=== PATIENT | male | born 1960 | race Caucasian/White ===

== ENCOUNTER → 2017-10-28 | Outpatient (CLI) | payer MEDICARE, BC, SELFPAY | PROVIDERS: Visit Provider Internal Medicine Adolescent Medicine | DX: E11.9 Type 2 diabetes mellitus without complications (principal); Z79.01 Long term (current) use of anticoagulants; Z51.81 Encounter for therapeutic drug level monitoring | CPT/HCPCS: 80053; 84550; 85025; 85610 ==

== ENCOUNTER → 2018-02-24 15:39 | Outpatient (REF) | payer MEDICARE, BC, SELFPAY ==
[2018-02-24 16:48] LABS: Basophils % 0.4 % (0.1-2.0); Eosinophils # 0.2 K/mm3 (0.0-0.4); Eosinophils % 4.2 % (0.1-12.0); Hemoglobin 13.9 g/dL (14.1-18.0); Lymphocytes # 1.5 K/mm3 (0.7-4.5); Lymphocytes % 33.9 K/mm3 (10-50); Mean Corpuscular HGB Conc 32.5 g/dL (31.8-35.4); Mean Corpuscular Hemoglobin 30.9 pg (27.0-31.2); Mean Corpuscular Volume 95.1 fl (80-94); Mean Platelet Volume 9.3 fl (7.4-10.4); Monocytes # 0.3 K/mm3 (0.1-1.0); Neutrophils # 2.4 K/mm3 (1.8-7.8); Neutrophils % 54.6 % (37.0-80.0); Platelet Count 216 K/mm3 (142-424); Red Blood Count 4.52 M/mm3 (4.60-6.20); Red Cell Distribution Width 13.6 % (11.5-17.5); White Blood Count 4.4 K/mm3 (4.8-10.8)
[2018-02-24 16:49] LABS: Anion Gap 10.2 mEq/L (5-15); Blood Urea Nitrogen 29 mg/dL (7-18); Carbon Dioxide 29 mmol/L (21.0-32.0); Chloride 107 mmol/L (98-107); Creatinine,Serum 0.76 mg/dL (0.70-1.30); Estimated Glomerular Filt Rate 105 ml/min (>60); GFR (African American) 127 ML/MIN (>60); Glucose 133 mg/dL (74-106); Potassium 4.2 mmoL/L (3.5-5.1); Sodium 142 mmol/L (136-145)
== END ==
LOC: LAB 15:39
PROVIDERS: Visit Provider Internal Medicine Adolescent Medicine
DX: D64.9 Anemia, unspecified (principal)
CPT/HCPCS: 80048; 85025

== ENCOUNTER → 2018-02-25 13:32 | Outpatient (POV) | payer MEDICARE, BC, SELFPAY ==
[2018-02-25 13:51] VITALS: BP 165/75; PULSE 81; RESP 18; TEMP 36.6; O2SAT 98
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
== END ==
PROVIDERS: Family Provider Internal Medicine Adolescent Medicine; PCP Internal Medicine Adolescent Medicine; Visit Provider Anesthesiology
DX: R25.2 Cramp and spasm (principal); G82.50 Quadriplegia, unspecified
CPT/HCPCS: 99202

== ENCOUNTER → 2018-07-19 14:04 | Outpatient (REF) | payer MEDICARE, BC, SELFPAY ==
[2018-07-19 15:56] LABS: INR 2.43 (0.9-1.1); Prothrombin Time 24.4 seconds (9.4-11.8)
== END ==
LOC: LAB 14:04
PROVIDERS: Visit Provider Internal Medicine Adolescent Medicine
DX: Z51.81 Encounter for therapeutic drug level monitoring (principal); Z79.01 Long term (current) use of anticoagulants
CPT/HCPCS: 85610

== ENCOUNTER 2019-03-13 20:23 | Observation (INO) | payer MEDICARE, OTHER, SELFPAY ==
[2019-03-13] VITALS (7 sets, daily range): BP systolic 109–124; BP diastolic 60–76; PULSE 79–118; RESP 14–17; TEMP 36.4–37.2; O2SAT 87–97; BMI 33.0
--- NOTE | 2019-03-13 20:43 | XR_ITS ---
XR chest portable HISTORY: Low O2 saturation ITS.REASON: LOW SATS ORDERING PHYSICIAN: Roman Arriola MD PATIENT AGE: 58 years COMPARISON: 11/09/2012 FINDINGS: There is elevated right hemidiaphragm. There is poor inspiration. The patient's head and torso is tilted toward the right. Normal heart size. Left lung is clear. Atelectatic changes are present in the right lung base which simulates a pneumoperitoneum. BARBECUE COOK shunt traverses the right hemithorax and pleural thickening on the right. Overall there is no significant change. There are old left-sided rib fractures IMPRESSION: Elevated right hemidiaphragm with right basilar atelectasis and mild pleural thickening on the right with low lung volumes
--- NOTE | 2019-03-13 21:00 | PC.NURSE ---
lab at bedside to get blood.
--- NOTE | 2019-03-13 21:05 | CT_ITS ---
CT abdomen pelvis wo con CLINICAL INDICATION: Vomiting, bloody emesis ITS.REASON: bloody emesis ORDERING PHYSICIAN: Rafy Tomas MD PATIENT AGE: 58 years COMPARISON: 12/26/2011 TECHNIQUE: Axial images obtained with sagittal and coronal reformats. All CT scans at the facility use one or more dose reduction, viz: automated exposure control, ma/kV adjustment per patient size (including targeted exams where dose is matched to indication, i.e. head), or iterative reconstruction technique. PROCEDURE: Oral Contrast: None IV Contrast: None . FINDINGS: There is elevated right hemidiaphragm with consolidation in the right lung base posterior laterally suspicious for pneumonia with chronic atelectatic changes in the right lower lobe. There is mild prominence of the ascending aorta 4 cm. The liver, spleen, gallbladder, and adrenal glands are unremarkable. There are nonobstructing bilateral renal calculi. The largest stone is in the lower pole on the left measuring 15 mm. The largest cluster stones is in the right mid polar region at 13 mm. No ureteral dilatation. No hydronephrosis. Indeterminate hypodense lesion left kidney anteriorly There is an IVC filter present. There is mild dilatation of the infrarenal abdominal aorta at 2.8 cm. A [employer] shunt traverses the right hemithorax with the tip in the right lower quadrant. Artifact is present from a pain along the left lower abdomen. There is a small left inguinal hernia which contains a loop of descending colon. Small amount fluid is present within this hernia. Small right inguinal hernia is present containing fat. There is a Lopez catheter present. G-tube is present in good position. Small amount fluid is present in the pelvis There is an old ununited left femoral neck fracture with superior displacement of the distal fracture fragment Chronic compression changes are present at L1 and L2. IMPRESSION: 1. Peripheral consolidation in the right lower lobe consistent with pneumonia with elevated right hemidiaphragm and right basilar atelectasis. 2. Bilateral nephrolithiasis 3. Indeterminate isodensity left kidney anteriorly which may be better evaluated with ultrasound. 4. ELEMENTARY SUBSTITUTE TEACHER shunt in place. 5. Small amount of free fluid in the pelvis. 6. Bilateral inguinal hernias left larger than right. A loop of descending colon is in the left inguinal hernia without obstruction
--- NOTE | 2019-03-13 21:07 | HMH.EDSOB ---
ED Disposition Clinical Impression: Gastrointestinal tube present UTI (urinary tract infection) Qualifiers: Urinary tract infection type: site unspecified Hematuria presence: without hematuria Qualified Code(s): N39.0 - Urinary tract infection, site not specified Diabetes mellitus Qualifiers: Diabetes mellitus type: type 1 Diabetes mellitus complication status: with unspecified complications Qualified Code(s): E10.8 - Type 1 diabetes mellitus with unspecified complications Disposition: Admitted as Observation Condition on Discharge: Good - Critical Care Critical Care Time: No Attestation: On 03/13/19, the high probability of a clinically significant, sudden or life threatening deterioration of the following system(s) required my full and direct attention, intervention and personal management. The time I documented below is in addition to time spent performing reported procedures but includes the following listed in this critical care notation. Medical Decision Making - Medical Records Medical records reviewed: Yes: I reviewed the patient's medical records. - Lobo Inquiry Pt receiving controlled substance: No Vital Signs: 03/13/19 20:25 03/13/19 20:30 03/13/19 21:25 Temperature 98.9 F 97.5 F L Temperature Source Rectal Rectal Pulse Rate [Right Brachial] 118 H 115 H 113 H Respiratory Rate 16 16 17 Blood Pressure [Right Arm] 115/70 116/71 120/60 Blood Pressure Mean [Right Arm] 85 86 80 02 Sat by Pulse Oximetry 87 L 91 L 93 L Oxygen Delivery Method Room Air Nasal Cannula Nasal Cannula Oxygen Flow Rate (LPM) 2 2 03/13/19 22:00 03/13/19 22:30 03/13/19 23:00 Temperature Temperature Source Pulse Rate [Right Brachial] 108 H 87 79 Respiratory Rate 14 15 Blood Pressure [Right Arm] 123/76 109/70 L 120/66 Blood Pressure Mean [Right Arm] 91 83 84 02 Sat by Pulse Oximetry 94 L 97 96 Oxygen Delivery Method Nasal Cannula Nasal Cannula Nasal Cannula Oxygen Flow Rate (LPM) 2 2 2 03/13/19 23:30 Temperature Temperature Source Pulse Rate [Right Brachial] 79 Respiratory Rate 15 Blood Pressure [Right Arm] 124/71 Blood Pressure Mean [Right Arm] 88 02 Sat by Pulse Oximetry 97 Oxygen Delivery Method Nasal Cannula Oxygen Flow Rate (LPM) 2 - Lab Data Lab results reviewed: Yes: I reviewed the patient's lab results. Lab Results 03/13/19 20:43: Specimen Source Right radial, O2 % 28, ABG pH 7.38, ABG pCO2 35.4, ABG pO2 71.6 L, ABG HCO3 20.6 L, ABG Total CO2 21.7 L, ABG O2 Saturation 94, ABG Base Excess -4.5 L, Jarrod Test Acceptable 03/13/19 20:59: WBC 9.0, RBC 4.88, Hgb 15.3, Hct 44.5, MCV 91.1, MCH 31.4 H, MCHC 34.4, RDW 14.0, Plt Count 234, MPV 9.0, Neut % (Auto) 76.3, Lymph % (Auto) 15.7, [place] % (Auto) 6.6, Eos % (Auto) 1.3, Baso % (Auto) 0.2, Neut # (Auto) 6.9, Lymph # (Auto) 1.4, [place] # (Auto) 0.6, Eos # (Auto) 0.1, Baso # (Auto) 0.0 03/13/19 20:59: Sodium 134 L, Potassium 4.2, Chloride 100, Carbon Dioxide 23, Anion Gap 15.2 H, BUN 24 H, Creatinine 0.66 L, Estimated Creat Clear 176, Estimated GFR 123, Est GFR ( Amer) 149, Glucose 261 H, Calcium 8.8, Total Bilirubin 0.5, AST 17, ALT 42, Alkaline Phosphatase 176 H, Total Protein 7.5, Albumin 3.1 L, Globulin 4.4 H, Albumin/Globulin Ratio 0.7 L 03/13/19 20:59: Lactate 1.7 03/13/19 20:59: Troponin I < 0.02 03/13/19 21:21: Urine Color Yellow, Urine Appearance Clear, Urine pH 7.5, Ur Specific [place] 1.010, Urine Protein Negative, Urine Glucose (UA) Negative, Urine Ketones Negative, Urine Blood Trace-i, Urine Nitrate Positive, Urine Bilirubin Negative, Urine Urobilinogen 0.2, Ur Leukocyte Esterase 3+ A, Urine RBC Occasional, Urine WBC 5-10, Ur Squamous Epith Cells Occasional, Urine Bacteria 1+ Result diagrams: 03/13/19 20:59 03/13/19 20:59 Orders (Tests/Meds): ED MEDICATIONS Generic Name Dose Route Start Last Admin Trade Name Freq PRN Reason Stop Dose Admin Sodium Chloride 1,000 mls @ 999 mls/hr 03/13/19 21:15 03/13/19 21:12 Sod Chlor 0.9% 10
[2019-03-13 21:10] LABS: Basophils % 0.2 % (0.1-2.0); Eosinophils # 0.1 K/mm3 (0.0-0.4); Eosinophils % 1.3 % (0.1-12.0); Hematocrit 44.5 % (42.0-52.0); Hemoglobin 15.3 g/dL (14.1-18.0); Lymphocytes # 1.4 K/mm3 (0.7-4.5); Lymphocytes % 15.7 % (10-50); Mean Corpuscular HGB Conc 34.4 g/dL (31.8-35.4); Mean Corpuscular Hemoglobin 31.4 pg (27.0-31.2); Mean Corpuscular Volume 91.1 fl (80-94); Monocytes # 0.6 K/mm3 (0.1-1.0); Monocytes % 6.6 % (1.7-9.3); Neutrophils # 6.9 K/mm3 (1.8-7.8); Neutrophils % 76.3 % (37.0-80.0); Platelet Count 234 K/mm3 (142-424); Red Blood Count 4.88 M/mm3 (4.60-6.20)
[2019-03-13 21:28] LABS: Alanine Aminotransferase 42 U/L (12-78); Albumin Level 3.1 gm/dL (3.4-5.0); Albumin/Globulin Ratio 0.7 (1.1-1.8); Alkaline Phosphatase 176 U/L (46-116); Anion Gap 15.2 mEq/L (5-15); Aspartate Amino Transferase 17 U/L (15-37); Bilirubin,Total 0.5 mg/dL (0.2-1.0); Blood Urea Nitrogen 24 mg/dL (7-18); Calcium 8.8 mg/dL (8.5-10.1); Carbon Dioxide 23 mmol/L (21.0-32.0); Chloride 100 mmol/L (98-107); Creatinine Clearance Estimated 176 mL/min (50-200); Creatinine,Serum 0.66 mg/dL (0.70-1.30); Estimated Glomerular Filt Rate 123 ml/min (>60); GFR (African American) 149 ML/MIN (>60); Globulin 4.4 gm/dl (1.3-3.2); Glucose 261 mg/dL (74-106); Potassium 4.2 mmoL/L (3.5-5.1); Sodium 134 mmol/L (136-145); Total Protein,Serum 7.5 gm/dL (6.4-8.2)
[2019-03-13 21:30] LABS: Appearance,Urine CLEAR (Clear); Bilirubin,Urine Negative (Negative); Blood, Urine TRACE-I (Negative); Color,Urine YELLOW (Yellow); Glucose,Urine (UA) Negative (Negative); Ketones,Urine Negative (Negative); Leukocyte Esterase,Urine 3+ (Negative); Microscopic, Urine URINE MICROSCOPIC (MICROSCOPIC); Nitrate,Urine POSITIVE (Negative); PH,Urine 7.5 (5.0-8.5); Protein,Urine Negative (Negative); Urobilinogen,Urine 0.2 EU/dl (0.2)
[2019-03-13 21:36] LABS: ABG Base Excess -4.5 mmol/L (-2.4-2.3); ABG HCO3 20.6 mmhg (22.0-26.0); ABG Oxygen Saturation 94 % (90-100); ABG PCO2 35.4 mmhg (35.0-45.0); ABG PH 7.38 mmol/L (7.35-7.45); ABG PO2 71.6 mmhg (80-100); ABG TCO2 21.7 mmhg (23-27)
[2019-03-13 21:38] LABS: Allen's Test Acceptable; Oxygen 28 %; Source Right Radial
[2019-03-13 21:38] LABS: Lactic Acid 1.7 mmol/L (0.4-2.0)
[2019-03-13 21:40] LABS: RBC,Urine Occasional #/hpf (0-3); Squamous Epithelial Cell,Urine Occasional #/hpf (0-5)
[2019-03-13 21:41] LABS: Bacteria,Urine 1+ /lpf
[2019-03-13 22:01] LABS: Troponin I < 0.02 ng/ml (0.00-0.06)
[2019-03-14] VITALS (10 sets, daily range): BP systolic 106–159; BP diastolic 62–86; PULSE 76–100; RESP 15–20; TEMP 36.3–37.1; O2SAT 94–99; BMI 27.3
--- NOTE | 2019-03-14 00:21 | PC.NURSE ---
Dr Arriola stated he would hold all home medications at this time.
--- NOTE | 2019-03-14 01:08 | PC.NURSE ---
PT ARRIVED TO FLOOR VIA STRETCHER FROM ED
[2019-03-14 04:09] LABS: Troponin I < 0.02 ng/ml (0.00-0.06)
--- NOTE | 2019-03-14 04:45 | PC.NURSE ---
PT ADMITTED FROM ER DX OF UTI. ÁLVAREZ CATHETER SECURE, URINE CLOUDY. IV FLUIDS INFUSING NS@ 50/HR. IV ABX WELL. RESPIRATIONS EVEN AND UNLABORED ON 2L/NC. BREATH SOUNDS EQUAL AND CLEAR. PT IS ALMOST COMPLETELY NON-VERBAL. CONTRACTURES ALL 4 EXTREMITIES. PT HAS HX ANOXIC BRAIN DAMAGE, CVA, AND IS FLACCID R/T HEMIPLEGIA. PT HAS NUMEROUS OTHER PROBLEMS LISTED. PT HAS DSG UNDER LEFT ARM PIT, DID NOT RECEIVED ANY INFORMATION FROM [facility] REGARDING THIS. PT NSR ON MONITOR. FIRST 2 TROPONINS HAVE BEEN <0.02. PT STABLE. WILL CONTINUE TO MONITOR. REPORT TO BE GIVEN TO ONCOMING NURSE.
--- NOTE | 2019-03-14 07:30 | P.CONPHA_ITS ---
[facility] Pharmacy VTE Monitoring - Patient Demographics Admission date: 03/13/19 Report Date: 03/14/19 Time: 07:30 Allergies/Adverse Reactions: Patient Allergies adhesive [ADHESIVE] Allergy (Mild, Verified 03/10/19 22:15) LISNIOPRIL Allergy (Mild, Uncoded 08/21/18 11:16) Height: 1.78 m Weight: 86.75 kg Patient Problems: Current Active Problems (Updated 03/14/19 @ 00:10 by Roman Arriola MD) UTI (urinary tract infection) (Acute) Diabetes mellitus (Acute) Gastrointestinal tube present (Acute) - VTE Risk Labs: VTE Related Lab Results Hgb 15.3 g/dL (14.1-18.0) 03/13/19 20:59 Hct 44.5 % (42.0-52.0) 03/13/19 20:59 Plt Count 234 K/mm3 (142-424) 03/13/19 20:59 BUN 24 mg/dL (7-18) H 03/13/19 20:59 Creatinine 0.66 mg/dL (0.70-1.30) L 03/13/19 20:59 Estimated Creat Clear 176 mL/min (50-200) 03/13/19 20:59 VTE Score: 7 VTE Risk Level: Moderate Risk - Prophylaxis VTE Prophylaxis Ordered?: Yes Types of VTE Prophylaxis: TEDS Knee High Location of Applied Device: Bilateral Lower Extremeties - VTE Diagnosis Confirmed Treatment or plan recommended: Continue Current Treatment
[2019-03-14 07:47] LABS: Chloride 106 mmol/L (98-107); Sodium 137 mmol/L (136-145); Troponin I < 0.02 ng/ml (0.00-0.06)
[2019-03-14 07:52] LABS: Anion Gap 14.3 mEq/L (5-15); Blood Urea Nitrogen 21 mg/dL (7-18); Carbon Dioxide 22 mmol/L (21.0-32.0); Creatinine Clearance Estimated 205 mL/min (50-200); Creatinine,Serum 0.47 mg/dL (0.70-1.30); Estimated Glomerular Filt Rate 182 ml/min (>60); GFR (African American) 220 ML/MIN (>60); Glucose 287 mg/dL (74-106); Potassium 5.3 mmoL/L (3.5-5.1)
[2019-03-14 07:53] LABS: Calcium 8.2 mg/dL (8.5-10.1); Magnesium 1.7 mg/dL (1.4-2.2)
[2019-03-14 07:59] LABS: Basophils % 0.2 % (0.1-2.0); Eosinophils # 0.1 K/mm3 (0.0-0.4); Hematocrit 41.1 % (42.0-52.0); Hemoglobin 14.3 g/dL (14.1-18.0); Lymphocytes # 0.7 K/mm3 (0.7-4.5); Lymphocytes % 13.3 % (10-50); Mean Corpuscular HGB Conc 34.7 g/dL (31.8-35.4); Mean Corpuscular Hemoglobin 32.1 pg (27.0-31.2); Mean Corpuscular Volume 92.6 fl (80-94); Mean Platelet Volume 10.9 fl (7.4-10.4); Monocytes # 0.4 K/mm3 (0.1-1.0); Monocytes % 6.5 % (1.7-9.3); Neutrophils # 4.3 K/mm3 (1.8-7.8); Neutrophils % 79.2 % (37.0-80.0); Platelet Count 201 K/mm3 (142-424); Red Blood Count 4.44 M/mm3 (4.60-6.20); White Blood Count 5.5 K/mm3 (4.8-10.8)
--- NOTE | 2019-03-14 08:53 | HMH.HPDC ---
General - General Admission date:: 03/14/19 Discharge date: 03/14/19 *Admission Date: 03/13/19 *Chief complaint: spitting up blood *History of present illness: Mr. Patel is a 58-year-old male with multiple comorbidities and a [place] [facility] due to concern for intermittent spitting up blood. Of note patient presented to the ER on Sunday of this week due to G-tube coming out and had an alternative tube placed that was not his normal. He has had some irritation at the site of insertion since. Remained afebrile without nausea or vomiting. No worsening shortness of breath. Initial assessment ER found him to have concern for a UTI. Received a dose of ceftriaxone. Was admitted for further management. [facility] History I have reviewed the patient's past medical history: Yes Medical History: Reports:: Coronary Artery Disease, Diabetes Mellitus Type 2, Hyperlipidemia Denies:: Cancer, Diabetes Mellitus Type 1, MRSA *Have you ever received a pneumonia vaccine?: Yes *Have you received a flu vaccine this season?: Yes Other Medical History: Reports: Anemia, Glaucoma, Hypothyroidism Amputation: No - *Social History Smoking Status: Unknown if ever smoked Alcohol Intake: never *Occupational Status:: disabled Housing: care home *Travel in the last 8 weeks: None - Psychiatric History Expresses thoughts of harming self/others: None Suicide Plan Description: No Plan Family Hx:: Unable to obtain Review of Systems - Review of Systems Review of systems:: unable to obtain Exam Vital signs and Labs for Last 24 Hours: Temp Pulse Resp BP Pulse Ox 97.5 F L 86 20 106/62 L 96 03/14/19 08:00 03/14/19 08:00 03/14/19 08:00 03/14/19 08:00 03/14/19 08:00 Laboratory Results - last 24 hr 03/13/19 20:43: Specimen Source Right radial, O2 % 28, ABG pH 7.38, ABG pCO2 35.4, ABG pO2 71.6 L, ABG HCO3 20.6 L, ABG Total CO2 21.7 L, ABG O2 Saturation 94, ABG Base Excess -4.5 L, Jarrod Test Acceptable 03/13/19 20:59: WBC 9.0, RBC 4.88, Hgb 15.3, Hct 44.5, MCV 91.1, MCH 31.4 H, MCHC 34.4, RDW 14.0, Plt Count 234, MPV 9.0, Neut % (Auto) 76.3, Lymph % (Auto) 15.7, [place] % (Auto) 6.6, Eos % (Auto) 1.3, Baso % (Auto) 0.2, Neut # (Auto) 6.9, Lymph # (Auto) 1.4, [place] # (Auto) 0.6, Eos # (Auto) 0.1, Baso # (Auto) 0.0 03/13/19 20:59: Sodium 134 L, Potassium 4.2, Chloride 100, Carbon Dioxide 23, Anion Gap 15.2 H, BUN 24 H, Creatinine 0.66 L, Estimated Creat Clear 176, Estimated GFR 123, Est GFR ( Amer) 149, Glucose 261 H, Calcium 8.8, Total Bilirubin 0.5, AST 17, ALT 42, Alkaline Phosphatase 176 H, Total Protein 7.5, Albumin 3.1 L, Globulin 4.4 H, Albumin/Globulin Ratio 0.7 L 03/13/19 20:59: Lactate 1.7 03/13/19 20:59: Troponin I < 0.02 03/13/19 21:21: Urine Color Yellow, Urine Appearance Clear, Urine pH 7.5, Ur Specific [place] 1.010, Urine Protein Negative, Urine Glucose (UA) Negative, Urine Ketones Negative, Urine Blood Trace-i, Urine Nitrate Positive, Urine Bilirubin Negative, Urine Urobilinogen 0.2, Ur Leukocyte Esterase 3+ A, Urine RBC Occasional, Urine WBC 5-10, Ur Squamous Epith Cells Occasional, Urine Bacteria 1+ 03/14/19 03:40: Troponin I < 0.02 03/14/19 06:10: WBC 5.5 D, RBC 4.44 L, Hgb 14.3, Hct 41.1 L, MCV 92.6, MCH 32.1 H, MCHC 34.7, RDW 14.0, Plt Count 201, MPV 10.9 H, Neut % (Auto) 79.2, Lymph % (Auto) 13.3, [place] % (Auto) 6.5, Eos % (Auto) 1.0, Baso % (Auto) 0.2, Neut # (Auto) 4.3, Lymph # (Auto) 0.7, [place] # (Auto) 0.4, Eos # (Auto) 0.1, Baso # (Auto) 0.0 03/14/19 06:10: Sodium 137, Potassium 5.3 H D, Chloride 106, Carbon Dioxide 22, Anion Gap 14.3, BUN 21 H, Creatinine 0.47 L D, Estimated Creat Clear 205, Estimated GFR 182, Est GFR ( Amer) 220 D, Glucose 287 H, Calcium 8.2 L, Magnesium 1.7, Troponin I < 0.02 I & O for Last 24 hours: Intake & Output 03/11/19 03/12/19 03/13/19 03/14/19 23:59 23:59 23:59 23:59 Intake Total 2454 / 2454 Output Total 950 / 950 Balance 1504 / 1504 Weigh
--- NOTE | 2019-03-14 08:57 | P.HPDS_ITS ---
General - General Admission date:: 03/14/19 Discharge date: 03/14/19 *Admission Date: 03/13/19 *Chief complaint: spitting up blood *History of present illness: Mr. Patel is a 58-year-old male with multiple comorbidities and a longtime resident at [facility] who presents due to concern for intermittent spitting up blood. Of note patient presented to the ER on Sunday of this week due to G-tube coming out and had an alternative tube placed that was not his normal. He has had some irritation at the site of insertion since. Remained afebrile without nausea or vomiting. No worsening shortness of breath. Initial assessment ER found him to have concern for a UTI. Received a dose of ceftriaxone. Was admitted for further management. [facility] History I have reviewed the patient's past medical history: Yes Medical History: Reports:: Coronary Artery Disease, Diabetes Mellitus Type 2, Hyperlipidemia Denies:: Cancer, Diabetes Mellitus Type 1, MRSA *Have you ever received a pneumonia vaccine?: Yes *Have you received a flu vaccine this season?: Yes Other Medical History: Reports: Anemia, Glaucoma, Hypothyroidism Amputation: No - *Social History Smoking Status: Unknown if ever smoked Alcohol Intake: never *Occupational Status:: disabled Housing: [facility] *Travel in the last 8 weeks: None - Psychiatric History Expresses thoughts of harming self/others: None Suicide Plan Description: No Plan Family Hx:: Unable to obtain Review of Systems - Review of Systems Review of systems:: unable to obtain Exam Vital signs and Labs for Last 24 Hours: Temp Pulse Resp BP Pulse Ox 97.5 F L 86 20 106/62 L 96 03/14/19 08:00 03/14/19 08:00 03/14/19 08:00 03/14/19 08:00 03/14/19 08:00 Laboratory Results - last 24 hr 03/13/19 20:43: Specimen Source Right radial, O2 % 28, ABG pH 7.38, ABG pCO2 35.4, ABG pO2 71.6 L, ABG HCO3 20.6 L, ABG Total CO2 21.7 L, ABG O2 Saturation 94, ABG Base Excess -4.5 L, Jarrod Test Acceptable 03/13/19 20:59: WBC 9.0, RBC 4.88, Hgb 15.3, Hct 44.5, MCV 91.1, MCH 31.4 H, MCHC 34.4, RDW 14.0, Plt Count 234, MPV 9.0, Neut % (Auto) 76.3, Lymph % (Auto) 15.7, [place] % (Auto) 6.6, Eos % (Auto) 1.3, Baso % (Auto) 0.2, Neut # (Auto) 6.9, Lymph # (Auto) 1.4, [place] # (Auto) 0.6, Eos # (Auto) 0.1, Baso # (Auto) 0.0 03/13/19 20:59: Sodium 134 L, Potassium 4.2, Chloride 100, Carbon Dioxide 23, Anion Gap 15.2 H, BUN 24 H, Creatinine 0.66 L, Estimated Creat Clear 176, Estimated GFR 123, Est GFR ( Amer) 149, Glucose 261 H, Calcium 8.8, Total Bilirubin 0.5, AST 17, ALT 42, Alkaline Phosphatase 176 H, Total Protein 7.5, Albumin 3.1 L, Globulin 4.4 H, Albumin/Globulin Ratio 0.7 L 03/13/19 20:59: Lactate 1.7 03/13/19 20:59: Troponin I < 0.02 03/13/19 21:21: Urine Color Yellow, Urine Appearance Clear, Urine pH 7.5, Ur Specific [place] 1.010, Urine Protein Negative, Urine Glucose (UA) Negative, Urine Ketones Negative, Urine Blood Trace-i, Urine Nitrate Positive, Urine Bilirubin Negative, Urine Urobilinogen 0.2, Ur Leukocyte Esterase 3+ A, Urine RBC Occasional, Urine WBC 5-10, Ur Squamous Epith Cells Occasional, Urine Bacteria 1+ 03/14/19 03:40: Troponin I < 0.02 03/14/19 06:10: WBC 5.5 D, RBC 4.44 L, Hgb 14.3, Hct 41.1 L, MCV 92.6, MCH 32.1 H, MCHC 34.7, RDW 14.0, Plt Count 201, MPV 10.9 H, Neut % (Auto) 79.2, Lymph % ( Auto) 13.3, [place] % (Auto) 6.5, Eos % (Auto) 1.0, Baso % (Auto) 0.2, Neut # (Auto) 4.3, Lymph # (Auto) 0.7, [place] # (Auto) 0.4, Eos # (Auto) 0.1, Baso # (Auto) 0.0 03/14/19 06:10: Sodium 137, Potassium 5.3 H D,
--- NOTE | 2019-03-14 08:58 | HMH.PHAINT ---
HOME MEDICATION RECONCILIATION COMPLETED USING [facility]
--- NOTE | 2019-03-14 11:43 | PC.NURSE ---
old dnr paper brought to hospital from [place] from 2003. Called pt's POA, Lucretia Saleh and verified code status. 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 second nurse to confirm telephone consent and new paper placed on chart.
[2019-03-14 12:17] LABS: POC Glucose,Bedside 294 (70-110)
[2019-03-14 12:24] LABS: POC Glucose,Bedside 278 (70-110)
--- NOTE | 2019-03-14 14:56 | PC.NURSE ---
report called to kendell pop rn at [facility]
--- NOTE | 2019-03-14 14:57 | PC.NURSE ---
asked dr lucia if wants pt to keep the md rozina orders to dc it
== END 2019-03-14 17:17 ==
LOC: ER 20:35 → 2ND 23:59
PROVIDERS: Admitting Provider Family Medicine; Emergency Provider Emergency Medicine; PCP Internal Medicine Adolescent Medicine; Visit Provider Internal Medicine Adolescent Medicine
DX: N39.0 Urinary tract infection, site not specified (principal); I25.10 Atherosclerotic heart disease of native coronary artery without angina pectoris; E11.9 Type 2 diabetes mellitus without complications; E78.5 Hyperlipidemia, unspecified; E03.9 Hypothyroidism, unspecified; R04.2 Hemoptysis; Z87.820 Personal history of traumatic brain injury; Z93.1 Gastrostomy status; Z79.01 Long term (current) use of anticoagulants; Z79.82 Long term (current) use of aspirin; Z79.890 Hormone replacement therapy; Z79.4 Long term (current) use of insulin; Z79.899 Other long term (current) drug therapy; Z88.8 Allergy status to other drugs, medicaments and biological substances; Z91.048 Other nonmedicinal substance allergy status
CPT/HCPCS: 36415; 71045; 74176; 80048; 80053; 81001; 82803; 82962; 83605; 83735; 84484; 85025; 87040; 87086; 87088; 87186; 93005; 96365; 96366; 96367; 96375; 99285; G0378; J2405

== ENCOUNTER 2019-05-27 08:30 | Outpatient (RCR) | payer MEDICARE, OTHER, SELFPAY | END 2019-05-27 08:35 | disposition home or self-care (01) | LOC: PT 08:30 | PROVIDERS: PCP Internal Medicine Adolescent Medicine; Visit Provider Internal Medicine Adolescent Medicine | DX: L03.112 Cellulitis of left axilla (principal) | CPT/HCPCS: 97161; 97597 ==

== ENCOUNTER → 2020-05-01 14:56 | Outpatient (CLI) | payer MEDICARE, OTHER, SELFPAY ==
[2020-05-01 15:03] LABS: Microscopic,Cath URINE MICROSCOPIC (MICROSCOPIC)
[2020-05-01 15:17] LABS: Appearance,Urine/Cath SL CLOUDY (Clear); Bilirubin,Cath Negative (Negative); Blood, Urine/Cath 3+ (Negative); Color,Urine/Cath YELLOW (Yellow); Glucose,Urine/Cath (UA) Negative (Negative); Ketones,Urine/Cath Negative (Negative); Leukocyte Esterase,Cath 1+ (Negative); Nitrate,Cath POSITIVE (Negative); Protein,Urine/Cath 2+ (Negative); Urobilinogen,Cath 0.2 EU/dl (0.2)
[2020-05-01 15:32] LABS: Amorphous Sediment,Ur/Cath 1+ /lpf; Bacteria,Urine/Cath 2+ /lpf; WBC,Urine/Cath 20-50 #/hpf (0-3)
== END ==
PROVIDERS: PCP Internal Medicine Adolescent Medicine; Visit Provider Internal Medicine Adolescent Medicine
DX: N39.0 Urinary tract infection, site not specified (principal)
CPT/HCPCS: 81001; 87086; 87088; 87186

== ENCOUNTER → 2020-07-20 11:09 | Outpatient (CLI) | payer MEDICARE, OTHER, SELFPAY ==
[2020-07-20 11:17] LABS: Basophils % 0.2 % (0.1-2.0); Eosinophils # 0.1 K/mm3 (0.0-0.4); Eosinophils % 0.4 % (0.1-12.0); Hematocrit 47.6 % (42.0-52.0); Hemoglobin 16.5 g/dL (14.1-18.0); Lymphocytes # 0.6 K/mm3 (0.7-4.5); Lymphocytes % 2.7 % (10-50); Mean Corpuscular HGB Conc 34.6 g/dL (31.8-35.4); Mean Corpuscular Hemoglobin 32.4 pg (27.0-31.2); Mean Corpuscular Volume 93.7 fl (80-94); Mean Platelet Volume 8.9 fl (7.4-10.4); Monocytes # 0.9 K/mm3 (0.1-1.0); Monocytes % 4.7 % (1.7-9.3); Neutrophils # 18.5 K/mm3 (1.8-7.8); Platelet Count 185 K/mm3 (142-424); Red Blood Count 5.08 M/mm3 (4.60-6.20); White Blood Count 20.1 K/mm3 (4.8-10.8)
[2020-07-20 11:22] LABS: MANUAL DIFFERENTIAL MANUAL DIFFERENTIAL (MANUAL DIFF)
[2020-07-20 11:23] LABS: Anion Gap 10.8 mEq/L (5-15); Blood Urea Nitrogen 40 mg/dl (9-20); Calcium 9.7 mg/dl (8.4-10.2); Carbon Dioxide 26 mmol/L (22.0-30.0); Chloride 106 mmol/L (98-107); Estimated Glomerular Filt Rate 98 ml/min (>60); GFR (African American) 119 ML/MIN (>60); Glucose 267 mg/dl (74-100); Potassium 4.8 mmoL/L (3.5-5.1); Sodium 138 mmol/L (136-145)
[2020-07-20 11:35] LABS: Lymphocytes % 5 % (10-50); Monocytes % 4 % (2-9); Neutrophils % 91 % (42-76); Platelet Estimate Normal; RBC Morphology Normal; Total Cells Counted 100
== END ==
PROVIDERS: Visit Provider Nurse Practitioner Family
DX: Z79.899 Other long term (current) drug therapy (principal)
CPT/HCPCS: 80048; 85007; 85025

== ENCOUNTER → 2020-08-18 16:52 | Outpatient (CLI) | payer MEDICARE, OTHER, SELFPAY ==
[2020-08-18 17:20] LABS: Basophils # 0.1 K/mm3 (0-0.2); Basophils % 0.2 % (0.1-2.0); Eosinophils % 0.2 % (0.1-12.0); Hemoglobin 13.1 g/dL (14.1-18.0); Lymphocytes # 0.4 K/mm3 (0.7-4.5); Lymphocytes % 1.8 % (10-50); Mean Corpuscular HGB Conc 30.5 g/dL (31.8-35.4); Mean Corpuscular Hemoglobin 29.8 pg (27.0-31.2); Mean Corpuscular Volume 97.6 fl (80-94); Mean Platelet Volume 8.9 fl (7.4-10.4); Monocytes # 0.7 K/mm3 (0.1-1.0); Monocytes % 2.8 % (1.7-9.3); Platelet Count 252 K/mm3 (142-424); Red Cell Distribution Width 13.9 % (11.5-17.5); White Blood Count 24.2 K/mm3 (4.8-10.8)
[2020-08-18 17:29] LABS: MANUAL DIFFERENTIAL MANUAL DIFFERENTIAL (MANUAL DIFF)
[2020-08-18 17:30] LABS: Chloride 108 mmol/L (98-107); Potassium 5.3 mmoL/L (3.5-5.1); Sodium 142 mmol/L (136-145)
[2020-08-18 17:33] LABS: Anion Gap 17.3 mEq/L (5-15); Blood Urea Nitrogen 63 mg/dl (9-20); Carbon Dioxide 22 mmol/L (22.0-30.0); Estimated Glomerular Filt Rate 44 ml/min (>60); GFR (African American) 53 ML/MIN (>60)
[2020-08-18 17:34] LABS: Calcium 8.8 mg/dl (8.4-10.2); Glucose 308 mg/dl (74-100)
[2020-08-18 17:49] LABS: Lymphocytes % 8 % (10-50); Monocytes % 5 % (2-9); Neutrophils % 82 % (42-76); Platelet Estimate Normal; RBC Morphology Normal; Total Cells Counted 100
== END ==
PROVIDERS: Visit Provider Internal Medicine Adolescent Medicine
DX: D64.9 Anemia, unspecified (principal)
CPT/HCPCS: 80048; 85007; 85025

== ENCOUNTER → 2020-08-19 07:48 | Outpatient (CLI) | payer MEDICARE, OTHER, SELFPAY ==
[2020-08-19 08:16] LABS: Basophils % 0.2 % (0.1-2.0); Eosinophils % 0.1 % (0.1-12.0); Hematocrit 38.9 % (42.0-52.0); Lymphocytes # 0.7 K/mm3 (0.7-4.5); Lymphocytes % 4.2 % (10-50); Mean Corpuscular HGB Conc 30.2 g/dL (31.8-35.4); Mean Corpuscular Hemoglobin 29.4 pg (27.0-31.2); Mean Corpuscular Volume 97.4 fl (80-94); Mean Platelet Volume 9.3 fl (7.4-10.4); Monocytes # 0.6 K/mm3 (0.1-1.0); Monocytes % 3.6 % (1.7-9.3); Neutrophils # 15.5 K/mm3 (1.8-7.8); Platelet Count 230 K/mm3 (142-424); Red Blood Count 3.99 M/mm3 (4.60-6.20); Red Cell Distribution Width 14.3 % (11.5-17.5); White Blood Count 16.9 K/mm3 (4.8-10.8)
[2020-08-19 08:32] LABS: Chloride 105 mmol/L (98-107); Potassium 5.6 mmoL/L (3.5-5.1); Sodium 140 mmol/L (136-145)
[2020-08-19 08:35] LABS: Anion Gap 15.6 mEq/L (5-15); Carbon Dioxide 25 mmol/L (22.0-30.0); Estimated Glomerular Filt Rate 38 ml/min (>60); GFR (African American) 46 ML/MIN (>60)
[2020-08-19 08:36] LABS: Calcium 8.8 mg/dl (8.4-10.2); Glucose 386 mg/dl (74-100)
[2020-08-19 09:23] LABS: Blood Urea Nitrogen 83 mg/dl (9-20)
[2020-08-19 09:29] LABS: MANUAL DIFFERENTIAL MANUAL DIFFERENTIAL (MANUAL DIFF)
[2020-08-19 10:54] LABS: Lymphocytes % 10 % (10-50); Monocytes % 3 % (2-9); Neutrophils % 83 % (42-76); Platelet Estimate Normal; RBC Morphology Normal; Total Cells Counted 100
[2020-08-19 11:15] LABS: Hemoglobin 11.7 g/dL (14.1-18.0)
== END ==
PROVIDERS: Visit Provider Nurse Practitioner Family
DX: R50.9 Fever, unspecified (principal)
CPT/HCPCS: 80048; 83605; 85007; 85025; 85610; 87040

== ENCOUNTER 2020-08-19 15:49 | Inpatient (IN) | payer MEDICARE, OTHER, SELFPAY ==
--- NOTE | 2020-08-19 | XR_ITS ---
PROCEDURE: XR KUB CLINICAL INDICATION: G-tube placement evaluation with Gastrografin COMPARISON: CT CT ABDOMEN PELVIS WO CON from 08/19/2020 FINDINGS: Four images are submitted with 2 images with contrast injected into the G-tube showing intragastric location. No contrast extravasation apparent. Incidental note is made LUMBER HACKER shunt, bilateral nephrolithiasis, intrathecal catheter, and an IVC filter with degenerative changes of the lumbar spine with leftward scoliosis. IMPRESSION: Intraluminal gastric position of the G-tube. Dictated by: Jarrod Walter MD 08/20/2020 05:26 Jarrod Walter MD in [place] 08/20/2020 05:26
[2020-08-19 15:54] VITALS: BP 118/65; PULSE 120; RESP 19; TEMP 36.8; O2SAT 96; BMI 28.8
[2020-08-19 16:00] VITALS: PULSE 120; RESP 19; O2SAT 96
--- NOTE | 2020-08-19 16:13 | HMH.PHAINT ---
HOME MEDICATION RECONCILIAITON COMPLETED USING MAR FROM [facility]
--- NOTE | 2020-08-19 16:45 | P.PCN_ITS ---
[facility] Procedure Note Procedure Note:: Procedure: Replacement gastrostomy tube Indications: Malfunctioning gastrostomy tube (Liban-Liao button) Anesthesia: None Description: Fluid was aspirated from the patient's malfunctioning Liban-Liao button. A replacement 18 Italian gastrostomy tube was placed in position and the balloon was instilled with 15 mL of sterile water. Dressings were placed. The flange was secured in position. Patient's: None Estimated blood loss: none
[2020-08-19 16:48] LABS: Lactic Acid 1.3 mmol/L (0.7-2.1)
[2020-08-19 16:51] LABS: Basophils % 0.1 % (0.1-2.0); Chloride 108 mmol/L (98-107); Eosinophils % 0.1 % (0.1-12.0); Hematocrit 36.8 % (42.0-52.0); Lymphocytes % 5.3 % (10-50); Mean Corpuscular HGB Conc 29.9 g/dL (31.8-35.4); Mean Corpuscular Hemoglobin 29.5 pg (27.0-31.2); Mean Corpuscular Volume 98.7 fl (80-94); Mean Platelet Volume 9.4 fl (7.4-10.4); Monocytes # 0.6 K/mm3 (0.1-1.0); Monocytes % 3.4 % (1.7-9.3); Neutrophils # 16.9 K/mm3 (1.8-7.8); Platelet Count 225 K/mm3 (142-424); Potassium 5.2 mmoL/L (3.5-5.1); Red Blood Count 3.73 M/mm3 (4.60-6.20); Sodium 142 mmol/L (136-145); White Blood Count 18.6 K/mm3 (4.8-10.8)
[2020-08-19 16:54] LABS: Anion Gap 10.2 mEq/L (5-15); Calcium 8.8 mg/dl (8.4-10.2); Carbon Dioxide 29 mmol/L (22.0-30.0); Creatinine Clearance Estimated 56 mL/min (50-200); Estimated Glomerular Filt Rate 41 ml/min (>60); GFR (African American) 50 ML/MIN (>60); Glucose 376 mg/dl (74-100)
[2020-08-19 16:56] LABS: MANUAL DIFFERENTIAL MANUAL DIFFERENTIAL (MANUAL DIFF)
[2020-08-19 16:58] LABS: Blood Urea Nitrogen 87 mg/dl (9-20)
[2020-08-19 16:59] LABS: INR 1.04 (0.9-1.1); Prothrombin Time 11.5 seconds (9.4-11.8)
[2020-08-19 17:06] LABS: Coronavirus 19 IgG Antibody Positive (Negative); Coronavirus 19 IgM Antibody Positive (Negative)
[2020-08-19 17:08] LABS: Lymphocytes % 16 % (10-50); Monocytes % 1 % (2-9); Neutrophils % 83 % (42-76); Platelet Estimate Normal; RBC Morphology Normal; Total Cells Counted 100
--- NOTE | 2020-08-19 17:25 | PC.NURSE ---
LT Axillae 5 CM X 4 CM x 1.5 CM
[2020-08-19 17:53] LABS: Adenovirus,PCR Not Detected (NotDetected); Bordetella Pertussis Not Detected (NotDetected); Chlamydophila Pneumoniae, PCR Not Detected (NotDetected); Coronavirus 19, PCR Not Detected (NotDetected); Coronavirus 229E Not Detected (NotDetected); Coronavirus NL63 Not Detected (NotDetected); Coronavirus OC43 Not Detected (NotDetected); Coronovirus HKU1,PCR Not Detected (NotDetected); Human Metapneumovirus Not Detected (NotDetected); Influenza A, PCR Not Detected (NotDetected); Influenza AH1, 2009 Not Detected (NotDetected); Influenza AH1, PCR Not Detected (NotDetected); Influenza AH3,PCR Not Detected (NotDetected); Influenza B, PCR Not Detected (NotDetected); Mycoplasma Pneumoniae, PCR Not Detected (NotDetected); Parainfluenza 1, PCR Not Detected (NotDetected); Parainfluenza 2, PCR Not Detected (NotDetected); Parainfluenza 3, PCR Not Detected (NotDetected); Parainfluenza 4, PCR Not Detected (NotDetected); Respiratory Syncytial Virus Not Detected (NotDetected); Rhinovirus/Enterovirus Not Detected (NotDetected)
--- NOTE | 2020-08-19 19:36 | CT_ITS ---
PROCEDURE: CT ABDOMEN PELVIS WO CON CLINICAL INDICATION: GI BLEED, FEVER Fever and GI bleed, anemia COMPARISON: CT ABDPELWO CT abdomen pelvis wo con from 03/13/2019 TECHNIQUE: Axial images obtained with sagittal and coronal reformats. All CT scans at the facility use one or more dose reduction, viz: automated exposure control, ma/kV adjustment per patient size (including targeted exams where dose is matched to indication, i.e. head), or iterative reconstruction technique. FINDINGS: The liver, gallbladder, adrenal glands, and pancreas have an unremarkable appearance. There is splenomegaly at 14 cm. There are numerous bilateral renal calculi. No right-sided hydronephrosis. There is mild left hydronephrosis and hydroureter. No definite ureteral calculus however is evident. There is mild haziness of the left perinephric renal fat with edematous appearance of the left kidney raising the suspicion of possible pyelonephritis. Stones on the right measure up to seven mm. Stones on the left measure up to 11 mm. There is a 16 mm exophytic density projecting off the anterior aspect of the left kidney possibly due to cyst. There are multiple layering calculi within the urinary bladder. Urinary bladder is distended with scattered foci of gas in the urinary bladder. Has there been recent catheterization? IVC filter is present with the cephalad tip below the level of the renal veins. No intestinal obstruction or free air. FAILURE ANALYSIS TECHNICIAN shunts are present. Short-segment herniation of sigmoid colon noted in the left inguinal hernia without evidence of obstruction. No evidence of appendicitis or diverticulitis. There is a gastrostomy tube present in good position in the region of the body of the stomach. Mild aneurysmal dilatation noted of the infrarenal abdominal aorta at 3 cm. Urinary bladder is distended with intraluminal air. There is also multifocal submucosal air around the periphery of the urinary bladder. Multiple layering stones are present posteriorly. Chronic appearing left femoral neck fracture with override of the proximal femur producing signal acetabulum developing along the superior lateral acetabular margin. Chronic compression fracture of L1 and L2 T12 and L3 there is an IVC filter present. There is avascular necrosis of the left femoral head. There is lumbar scoliosis convex left. Bilateral inguinal hernias containing fat. There is a loop of sigmoid colon in the left inguinal hernia without obstruction. Fluid is present in the inferior aspect of the left inguinal hernia. Spinal infusion catheter with infusion device in the left lower quadrant. The tubing appears disconnected in the posterior subcutaneous fat. A FAILURE ANALYSIS TECHNICIAN shunt is present on the right. IMPRESSION: 1. Moderate left-sided hydronephrosis with hydroureter with multiple bilateral renal calculi. Calcific sludge are smaller in stones noted urinary bladder. Possibly recently passed left ureteral stone. There is mild edema of the left kidney suspected with mild stranding of the left perinephric renal fat. Pyelonephritis is also consideration. 2. Small amount air is present in the bladder including numerous small foci of submucosal air in the periphery of the bladder which could be seen with emphysematous cystitis. 3. Bilateral inguinal hernias with partial herniation of the sigmoid colon in the left inguinal hernia without obstruction. 4. Mild aneurysmal dilatation of the infrarenal abdominal aorta at 3.1 cm. 5. Multiple other nonacute findings as detailed above. Dictated by: Jarrod Walter MD 08/20/2020 07:20 Jarrod Walter MD in [place] 08/20/2020 07:20
--- NOTE | 2020-08-19 19:37 | CT_ITS ---
PROCEDURE: CT CHEST WO CON CLINICAL INDICATION: FEVER, TACHYPNEA, EFFUSION COMPARISON: No exams were available for comparison TECHNIQUE: Axial images obtained with sagittal and coronal reformats. All CT scans at the facility use one or more dose reduction, viz: automated exposure control, ma/kV adjustment per patient size (including targeted exams where dose is matched to indication, i.e. head), or iterative reconstruction technique. FINDINGS: The patient is tilted toward the right with thoracic curvature convex left. There is cardiomegaly. There is prominence of the ascending aorta at 4.4 cm. There are mildly prominent nodes in the pretracheal region and right paratracheal region measuring up to 2 cm. No mediastinal or hilar mass is evident. There are small bilateral pleural effusions with elevated right hemidiaphragm with atelectatic changes in the right lung base. There is small left pleural effusion with left basilar atelectasis also noted. There is a 4 mm noncalcified nodule in the left upper lobe image 22. 5 mm noncalcified nodule left upper lobe image 14. There are old fractures of the right 1st and 2nd ribs. Bilateral gynecomastia. TOPPER PRESS OPERATOR shunt traverses the right hemithorax. There is an intrathecal catheter extending to the midthoracic region. IMPRESSION: 1. Low lung volumes with small bilateral pleural effusions and bibasilar atelectasis right greater than left. 2. Cardiomegaly with mild mediastinal adenopathy and mild dilatation of the ascending aorta. 3. Two left upper lobe nodules at 4 and 5 mm. Consider six-month follow-up. Dictated by: Jarrod Walter MD 08/20/2020 07:08 Jarrod Walter MD in [place] 08/20/2020 07:08
--- NOTE | 2020-08-19 19:39 | XR_ITS ---
PROCEDURE: XR CHEST PORTABLE CLINICAL HISTORY: FEVER COMPARISON: CR CXR1 CHEST-PORTABLE from 10/29/2012 CR CXR1 CHEST-PORTABLE from 11/09/[address] CHEST WO CON from 08/19/2020 FINDINGS: There are low lung volumes with cardiomegaly and prominence of the mediastinum. Atelectatic changes are present in the right lung base with small right effusion. YARD LOADER OPERATOR shunt traverses the right hemithorax and there is an intrathecal catheter overlying the midthoracic and lower thoracic spine. Elevated right hemidiaphragm. No acute bony abnormalities. IMPRESSION: As above, elevated right hemidiaphragm with right basilar atelectasis and small right effusion Dictated by: Jarrod Walter MD 08/20/2020 05:27 Jarrod Walter MD in [place] 08/20/2020 05:27
[2020-08-19 20:00] VITALS: BP 119/68; PULSE 120; RESP 20; TEMP 36.6; O2SAT 97
[2020-08-19 20:27] LABS: POC Glucose,Bedside 367 (70-110)
--- NOTE | 2020-08-19 21:19 | PC.NURSE ---
patient off floor to CT.
--- NOTE | 2020-08-19 21:34 | HMH.HP ---
*Admission Date: 08/19/20 *Chief complaint: Fever *History of present illness: 60 yr [place] [facility] [place] and possible GI bleeding. 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 group home staff noted hematuria about 48 hours ago as well as low-grade fevers and coffee-ground residual from his PEG. Urine was obtained by in-and-out catheter and is currently pending with their outside lab. CXR and labs done yesterday incidated a right sided pleural effusion and possible pneumonia, labs with leukocytosis and acute kidney injury so his lasix and potassium were held and he was given a one-time injection of rocephin IM yesterday and started on azithromycin and cefdinir per tube. I ordered labs to follow-up today and his BUN had increased to 83, creatinine to 1.8 and hemoglobin dropped from 13 to 11. After discussion with staff and his sister, decision was made to admit for imaging and IV hydration. COVID testing yesterday by PCR is negative today and he has had known exposure to COVID or other illness. Last month he had a similar episode of fever, cough and leukocytosis but all symptoms resolved and labs normalized with cefdinir and azithromycin. Interestingly, his blood glucose levels have been very difficult to control over the past month and are previously very well controlled with scheduled basal insulin and his tube feed schedule. 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 [facility] History I have reviewed the patient's past medical history: Yes Medical History: Reports:: Coronary Artery Disease, Deep Vein Thrombosis, Diabetes Mellitus Type 2, Hyperlipidemia, Seizures, Urinary Tract Infection Denies:: Cancer, Diabetes Mellitus Type 1, MRSA *Have you ever received a pneumonia vaccine?: Yes *Have you received a flu vaccine this season?: Yes Other Medical History: Reports: Anemia, Glaucoma, Hypothyroidism Other Surgeries: Yes: EGD, Other (PEG placement) Amputation: No - *Social History Smoking Status: Never smoker Alcohol Intake: never *Occupational Status:: disabled Housing: custodial *Travel in the last 8 weeks: None Family Hx:: Non-contributory, Anemia, Asthma, Cancer, Coronary Artery Disease, Heart Attack, Hyperlipidemia, Hypertension Review of Systems - Review of Systems Review of systems:: pertinent systems reviewed and negative unless documented below ROS taken from custodial staff, resident unable - Constitutional Reports fever(s) - ENT Reports bad breath - *Cardiovascular Reports shortness of breath - *Respiratory Reports shortness of breath - *Gastrointestinal Reports abdominal pain - *Genitourinary Reports urinary incontinence - *Musculoskeletal Reports limited joint movement - Integumentary/Breasts Reports non-healing lesions (LEFT axilla/chest - followed by computer systems support specialist at [place]) - Psychiatric Reports behavioral changes Meds Home Medications Medication Instructions Recorded Confirmed Type Hydrocodone/Acetaminophen 7.5 mg G-TUBE QID 02/25/18 08/19/20 History [Hydrocodone-Acetamin 7.5-325] Metoclopramide HCl [Metoclopramide 5 ml G-TUBE QID 02/25/18 08/19/20 History 5mg/5ml Oral Soln] OXcarbazepine [Trileptal 150mg 150 mg G-TUBE TID 02/25/18 08/19/20 History tablet] Pravastatin Sodium 80 mg G-TUBE DAILY 02/25/18 08/19/20 History Quetiapine Fumarate 25 mg G-TUBE HS 02/25/18 08/19/20 History Zonisamide 400 mg PO HS 02/25/18 08/19/20 History acetaZOLAMIDE [Acetazolamide] 125 mg G-TUBE DAILY 02/25/18 08/19/20 History Aspirin [Aspir 81] 81 mg G-TUBE DAILY 03/10/19 08/19/20 History Citalopram Hydrobromide 20 mg G-TUBE DAILY 03/10/19 08/19/20 History [Citalopram 20mg Tablet] Docusate Sodium [Docusate Sod 150 mg G-TUBE DAILY PRN 03/10/19 08/19/20 History Liquid 100mg/10mL udc] Insulin Glargine,Hum.rec.anlog 30 unit SQ HS
--- NOTE | 2020-08-19 21:54 | PC.NURSE ---
patient up to floor from CT.
--- NOTE | 2020-08-20 03:21 | PC.NURSE ---
Pt has slept most of this shift. Denies sob/pain, while exhibiting no nonverbal s/sx of distress. Repositioned every 2 hrs. Lung sounds are clear and diminished in the bases. VSS. Pt was slightly diaphoretic at beginning of shift, but has been dry since approx. 2100.
[2020-08-20 04:00] VITALS: BP 119/64; PULSE 114; RESP 24; TEMP 36.7; O2SAT 95
[2020-08-20 05:15] VITALS: BMI 28.9
[2020-08-20 05:41] LABS: POC Glucose,Bedside 318 (70-110)
--- NOTE | 2020-08-20 06:26 | HMH.GSCON ---
*Admission Date: 08/19/20 *Reason for consult:: Possible soft tissue infection/abscess; coffee-ground emesis *History of present illness: Is a 60-year-old gentleman seen in consultation from Dr. Tomas for evaluation regarding possible infection around gastrostomy tube and coffee-ground emesis. Please see truncated HPI from admission H&P forwarded below. From admission H&P: 60 [place] [facility] [place] and possible GI bleeding. 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 halfway staff noted hematuria about 48 hours ago as well as low-grade fevers and coffee-ground residual from his PEG. Urine was obtained by in-and-out catheter and is currently pending with their outside lab. CXR and labs done yesterday incidated a right sided pleural effusion and possible pneumonia, labs with leukocytosis and acute kidney injury so his lasix and potassium were held and he was given a one-time injection of rocephin IM yesterday and started on azithromycin and cefdinir per tube. I ordered labs to follow-up today and his BUN had increased to 83, creatinine to 1.8 and hemoglobin dropped from 13 to 11. After discussion with staff and his sister, decision was made to admit for imaging and IV hydration. Review of Systems - Review of Systems Review of systems:: unable to obtain - *Neurologic Reports behavioral changes [facility] History Medical History: Reports:: Coronary Artery Disease, Deep Vein Thrombosis, Diabetes Mellitus Type 2, Hyperlipidemia, Seizures, Urinary Tract Infection Denies:: Cancer, Diabetes Mellitus Type 1, MRSA *Have you ever received a pneumonia vaccine?: Yes *Have you received a flu vaccine this season?: Yes Other Medical History: Reports: Anemia, Glaucoma, Hypothyroidism Other Surgeries: Yes: EGD, Other (PEG placement) Amputation: No - *Social History Smoking Status: Never smoker Alcohol Intake: never *Occupational Status:: disabled Housing: penitentiary *Travel in the last 8 weeks: None Family Hx:: Non-contributory, Anemia, Asthma, Cancer, Coronary Artery Disease, Heart Attack, Hyperlipidemia, Hypertension Meds Home Medications Medication Instructions Recorded Confirmed Type Hydrocodone/Acetaminophen 7.5 mg G-TUBE QID 02/25/18 08/19/20 History [Hydrocodone-Acetamin 7.5-325] Metoclopramide HCl [Metoclopramide 5 ml G-TUBE QID 02/25/18 08/19/20 History 5mg/5ml Oral Soln] OXcarbazepine [Trileptal 150mg 150 mg G-TUBE TID 02/25/18 08/19/20 History tablet] Pravastatin Sodium 80 mg G-TUBE DAILY 02/25/18 08/19/20 History Quetiapine Fumarate 25 mg G-TUBE HS 02/25/18 08/19/20 History Zonisamide 400 mg PO HS 02/25/18 08/19/20 History acetaZOLAMIDE [Acetazolamide] 125 mg G-TUBE DAILY 02/25/18 08/19/20 History Aspirin [Aspir 81] 81 mg G-TUBE DAILY 03/10/19 08/19/20 History Citalopram Hydrobromide 20 mg G-TUBE DAILY 03/10/19 08/19/20 History [Citalopram 20mg Tablet] Docusate Sodium [Docusate Sod 150 mg G-TUBE DAILY PRN 03/10/19 08/19/20 History Liquid 100mg/10mL udc] Insulin Glargine,Hum.rec.anlog 30 unit SQ HS 03/10/19 08/19/20 History [Lantus Insulin 100units/mL 10mL vial] Levothyroxine Sodium 100 mg G-TUBE DAILY 03/10/19 08/19/20 History [Levothyroxine 100mcg (0.1MG) Tab] polyethylene glycoL 3350 [Miralax 17 gm G-TUBE DAILY 03/14/19 08/19/20 History 17gm Packet] Acetaminophen 650 mg G-TUBE Q4HP PRN 08/19/20 08/19/20 History Acetaminophen [Feverall] 650 mg RC Q4HP PRN 08/19/20 08/19/20 History Albuterol Sulfate [Albuterol 2.5 mg IH Q4HP PRN 08/19/20 08/19/20 History 0.083% 2.5mg/3mL neb] Azithromycin 250 mg PO DAILY 08/19/20 08/19/20 History Baclofen [Lioresal 10mg tablet] 10 mg PO TIDP PRN 08/19/20 08/19/20 History Carboxymethylcellulose Sodium 1 drp OP TID 08/19/20 08/19/20 History [Refresh Liquigel] Cefdinir [Omnicef 300mg Capsule] 300 mg
[2020-08-20 06:59] LABS: Basophils % 0.1 % (0.1-2.0); Eosinophils % 0.2 % (0.1-12.0); Hematocrit 34.6 % (42.0-52.0); Hemoglobin 10.6 g/dL (14.1-18.0); Lymphocytes # 0.9 K/mm3 (0.7-4.5); Lymphocytes % 5.5 % (10-50); Mean Corpuscular HGB Conc 30.5 g/dL (31.8-35.4); Mean Corpuscular Hemoglobin 29.9 pg (27.0-31.2); Mean Corpuscular Volume 97.8 fl (80-94); Mean Platelet Volume 9.1 fl (7.4-10.4); Monocytes # 0.5 K/mm3 (0.1-1.0); Monocytes % 2.8 % (1.7-9.3); Neutrophils # 14.5 K/mm3 (1.8-7.8); Neutrophils % 91.3 % (37.0-80.0); Platelet Count 188 K/mm3 (142-424); Red Blood Count 3.54 M/mm3 (4.60-6.20); Red Cell Distribution Width 13.9 % (11.5-17.5); White Blood Count 15.9 K/mm3 (4.8-10.8)
--- NOTE | 2020-08-20 07:00 | US_ITS ---
PROCEDURE: US ABDOMEN LIMITED CLINICAL INDICATION: Peg Tube Greenish drainage from PEG tube site COMPARISON: CT CT ABDOMEN PELVIS WO CON from 08/19/2020 FINDINGS: Ultrasound is performed of the PEG tube site. No abnormal fluid collection is evident in the soft tissues adjacent to the PEG tube. IMPRESSION: Unremarkable soft tissue evaluation adjacent to the PEG tube insertion site Dictated by: Jarrod Walter MD 08/20/2020 12:41 Jarrod Walter MD in [place] 08/20/2020 12:41
[2020-08-20 07:02] LABS: Chloride 112 mmol/L (98-107)
[2020-08-20 07:03] LABS: Potassium 4.4 mmoL/L (3.5-5.1); Sodium 146 mmol/L (136-145)
[2020-08-20 07:05] LABS: Estimated Glomerular Filt Rate 56 ml/min (>60); GFR (African American) 68 ML/MIN (>60)
[2020-08-20 07:06] LABS: Anion Gap 9.4 mEq/L (5-15); Calcium 8.7 mg/dl (8.4-10.2); Carbon Dioxide 29 mmol/L (22.0-30.0); Glucose 307 mg/dl (74-100)
[2020-08-20 07:07] LABS: MANUAL DIFFERENTIAL MANUAL DIFFERENTIAL (MANUAL DIFF)
[2020-08-20 07:23] LABS: Lymphocytes % 5 % (10-50); Monocytes % 3 % (2-9); Neutrophils % 88 % (42-76); Total Cells Counted 100
[2020-08-20 07:24] LABS: Hypochromasia 1+; Macrocytosis 1+; Platelet Estimate Normal
--- NOTE | 2020-08-20 07:26 | HMH.PHAVTE ---
[facility] Pharmacy VTE Monitoring - Patient Demographics Admission date: 08/19/20 Report Date: 08/20/20 Time: 07:26 Allergies/Adverse Reactions: Patient Allergies adhesive [ADHESIVE] Allergy (Mild, Verified 03/14/19 08:21) Unknown allergy reaction lisinopril Allergy (Mild, Verified 03/14/19 08:21) Unknown allergy reaction Height: 1.75 m Weight: 88.507 kg Patient Problems: Current Active Problems UTI (urinary tract infection) (Acute) Diabetes mellitus (Chronic) Gastrointestinal tube present (Chronic) TBI (traumatic brain injury) (Chronic) Fever (Acute) GI bleed (Acute) History of DVT (deep vein thrombosis) (Chronic) Paralysis (Chronic) NUBIA (acute kidney injury) (Acute) Leukocytosis (Acute) History of seizure (Chronic) Feeding tube dysfunction (Acute) - VTE Risk Labs: VTE Related Lab Results Hgb 10.6 g/dL (14.1-18.0) L 08/20/20 06:29 Hct 34.6 % (42.0-52.0) L 08/20/20 06:29 Plt Count 188 K/mm3 (142-424) 08/20/20 06:29 BUN 87 mg/dl (9-20) H 08/19/20 16:30 Creatinine 1.70 mg/dl (0.66-1.25) H 08/19/20 16:30 Estimated Creat Clear 56 mL/min (50-200) 08/19/20 16:30 Was VTE Risk Assessment Performed: Yes VTE Score: 5 VTE Risk Level: Low Risk - Prophylaxis VTE Prophylaxis Ordered?: Yes Types of VTE Prophylaxis: TEDS Knee High Location of Applied Device: Bilateral Lower Extremeties
[2020-08-20 07:35] LABS: Blood Urea Nitrogen 76 mg/dl (9-20)
[2020-08-20 08:00] VITALS: BP 146/76; PULSE 115; RESP 16; TEMP 36.7; O2SAT 98
--- NOTE | 2020-08-20 08:34 | HMH.ACPN2 ---
Internal Medicine - PN: Subj *Date: 08/20/20 *Time: 08:34 Interval history: Mr. Patel remained stable overnight. Remained afebrile. Hemodynamically stable. Incontinent in a diaper. Replacement G-tube button placed yesterday, has had significant leakage however overnight. Responded with simple yes no answers to interview today. Comfortable supine in bed. Exam Vital signs and Labs for Last 24 Hours: Temp Pulse Resp BP Pulse Ox 98.1 F 114 H 24 119/64 95 08/20/20 04:00 08/20/20 04:00 08/20/20 04:00 08/20/20 04:00 08/20/20 04:00 Laboratory Results - last 24 hr 08/19/20 16:30: SARS-CoV-2 IgG Ab (Rapid) Positive A, SARS-CoV-2 IgM Ab (Rapid) Positive A 08/19/20 16:30: WBC 18.6 H, RBC 3.73 L, Hgb 11.0 L, Hct 36.8 L, MCV 98.7 H, MCH 29.5, MCHC 29.9 L, RDW 14.0, Plt Count 225, MPV 9.4, Neut % (Auto) 91.0 H, Lymph % (Auto) 5.3 L, [place] % (Auto) 3.4, Eos % (Auto) 0.1, Baso % (Auto) 0.1, Neut # (Auto) 16.9 H, Lymph # (Auto) 1.0, [place] # (Auto) 0.6, Eos # (Auto) 0.0, Baso # (Auto) 0.0, Total Counted 100, Neutrophils % (Manual) 83 H, Lymphocytes % (Manual) 16, Monocytes % (Manual) 1 L, Platelet Estimate Normal, RBC Morphology Normal 08/19/20 16:30: Sodium 142, Potassium 5.2 H, Chloride 108 H, Carbon Dioxide 29, Anion Gap 10.2, BUN 87 H, Creatinine 1.70 H, Estimated Creat Clear 56, Estimated GFR 41 L, Est GFR ( Amer) 50 L, Glucose 376 H, Calcium 8.8 08/19/20 17:47: Chlamy pneumoniae PCR Not detected, Adenovirus (PCR) Not detected, B. pertussis DNA (PCR) Not detected, Coronavirus OC43 (PCR) Not detected, Coronavirus HKU1 (PCR) Not detected, Coronavirus 229E (PCR) Not detected, SARS-CoV-2 (PCR) Not detected, Coronavirus NL63 (PCR) Not detected, Human Metapneumovir PCR Not detected, Influenza A (H1) PCR Not detected, Influ A (H1N1/09) PCR Not detected, Influenza A (H3) PCR Not detected, Influenza Type A (PCR) Not detected, Influenza Type B (PCR) Not detected, M. pneumoniae (PCR) Not detected, Parainfluenza 1 (PCR) Not detected, Parainfluenza 2 (PCR) Not detected, Parainfluenza 3 (PCR) Not detected, Parainfluenza 4 (PCR) Not detected, RSV (PCR) Not detected, Entero/Rhino (PCR) Not detected 08/19/20 20:19: POC Glucose 367 H* 08/20/20 05:26: POC Glucose 318 H* 08/20/20 06:29: WBC 15.9 H, RBC 3.54 L, Hgb 10.6 L, Hct 34.6 L, MCV 97.8 H, MCH 29.9, MCHC 30.5 L, RDW 13.9, Plt Count 188, MPV 9.1, Neut % (Auto) 91.3 H, Lymph % (Auto) 5.5 L, [place] % (Auto) 2.8, Eos % (Auto) 0.2, Baso % (Auto) 0.1, Neut # (Auto) 14.5 H, Lymph # (Auto) 0.9, [place] # (Auto) 0.5, Eos # (Auto) 0.0, Baso # (Auto) 0.0, Total Counted 100, Neutrophils % (Manual) 88 H, Band Neutrophils % 4.0, Lymphocytes % (Manual) 5 L, Monocytes % (Manual) 3, Platelet Estimate Normal, Hypochromasia 1+, Macrocytosis 1+ I & O for Last 24 hours: Intake & Output 08/17/20 08/18/20 08/19/20 08/20/20 23:59 23:59 23:59 23:59 Intake Total 0 / 0 619 / 619 Balance 0 / 0 619 / 619 Weight 88.564 kg 88.507 kg Narrative: - Constitutional no acute distress, chronically ill appearing - *Routine HEENT Exam Head: Present: atraumatic Eye: Present: conjunctivae pink ENT: Present: mucous membranes moist (poor dentition), has dentures in place - *Routine Neck Exam Present: supple (chronic torticollis with flexion to the right) - *Routine Respiratory Exam Present: decreased breath sounds, CTA bilaterally, no crackles or wheeze - *Routine Cardiovascular Exam Present: RRR - *Routine Abdominal Exam Present: soft, normoactive bowel sounds, other (PEG site with mild erythema and excoriation superior aspect, diffuse scarring on abdomen), soaked binder on abdomen with yellow stomach secretions - *Routine Extremities Exam Present: pulses intact (bilateral foot drop and muscle wasting). Absent: edema - *Routine Skin Exam Present: pallor, warm, large ulcerated chronic wound with smooth borders in left axilla; no drainage or odor - *Routine Neurological Exam Present: alert, motor deficit, alt
--- NOTE | 2020-08-20 10:09 | DIET.NUTRFU ---
Pt's TF regimen at [place] is bolus feedings Glucerna 1.5. Recommend initiating bolus feedings of 1 Can/237mL Glucerna 1.0 q 4 hrs. Water flushes of 60mL per feeding, free water in formula, and IVF meet fluid needs. Will monitor IVF and adjust as needed. This regimen provides 1422 kcal, 59g protein, 137g carbohydrate, 77g fat, and 1212mL free water.
--- NOTE | 2020-08-20 10:11 | SW/DCPLANNER ---
Addendum entered by Maria Del Carmen Altamirano 08/26/20 11:03: PATIENT IS DISCHARGING BACK TO [facility] TODAY...D/C SUMMARY AND COVID RESULTS SENT TO [facility]. Addendum entered by Maria Del Carmen Altamirano 08/24/20 10:20: SENT NUTRITIONAL NOTES TO [facility] TODAY PER THEIR REQUEST.. Addendum entered by Maria Del Carmen Altamirano 08/23/20 14:23: SENT ADDITIONAL UPDATES ON THIS PATIENT.... HE WILL DISCHARGE BACK TO HIS BED THERE PER ELI... Original Note: CALLED [facility] AND THIS PATIENT WILL BE RETURNING BACK THERE ONCE MEDICALLY READY TO DO SO... UPDATES SENT, PATIENT NOT MEDICALLY READY TO DISCHARGE AT THIS TIME...
[2020-08-20 10:15] VITALS: BMI 29.0
--- NOTE | 2020-08-20 11:28 | HMH.PTWOUND ---
Rehab Inpt Wound Evaluation Rehab IP Wound Evaluation Start: 08/20/20 08:34 Freq: ONCE Status: Active Protocol: Document 08/20/20 11:23 PHORNE (Rec: 08/20/20 11:28 PHORNE [id number]) Rehab PT Wound Assessment Subjective Subjective 60 yowm adm to [facility] with heamturia and PEG site irritation. PMH of TBI, SCI, CAD, and multiple DVTs. [place] [facility] and has chronic L axilla wound x ~ 1 yr. Wound Left Breast Wound Type unknown etiology Is This a Chronic Wound Yes Wound Length (cm) 4.2 Wound Width (cm) 2.8 Wound Bed Appearance Beefy Red Percentage Granulated (%) 99 Wound Margins Description Well Defined Wound Drainage Description Purulent,Green,Yellow Drainage Amount Moderate Wound Topical Solution/Irrigant Saline Irrigant Primary Dressing Silver Dressing Comment opticell Ag Wound Secondary Dressing Type Composite Comment optifoam gentle Wound Debridement Method Gauze Wound Debridement Amount of Tissue None Removed Dressing Change Patient Tolerance Tolerated Well Plan/Recommendation Comment With continue with opticell dressing as needed, Wound swab culture obtained. Dressing can remain in place 2-3 days at a time unless drainage becomes excessive. Eval Complexity Eval Charge Codes 42826 - Moderate Complexity PHYSICIAN CERTIFICATION: I certify the specified therapy services for Jose Patel are required, authorized, and reviewed every 30 days.
[2020-08-20 11:38] LABS: Microscopic, Urine URINE MICROSCOPIC (MICROSCOPIC)
[2020-08-20 11:39] LABS: Appearance,Urine SL CLOUDY (Clear); Bilirubin,Urine Negative (Negative); Blood, Urine 3+ (Negative); Color,Urine YELLOW (Yellow); Glucose,Urine (UA) Negative (Negative); Ketones,Urine Negative (Negative); Leukocyte Esterase,Urine 3+ (Negative); Nitrate,Urine POSITIVE (Negative); PH,Urine 6.5 (5.0-8.5); Protein,Urine 1+ (Negative); Urobilinogen,Urine 0.2 EU/dl (0.2)
[2020-08-20 11:56] LABS: Amorphous Sediment,Urine 1+ /lpf; Bacteria,Urine 2+ /lpf; RBC,Urine 20-50 #/hpf (0-3); WBC,Urine 50-100 #/hpf (0-3)
--- NOTE | 2020-08-20 12:44 | HMH.CONS ---
*Admission Date: 08/19/20 *Reason for consult:: Kidney stones/bladder stone *History of present illness: Patient is a 60-year-old white male with history of traumatic brain and spinal cord injury in his 20s. He has been paralyzed with cognitive deficits and PEG tube for 3 decades. [place] [facility] in yesterday after senior living staff noted hematuria low-grade fevers as well as coffee-ground residual from his PEG tube. Urinalysis obtained by in and out catheter in the appears to be consistent with a urinary tract infection and urine culture is pending. Patient is nonverbal and no history is able to be obtained from him. In the emergency room he was noted to have white count of 24,000 and creatinine of 1.8. He was started on IV antibiotics and hydration and is white count today has improved to 15.9 and his creatinine has improved to 1.3. A CT scan was obtained which showed bilateral nephrolithiasis no evidence of an obstructing ureteral stone. The proximal left ureter is slightly dilated but no evidence of ureteral stone is present. The bladder shows calcification in the posterior portion of it. The bladder is distended and there is evidence of widemouth bladder diverticula. Information from the nursing staff indicates that patient is baseline incontinent and does not have an indwelling Lopez catheter in the senior living. CT scan from 2019 was reviewed and it 2 showed bilateral nephrolithiasis in the bladder stone present. From admission H&P: 60 yr old male admitted directly [place] [facility] with concern for fever and possible GI bleeding. 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 group home staff noted hematuria about 48 hours ago as well as low-grade fevers and coffee-ground residual from his PEG. Urine was obtained by in-and-out catheter and is currently pending with their outside lab. CXR and labs done yesterday incidated a right sided pleural effusion and possible pneumonia, labs with leukocytosis and acute kidney injury so his lasix and potassium were held and he was given a one-time injection of rocephin IM yesterday and started on azithromycin and cefdinir per tube. I ordered labs to follow-up today and his BUN had increased to 83, creatinine to 1.8 and hemoglobin dropped from 13 to 11. After discussion with staff and his sister, decision was made to admit for imaging and IV hydration. [facility] History Medical History: Reports:: Coronary Artery Disease, Deep Vein Thrombosis, Diabetes Mellitus Type 2, Hyperlipidemia, Seizures, Urinary Tract Infection Denies:: Cancer, Diabetes Mellitus Type 1, MRSA *Have you ever received a pneumonia vaccine?: Yes *Have you received a flu vaccine this season?: Yes Other Medical History: Reports: Anemia, Glaucoma, Hypothyroidism Other Surgeries: Yes: EGD, Other (PEG placement) Amputation: No - *Social History Smoking Status: Never smoker Alcohol Intake: never *Occupational Status:: disabled Housing: senior living *Travel in the last 8 weeks: None Family Hx:: Non-contributory, Anemia, Asthma, Cancer, Coronary Artery Disease, Heart Attack, Hyperlipidemia, Hypertension Review of Systems - *Neurologic Reports behavioral changes Meds Home Medications Medication Instructions Recorded Confirmed Type Hydrocodone/Acetaminophen 7.5 mg G-TUBE QID 02/25/18 08/19/20 History [Hydrocodone-Acetamin 7.5-325] Metoclopramide HCl [Metoclopramide 5 ml G-TUBE QID 02/25/18 08/19/20 History 5mg/5ml Oral Soln] OXcarbazepine [Trileptal 150mg 150 mg G-TUBE TID 02/25/18 08/19/20 History tablet] Pravastatin Sodium 80 mg G-TUBE DAILY 02/25/18 08/19/20 History Quetiapine Fumarate 25 mg G-TUBE HS 02/25/18 08/19/20 History acetaZOLAMIDE [Acetazolamide] 125 mg G-TUBE DAILY 02/25/18 08/19/20 History Citalopram Hydrobromide 20 mg G-TUBE DAILY 03/10/19 08/19/20 History [Citalopram 20
[2020-08-20 16:00] VITALS: BP 133/69; PULSE 103; RESP 18; TEMP 36.7; O2SAT 98
[2020-08-20 16:46] LABS: POC Glucose,Bedside 181 (70-110)
[2020-08-20 16:46] LABS: POC Glucose,Bedside 258 (70-110)
--- NOTE | 2020-08-20 17:32 | PC.NURSE ---
Pt is pleasant and cooperative. Seems to be alert to person, although speech is incomprehensible. No S/S of pain this shift. No SOA. Pt is currently receiving O2 @ 3 LPM via NC with sats. > 95%. Lung sounds are diminished throughout. No edema noted. PEG in place to LUQ and pt receives bolus feeds of Glucerna 237 ML + 60 ML water Q4H. Residuals thus far have been 0. F/C was inserted today and is draining dark, tea-colored urine at bedside to gravity. Pt is incontinent of bowel and has had 1 large, brown, soft BM today. Pt has received oral care and turned/repositioned Q2H this shift. LT axillae ulceration dressed per PT and dressing remains C/D/I. FSBS results have been 258 and 181, both of which have required insulin coverage per sliding scale. 20 G peripheral IV in the RT forearm is patent and infusing NS @ 100 ML/HR. VSS. Bed safety alarm set. Call light within reach. Will continue to monitor.
[2020-08-20 20:00] VITALS: BP 128/74; PULSE 98; RESP 18; TEMP 36.3; O2SAT 99
[2020-08-20 20:18] LABS: POC Glucose,Bedside 210 (70-110)
--- NOTE | 2020-08-20 21:26 | PC.NURSE ---
2000 Peg tube residual 0ml. Glucerna and free water administered as ordered. Pt. tolerated well.
--- NOTE | 2020-08-20 23:37 | PC.NURSE ---
0000 tube feeding held due to glucerna oozing from stoma site. stoma cleaned and new dressing applied.
[2020-08-21 00:11] VITALS: BP 142/84; PULSE 99; RESP 16; TEMP 36.6; O2SAT 94
[2020-08-21 04:00] VITALS: BP 130/73; PULSE 94; RESP 18; TEMP 36.4; O2SAT 98
--- NOTE | 2020-08-21 04:18 | PC.NURSE ---
Pt has slept very little this shift. Tube feeding was held at midnight due to leakage around stoma. 4am tube feeding showed no leakage, but pt c/o abdominal pain with administration of the first 60ml of glucerna. Peg was irrigated with 60ml water, which pt tolerated well. Pt does c/o pain with any manipulation of his PEG tube. Urine remains dark yellow with sediment. Lung sounds remain clear, but diminished in the bases. Edema of all extremities noted, with non pitting on right side and +2 edema on left side.
[2020-08-21 05:08] VITALS: BMI 28.7
[2020-08-21 05:52] LABS: POC Glucose,Bedside 181 (70-110)
[2020-08-21 06:30] LABS: Basophils % 0.1 % (0.1-2.0); Eosinophils # 0.2 K/mm3 (0.0-0.4); Eosinophils % 1.8 % (0.1-12.0); Hematocrit 35.4 % (42.0-52.0); Hemoglobin 10.9 g/dL (14.1-18.0); Lymphocytes # 1.1 K/mm3 (0.7-4.5); Lymphocytes % 11.6 % (10-50); Mean Corpuscular HGB Conc 30.7 g/dL (31.8-35.4); Mean Corpuscular Hemoglobin 29.2 pg (27.0-31.2); Mean Platelet Volume 9.2 fl (7.4-10.4); Monocytes # 0.3 K/mm3 (0.1-1.0); Monocytes % 3.1 % (1.7-9.3); Neutrophils # 7.7 K/mm3 (1.8-7.8); Neutrophils % 83.3 % (37.0-80.0); Platelet Count 168 K/mm3 (142-424); Red Blood Count 3.73 M/mm3 (4.60-6.20); Red Cell Distribution Width 13.8 % (11.5-17.5); White Blood Count 9.3 K/mm3 (4.8-10.8)
[2020-08-21 07:01] LABS: Chloride 118 mmol/L (98-107)
[2020-08-21 07:02] LABS: Sodium 150 mmol/L (136-145)
[2020-08-21 07:03] LABS: Blood Urea Nitrogen 57 mg/dl (9-20)
[2020-08-21 07:04] LABS: Alanine Aminotransferase 39 U/L (12-78); Albumin Level 2.4 g/dl (3.5-5.0); Albumin/Globulin Ratio 0.8 (1.1-1.8); Alkaline Phosphatase 212 U/L (38-126); Aspartate Amino Transferase 33 U/L (17-59); Bilirubin,Total 0.2 mg/dl (0.2-1.3); Calcium 8.1 mg/dl (8.4-10.2); Carbon Dioxide 28 mmol/L (22.0-30.0); Creatinine Clearance Estimated 95 mL/min (50-200); Estimated Glomerular Filt Rate 76 ml/min (>60); GFR (African American) 92 ML/MIN (>60); Glucose 172 mg/dl (74-100); Total Protein,Serum 5.4 g/dl (6.3-8.2)
[2020-08-21 07:05] LABS: Magnesium 2.4 mg/dl (1.6-2.3)
[2020-08-21 08:00] VITALS: BP 115/57; PULSE 87; RESP 19; TEMP 36.6; O2SAT 100
--- NOTE | 2020-08-21 08:00 | HMH.ACPN2 ---
Internal Medicine - PN: Subj *Date: 08/21/20 *Time: 08:00 Interval history: Patient clinically has done well overnight with defervesced since. Labs look great this morning. Improving leukocytosis and improving kidney function. Urology notes reviewed and appreciated. Patient did seem to have some intolerance to tube feeding with grimacing in pain but did not have the same intolerance to flushing the tube feeds overnight per nursing staff. Exam Vital signs and Labs for Last 24 Hours: Temp Pulse Resp BP Pulse Ox 97.5 F L 94 H 18 130/73 98 08/21/20 04:00 08/21/20 04:00 08/21/20 04:00 08/21/20 04:00 08/21/20 04:00 Laboratory Results - last 24 hr 08/19/20 16:30: PT 11.5, INR 1.04 08/19/20 16:30: Lactate 1.3 08/20/20 06:29: Sodium 146 H, Potassium 4.4, Chloride 112 H, Carbon Dioxide 29, Anion Gap 9.4, BUN 76 H, Creatinine 1.30 H D, Estimated GFR 56 L, Est GFR ( Amer) 68 D, Glucose 307 H, Calcium 8.7 08/20/20 11:07: Urine Color Yellow, Urine Appearance Sl cloudy, Urine pH 6.5, Ur Specific Liberal 1.010, Urine Protein 1+, Urine Glucose (UA) Negative, Urine Ketones Negative, Urine Blood 3+, Urine Nitrate Positive, Urine Bilirubin Negative, Urine Urobilinogen 0.2, Ur Leukocyte Esterase 3+ A, Urine RBC 20-50, Urine WBC 50-100, Ur Squamous Epith Cells 3-5, Amorphous Sediment 1+, Urine Bacteria 2+ 08/20/20 11:47: POC Glucose 258 H 08/20/20 16:10: POC Glucose 181 H 08/20/20 19:54: POC Glucose 210 H 08/21/20 05:34: POC Glucose 181 H 08/21/20 05:55: Sodium 150 H, Potassium 4.0, Chloride 118 H, Carbon Dioxide 28, Anion Gap 8.0, BUN 57 H, Creatinine 1.00 D, Estimated Creat Clear 95, Estimated GFR 76, Est GFR ( Amer) 92 D, Glucose 172 H D, Calcium 8.1 L, Magnesium 2.4 H, Total Bilirubin 0.2, AST 33, ALT 39, Alkaline Phosphatase 212 H, Total Protein 5.4 L, Albumin 2.4 L, Globulin 3.0, Albumin/Globulin Ratio 0.8 L 08/21/20 05:55: WBC 9.3 D, RBC 3.73 L, Hgb 10.9 L, Hct 35.4 L, MCV 95.0 H, MCH 29.2, MCHC 30.7 L, RDW 13.8, Plt Count 168, MPV 9.2, Neut % (Auto) 83.3 H, Lymph % (Auto) 11.6, [place] % (Auto) 3.1, Eos % (Auto) 1.8, Baso % (Auto) 0.1, Neut # (Auto) 7.7, Lymph # (Auto) 1.1, [place] # (Auto) 0.3, Eos # (Auto) 0.2, Baso # (Auto) 0.0 I & O for Last 24 hours: Intake & Output 08/18/20 08/19/20 08/20/20 08/21/20 11:59 11:59 11:59 11:59 Intake Total 619 / 916 3273 / 3273 Output Total 925 / 925 Balance 619 / 916 2348 / 2348 Weight 196 lb 3.382 oz 194 lb 1 oz Microbiology Reports for the Last 24 Hours: Microbiology 08/20/20 10:50 Axilla,Left Gram Stain - Final Narrative: Patient is sleeping. Oropharynx dry but clear. Neck deviation as previously noted. Lungs clear. Abdomen soft, does grimace when pushing on his belly but no leakage around the tube site. No changes from previous notes and no evidence of drainage. No changes in his extremity contractures. Assessment and Plan (1) Severe sepsis Status: Acute Category: Medical Code(s): A41.9 - Sepsis, unspecified organism; R65.20 - Severe sepsis without septic shock (2) Fever Status: Acute Category: Medical Code(s): R50.9 - Fever, unspecified (3) GI bleed Status: Acute Category: Medical Code(s): K92.2 - Gastrointestinal hemorrhage, unspecified (4) NUBIA (acute kidney injury) Status: Acute Category: Medical Code(s): N17.9 - Acute kidney failure, unspecified (5) Leukocytosis Status: Acute Category: Medical Code(s): D72.829 - Elevated white blood cell count, unspecified (6) UTI (urinary tract infection) Status: Acute Qualifiers: Urinary tract infection type: site unspecified Hematuria presence: with hematuria Qualified Code(s): N39.0 - Urinary tract infection, site not specified; R31.9 - Hematuria, unspecified Category: Medical Code(s): N39.0 - Urinary tract infection, site not specified (7) Diabetes mellitus Status: Chronic Qualifiers: Diabetes mellitus type: type 2 Di
--- NOTE | 2020-08-21 09:43 | PC.NURSE ---
late entry for 0800: Dr Tomas rounding and gave verbal order to decrease tube feeds by half. Gastric residual is 0mL. Gave 120mL tube feeds. Pt tolerated well. No grimacing or other s/s of pain noted. No resistance felt when administering tubefeeds. Also gave meds crushed in 60mL water followed with 60mL flush.
[2020-08-21 10:58] VITALS: BP 119/65; PULSE 98; RESP 17; TEMP 36.6; O2SAT 96
--- NOTE | 2020-08-21 11:31 | PC.NURSE ---
gastric residual is 0mL. Administered 120mL tubefeeds and 60mL water without difficulty. Pt with no s/s of discomfort.
[2020-08-21 11:32] LABS: POC Glucose,Bedside 167 (70-110)
--- NOTE | 2020-08-21 14:57 | DIET.NUTRFU ---
Pt with s/s abdominal discomfort and stoma leakage. Concur with MD order to decrease TF. Recommend advancing as tolerated per MD. Recommend irrigating PEG with 30 mL water before and after feedings/meds, and with gastric residual checks. GRV checks changed to q 6 hrs to reduce PEG irritation, pt has had 0 GRV so far. Weight is stable, 2+ edema, BG are moderate-~200. Fluids are adequate. Continuing to monitor.
[2020-08-21 15:24] VITALS: BP 144/80; PULSE 103; RESP 17; TEMP 36.4; O2SAT 94
--- NOTE | 2020-08-21 16:34 | PC.NURSE ---
gastric residual at 1600 is 0mL. Pt tolerated tubefeed of 120mL and 60mL water. No s/s of discomfort noted.
[2020-08-21 16:46] LABS: POC Glucose,Bedside 141 (70-110)
--- NOTE | 2020-08-21 18:04 | PC.NURSE ---
Pt has done well this shift. Mild drainage noted around PEG tube insertion. Drain sponge changed twice this shift. Has tolerated bolus tubefeeds of 120mL Q4hrs along with 60mL water. No gastric residuals today when checked Q4hrs. Left hand with 2+ pitting edema. LUE elevated on pillow today. He is able to move his right arm. He was turned Q2hrs to relieve pressure. Left armpit with mild ulceration. ABD pad changed. Lopez catheter noted. Lungs with expiratory wheezes. On RA with sats > 94%. Will answer yes/no questions. Is a DNR. NS @ 100ml/hr infusing via right FA PIV.
--- NOTE | 2020-08-21 19:14 | PC.NURSE ---
walked in pt's room and his gown has tubefeeds on it. It appears that tubefeeds are not being absorbed. Contacted Dr. Tomas. He ordered to HOLD tubefeeds until in the AM when he rounds. Relayed message to Gemini Rodríguez RN.
[2020-08-21 20:00] VITALS: BP 147/87; PULSE 75; RESP 26; TEMP 36.4; O2SAT 97
--- NOTE | 2020-08-21 20:00 | PC.NURSE ---
PEG TUBE RESIDUAL ASSESSED -0
[2020-08-21 22:28] LABS: POC Glucose,Bedside 158 (70-110)
[2020-08-22] VITALS (8 sets, daily range): BP systolic 150–168; BP diastolic 82–94; PULSE 100–113; RESP 18–22; TEMP 36.7–37.4; O2SAT 94–97; BMI 29.0
--- NOTE | 2020-08-22 | PC.NURSE ---
PEG TUBE/GASTRIC RESIDUAL ASSESSED- 0ML
--- NOTE | 2020-08-22 01:57 | PC.NURSE ---
PT NOTED WITH GARBLED SPEECH, THIS IS PT'S BASELINE. ABLE TO STATE NAME BUT IS NOT ORIENTED TO PLACE AND TIME. PT IS NOTED WITH CONTRACTED LUE, PT BASELINE. 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 BLE NOTED FLACCID WITH BILAT FOOT DROP, BILAT FEET ELEVATED ON PILLOW. THESE FINDINGS ARE PT'S BASELINE. BILAT BASES NOTED WITH RHONCHI PER AUSCULTATION. TOLERATED RA WELL. PULSES +2. ABDOMEN NOTED NONDISTENDED, HYPERACTIVE BOWEL SOUNDS, SOFT AND NONTENDER PER PALPATION. PEG TUBE TO LUQ OF ABDOMEN, VERIFIED PLACEMENT PER AUSCULTATION, TOLERATED MEDICATION ADMIN WELL PER PEG TUBE, RESIDUALS ASSESSED Q4H, DRESSING NOTED TO PEG TUBE CDI. DRESSING NOTED TO LEFT AXILLA REGION, CDI. ORAL CARE, TURNED AND REPOSITIONED Q2H. ÁLVAREZ CATHETER IN PLACE, PATENT AND DRAINING CLEAR, YELLOW, URINE WITH SEDIMENT. VSS. WILL CONTINUE TO MONITOR.
--- NOTE | 2020-08-22 04:00 | PC.NURSE ---
PEG TUBE/GASTRIC RESIDUAL- 0ML
[2020-08-22 05:31] LABS: POC Glucose,Bedside 137 (70-110)
[2020-08-22 08:15] LABS: Basophils % 0.3 % (0.1-2.0); Eosinophils # 0.1 K/mm3 (0.0-0.4); Eosinophils % 2.7 % (0.1-12.0); Hematocrit 36.3 % (42.0-52.0); Hemoglobin 11.7 g/dL (14.1-18.0); Lymphocytes % 20.6 % (10-50); Mean Corpuscular HGB Conc 32.1 g/dL (31.8-35.4); Mean Corpuscular Hemoglobin 30.1 pg (27.0-31.2); Mean Corpuscular Volume 93.6 fl (80-94); Mean Platelet Volume 9.7 fl (7.4-10.4); Monocytes # 0.2 K/mm3 (0.1-1.0); Neutrophils # 3.5 K/mm3 (1.8-7.8); Neutrophils % 71.4 % (37.0-80.0); Platelet Count 188 K/mm3 (142-424); Red Blood Count 3.88 M/mm3 (4.60-6.20); Red Cell Distribution Width 13.8 % (11.5-17.5); White Blood Count 4.8 K/mm3 (4.8-10.8)
[2020-08-22 08:22] LABS: Chloride 122 mmol/L (98-107)
[2020-08-22 08:23] LABS: Potassium 3.6 mmoL/L (3.5-5.1)
[2020-08-22 08:25] LABS: Blood Urea Nitrogen 39 mg/dl (9-20); Creatinine Clearance Estimated 96 mL/min (50-200); Estimated Glomerular Filt Rate 86 ml/min (>60); GFR (African American) 103 ML/MIN (>60)
[2020-08-22 08:26] LABS: Anion Gap 9.6 mEq/L (5-15); Calcium 8.3 mg/dl (8.4-10.2); Carbon Dioxide 25 mmol/L (22.0-30.0); Glucose 147 mg/dl (74-100)
[2020-08-22 08:28] LABS: Sodium 153 mmol/L (136-145)
--- NOTE | 2020-08-22 08:33 | HMH.ACPN2 ---
Internal Medicine - PN: Subj *Date: 08/22/20 *Time: 08:33 Interval history: Patient did fairly well yesterday, no fevers. Did have some leakage from the new G-tube site late in the day shift yesterday and we held his feedings overnight. Labs reviewed this morning. Exam Vital signs and Labs for Last 24 Hours: Temp Pulse Resp BP Pulse Ox 98.1 F 110 H 18 168/94 H 96 08/22/20 07:54 08/22/20 07:54 08/22/20 07:54 08/22/20 07:54 08/22/20 07:54 Laboratory Results - last 24 hr 08/21/20 11:23: POC Glucose 167 H 08/21/20 16:33: POC Glucose 141 H 08/21/20 20:24: POC Glucose 158 H 08/22/20 05:02: POC Glucose 137 H 08/22/20 08:04: WBC 4.8 D, RBC 3.88 L, Hgb 11.7 L, Hct 36.3 L, MCV 93.6, MCH 30.1, MCHC 32.1, RDW 13.8, Plt Count 188, MPV 9.7, Neut % (Auto) 71.4, Lymph % (Auto) 20.6, [place] % (Auto) 5.0, Eos % (Auto) 2.7, Baso % (Auto) 0.3, Neut # (Auto) 3.5, Lymph # (Auto) 1.0, [place] # (Auto) 0.2, Eos # (Auto) 0.1, Baso # (Auto) 0.0 08/22/20 08:04: Sodium 153 H*, Potassium 3.6, Chloride 122 H, Carbon Dioxide 25, Anion Gap 9.6, BUN 39 H D, Creatinine 0.90, Estimated Creat Clear 96, Estimated GFR 86, Est GFR ( Amer) 103, Glucose 147 H, Calcium 8.3 L I & O for Last 24 hours: Intake & Output 08/19/20 08/20/20 08/21/20 08/22/20 11:59 11:59 11:59 11:59 Intake Total 619 / 916 3693 / 3693 2766 / 2766 Output Total 925 / 925 2200 / 2200 Balance 619 / 916 2768 / 2768 566 / 566 Weight 196 lb 3.382 oz 194 lb 1 oz 195 lb 14.4 oz Microbiology Reports for the Last 24 Hours: Microbiology 08/20/20 10:50 Axilla,Left Gram Stain - Final 08/20/20 10:50 Axilla,Left Wound Culture - Preliminary 08/19/20 16:30 Blood Blood Culture - Preliminary NO GROWTH AFTER 48 HOURS 08/19/20 16:30 Blood Blood Culture - Preliminary NO GROWTH AFTER 48 HOURS 08/20/20 11:07 Urine,Catheterized Urine Culture - Preliminary NO GROWTH AFTER 24 HOURS Narrative: Constitutional no acute distress, chronically ill appearing - *Routine HEENT Exam Head: Present: atraumatic Eye: Present: conjunctivae pink ENT: Present: mucous membranes moist (poor dentition), has dentures in place - *Routine Neck Exam Present: supple (chronic torticollis with flexion to the right) - *Routine Respiratory Exam Present: decreased breath sounds, CTA bilaterally, no crackles or wheeze - *Routine Cardiovascular Exam Present: RRR - *Routine Abdominal Exam Present: soft, normoactive bowel sounds, other (PEG site with mild erythema and excoriation superior aspect, diffuse scarring on abdomen), soaked binder on abdomen with yellow stomach secretions - *Routine Extremities Exam Present: pulses intact (bilateral foot drop and muscle wasting). Absent: edema - *Routine Skin Exam Present: pallor, warm, large ulcerated chronic wound with smooth borders in left axilla; no drainage or odor - *Routine Neurological Exam Present: alert, motor deficit, altered mental status torticollis to the right side, grossly able to move the right upper extremity but left upper and both lower extremities without spontaneous movement. answers some simple questions with yes/no response but repeats same responses often Assessment and Plan (1) Severe sepsis Status: Acute Category: Medical Code(s): A41.9 - Sepsis, unspecified organism; R65.20 - Severe sepsis without septic shock (2) Fever Status: Acute Category: Medical Code(s): R50.9 - Fever, unspecified (3) GI bleed Status: Acute Category: Medical Code(s): K92.2 - Gastrointestinal hemorrhage, unspecified (4) NUBIA (acute kidney injury) Status: Acute Category: Medical Code(s): N17.9 - Acute kidney failure, unspecified (5) Leukocytosis Status: Acute Category: Medical Code(s): D72.829 - Elevated white blood cell count, unspecified (6) UTI (urinary tract infection) Status: Acute Qualifiers:
--- NOTE | 2020-08-22 08:33 | PC.NURSE ---
reported critical sodium to dr goff. also stated to try tube feedings again at the halfed rate of 120ml
--- NOTE | 2020-08-22 10:20 | PC.NURSE ---
NO RESIDUAL AT 0930 NOTED. SOME SLIGHT DRAINAGE AROUND PEG TUBE. ADMINISTERED TUBE FEEDING AT 0930 WITH NO DIFFICULTY NOTED. WILL CONTINUE TO MONITOR.
[2020-08-22 11:15] LABS: POC Glucose,Bedside 172 (70-110)
--- NOTE | 2020-08-22 13:50 | PC.NURSE ---
1330 tube feeding done. no residual noted. some leakage around gtube still noted thats yellow in color. new gauze placed at site
--- NOTE | 2020-08-22 15:45 | PC.NURSE ---
relayed to md that patient was more off from baseline. not really responding to staff like he normally would. more labored breathing with use of accessory muscles and gtube actually looks worse compared to yesterday. some puss looking drainage down in hole around peg tube. still light drainage of tube feeds from around site. md stated to get a culture of the peg tube drainage and to start vancomycin per pharmacy
--- NOTE | 2020-08-22 15:51 | PC.NURSE ---
spoke with rhys coles in pharmacy who stated to do 1750mg of vancomycin q18h.
--- NOTE | 2020-08-22 17:07 | PC.NURSE ---
mixed vancomycin with jan ramos. spoke with pharmacy about dosage. mixed 1750mg of vancomycin with 250ml/ns
--- NOTE | 2020-08-22 17:38 | PC.NURSE ---
patient tube feeding done at 1730. no residual, about 120 of free water between meds and feeding and 120ml of tube feedings given. no significant drainage at this time noted. bowel sounds active. lungs diminished. vitals stable will continue to monitor.
[2020-08-22 17:47] LABS: POC Glucose,Bedside 199 (70-110)
[2020-08-22 22:19] LABS: POC Glucose,Bedside 203 (70-110)
[2020-08-23] VITALS: BP 145/90; PULSE 109; RESP 20; TEMP 37.3; O2SAT 95
--- NOTE | 2020-08-23 02:38 | PC.NURSE ---
LETHARGY NOTED THIS SHIFT. PT NOT COMMUNICATING VERBALLY WITH STAFF LIKE NIGHT BEFORE. PT DID SHAKE HEAD YES IN RESPONSE TO ARE YOU FEELING HOT? OTHER THAN THAT PT DID NOT COMMUNICATE OR MAKE ATTEMPTS TO COMMUNICATE WITH STAFF. EYES SPONTANEOUSLY OPENED INTERMITTENTLY T/O SHIFT. SKIN WARM PER PALPATION AT BEGINNING OF SHIFT, AXILLARY TEMP NOTED 99, RECTAL TEMP CORRELATED AT 99.4. PROVIDED PT WITH FAN AND REMOVED TOP BLANKET, LEAVING ONLY A SHEET. PT FAVORS RIGHT SIDE, HX OF TBI, THIS IS PT'S BASELINE. LEFT ARM/HAND CONTRACTED. WHEN ASKED TO SQUEEZE WITH RIGHT HAND PT'S SQUEEZED WITH RIGHT THUMB. BLE FLACCID, BILAT FOOT DROP, ELEVATED BLE ON PILLOW. LUNGS NOTED CLEAR. TOLERATED RA WELL. ABDOMEN NOTED WITH HYPOACTIVE BOWEL SOUNDS, SOFT AND NONTENDER PER PALPATION. PEG TUBE NOTED TO LUQ OF ABDOMEN, RESIDUALS CHECKED AT 2130 AND 0130 0ML EACH TIME. NO LEAKING NOTED FROM PEG TUBE SO FAR THIS SHIFT. PEG TUBE DRESSING REMAINS CDI. TURNED AND REPOSITIONED Q2H, ORAL CARE PROVIDED Q2H. REDNESS THAT WAS NOTED TO LEFT SHOULDER IS NO LONGER THERE. LEFT AXILLA DRESSING REMAINS CDI. VSS. WILL CONTINUE TO MONITOR.
[2020-08-23 04:00] VITALS: BP 159/89; PULSE 107; RESP 18; TEMP 37.1; O2SAT 92
[2020-08-23 05:00] VITALS: BMI 29.0
[2020-08-23 06:52] LABS: POC Glucose,Bedside 210 (70-110)
[2020-08-23 07:04] LABS: Basophils % 0.3 % (0.1-2.0); Eosinophils # 0.2 K/mm3 (0.0-0.4); Eosinophils % 2.7 % (0.1-12.0); Lymphocytes # 1.1 K/mm3 (0.7-4.5); Lymphocytes % 16.7 % (10-50); Mean Corpuscular HGB Conc 30.7 g/dL (31.8-35.4); Mean Corpuscular Hemoglobin 29.4 pg (27.0-31.2); Mean Corpuscular Volume 95.9 fl (80-94); Mean Platelet Volume 9.2 fl (7.4-10.4); Monocytes # 0.3 K/mm3 (0.1-1.0); Neutrophils # 4.9 K/mm3 (1.8-7.8); Neutrophils % 75.2 % (37.0-80.0); Platelet Count 224 K/mm3 (142-424); Red Blood Count 4.07 M/mm3 (4.60-6.20); White Blood Count 6.5 K/mm3 (4.8-10.8)
[2020-08-23 07:09] LABS: Chloride 119 mmol/L (98-107); Potassium 3.3 mmoL/L (3.5-5.1); Sodium 148 mmol/L (136-145)
[2020-08-23 07:12] LABS: Anion Gap 7.3 mEq/L (5-15); Blood Urea Nitrogen 31 mg/dl (9-20); Carbon Dioxide 25 mmol/L (22.0-30.0); Creatinine Clearance Estimated 96 mL/min (50-200); Estimated Glomerular Filt Rate 98 ml/min (>60); GFR (African American) 119 ML/MIN (>60); Glucose 227 mg/dl (74-100)
[2020-08-23 08:00] VITALS: BP 155/79; PULSE 87; RESP 19; TEMP 37; O2SAT 94
--- NOTE | 2020-08-23 08:30 | HMH.ACPN2 ---
Internal Medicine - PN: Subj *Date: 08/23/20 *Time: 08:30 Interval history: Patient somewhat less communicative than his baseline overnight. No fevers. Exam Vital signs and Labs for Last 24 Hours: Temp Pulse Resp BP Pulse Ox 98.8 F 107 H 18 159/89 H 92 L 08/23/20 04:00 08/23/20 04:00 08/23/20 04:00 08/23/20 04:00 08/23/20 04:00 Laboratory Results - last 24 hr 08/22/20 11:04: POC Glucose 172 H 08/22/20 17:22: POC Glucose 199 H 08/22/20 21:49: POC Glucose 203 H 08/23/20 06:00: POC Glucose 210 H 08/23/20 06:30: WBC 6.5 D, RBC 4.07 L, Hgb 12.0 L, Hct 39.0 L, MCV 95.9 H, MCH 29.4, MCHC 30.7 L, RDW 14.0, Plt Count 224, MPV 9.2, Neut % (Auto) 75.2, Lymph % (Auto) 16.7, [place] % (Auto) 5.0, Eos % (Auto) 2.7, Baso % (Auto) 0.3, Neut # (Auto) 4.9, Lymph # (Auto) 1.1, [place] # (Auto) 0.3, Eos # (Auto) 0.2, Baso # (Auto) 0.0 08/23/20 06:30: Sodium 148 H, Potassium 3.3 L, Chloride 119 H, Carbon Dioxide 25, Anion Gap 7.3, BUN 31 H, Creatinine 0.80, Estimated Creat Clear 96, Estimated GFR 98, Est GFR ( Amer) 119, Glucose 227 H D, Calcium 8.0 L I & O for Last 24 hours: Intake & Output 08/20/20 08/21/20 08/22/20 08/23/20 11:59 11:59 11:59 11:59 Intake Total 619 / 916 3693 / 3693 3006 / 3006 2831 / 2831 Output Total 925 / 925 2200 / 2200 2700 / 2700 Balance 619 / 916 2768 / 2768 806 / 806 131 / 131 Weight 196 lb 3.382 oz 194 lb 1 oz 195 lb 14.4 oz 196 lb Microbiology Reports for the Last 24 Hours: Microbiology 08/22/20 15:35 Abdomen Gram Stain - Final 08/20/20 11:07 Urine,Catheterized Urine Culture - Final NO GROWTH AFTER 48 HOURS 08/20/20 10:50 Axilla,Left Gram Stain - Final 08/20/20 10:50 Axilla,Left Wound Culture - Preliminary Narrative: Respiratory status unchanged from yesterday. Cardiovascular status unchanged. G-tube site looks slightly better than yesterday. Has been tolerating half volume tube feeds well and his medications. We restarted Reglan and some other medications yesterday of note. Neurologically slightly less communicative but otherwise unchanged over baseline. Oropharynx with some old dried blood which is normal for him given his anticoagulation issues but otherwise clear. Assessment and Plan (1) Severe sepsis Status: Acute Category: Medical Code(s): A41.9 - Sepsis, unspecified organism; R65.20 - Severe sepsis without septic shock (2) Fever Status: Acute Category: Medical Code(s): R50.9 - Fever, unspecified (3) GI bleed Status: Acute Category: Medical Code(s): K92.2 - Gastrointestinal hemorrhage, unspecified (4) NUBIA (acute kidney injury) Status: Acute Category: Medical Code(s): N17.9 - Acute kidney failure, unspecified (5) Leukocytosis Status: Acute Category: Medical Code(s): D72.829 - Elevated white blood cell count, unspecified (6) UTI (urinary tract infection) Status: Acute Qualifiers: Urinary tract infection type: site unspecified Hematuria presence: with hematuria Qualified Code(s): N39.0 - Urinary tract infection, site not specified; R31.9 - Hematuria, unspecified Category: Medical Code(s): N39.0 - Urinary tract infection, site not specified (7) Diabetes mellitus Status: Chronic Qualifiers: Diabetes mellitus type: type 2 Diabetes mellitus complication status: with hyperglycemia Category: Medical Code(s): E11.9 - Type 2 diabetes mellitus without complications (8) Gastrointestinal tube present Status: Chronic Category: Medical Code(s): Z93.1 - Gastrostomy status (9) TBI (traumatic brain injury) Status: Chronic Qualifiers: Encounter type: sequela Category: Medical Code(s): S06.9X9A - Unspecified intracranial injury with loss of consciousness of unspecified duration, initial encounter (10) History of DVT (deep vein thrombosis) Status: Chronic Category: Medical Code(s): Z86.718 - Personal history of other venous thrombosis and e
--- NOTE | 2020-08-23 09:32 | HMH.PHACONS ---
- Pharmacy Consult Date: 08/23/20 Time: 09:32 Referring provider: DR. CARCAMO Reason for Consult:: VANCOMYCIN DOSING Allergies and ADEs:: Allergies Allergy/AdvReac Type Severity Reaction Status Date / Time adhesive [ADHESIVE] Allergy Mild Unknown Verified 03/14/19 08:21 allergy reaction lisinopril Allergy Mild Unknown Verified 03/14/19 08:21 allergy reaction Home Medications:: Home Medications Medication Instructions Recorded Confirmed Type Hydrocodone/Acetaminophen 7.5 mg G-TUBE QID 02/25/18 08/19/20 History [Hydrocodone-Acetamin 7.5-325] Metoclopramide HCl [Metoclopramide 5 ml G-TUBE QID 02/25/18 08/19/20 History 5mg/5ml Oral Soln] OXcarbazepine [Trileptal 150mg 150 mg G-TUBE TID 02/25/18 08/19/20 History tablet] Pravastatin Sodium 80 mg G-TUBE DAILY 02/25/18 08/19/20 History Quetiapine Fumarate 25 mg G-TUBE HS 02/25/18 08/19/20 History acetaZOLAMIDE [Acetazolamide] 125 mg G-TUBE DAILY 02/25/18 08/19/20 History Citalopram Hydrobromide 20 mg G-TUBE DAILY 03/10/19 08/19/20 History [Citalopram 20mg Tablet] Docusate Sodium [Docusate Sod 150 mg G-TUBE DAILY PRN 03/10/19 08/19/20 History Liquid 100mg/10mL udc] Insulin Glargine,Hum.rec.anlog 30 unit SQ HS 03/10/19 08/19/20 History [Lantus Insulin 100units/mL 10mL vial] Levothyroxine Sodium 100 mg G-TUBE DAILY 03/10/19 08/19/20 History [Levothyroxine 100mcg (0.1MG) Tab] polyethylene glycoL 3350 [Miralax 17 gm G-TUBE DAILY 03/14/19 08/19/20 History 17gm Packet] Acetaminophen 650 mg G-TUBE Q4HP PRN 08/19/20 08/19/20 History Acetaminophen [Feverall] 650 mg RC Q4HP PRN 08/19/20 08/19/20 History Albuterol Sulfate [Albuterol 2.5 mg IH Q4HP PRN 08/19/20 08/19/20 History 0.083% 2.5mg/3mL neb] Azithromycin 250 mg G-TUBE DAILY 08/19/20 08/20/20 History Baclofen [Lioresal 10mg tablet] 10 mg G-TUBE TIDP PRN 08/19/20 08/20/20 History Carboxymethylcellulose Sodium 1 drp OP TID 08/19/20 08/19/20 History [Refresh Liquigel] Cefdinir [Omnicef 300mg Capsule] 300 mg G-TUBE BID 08/19/20 08/20/20 History Insulin Aspart [Insulin Aspart 0 unit SQ DIRECTED 08/19/20 08/19/20 History Flexpen] Insulin Glargine,Hum.rec.anlog 24 units SQ DAILY 08/19/20 08/19/20 History [Lantus Solostar 100 Units/mL 3mL flexpen] Pediatric Multivitamin No.118 15 ml G-TUBE DAILY 08/19/20 08/19/20 History [Tropical Liquid Nutrition] Aspirin [Aspirin 81mg EC Tab] 81 mg G-TUBE DAILY 08/20/20 08/20/20 History Omeprazole [Omeprazole 40mg 40 mg G-TUBE DAILY 08/20/20 08/20/20 History Capsule] Zonisamide [Zonegran] 400 mg G-TUBE HS 08/20/20 08/20/20 History Height: 1.75 m Weight: 88.904 kg Laboratory Results:: Laboratory Results - last 24 hr 08/22/20 11:04: POC Glucose 172 H 08/22/20 17:22: POC Glucose 199 H 08/22/20 21:49: POC Glucose 203 H 08/23/20 06:00: POC Glucose 210 H 08/23/20 06:30: WBC 6.5 D, RBC 4.07 L, Hgb 12.0 L, Hct 39.0 L, MCV 95.9 H, MCH 29.4, MCHC 30.7 L, RDW 14.0, Plt Count 224, MPV 9.2, Neut % (Auto) 75.2, Lymph % (Auto) 16.7, [place] % (Auto) 5.0, Eos % (Auto) 2.7, Baso % (Auto) 0.3, Neut # (Auto) 4.9, Lymph # (Auto) 1.1, [place] # (Auto) 0.3, Eos # (Auto) 0.2, Baso # (Auto) 0.0 08/23/20 06:30: Sodium 148 H, Potassium 3.3 L, Chloride 119 H, Carbon Dioxide 25, Anion Gap 7.3, BUN 31 H, Creatinine 0.80, Estimated Creat Clear 96, Estimated GFR 98, Est GFR ( Amer) 119, Glucose 227 H D, Calcium 8.0 L Medical History: Reports:: Coronary Artery Disease, Deep Vein Thrombosis, Diabetes Mellitus Type 2, Hyperlipidemia, Seizures, Urinary Tract Infection Denies:: Cancer, Diabetes Mellitus Type 1, MRSA Assessment and Plan (1) Severe sepsis Status: Acute Category: Medical Code(s): A41.9 - Sepsis, unspecified organism; R65.20 - Severe sepsis without septic shock (2) Fever Status: Acute Category: Medical Code(s): R50.9 - Fever, unspecified (3) GI bleed Status: Acute Category: Medical
--- NOTE | 2020-08-23 09:44 | HMH.ACPN ---
Internal Medicine - PN: Subj *Date: 08/23/20 *Time: 09:45 Exam Vital signs and Labs for Last 24 Hours: Temp Pulse Resp BP Pulse Ox 98.6 F 87 19 155/79 H 94 L 08/23/20 08:00 08/23/20 08:00 08/23/20 08:00 08/23/20 08:00 08/23/20 08:00 Laboratory Results - last 24 hr 08/22/20 11:04: POC Glucose 172 H 08/22/20 17:22: POC Glucose 199 H 08/22/20 21:49: POC Glucose 203 H 08/23/20 06:00: POC Glucose 210 H 08/23/20 06:30: WBC 6.5 D, RBC 4.07 L, Hgb 12.0 L, Hct 39.0 L, MCV 95.9 H, MCH 29.4, MCHC 30.7 L, RDW 14.0, Plt Count 224, MPV 9.2, Neut % (Auto) 75.2, Lymph % (Auto) 16.7, [place] % (Auto) 5.0, Eos % (Auto) 2.7, Baso % (Auto) 0.3, Neut # (Auto) 4.9, Lymph # (Auto) 1.1, [place] # (Auto) 0.3, Eos # (Auto) 0.2, Baso # (Auto) 0.0 08/23/20 06:30: Sodium 148 H, Potassium 3.3 L, Chloride 119 H, Carbon Dioxide 25, Anion Gap 7.3, BUN 31 H, Creatinine 0.80, Estimated Creat Clear 96, Estimated GFR 98, Est GFR ( Amer) 119, Glucose 227 H D, Calcium 8.0 L I & O for Last 24 hours: Intake & Output 08/20/20 08/21/20 08/22/20 08/23/20 23:59 23:59 23:59 23:59 Intake Total 2598 / 2598 3336 / 3336 2384 / 2384 1831 / 1831 Output Total 1625 / 2525 2400 / 2400 1800 / 1800 Balance 2598 / 2598 1711 / 811 -16 / -16 Weight 89 kg 88.025 kg 88.859 kg 88.904 kg Microbiology Reports for the Last 24 Hours: Microbiology 08/22/20 15:35 Abdomen Gram Stain - Final 08/20/20 11:07 Urine,Catheterized Urine Culture - Final NO GROWTH AFTER 48 HOURS Assessment and Plan (1) Severe sepsis Status: Acute Category: Medical Code(s): A41.9 - Sepsis, unspecified organism; R65.20 - Severe sepsis without septic shock (2) Fever Status: Acute Category: Medical Code(s): R50.9 - Fever, unspecified (3) GI bleed Status: Acute Category: Medical Code(s): K92.2 - Gastrointestinal hemorrhage, unspecified (4) NUBIA (acute kidney injury) Status: Acute Category: Medical Code(s): N17.9 - Acute kidney failure, unspecified (5) Leukocytosis Status: Acute Category: Medical Code(s): D72.829 - Elevated white blood cell count, unspecified (6) UTI (urinary tract infection) Status: Acute Qualifiers: Urinary tract infection type: site unspecified Hematuria presence: with hematuria Qualified Code(s): N39.0 - Urinary tract infection, site not specified; R31.9 - Hematuria, unspecified Category: Medical Code(s): N39.0 - Urinary tract infection, site not specified (7) Diabetes mellitus Status: Chronic Qualifiers: Diabetes mellitus type: type 2 Diabetes mellitus complication status: with hyperglycemia Category: Medical Code(s): E11.9 - Type 2 diabetes mellitus without complications (8) Gastrointestinal tube present Status: Chronic Category: Medical Code(s): Z93.1 - Gastrostomy status (9) TBI (traumatic brain injury) Status: Chronic Qualifiers: Encounter type: sequela Category: Medical Code(s): S06.9X9A - Unspecified intracranial injury with loss of consciousness of unspecified duration, initial encounter (10) History of DVT (deep vein thrombosis) Status: Chronic Category: Medical Code(s): Z86.718 - Personal history of other venous thrombosis and embolism (11) History of seizure Status: Chronic Category: Medical Code(s): Z87.898 - Personal history of other specified conditions (12) Paralysis Status: Chronic Category: Medical Code(s): G83.9 - Paralytic syndrome, unspecified (13) Feeding tube dysfunction Status: Acute Category: Medical Code(s): T85.598A - Other mechanical complication of other gastrointestinal prosthetic devices, implants and grafts, initial encounter (14) Nephrolithiasis Status: Chronic Category: Medical Code(s): N20.0 - Calculus of kidney (15) Hyponatremia Status: Acute Category: Medical Code(s): E87.1 - Hypo-osmolality and hyponatremia The patient's infection will respond
[2020-08-23 10:49] LABS: POC Glucose,Bedside 195 (70-110)
[2020-08-23 12:00] VITALS: BP 165/94; PULSE 97; RESP 20; TEMP 37.1; O2SAT 95
--- NOTE | 2020-08-23 14:55 | DIET.NUTRFU ---
Continuing to evaluate Gtube function today. Pt tolerating bolus feedings of Glucerna 1.0 at 120mL per feeding well. Currently meeting about 50% nutrition needs. If good toleration/function today, recommend advancing as tolerated to goal rate of 237mL q 4 hrs. BG are moderate- ~200, weight stable.
--- NOTE | 2020-08-23 15:22 | PC.NURSE ---
Pt remains lethargic, as noted by previous shifts. Pt non-verbal and unable to communicate needs to staff. Remains on room air w/ no s/s of resp distress. Pt total care and dependent on staff for turning and oral care Q2H. Tolerating bolus tube feedings per PEG tube w/o incident. No residual noted on Q4H checks. PEG tube site noted to be reddened w/ minimal amount of yellow drainage noted, dressing changed and site cleaned. Dressing to (L) axillae changed by PT this shift. Lopez cath to drain at bedside w/ clear yellow urine noted. No BM this shift. Spoke w/ pt's sister this shift and updated on pt. Teds in place to BLE. Bed alarm in place. Call leal w/in reach.
[2020-08-23 16:00] VITALS: BP 164/99; PULSE 105; RESP 22; TEMP 37.1; O2SAT 92
[2020-08-23 16:38] LABS: POC Glucose,Bedside 202 (70-110)
--- NOTE | 2020-08-23 19:09 | PC.NURSE ---
report given to raghav
[2020-08-23 20:00] VITALS: BP 184/96; PULSE 105; RESP 18; TEMP 37.3; O2SAT 95
[2020-08-23 22:36] LABS: POC Glucose,Bedside 216 (70-110)
[2020-08-24] VITALS: BP 125/81; PULSE 106; RESP 16; TEMP 37.1; O2SAT 93
[2020-08-24 02:51] VITALS: BP 132/72; PULSE 95; RESP 19; TEMP 37.1; O2SAT 92
--- NOTE | 2020-08-24 04:30 | PC.NURSE ---
Pt is Alert and has been non-verbal t/o shift. Pt has had some grunting on occasion. Pt has been turned q2hr by staff and tolerated it well. Pt has slept t/o most of the night. Peg Tub bolus feeds continued q4, no gastric residual volume for all 3 checks. Pt tolerated feeds well. TEDS in place to BLE. Total bed bath given this shift and linens changed. Lungs CTA, pt continues on room air. SSI administered per DEC. VSS, call light within reach, and bed alarm in use for safety.
[2020-08-24 05:00] VITALS: BMI 29.3
[2020-08-24 06:53] LABS: POC Glucose,Bedside 151 (70-110)
[2020-08-24 07:29] LABS: Chloride 119 mmol/L (98-107); Sodium 149 mmol/L (136-145)
[2020-08-24 07:30] LABS: Potassium 3.3 mmoL/L (3.5-5.1)
[2020-08-24 07:32] LABS: Anion Gap 7.3 mEq/L (5-15); Blood Urea Nitrogen 25 mg/dl (9-20); Carbon Dioxide 26 mmol/L (22.0-30.0); Creatinine Clearance Estimated 97 mL/min (50-200); Estimated Glomerular Filt Rate 114 ml/min (>60); GFR (African American) 138 ML/MIN (>60); Glucose 138 mg/dl (74-100)
[2020-08-24 07:33] LABS: Calcium 7.8 mg/dl (8.4-10.2)
[2020-08-24 07:38] LABS: Basophils % 0.3 % (0.1-2.0); Eosinophils # 0.2 K/mm3 (0.0-0.4); Eosinophils % 3.1 % (0.1-12.0); Hematocrit 36.1 % (42.0-52.0); Lymphocytes # 1.4 K/mm3 (0.7-4.5); Lymphocytes % 17.9 % (10-50); Mean Corpuscular HGB Conc 33.2 g/dL (31.8-35.4); Mean Corpuscular Hemoglobin 30.6 pg (27.0-31.2); Mean Corpuscular Volume 92.2 fl (80-94); Mean Platelet Volume 9.3 fl (7.4-10.4); Monocytes # 0.5 K/mm3 (0.1-1.0); Monocytes % 6.1 % (1.7-9.3); Neutrophils # 5.5 K/mm3 (1.8-7.8); Neutrophils % 72.5 % (37.0-80.0); Platelet Count 217 K/mm3 (142-424); Red Blood Count 3.91 M/mm3 (4.60-6.20); Red Cell Distribution Width 14.2 % (11.5-17.5); White Blood Count 7.6 K/mm3 (4.8-10.8)
[2020-08-24 07:53] VITALS: BP 176/89; PULSE 108; RESP 18; TEMP 36.5; O2SAT 93
--- NOTE | 2020-08-24 08:54 | HMH.ACPN2 ---
Internal Medicine - PN: Subj *Date: 08/24/20 *Time: 08:54 Interval history: Stable overnight. Afebrile. Still having scant drainage from tube site. Patient not communicative on exam this morning but makes eye contact. Reviewed labs. Still hypernatremic Exam Vital signs and Labs for Last 24 Hours: Temp Pulse Resp BP Pulse Ox 97.7 F 108 H 18 176/89 H 93 L 08/24/20 07:53 08/24/20 07:53 08/24/20 07:53 08/24/20 07:53 08/24/20 07:53 Laboratory Results - last 24 hr 08/23/20 10:13: POC Glucose 195 H 08/23/20 15:56: POC Glucose 202 H 08/23/20 21:58: POC Glucose 216 H 08/24/20 06:22: POC Glucose 151 H 08/24/20 06:35: WBC 7.6, RBC 3.91 L, Hgb 12.0 L, Hct 36.1 L, MCV 92.2, MCH 30.6, MCHC 33.2, RDW 14.2, Plt Count 217, MPV 9.3, Neut % (Auto) 72.5, Lymph % (Auto) 17.9, [place] % (Auto) 6.1, Eos % (Auto) 3.1, Baso % (Auto) 0.3, Neut # (Auto) 5.5, Lymph # (Auto) 1.4, [place] # (Auto) 0.5, Eos # (Auto) 0.2, Baso # (Auto) 0.0 08/24/20 06:35: Sodium 149 H, Potassium 3.3 L, Chloride 119 H, Carbon Dioxide 26, Anion Gap 7.3, BUN 25 H, Creatinine 0.70, Estimated Creat Clear 97, Estimated GFR 114, Est GFR ( Amer) 138, Glucose 138 H, Calcium 7.8 L I & O for Last 24 hours: Intake & Output 08/21/20 08/22/20 08/23/20 08/24/20 23:59 23:59 23:59 23:59 Intake Total 3336 / 3336 2384 / 2384 3650 / 3650 1557 / 1557 Output Total 1625 / 2525 2400 / 2400 3400 / 3400 425 / 425 Balance 1711 / 811 -16 / -16 250 / 250 1132 / 1132 Weight 88.025 kg 88.859 kg 88.904 kg 89.811 kg Microbiology Reports for the Last 24 Hours: Microbiology 08/22/20 15:35 Abdomen Gram Stain - Final 08/22/20 15:35 Abdomen Wound Culture - Preliminary 08/23/20 09:04 Nasopharyngeal Coronavirus COVID-19 PCR - Final 08/20/20 10:50 Axilla,Left Gram Stain - Final 08/20/20 10:50 Axilla,Left Wound Culture - Preliminary Narrative: Respiratory status unchanged from yesterday. CTAB, no wheeze Cardiovascular status unchanged. G-tube site looks stable, mild excoriation around site. tolerating half volume tube feeds well and his medications. Neurologically slightly less communicative but otherwise unchanged over baseline. Oropharynx with some dried blood on right side of mouth which is normal for him given his anticoagulation issues but otherwise clear. Assessment and Plan (1) Severe sepsis Status: Acute Category: Medical Code(s): A41.9 - Sepsis, unspecified organism; R65.20 - Severe sepsis without septic shock (2) Fever Status: Acute Category: Medical Code(s): R50.9 - Fever, unspecified (3) GI bleed Status: Acute Category: Medical Code(s): K92.2 - Gastrointestinal hemorrhage, unspecified (4) NUBIA (acute kidney injury) Status: Acute Category: Medical Code(s): N17.9 - Acute kidney failure, unspecified (5) Leukocytosis Status: Acute Category: Medical Code(s): D72.829 - Elevated white blood cell count, unspecified (6) UTI (urinary tract infection) Status: Acute Qualifiers: Urinary tract infection type: site unspecified Hematuria presence: with hematuria Qualified Code(s): N39.0 - Urinary tract infection, site not specified; R31.9 - Hematuria, unspecified Category: Medical Code(s): N39.0 - Urinary tract infection, site not specified (7) Diabetes mellitus Status: Chronic Qualifiers: Diabetes mellitus type: type 2 Diabetes mellitus complication status: with hyperglycemia Category: Medical Code(s): E11.9 - Type 2 diabetes mellitus without complications (8) Gastrointestinal tube present Status: Chronic Category: Medical Code(s): Z93.1 - Gastrostomy status (9) TBI (traumatic brain injury) Status: Chronic Qualifiers: Encounter type: sequela Category: Medical Code(s): S06.9X9A - Unspecified intracranial injury with loss of consciousness of unspecified duration, initial encounter (10) History of DVT (deep vein thrombosis) Status: Chronic Category: Med
[2020-08-24 11:15] VITALS: BP 169/86; PULSE 110; RESP 19; TEMP 36.7; O2SAT 94
[2020-08-24 11:39] LABS: POC Glucose,Bedside 184 (70-110)
--- NOTE | 2020-08-24 11:39 | DIET.NUTRFU ---
Pt has been tolerating bolus feedings of Glucerna 1.0 at 120mL every 4 hours with no residuals per nursing notes. Recommend increasing pt TF to full strength (237mL) bolus feeds of Glucerna 1.0 every 4 hours. Will monitor how pt tolerates increase in TF. Recommend pt return to [place] on TF regimen that he was on prior to admission. [place] reported that pt was on a bolus TF regimen of 237mL (1 can) of Glucerna 1.5 q 6hrs per Nutritional Assessment. Recommend pt receive 200mL free H2O flushes q 6hrs and to start pt on half feedings (120 mL of Glucerna 1.5 q 6hrs) and increase as pt tolerates.
[2020-08-24 15:29] VITALS: BP 176/90; PULSE 104; RESP 17; TEMP 36.6; O2SAT 94
[2020-08-24 16:22] LABS: POC Glucose,Bedside 199 (70-110)
[2020-08-24 20:00] VITALS: BP 157/87; PULSE 100; RESP 20; TEMP 37.3; O2SAT 97
--- NOTE | 2020-08-24 20:02 | PC.NURSE ---
Pt has been non verbal this shift. Have made Dr. holloway aware that G tube has leaked several times post feeds.Residual has been zero. Dr. Holloway ordered to decrease feed to 1/2 strength at this time and may have to re-eval for different tube placement tomorrow. Noted. Also, juan eyes had some scant yellow drainage with r eye being red. He ordered eye gtts to start tonight. Also, pt continues to have irritated mouth with some scant bleeding, have done oral care multiple times this shift and Dr. Holloway ordered to continue that. VSS. Remains safe. Turn and reposition q 2 hrs.
[2020-08-24 21:38] LABS: POC Glucose,Bedside 285 (70-110)
[2020-08-24 22:25] LABS: Vancomycin,Trough 25.9 ug/mL (5.0-10.0)
--- NOTE | 2020-08-24 22:30 | PC.NURSE ---
Spoke with Zachary from pharm at this time. Orders to hold vanc admin this PM due to high trough. Will change vanc frequency from Q12H to Q24H on dec. Next admin dose due at 1000 in am.
[2020-08-25] VITALS: BP 149/84; PULSE 105; RESP 20; TEMP 36.9; O2SAT 97
--- NOTE | 2020-08-25 02:57 | PC.NURSE ---
Pt noted non-verbal this shift thus far. No acute changes noted from previous shift. Pt has rested well with eyes closed majority of this shift. PERRLA. Purulent drainage noted from bilateral eyes, gtt applied per DEC. Pt noted using his right hand to press against his eyes after gtt admin. Noted red in color as well. Left side extremities noted flaccid, pt baseline. Kept left arm elevated on pillow while lying in bed. Right side extremities noted with mild weakness, pt baseline. Q2H turns per staff, total dependence. Bilateral lungs noted clear t/o upon auscultation. Tolerated RA well, no SOA noted. Abdomen noted firm, non-tender and round upon palpation. PEG tube in place to left upper quad. Minimal yellow drainage noted to dsg, changed x1 thus far. No visible signs of leaking after tube feedings. Tolerated tube feedings well. Residuals thus far noted 0. This RN has admin feedings Q4H with ratio of 120 ml feed to 60 ml flush. Remains incontinent of bowel and bladder. FC site noted C/D/I. Adequate urine output noted, clear and bright yellow in color. Loose BM this shift, pt baseline. TEDS in place to BLE. No edema noted. VSS. Remains safe. Call light within reach. Will continue to monitor.
[2020-08-25 04:00] VITALS: BP 159/84; PULSE 107; RESP 20; TEMP 36.9; O2SAT 96
[2020-08-25 05:00] VITALS: BMI 28.0
[2020-08-25 06:46] LABS: Basophils % 0.3 % (0.1-2.0); Eosinophils # 0.3 K/mm3 (0.0-0.4); Eosinophils % 4.1 % (0.1-12.0); Hematocrit 37.6 % (42.0-52.0); Hemoglobin 11.9 g/dL (14.1-18.0); Lymphocytes # 1.4 K/mm3 (0.7-4.5); Lymphocytes % 22.8 % (10-50); Mean Corpuscular HGB Conc 31.7 g/dL (31.8-35.4); Mean Corpuscular Hemoglobin 29.7 pg (27.0-31.2); Mean Corpuscular Volume 93.8 fl (80-94); Mean Platelet Volume 8.6 fl (7.4-10.4); Monocytes # 0.3 K/mm3 (0.1-1.0); Monocytes % 5.4 % (1.7-9.3); Neutrophils # 4.2 K/mm3 (1.8-7.8); Neutrophils % 67.3 % (37.0-80.0); Platelet Count 304 K/mm3 (142-424); White Blood Count 6.3 K/mm3 (4.8-10.8)
[2020-08-25 06:49] LABS: Chloride 116 mmol/L (98-107); Potassium 3.1 mmoL/L (3.5-5.1); Sodium 146 mmol/L (136-145)
[2020-08-25 06:52] LABS: Anion Gap 7.1 mEq/L (5-15); Blood Urea Nitrogen 19 mg/dl (9-20); Calcium 7.8 mg/dl (8.4-10.2); Carbon Dioxide 26 mmol/L (22.0-30.0); Creatinine Clearance Estimated 93 mL/min (50-200); Estimated Glomerular Filt Rate 114 ml/min (>60); GFR (African American) 138 ML/MIN (>60); Glucose 305 mg/dl (74-100)
--- NOTE | 2020-08-25 07:48 | HMH.ACPN2 ---
Internal Medicine - PN: Subj *Date: 08/25/20 *Time: 07:48 Interval history: No fevers overnight, patient is somewhat more alert today. Continues to have lots of discharge/tube feeding drainage from around his tube feed insertion site. Exam Vital signs and Labs for Last 24 Hours: Temp Pulse Resp BP Pulse Ox 98.5 F 107 H 20 159/84 H 96 08/25/20 04:00 08/25/20 04:00 08/25/20 04:00 08/25/20 04:00 08/25/20 04:00 Laboratory Results - last 24 hr 08/24/20 10:58: POC Glucose 184 H 08/24/20 15:45: POC Glucose 199 H 08/24/20 20:39: POC Glucose 285 H 08/24/20 21:35: Vancomycin Trough 25.9 H 08/25/20 06:15: WBC 6.3, RBC 4.00 L, Hgb 11.9 L, Hct 37.6 L, MCV 93.8, MCH 29.7, MCHC 31.7 L, RDW 14.0, Plt Count 304 D, MPV 8.6, Neut % (Auto) 67.3, Lymph % (Auto) 22.8, [place] % (Auto) 5.4, Eos % (Auto) 4.1, Baso % (Auto) 0.3, Neut # (Auto) 4.2, Lymph # (Auto) 1.4, [place] # (Auto) 0.3, Eos # (Auto) 0.3, Baso # (Auto) 0.0 08/25/20 06:15: Sodium 146 H, Potassium 3.1 L, Chloride 116 H, Carbon Dioxide 26, Anion Gap 7.1, BUN 19, Creatinine 0.70, Estimated Creat Clear 93, Estimated GFR 114, Est GFR ( Amer) 138, Glucose 305 H D, Calcium 7.8 L I & O for Last 24 hours: Intake & Output 08/22/20 08/23/20 08/24/20 08/25/20 11:59 11:59 11:59 11:59 Intake Total 3006 / 3006 3011 / 3011 3196 / 3196 3312 / 3312 Output Total 2200 / 2200 2700 / 2700 202 / 2024 2950 / 2950 Balance 806 / 806 311 / 311 1171 / 1171 362 / 362 Weight 195 lb 14.4 oz 196 lb 198 lb 189 lb 7 oz Microbiology Reports for the Last 24 Hours: Microbiology 08/19/20 16:30 Blood Blood Culture - Final NO GROWTH AFTER 5 DAYS 08/19/20 16:30 Blood Blood Culture - Final NO GROWTH AFTER 5 DAYS 08/20/20 10:50 Axilla,Left Gram Stain - Final 08/20/20 10:50 Axilla,Left Wound Culture - Preliminary Gram Positive Bacilli Gram Positive Bacilli#2 08/22/20 15:35 Abdomen Gram Stain - Final 08/22/20 15:35 Abdomen Wound Culture - Preliminary Narrative: More alert today, eyes open, responds with some head nodding. Dry oral mucosa but no lesions, some old dried blood around his right side of his lip but this is a not atypical finding and given his significant torticollis and his blood thinner use. Lungs have good air movement, heart rate regular. Abdomen is soft, G-tube site is saturated with tube feeds. Somewhat less grungy appearing drainage. Contracted extremities. Assessment and Plan (1) Severe sepsis Status: Acute Category: Medical Code(s): A41.9 - Sepsis, unspecified organism; R65.20 - Severe sepsis without septic shock (2) Fever Status: Acute Category: Medical Code(s): R50.9 - Fever, unspecified (3) GI bleed Status: Acute Category: Medical Code(s): K92.2 - Gastrointestinal hemorrhage, unspecified (4) NUBIA (acute kidney injury) Status: Acute Category: Medical Code(s): N17.9 - Acute kidney failure, unspecified (5) Leukocytosis Status: Acute Category: Medical Code(s): D72.829 - Elevated white blood cell count, unspecified (6) UTI (urinary tract infection) Status: Acute Qualifiers: Urinary tract infection type: site unspecified Hematuria presence: with hematuria Qualified Code(s): N39.0 - Urinary tract infection, site not specified; R31.9 - Hematuria, unspecified Category: Medical Code(s): N39.0 - Urinary tract infection, site not specified (7) Diabetes mellitus Status: Chronic Qualifiers: Diabetes mellitus type: type 2 Diabetes mellitus complication status: with hyperglycemia Category: Medical Code(s): E11.9 - Type 2 diabetes mellitus without complications (8) Gastrointestinal tube present Status: Chronic Category: Medical Code(s): Z93.1 - Gastrostomy status (9) TBI (traumatic brain injury) Status: Chronic Qualifiers: Encounter type: sequela
[2020-08-25 08:00] VITALS: BP 158/91; PULSE 108; RESP 20; TEMP 36.8; O2SAT 94
--- NOTE | 2020-08-25 08:27 | HMH.PHACONS ---
- Pharmacy Consult Date: 08/25/20 Time: 08:27 Referring provider: DR. CARCAMO Reason for Consult:: VANCOMCYIN TROUGH Allergies and ADEs:: Allergies Allergy/AdvReac Type Severity Reaction Status Date / Time adhesive [ADHESIVE] Allergy Mild Unknown Verified 03/14/19 08:21 allergy reaction lisinopril Allergy Mild Unknown Verified 03/14/19 08:21 allergy reaction Home Medications:: Home Medications Medication Instructions Recorded Confirmed Type Hydrocodone/Acetaminophen 7.5 mg G-TUBE QID 02/25/18 08/19/20 History [Hydrocodone-Acetamin 7.5-325] Metoclopramide HCl [Metoclopramide 5 ml G-TUBE QID 02/25/18 08/19/20 History 5mg/5ml Oral Soln] OXcarbazepine [Trileptal 150mg 150 mg G-TUBE TID 02/25/18 08/19/20 History tablet] Pravastatin Sodium 80 mg G-TUBE DAILY 02/25/18 08/19/20 History Quetiapine Fumarate 25 mg G-TUBE HS 02/25/18 08/19/20 History acetaZOLAMIDE [Acetazolamide] 125 mg G-TUBE DAILY 02/25/18 08/19/20 History Citalopram Hydrobromide 20 mg G-TUBE DAILY 03/10/19 08/19/20 History [Citalopram 20mg Tablet] Docusate Sodium [Docusate Sod 150 mg G-TUBE DAILY PRN 03/10/19 08/19/20 History Liquid 100mg/10mL udc] Insulin Glargine,Hum.rec.anlog 30 unit SQ HS 03/10/19 08/19/20 History [Lantus Insulin 100units/mL 10mL vial] Levothyroxine Sodium 100 mg G-TUBE DAILY 03/10/19 08/19/20 History [Levothyroxine 100mcg (0.1MG) Tab] polyethylene glycoL 3350 [Miralax 17 gm G-TUBE DAILY 03/14/19 08/19/20 History 17gm Packet] Acetaminophen 650 mg G-TUBE Q4HP PRN 08/19/20 08/19/20 History Acetaminophen [Feverall] 650 mg RC Q4HP PRN 08/19/20 08/19/20 History Albuterol Sulfate [Albuterol 2.5 mg IH Q4HP PRN 08/19/20 08/19/20 History 0.083% 2.5mg/3mL neb] Azithromycin 250 mg G-TUBE DAILY 08/19/20 08/20/20 History Baclofen [Lioresal 10mg tablet] 10 mg G-TUBE TIDP PRN 08/19/20 08/20/20 History Carboxymethylcellulose Sodium 1 drp OP TID 08/19/20 08/19/20 History [Refresh Liquigel] Cefdinir [Omnicef 300mg Capsule] 300 mg G-TUBE BID 08/19/20 08/20/20 History Insulin Aspart [Insulin Aspart 0 unit SQ DIRECTED 08/19/20 08/19/20 History Flexpen] Insulin Glargine,Hum.rec.anlog 24 units SQ DAILY 08/19/20 08/19/20 History [Lantus Solostar 100 Units/mL 3mL flexpen] Pediatric Multivitamin No.118 15 ml G-TUBE DAILY 08/19/20 08/19/20 History [Tropical Liquid Nutrition] Aspirin [Aspirin 81mg EC Tab] 81 mg G-TUBE DAILY 08/20/20 08/20/20 History Omeprazole [Omeprazole 40mg 40 mg G-TUBE DAILY 08/20/20 08/20/20 History Capsule] Zonisamide [Zonegran] 400 mg G-TUBE HS 08/20/20 08/20/20 History Height: 1.75 m Weight: 85.927 kg Laboratory Results:: Laboratory Results - last 24 hr 08/24/20 10:58: POC Glucose 184 H 08/24/20 15:45: POC Glucose 199 H 08/24/20 20:39: POC Glucose 285 H 08/24/20 21:35: Vancomycin Trough 25.9 H 08/25/20 06:15: WBC 6.3, RBC 4.00 L, Hgb 11.9 L, Hct 37.6 L, MCV 93.8, MCH 29.7, MCHC 31.7 L, RDW 14.0, Plt Count 304 D, MPV 8.6, Neut % (Auto) 67.3, Lymph % (Auto) 22.8, [place] % (Auto) 5.4, Eos % (Auto) 4.1, Baso % (Auto) 0.3, Neut # (Auto) 4.2, Lymph # (Auto) 1.4, [place] # (Auto) 0.3, Eos # (Auto) 0.3, Baso # (Auto) 0.0 08/25/20 06:15: Sodium 146 H, Potassium 3.1 L, Chloride 116 H, Carbon Dioxide 26, Anion Gap 7.1, BUN 19, Creatinine 0.70, Estimated Creat Clear 93, Estimated GFR 114, Est GFR ( Amer) 138, Glucose 305 H D, Calcium 7.8 L Medical History: Reports:: Coronary Artery Disease, Deep Vein Thrombosis, Diabetes Mellitus Type 2, Hyperlipidemia, Seizures, Urinary Tract Infection Denies:: Cancer, Diabetes Mellitus Type 1, MRSA Assessment and Plan (1) Severe sepsis Status: Acute Category: Medical Code(s): A41.9 - Sepsis, unspecified organism; R65.20 - Severe sepsis without septic shock (2) Fever Status: Acute Category: Medical Code(s): R50.9 - Fever, unspecified (3) GI bleed Status: Acute Category: Medica
[2020-08-25 11:02] LABS: POC Glucose,Bedside 288 (70-110)
[2020-08-25 11:11] LABS: POC Glucose,Bedside 289 (70-110)
[2020-08-25 12:00] VITALS: BP 162/88; PULSE 112; RESP 20; TEMP 36.7; O2SAT 95
--- NOTE | 2020-08-25 15:43 | DIET.NUTRFU ---
Tolerating half volume feeds today (120ml Glucerna with 60ml water flushes q 4hr.) 0 GRV. Surgery consulted to evaluate PEG, monitoring findings. Reported weight loss of 4kg past 24 hours, possibly error. Weight stable up until yesterday. BG moderate-high- ~260.
[2020-08-25 16:00] VITALS: BP 150/86; PULSE 98; RESP 18; TEMP 37.5; O2SAT 95
[2020-08-25 16:18] LABS: POC Glucose,Bedside 245 (70-110)
--- NOTE | 2020-08-25 19:14 | PC.NURSE ---
report given to eder
--- NOTE | 2020-08-25 19:33 | PC.NURSE ---
Pt non verbal. RR even and unlabored. NAD. Have cleaned mouth and applied lubricant. Turned and repositioned this shift. Have had good u/o this shift. Lopez remains in place. Dr. Saunders taped g tube this am and stated per office that nothing else needed to be done to g tube. CB in reach. IV changed to RFA posterior and fluids infusing as ordered. Has tolerated feedings well this shift. VSS.
[2020-08-25 20:00] VITALS: BP 152/83; PULSE 104; RESP 20; TEMP 37.3; O2SAT 95
[2020-08-25 22:54] LABS: POC Glucose,Bedside 290 (70-110)
[2020-08-26] VITALS: BP 142/70; PULSE 92; RESP 20; TEMP 37.2; O2SAT 95
--- NOTE | 2020-08-26 02:41 | PC.NURSE ---
Pt noted non-verbal this shift. Will move right arm and moan if attempting to communicate with staff. No acute changes noted from previous shift. Left side extremities noted flaccid, pt baseline. Tolerated RA well. Bilateral lungs noted clear t/o. PEG dsg noted c/d/i, drains adequately. Tolerated feeds well. Q2H turn per staff. Complete care. Right arm noted with edema, elevated on pillow. TEDS on bilateral legs. Kept bilateral legs elevated on pillow. VSS. Remains safe. Call light within reach. Will continue to monitor.
[2020-08-26 04:00] VITALS: BP 143/61; PULSE 107; RESP 18; TEMP 37.2; O2SAT 96
[2020-08-26 05:00] VITALS: BMI 28.5
[2020-08-26 05:46] LABS: POC Glucose,Bedside 284 (70-110)
[2020-08-26 08:00] VITALS: BP 155/90; PULSE 105; RESP 18; TEMP 37.4; O2SAT 95
--- NOTE | 2020-08-26 08:39 | HMH.DCSUM ---
General - General Admission date:: 08/19/20 Discharge date: 08/26/20 HPI HPI: 60 yr old male admitted directly [place] [facility] [place] with concern for fever and possible GI bleeding. 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 detention staff noted hematuria about 48 hours ago as well as low-grade fevers and coffee-ground residual from his PEG. Urine was obtained by in-and-out catheter and is currently pending with their outside lab. CXR and labs done yesterday incidated a right sided pleural effusion and possible pneumonia, labs with leukocytosis and acute kidney injury so his lasix and potassium were held and he was given a one-time injection of rocephin IM yesterday and started on azithromycin and cefdinir per tube. I ordered labs to follow-up today and his BUN had increased to 83, creatinine to 1.8 and hemoglobin dropped from 13 to 11. After discussion with staff and his sister, decision was made to admit for imaging and IV hydration. COVID testing yesterday by PCR is negative today and he has had known exposure to COVID or other illness. Last month he had a similar episode of fever, cough and leukocytosis but all symptoms resolved and labs normalized with cefdinir and azithromycin. Interestingly, his blood glucose levels have been very difficult to control over the past month and are previously very well controlled with scheduled basal insulin and his tube feed schedule. 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 Hospital Course Hospital Course: Patient was admitted and he was placed on intravenous antibiotics for urinary tract infection, which cultures showed pansensitive E. coli from correction cultures. Cultures of urine here did not grow anything because of prior antibiotic therapy. Urology was consulted and recommended indwelling Lopez catheter because of his significant amount of bladder stones and the need for ongoing drainage of urinary fluid around the stones which might be an ongoing source of infection. Patient had G-tube changed by surgery and unfortunately after this change had quite a bit of leakage and some purulent appearing drainage from the G-tube site. This was cultured and showed Enterobacter. Fortunately this is pansensitive to penicillin products. Surgery did manipulate the tube yesterday and has recommended firmly taping the toggle plastic on the outside of the abdomen to the abdominal wall so that the balloon on the inside is firmly pulled up to the surface of the anterior abdominal wall to minimize leakage. This seemed to help the leakage issues overnight. Patient had some waxing and waning level of consciousness but this morning seems back to his baseline. Plan will be to transfer back to his long-term care facility today pending rapid Covid swab, and we will initiate amoxicillin therapy and Bactroban ointment for the Enterobacter infection around his G-tube although I feel this is more of a colonization status. Patient will continue his DNR status, tube feeds and other medication as noted. Follow-up will be per our regular correction rounds. Objective Vital signs: Temp Pulse Resp BP Pulse Ox 99.3 F 105 H 18 155/90 H 95 08/26/20 08:00 08/26/20 08:00 08/26/20 08:00 08/26/20 08:00 08/26/20 08:00 Narrative: Patient is minimally responsive at baseline. Chronic right-sided torticollis. Some dried blood around his lip which is baseline for him given his anticoagulation status. thin, cachectic, chronically ill appearing - *Routine HEENT Exam ENT: Present: mucous membranes moist - *Routine Neck Exam Comments: See notes above - *Routine Respiratory Exam Present: CTA bilaterally - *Routine Cardiovascular Exam Present: RRR - *Routine Abdominal Exam Present: soft, normoactive bowel sounds. Absent: tenderness Comments: New G-tube in position. Please s
[2020-08-26 09:31] LABS: Adenovirus,PCR Not Detected (NotDetected); Bordetella Pertussis Not Detected (NotDetected); Chlamydophila Pneumoniae, PCR Not Detected (NotDetected); Coronavirus 19, PCR Not Detected (NotDetected); Coronavirus 229E Not Detected (NotDetected); Coronavirus NL63 Not Detected (NotDetected); Coronavirus OC43 Not Detected (NotDetected); Coronovirus HKU1,PCR Not Detected (NotDetected); Human Metapneumovirus Not Detected (NotDetected); Influenza A, PCR Not Detected (NotDetected); Influenza AH1, 2009 Not Detected (NotDetected); Influenza AH1, PCR Not Detected (NotDetected); Influenza AH3,PCR Not Detected (NotDetected); Influenza B, PCR Not Detected (NotDetected); Mycoplasma Pneumoniae, PCR Not Detected (NotDetected); Parainfluenza 1, PCR Not Detected (NotDetected); Parainfluenza 2, PCR Not Detected (NotDetected); Parainfluenza 3, PCR Not Detected (NotDetected); Parainfluenza 4, PCR Not Detected (NotDetected); Respiratory Syncytial Virus Not Detected (NotDetected); Rhinovirus/Enterovirus Not Detected (NotDetected)
[2020-08-26 11:10] VITALS: BP 162/89; PULSE 104; RESP 18; TEMP 37.2; O2SAT 93
[2020-08-26 12:11] LABS: POC Glucose,Bedside 274 (70-110)
--- NOTE | 2020-08-26 14:21 | PC.NURSE ---
PT LEFT WITH AMBULANCE. REPORT WAS CALLED TO [facility]. COVID TEST NEGATIVE. PT IS ALERT TO VOICE BUT IS UNABLE TO VERBALLY COMMUNICATE. PT HAS OPEN AREAS NOTED TO THE LIPS THAT PCP IS AWARE OF. ORAL CARE AND LIP MOISTURIZER PROVIDED. TURN AND REPOSITIONED Q2H. PT WILL BE DISCHARGED WITH [facility]. FOLLOW UP IN THE DETENTION. VSS.
== END 2020-08-26 14:35 | DRG 693 ==
PROVIDERS: Internal Medicine Adolescent Medicine; Nurse Practitioner Family; Admitting Provider Internal Medicine Adolescent Medicine; PCP Internal Medicine Adolescent Medicine; Visit Provider Internal Medicine Adolescent Medicine
DX: T85.598A Other mechanical complication of other gastrointestinal prosthetic devices, implants and grafts, initial encounter; R65.20 Severe sepsis without septic shock; N20.0 Calculus of kidney; E87.0 Hyperosmolality and hypernatremia; N17.9 Acute kidney failure, unspecified; K94.22 Gastrostomy infection; I82.509 Chronic embolism and thrombosis of unspecified deep veins of unspecified lower extremity; Z86.19 Personal history of other infectious and parasitic diseases; E03.9 Hypothyroidism, unspecified; G83.9 Paralytic syndrome, unspecified; I25.10 Atherosclerotic heart disease of native coronary artery without angina pectoris; Z66 Do not resuscitate; R31.9 Hematuria, unspecified; Z79.01 Long term (current) use of anticoagulants; Z88.8 Allergy status to other drugs, medicaments and biological substances; Z79.4 Long term (current) use of insulin; Z79.82 Long term (current) use of aspirin; Z79.52 Long term (current) use of systemic steroids; Z87.820 Personal history of traumatic brain injury; Z93.1 Gastrostomy status; Z79.899 Other long term (current) drug therapy
CPT/HCPCS: 43762; 36415; 71045; 71250; 74018; 74176; 76705; 80048; 80053; 80202; 81001; 82962; 83605; 83735; 85007; 85025; 85610; 86328; 87040; 87070; 87077; 87086; 87186; 87205; 87581; 87633; 87798; 94761; J3370; U0003

== ENCOUNTER 2020-10-25 02:09 | Emergency (ER) | payer MEDICARE, OTHER, SELFPAY ==
[2020-10-25 01:55] VITALS: BP 132/83; PULSE 118; RESP 14; TEMP 37.3; O2SAT 96; BMI 25.0
--- NOTE | 2020-10-25 02:07 | XR_ITS ---
PROCEDURE: XR KUB CLINICAL INDICATION: G-tube confirmation COMPARISON: CT CT ABDOMEN PELVIS WO CON from 08/19/2020 FINDINGS: Contrast is seen injected into the stomach through the G-tube showing good opacification of the stomach with normal appearing rugal folds. There is no evidence of extravasation. There is prominent gaseous dilatation of the transverse colon and splenic flexure probably representing mild ileus. There are calcifications both sides of the upper abdomen likely representing renal calcifications as the dura noted on recent CT scan the chest including the upper abdomen 08/19/2020. A vena cava filter is noted. IMPRESSION: Satisfactory placement of G-tube Dictated by: Dr. Rafael Woods MD 10/25/2020 07:47 Dr. Rafael Woods MD in [place] 10/25/2020 07:47
--- NOTE | 2020-10-25 03:03 | HMH.EDRECH ---
ED Disposition Clinical Impression: Feeding tube dysfunction Qualifiers: Encounter type: initial encounter Qualified Code(s): T85.598A - Other mechanical complication of other gastrointestinal prosthetic devices, implants and grafts, initial encounter Disposition: Home, Self-Care Condition on Discharge: Good Instructions: How to Care for Your PEG Tube Additional Instructions: resume orders Referrals: Rafy Tomas MD [Primary Care Provider] - - Critical Care Critical Care Time: No Attestation: On 10/25/20, the high probability of a clinically significant, sudden or life threatening deterioration of the following system(s) required my full and direct attention, intervention and personal management. The time I documented below is in addition to time spent performing reported procedures but includes the following listed in this critical care notation. Medical Decision Making - Medical Records Medical records reviewed: Yes: I reviewed the patient's medical records. - Lobo Inquiry Pt receiving controlled substance: No Vital Signs: 10/25/20 01:55 Temperature 99.1 F Temperature Source Oral Pulse Rate [Right Brachial] 118 H Respiratory Rate 14 Blood Pressure [Right Arm] 132/83 Blood Pressure Mean [Right Arm] 99 02 Sat by Pulse Oximetry 96 Oxygen Delivery Method Room Air Orders (Tests/Meds): ORDERS Category Date Time Status KUB (single view) [XR KUB] Stat Exams 10/25/20 02:07 Taken - Radiology Data #1 Image(s): KUB Image Reviewed: Yes I reviewed the patient's radiology image Preliminary Findings: Normal/NAD (g tube in place ) Medical Decision Narrative: er staff used g tube and gave food bolus - without diff Recheck HPI - General Chief Complaint: Recheck/Abnormal Lab/Rx Stated Complaint: leaking G tube Time Seen by Provider: 10/25/20 02:10 Mode of Arrival: EMS Source of Information: EMS, Medical Record Limitations: Physical Limitations Description of Symptoms (Recalled from ER Triage Doc. by RN): intermediate reported during bolus feeding. feeding was leaking out of stoma - History of Present Illness HPI narrative: [facility] staff reported nonfuncting g tube complaint: other (g tube malfunction) Initial visit (ago): hour(s) Returns today for: other (g tube ) Associated symptoms: none - Related Data Home Medications Medication Instructions Recorded Confirmed Hydrocodone/Acetaminophen 7.5 mg G-TUBE QID 02/25/18 08/19/20 [Hydrocodone-Acetamin 7.5-325] Metoclopramide HCl [Metoclopramide 5 ml G-TUBE QID 02/25/18 08/19/20 5mg/5ml Oral Soln] OXcarbazepine [Trileptal 150mg 150 mg G-TUBE TID 02/25/18 08/19/20 tablet] Pravastatin Sodium 80 mg G-TUBE DAILY 02/25/18 08/19/20 Quetiapine Fumarate 25 mg G-TUBE HS 02/25/18 08/19/20 acetaZOLAMIDE [Acetazolamide] 125 mg G-TUBE DAILY 02/25/18 08/19/20 Citalopram Hydrobromide 20 mg G-TUBE DAILY 03/10/19 08/19/20 [Citalopram 20mg Tablet] Docusate Sodium [Docusate Sod 150 mg G-TUBE DAILY PRN 03/10/19 08/19/20 Liquid 100mg/10mL udc] Insulin Glargine,Hum.rec.anlog 30 unit SQ HS 03/10/19 08/19/20 [Lantus Insulin 100units/mL 10mL vial] Levothyroxine Sodium 100 mg G-TUBE DAILY 03/10/19 08/19/20 [Levothyroxine 100mcg (0.1MG) Tab] polyethylene glycoL 3350 [Miralax 17 gm G-TUBE DAILY 03/14/19 08/19/20 17gm Packet] Acetaminophen 650 mg G-TUBE Q4HP PRN 08/19/20 08/19/20 Acetaminophen [Feverall] 650 mg RC Q4HP PRN 08/19/20 08/19/20 Albuterol Sulfate [Albuterol 2.5 mg IH Q4HP PRN 08/19/20 08/19/20 0.083% 2.5mg/3mL neb] Baclofen [Lioresal 10mg tablet] 10 mg G-TUBE TIDP PRN 08/19/20 08/20/20 Carboxymethylcellulose Sodium 1 drp OP TID 08/19/20 08/19/20 [Refresh Liquigel] Insulin Aspart [Insulin Aspart 0 unit SQ DIRECTED 08/19/20 08/19/20 Flexpen] Insulin Glargine,Hum.rec.anlog 24 units SQ DAILY 08/19/20 08/19/20 [Lantus Solostar 100 Units/mL 3mL flexpen] Pediatric Multivitamin No.118
--- NOTE | 2020-10-25 03:05 | PC.NURSE ---
KUB shows proper placement of G-Tube, 120 ml of 1 brie tube feeding followed by 120 ml H2O and no leak was observed, pt tolerated feeding well
[2020-10-25 03:22] VITALS: BP 125/78; PULSE 102; RESP 15; TEMP 37.3; O2SAT 97
== END 2020-10-25 03:28 | disposition home or self-care (01) ==
PROVIDERS: Emergency Provider Emergency Medicine; PCP Internal Medicine Adolescent Medicine
DX: K94.23 Gastrostomy malfunction (principal); I25.10 Atherosclerotic heart disease of native coronary artery without angina pectoris; E78.5 Hyperlipidemia, unspecified; E11.9 Type 2 diabetes mellitus without complications; G83.9 Paralytic syndrome, unspecified; Z87.820 Personal history of traumatic brain injury
CPT/HCPCS: 74018; 99283

== ENCOUNTER 2020-10-29 11:59 | Inpatient (IN) | payer MEDICARE, OTHER, SELFPAY ==
[2020-10-29] VITALS (15 sets, daily range): BP systolic 95–139; BP diastolic 64–100; PULSE 110–132; RESP 18–36; TEMP 36.5–39.1; O2SAT 87–98; BMI 25.7; BMI 23.8
--- NOTE | 2020-10-29 11:56 | ECG_ITS ---
APPROVED REPORT Exam: Resting ECG HR:127 bpm ECG Measurements Heart Rate [address] 120 P 55 QRSd 90 QRS 106 QT 298 T -9 QTc 433 Conclusion Sinus tachycardia Possible Left atrial enlargement Rightward axis RSR' or QR pattern in V1 suggests right ventricular conduction delay T wave abnormality, consider inferior ischemia Abnormal ECG Electronically signed by : Rafy Tomas, 10/29/2020 19:34:54
--- NOTE | 2020-10-29 12:09 | XR_ITS ---
PROCEDURE: XR CHEST PORTABLE Referring Doctor: Bello Goodwin Patient Age:60Y CLINICAL HISTORY: fever COMPARISON: CR CXR1 CHEST-PORTABLE from 10/29/2012 CR CXR1 CHEST-PORTABLE from 11/09/[address] abdomen pelvis wo con from 03/13/[address] CHEST WO CON from 08/19/2020 CR XR CHEST PORTABLE from 08/19/2020 FINDINGS: AP portable CXR supine Due to the patient's severe rotoscoliosis there is marked distortion of the chest. The left lung appears stable and clear. The diminished volume right hemithorax due to the severe roto levoscoliosis of the spine, is associated elevation right hemidiaphragm. These features yield chronic increased markings at the right base reflecting scarring here along with previous atelectasis but we again see some increased markings of similar character at the right base I favor viewing atelectasis scarring but is difficult to exclude early infiltrate.. with this appearance. There also appears to be some mild chronic pleural thickening or fluid at the right CP angle. The recent 08/19/2020 CT chest is also helpful in viewing these features The patient has a ventriculoperitoneal shunt overlying the right chest with metallic connector at the right upper quadrant. This BP P appears to be stable since previous studies. . No acute bony abnormalities. Limited visualization of the heart and mediastinal structures on this distorted chest but overall appears to be stable appearance of heart and mediastinum. IMPRESSION: . nothing definitely acute Distortion of the chest due the patient's severe a rotoscoliosis, dextroscoliosis. With this diminished volume of the right hemithorax with elevation right hemidiaphragm. We again see what is most likely chronic scarring and atelectasis right lung base just above the elevated right dina diaphragm The better, well expanded expanded left lung appears stable and clear. Dictated by: Nathan Kay MD 10/29/2020 15:16 Nathan Kay MD in [place] 10/29/2020 15:16
--- NOTE | 2020-10-29 12:11 | HMH.EDFEV ---
ED Disposition Clinical Impression: Obstructive uropathy, Kidney stone on left side, Hypernatremia, Upper GI bleed, Malfunction of gastrostomy tube, NUBIA (acute kidney injury) Sepsis Qualifiers: Sepsis type: sepsis due to unspecified organism Sepsis acute organ dysfunction status: unspecified Qualified Code(s): A41.9 - Sepsis, unspecified organism UTI (urinary tract infection) Qualifiers: Urinary tract infection type: acute pyelonephritis Qualified Code(s): N10 - Acute pyelonephritis Disposition: Admitted As Inpatient Condition on Discharge: [facility] - Critical Care Critical Care Time: Yes Attestation: On , the high probability of a clinically significant, sudden or life threatening deterioration of the following system(s) required my full and direct attention, intervention and personal management. The time I documented below is in addition to time spent performing reported procedures but includes the following listed in this critical care notation. Vital system(s) involved:: Renal Failure My critical care processes included: Assessment & monitoring of V/S, Initial and Re-exams, Coordinating Care, Documentation Comment: Multiple acute diagnoses affecting multiple organ systems. Coordinating care among 4 different specialist. Medical Decision Making - Lobo Inquiry Pt receiving controlled substance: No Vital Signs: 10/29/20 12:02 10/29/20 12:30 10/29/20 13:00 Temperature 102.4 F H Temperature Source Rectal Pulse Rate [Radial] 132 H 128 H 126 H Respiratory Rate 22 24 Blood Pressure [Right Arm] 129/72 139/100 H 120/77 Blood Pressure Mean [Right Arm] 91 113 91 Blood Pressure Source [Right Arm] Blood Pressure Position [Right Arm] Sitting Sitting Sitting 02 Sat by Pulse Oximetry 98 93 L Oxygen Delivery Method Room Air Room Air Oxygen Flow Rate (LPM) 10/29/20 13:43 10/29/20 14:00 10/29/20 14:20 Temperature Temperature Source Pulse Rate [Radial] 125 H 123 H 132 H Respiratory Rate 20 26 H 36 H Blood Pressure [Right Arm] 115/76 123/71 Blood Pressure Mean [Right Arm] 89 88 Blood Pressure Source [Right Arm] Automatic Cuff Blood Pressure Position [Right Arm] Supine Sitting 02 Sat by Pulse Oximetry 93 L 91 L 88 L Oxygen Delivery Method Nasal Cannula Room Air Oxygen Flow Rate (LPM) 2 10/29/20 14:21 10/29/20 15:03 10/29/20 15:26 Temperature 99.4 F Temperature Source Rectal Pulse Rate [Radial] 123 H Respiratory Rate 20 Blood Pressure [Right Arm] 119/84 Blood Pressure Mean [Right Arm] 95 Blood Pressure Source [Right Arm] Automatic Cuff Blood Pressure Position [Right Arm] Sitting 02 Sat by Pulse Oximetry 93 L 90 L Oxygen Delivery Method Nasal Cannula Nasal Cannula Oxygen Flow Rate (LPM) 2 4 10/29/20 16:13 Temperature Temperature Source Pulse Rate [Radial] 116 H Respiratory Rate Blood Pressure [Right Arm] Blood Pressure Mean [Right Arm] Blood Pressure Source [Right Arm] Blood Pressure Position [Right Arm] 02 Sat by Pulse Oximetry 96 Oxygen Delivery Method Oxygen Flow Rate (LPM) - Lab Data Lab Results 10/29/20 12:28: Urine Color Dk yellow, Urine Appearance Turbid, Urine pH 6.0, Ur Specific Chauncey 1.020, Urine Protein 2+, Urine Glucose (UA) Negative, Urine Ketones Negative, Urine Blood 3+, Urine Nitrate Negative, Urine Bilirubin Negative, Urine Urobilinogen 1.0, Ur Leukocyte Esterase 2+ A, Urine WBC Tntc 10/29/20 12:49: WBC 14.1 H, RBC 5.57, Hgb 16.5, Hct 51.4, MCV 92.2, MCH 29.6, MCHC 32.1, RDW 14.7, Plt Count 232, MPV 9.8, Neut % (Auto) 90.8 H, Lymph % (Auto) 5.0 L, [place] % (Auto) 3.1, Eos % (Auto) 0.6, Baso % (Auto) 0.5, Neut # (Auto) 12.8 H, Lymph # (Auto) 0.7, [place] # (Auto) 0.4, Eos # (Auto) 0.1, Baso # (Auto) 0.1, Total Counted 100, Neutrophils % (Manual) 91 H, Band Neutrophils % 1.0, Lymphocytes % (Manual) 4 L, Monocytes % (Manual) 3, Eosinophils % (Manual) 1, Platelet Estimate Normal, RBC Morphology Normal 10/29/20 12:49: Sodium 152 H*, Potassium 3.
[2020-10-29 12:32] LABS: Microscopic, Urine URINE MICROSCOPIC (MICROSCOPIC)
[2020-10-29 12:36] LABS: Appearance,Urine TURBID (Clear); Blood, Urine 3+ (Negative); Color,Urine DK YELLOW (Yellow); Glucose,Urine (UA) Negative (Negative); Ketones,Urine Negative (Negative); Leukocyte Esterase,Urine 2+ (Negative); Nitrate,Urine Negative (Negative); Protein,Urine 2+ (Negative)
[2020-10-29 12:40] LABS: Bilirubin,Urine Negative (Negative)
[2020-10-29 12:51] LABS: WBC,Urine TNTC #/hpf (0-3)
[2020-10-29 13:06] LABS: Basophils # 0.1 K/mm3 (0-0.2); Basophils % 0.5 % (0.1-2.0); Eosinophils # 0.1 K/mm3 (0.0-0.4); Eosinophils % 0.6 % (0.1-12.0); Hematocrit 51.4 % (42.0-52.0); Hemoglobin 16.5 g/dL (14.1-18.0); Lymphocytes # 0.7 K/mm3 (0.7-4.5); Mean Corpuscular HGB Conc 32.1 g/dL (31.8-35.4); Mean Corpuscular Hemoglobin 29.6 pg (27.0-31.2); Mean Corpuscular Volume 92.2 fl (80-94); Mean Platelet Volume 9.8 fl (7.4-10.4); Monocytes # 0.4 K/mm3 (0.1-1.0); Monocytes % 3.1 % (1.7-9.3); Neutrophils # 12.8 K/mm3 (1.8-7.8); Neutrophils % 90.8 % (37.0-80.0); Platelet Count 232 K/mm3 (142-424); Red Blood Count 5.57 M/mm3 (4.60-6.20); Red Cell Distribution Width 14.7 % (11.5-17.5); White Blood Count 14.1 K/mm3 (4.8-10.8)
[2020-10-29 13:07] LABS: Chloride 112 mmol/L (98-107); Potassium 3.9 mmoL/L (3.5-5.1)
[2020-10-29 13:08] LABS: MANUAL DIFFERENTIAL MANUAL DIFFERENTIAL (MANUAL DIFF); Sodium 152 mmol/L (136-145)
[2020-10-29 13:09] LABS: Alanine Aminotransferase 93 U/L (12-78); Aspartate Amino Transferase 162 U/L (17-59); Creatinine Clearance Estimated 42 mL/min (50-200); Estimated Glomerular Filt Rate 30 ml/min (>60); GFR (African American) 37 ML/MIN (>60); Lactic Acid 1.8 mmol/L (0.7-2.1)
[2020-10-29 13:10] LABS: Albumin Level 3.8 g/dl (3.5-5.0); Albumin/Globulin Ratio 0.9 (1.1-1.8); Alkaline Phosphatase 266 U/L (38-126); Anion Gap 13.9 mEq/L (5-15); Calcium 9.4 mg/dl (8.4-10.2); Carbon Dioxide 30 mmol/L (22.0-30.0); Globulin 4.1 g/dL (1.3-3.2); Glucose 187 mg/dl (74-100); Total Protein,Serum 7.9 g/dl (6.3-8.2)
[2020-10-29 13:11] LABS: Blood Urea Nitrogen 89 mg/dl (9-20)
[2020-10-29 13:23] LABS: Eosinophils % 1 % (0-3); Lymphocytes % 4 % (10-50); Monocytes % 3 % (2-9); Neutrophils % 91 % (42-76); Platelet Estimate Normal; RBC Morphology Normal; Total Cells Counted 100
[2020-10-29 13:29] LABS: Coronavirus 19 IgG Antibody Positive (Negative); Coronavirus 19 IgM Antibody Positive (Negative)
[2020-10-29 13:40] LABS: Adenovirus,PCR Not Detected (NotDetected); Bordetella Pertussis Not Detected (NotDetected); Chlamydophila Pneumoniae, PCR Not Detected (NotDetected); Coronavirus 19, PCR Not Detected (NotDetected); Coronavirus 229E Not Detected (NotDetected); Coronavirus NL63 Not Detected (NotDetected); Coronavirus OC43 Not Detected (NotDetected); Coronovirus HKU1,PCR Not Detected (NotDetected); Human Metapneumovirus Not Detected (NotDetected); Influenza A, PCR Not Detected (NotDetected); Influenza AH1, 2009 Not Detected (NotDetected); Influenza AH1, PCR Not Detected (NotDetected); Influenza AH3,PCR Not Detected (NotDetected); Influenza B, PCR Not Detected (NotDetected); Mycoplasma Pneumoniae, PCR Not Detected (NotDetected); Parainfluenza 1, PCR Not Detected (NotDetected); Parainfluenza 2, PCR Not Detected (NotDetected); Parainfluenza 3, PCR Not Detected (NotDetected); Parainfluenza 4, PCR Not Detected (NotDetected); Respiratory Syncytial Virus Not Detected (NotDetected); Rhinovirus/Enterovirus Not Detected (NotDetected)
--- NOTE | 2020-10-29 14:49 | CT_ITS ---
PROCEDURE: CT ABDOMEN PELVIS WO CON CLINICAL INDICATION: G tube drainage, fever COMPARISON: CT CT ABDOMEN PELVIS WO CON from 08/19/2020 TECHNIQUE: Axial images obtained with sagittal and coronal reformats. All CT scans at the facility use one or more dose reduction, viz: automated exposure control, ma/kV adjustment per patient size (including targeted exams where dose is matched to indication, i.e. head), or iterative reconstruction technique. FINDINGS: Lower thorax: Bilateral basilar atelectasis ABDOMEN: Liver: No masses or biliary dilatation. Gallbladder: Nondistended. No radio opaque stones. Pancreas: No masses or peripancreatic fluid collections. Spleen: unremarkable Adrenals: unremarkable Kidneys/ureters: The kidneys are normal size and there are bilateral renal calculi. There is a 1.5 cm calculus pelvis of the left kidney but causing no obstructive uropathy. The ureters are normal in caliber bilaterally. ABDOMEN & PELVIS: Stomach bowel: There is a gastrostomy tube entering the stomach in the midline of the abdomen. The small bowel appears grossly normal. There is a large amount of formed stool seen throughout the colon. The there is an especially large amount of stool in the rectum and lower sigmoid colon. There is a loop of non dilated sigmoid colon extending into the left inguinal hernia but there is no evidence of obstruction. This was noted on the previous CT scan 08/19/2020. Peritoneum: No abnormal fluid collections. No obvious inflammatory changes. No free air. There is a vena cava filter in place in appropriate position just below the renal veins. There is an apparent metallic infusion device located left lower quadrant just above the left iliac crest there is a catheter leading from the device paralleling the gluteus joey muscle but it apparently does not reach the abdominal cavity. There is a [employer] time shunt tube in the right flank of the abdomen entering the peritoneal cavity in the right lower quadrant. Lymph nodes: No enlarged lymph nodes apparent. 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 Bones: There are mild non recent compression fractures upper lumbar spine involving L1 and L2. There is diffuse levo scoliotic curvature of the thoracolumbar junction. PELVIS: Reproductive: unremarkable Bladder: There is a Lopez catheter at the base of the urinary bladder which is partially decompressed. There are bladder calculi noted. Appendix: Not definitely identified but there are no findings to suggest appendicitis. IMPRESSION: 1. Bilateral renal calculi with mild fullness of both collecting systems but there is no definite obstructive uropathy of either kidney. 2. Findings of constipation, loop of sigmoid colon extending into a left inguinal hernia but it is not incarcerated. 3. Gastrostomy feeding tube in place Dictated by: Dr. Rafael Woods MD 10/30/2020 08:42 Dr. Rafael Woods MD in [place] 10/30/2020 08:42
--- NOTE | 2020-10-29 14:49 | CT_ITS ---
PROCEDURE: CT CHEST WO CON CLINICAL INDICATION: hypoxia COMPARISON: CT CT CHEST WO CON from 08/19/2020 TECHNIQUE: Axial images obtained with sagittal and coronal reformats. All CT scans at the facility use one or more dose reduction, viz: automated exposure control, ma/kV adjustment per patient size (including targeted exams where dose is matched to indication, i.e. head), or iterative reconstruction technique. FINDINGS: HEART AND MEDIASTINAL STRUCTURES: Cardiac size is normal, there is moderate aortic tortuosity. There is no vascular congestion. There is no pericardial effusion. LUNGS AND PLEURAL SPACES: The lung apices and upper lung price are clear. There is prominent atelectasis and/or scarring in both lower lobes with more diffuse right posterior gutter than left. There is no definite acute infiltrate. There probably is a small amount of fluid at the costophrenic angles. BONY STRUCTURES: There is mild diffuse levo scoliotic curvature of the thoracic spine. UPPER ABDOMEN: There is a large amount stool in both the hepatic flexure and splenic flexure. ADDITIONAL FINDINGS: A metallic spinal stimulator device is noted in the thoracic spinal canal IMPRESSION: Bilateral lower lobe atelectasis or scarring, no definite acute chest pathology noted Dictated by: Dr. Rafael Woods MD 10/29/2020 20:23 Dr. Rafael Woods MD in [place] 10/29/2020 20:23
--- NOTE | 2020-10-29 15:00 | PC.NURSE ---
pt incontinent of stool pt cleaned and depends applied
[2020-10-29 15:23] LABS: Occult Blood,Gastric Fluid Positive (Negative)
[2020-10-29 16:07] LABS: Thyroid Stimulating Hormone 0.51 uIU/mL (0.465-4.68)
[2020-10-29 16:31] LABS: Free T4 (Free Thyroxine) 1.92 ng/dl (0.78-2.19)
--- NOTE | 2020-10-29 16:40 | PC.NURSE ---
Dr Goodwin spoke with Dr John.
--- NOTE | 2020-10-29 16:48 | PC.NURSE ---
Dr Goodwin spoke with Dr Hughes.
--- NOTE | 2020-10-29 16:58 | XR_ITS ---
PROCEDURE: XR ABDOMEN MIN 2V CLINICAL INDICATION: G tube placement COMPARISON: No exams were available for comparison FINDINGS: The initial KUB shows a G-tube entering the greater curvature of the stomach from the left side. A vena cava filter is seen in place. There is a moderately large amount of stool in the hepatic flexure and descending colon. There is a 9.5 mm calcification overlying the pelvis of the left renal shadow. The 2nd KUB shows contrast injected into the G-tube which fills a portion of the stomach with no evidence of leakage. IMPRESSION: Satisfactory placement of G-tube which is functioning well without evidence of leakage Dictated by: Dr. Rafael Woods MD 10/30/2020 08:22 Dr. Rafael Woods MD in [place] 10/30/2020 08:22
--- NOTE | 2020-10-29 17:29 | PC.NURSE ---
[employer] speaking with Dr Hudson who is software controls engineer for Dr Tomas
--- NOTE | 2020-10-29 17:30 | PC.NURSE ---
oral care given
--- NOTE | 2020-10-29 17:36 | PC.NURSE ---
notified warehouse shipping supervisor of admission
--- NOTE | 2020-10-29 17:37 | PC.NURSE ---
notified lab of new orders on pt.
--- NOTE | 2020-10-29 17:45 | PC.NURSE ---
pt holding his breath, face red, asked pt if he is having pain, pt replies yes pt moaning with pain
--- NOTE | 2020-10-29 18:10 | PC.NURSE ---
spoke with pt's sister, jaspal luna regarding DNR status. witnessed by verenice rubio rn
--- NOTE | 2020-10-29 18:24 | PC.NURSE ---
report to clay ramos
[2020-10-29 18:46] LABS: Procalcitonin 65.6 ng/mL (0.0-2.0)
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
--- NOTE | 2020-10-29 19:35 | PC.NURSE ---
Pt to floor 183, report given to Walter Banks RN and Laz MunozRN
--- NOTE | 2020-10-29 19:47 | PC.WOUNDNOTE ---
Wound Location: Length:2.5 Width:2.5 Depth: Undermining Y/N: Tunneling cm: Granulation %: Slough/necrotic tissue %: G TUBE SITE Inflammation/swelling Y/N:yes Pain and/or tenderness Y/N:yes Exudate: Serosanguinous- yes Sanguinous Serosanguinous Seropurulent Purulent Color: Clear [place] Cloudy/milky [place] Red Green Yellow Brown [place] Blue Consistency: Thick Thin Amount: None Scant Small yes Moderate Large Odor Y/N: 4 x 1 red area on back of L leg below buttock, cdi and no open areas G TUBE SITE - another view Under L arm 4x4, clean dsg applied, granulation tissue, scant serosangious drainage, painful and irritated. chronic wound
--- NOTE | 2020-10-29 20:20 | PC.NURSE ---
Unable to ans some questions on pts admission, because of pts baseline mentation/ hx of tbi. CB in reach. NAD. VSS on 3 L NC at this time and 97%.
[2020-10-29 20:52] LABS: POC Glucose,Bedside 159 (70-110)
[2020-10-30] VITALS: BP 94/56; PULSE 106; RESP 22; TEMP 36.6; O2SAT 98
[2020-10-30 04:00] VITALS: BP 139/73; PULSE 107; RESP 18; TEMP 36.7; O2SAT 98
--- NOTE | 2020-10-30 04:10 | PC.NURSE ---
pt turned q2h and oral care provided. new iv placed this shift. pt has slept most of shift. 3LNC in place. handy draining clear muna urine. no issues at this time. vss. call light in reach. bed in lowest position. will continue to monitor.
[2020-10-30 05:09] VITALS: BMI 23.6
[2020-10-30 06:17] LABS: POC Glucose,Bedside 124 (70-110)
[2020-10-30 07:21] LABS: Basophils # 0.1 K/mm3 (0-0.2); Basophils % 0.5 % (0.1-2.0); Eosinophils # 0.1 K/mm3 (0.0-0.4); Eosinophils % 0.9 % (0.1-12.0); Hematocrit 46.5 % (42.0-52.0); Lymphocytes # 1.3 K/mm3 (0.7-4.5); Lymphocytes % 12.5 % (10-50); Mean Corpuscular HGB Conc 31.4 g/dL (31.8-35.4); Mean Corpuscular Hemoglobin 29.4 pg (27.0-31.2); Mean Corpuscular Volume 93.6 fl (80-94); Mean Platelet Volume 10.1 fl (7.4-10.4); Monocytes # 0.5 K/mm3 (0.1-1.0); Monocytes % 4.6 % (1.7-9.3); Neutrophils # 8.2 K/mm3 (1.8-7.8); Neutrophils % 81.6 % (37.0-80.0); Platelet Count 169 K/mm3 (142-424); Red Blood Count 4.97 M/mm3 (4.60-6.20); Red Cell Distribution Width 14.7 % (11.5-17.5)
[2020-10-30 07:25] LABS: Hemoglobin 14.6 g/dL (14.1-18.0)
[2020-10-30 07:29] LABS: Anion Gap 13.7 mEq/L (5-15); Calcium 9.1 mg/dl (8.4-10.2); Carbon Dioxide 30 mmol/L (22.0-30.0); Chloride 114 mmol/L (98-107); Creatinine Clearance Estimated 41 mL/min (50-200); Estimated Glomerular Filt Rate 32 ml/min (>60); GFR (African American) 39 ML/MIN (>60); Glucose 137 mg/dl (74-100); Magnesium 3.2 mg/dl (1.6-2.3); Potassium 3.7 mmoL/L (3.5-5.1)
[2020-10-30 07:49] LABS: Blood Urea Nitrogen 99 mg/dl (9-20); Sodium 154 mmol/L (136-145)
[2020-10-30 07:58] VITALS: BP 112/71; PULSE 107; RESP 19; TEMP 36.7; O2SAT 96
--- NOTE | 2020-10-30 08:23 | PC.NURSE ---
Notified Dr. Hudson notified of critical sodium of 154, and bun 99. NNO at this time, 0820.
--- NOTE | 2020-10-30 09:01 | P.CONPHA_ITS ---
[facility] Pharmacy VTE Monitoring - Patient Demographics Admission date: 10/30/20 Report Date: 10/30/20 Time: 09:01 Allergies/Adverse Reactions: Patient Allergies adhesive [ADHESIVE] Allergy (Mild, Verified 03/14/19 08:21) Unknown allergy reaction lisinopril Allergy (Mild, Verified 03/14/19 08:) Unknown allergy reaction Height: 1.83 m Weight: 79.067 kg Patient Problems: Current Active Problems UTI (urinary tract infection) (Acute) NUBIA (acute kidney injury) (Acute) Sepsis (Acute) Obstructive uropathy (Acute) Kidney stone on left side (Acute) Hypernatremia (Acute) Upper GI bleed (Acute) Malfunction of gastrostomy tube (Acute) - VTE Risk Labs: VTE Related Lab Results Hgb 14.6 g/dL (14.1-18.0) D 10/30/20 07:08 Hct 46.5 % (42.0-52.0) 10/30/20 07:08 Plt Count 169 K/mm3 (142-424) D 10/30/20 07:08 BUN 99 mg/dl (9-20) H 10/30/20 07:08 Creatinine 2.10 mg/dl (0.66-1.25) H 10/30/20 07:08 Estimated Creat Clear 41 mL/min (50-200) 10/30/20 07:08 Clinical Trial Participant: No - Prophylaxis VTE Prophylaxis Ordered?: Yes Types of VTE Prophylaxis: IPCS Knee High
--- NOTE | 2020-10-30 09:26 | HMH.ACPN2 ---
Internal Medicine - PN: Subj *Date: 10/30/20 *Time: 09:33 Interval history: Patient remained hemodynamically stable overnight, slight tachycardia. Unfortunately labs this morning show no improvement in his kidney function or electrolytes. Appears he has had no maintenance IV fluids overnight. Tube was replaced in the ER, no longer obstructed. Pleasant this morning on interview, had no complaints. Denied any chest pain or shortness of breath. Answered yes and no questions on exam. Exam Vital signs and Labs for Last 24 Hours: Temp Pulse Resp BP Pulse Ox 98.1 F 107 H 19 112/71 96 10/30/20 07:58 10/30/20 07:58 10/30/20 07:58 10/30/20 07:58 10/30/20 07:58 Laboratory Results - last 24 hr 10/29/20 12:28: Urine Color Dk yellow, Urine Appearance Turbid, Urine pH 6.0, Ur Specific [place] 1.020, Urine Protein 2+, Urine Glucose (UA) Negative, Urine Ketones Negative, Urine Blood 3+, Urine Nitrate Negative, Urine Bilirubin Negative, Urine Urobilinogen 1.0, Ur Leukocyte Esterase 2+ A, Urine WBC Tntc 10/29/20 12:49: WBC 14.1 H, RBC 5.57, Hgb 16.5, Hct 51.4, MCV 92.2, MCH 29.6, MCHC 32.1, RDW 14.7, Plt Count 232, MPV 9.8, Neut % (Auto) 90.8 H, Lymph % (Auto) 5.0 L, [place] % (Auto) 3.1, Eos % (Auto) 0.6, Baso % (Auto) 0.5, Neut # (Auto) 12.8 H, Lymph # (Auto) 0.7, [place] # (Auto) 0.4, Eos # (Auto) 0.1, Baso # (Auto) 0.1, Total Counted 100, Neutrophils % (Manual) 91 H, Band Neutrophils % 1.0, Lymphocytes % (Manual) 4 L, Monocytes % (Manual) 3, Eosinophils % (Manual) 1, Platelet Estimate Normal, RBC Morphology Normal 10/29/20 12:49: Sodium 152 H*, Potassium 3.9, Chloride 112 H, Carbon Dioxide 30, Anion Gap 13.9, BUN 89 H, Creatinine 2.20 H, Estimated Creat Clear 42, Estimated GFR 30 L, Est GFR ( Amer) 37 L, Glucose 187 H, Calcium 9.4, Total Bilirubin 1.0, AST 162 H, ALT 93 H, Alkaline Phosphatase 266 H, Total Protein 7.9 D, Albumin 3.8, Globulin 4.1 H, Albumin/Globulin Ratio 0.9 L 10/29/20 12:49: Lactate 1.8 10/29/20 12:49: SARS-CoV-2 IgG Ab (Rapid) Positive A, SARS-CoV-2 IgM Ab (Rapid) Positive A 10/29/20 12:49: Free T4 1.92 10/29/20 12:49: TSH 0.51 10/29/20 12:49: Procalcitonin 65.6 H 10/29/20 13:12: Chlamy pneumoniae PCR Not detected, Adenovirus (PCR) Not detected, B. pertussis DNA (PCR) Not detected, Coronavirus OC43 (PCR) Not detected, Coronavirus HKU1 (PCR) Not detected, Coronavirus 229E (PCR) Not detected, SARS-CoV-2 (PCR) Not detected, Coronavirus NL63 (PCR) Not detected, Human Metapneumovir PCR Not detected, Influenza A (H1) PCR Not detected, Influ A (H1N1/09) PCR Not detected, Influenza A (H3) PCR Not detected, Influenza Type A (PCR) Not detected, Influenza Type B (PCR) Not detected, M. pneumoniae (PCR) Not detected, Parainfluenza 1 (PCR) Not detected, Parainfluenza 2 (PCR) Not detected, Parainfluenza 3 (PCR) Not detected, Parainfluenza 4 (PCR) Not detected, RSV (PCR) Not detected, Entero/Rhino (PCR) Not detected 10/29/20 15:06: Gastric Occult Blood Positive 10/29/20 20:13: POC Glucose 159 H 10/30/20 06:10: POC Glucose 124 H 10/30/20 07:08: WBC 10.0 D, RBC 4.97, Hgb 14.6 D, Hct 46.5, MCV 93.6, MCH 29.4, MCHC 31.4 L, RDW 14.7, Plt Count 169 D, MPV 10.1, Neut % (Auto) 81.6 H, Lymph % (Auto) 12.5, [place] % (Auto) 4.6, Eos % (Auto) 0.9, Baso % (Auto) 0.5, Neut # (Auto) 8.2 H, Lymph # (Auto) 1.3, [place] # (Auto) 0.5, Eos # (Auto) 0.1, Baso # (Auto) 0.1 10/30/20 07:08: Sodium 154 H*, Potassium 3.7, Chloride 114 H, Carbon Dioxide 30, Anion Gap 13.7, BUN 99 H, Creatinine 2.10 H, Estimated Creat Clear 41, Estimated GFR 32 L, Est GFR ( Amer) 39 L, Glucose 137 H D, Calcium 9.1, Magnesium 3.2 H I & O for Last 24 hours: Intake & Output 10/27/20 10/28/20 10/29/20 10/30/20 23:59 23:59 23:59 23:59 Intake Total 360 / 360 Output Total 450 / 450 Balance -450 / -450 360 / 360 Weight 80.031 kg 79.067 kg Microbiology Reports for the Last 24 Hours: Microbiology 10/29/20 12:28 Urine,Clean Catch Urine Culture - Preliminary
--- NOTE | 2020-10-30 09:39 | DIET.NUTRFU ---
Addendum entered by Rosita Chaney 11/01/20 10:20: Pt tolerated tube feedings without issue, good toleration, met energy needs yesterday and ~50% of needs day of initiation. BG avg. 170. He is to dc back to [place]. Recommend continuing regimen of bolus feedings of Glucerna at [facility]. Pt's weight loss is of concern, no other signs/symptoms malnutrition present. Tube malfunction likely to have caused inadequate energy intake. He regained 8# t/o stay. 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 Tube replaced after clog. Pt is on Glucerna 1.5 bolus feeds at [facility]. Recommend similar regimen with Glucerna 1.0 available at [facility]. Recommend initiating bolus tube feeding regimen of Glucerna 1.0, with feedings of 300ml q 4hr. Pt currently on high rate IVF for dehydration. Recommend decreasing IVF as pt hydrates. Formula provides 1535ml free water. Recommend minimal water flushes of 60-120ml with feedings as needed for irrigation. Will monitor IVF and adjust as indicated. This regimen provides 1800kcal, 75g protein, 172g cho, 98g fat, and 1535ml free water. Of note pt has lost significant weight since last admit 3ma, 11% body weight. He is at risk malnutrition. Will monitor pt and adjust regimen as indicated.
--- NOTE | 2020-10-30 11:03 | HMH.PHACONS ---
- Pharmacy Consult Date: 10/30/20 Time: 09:00 Referring provider: GURPREET Reason for Consult:: CONSULTED TO MANAGE VANCOMYCIN THERAPY Allergies and ADEs:: Allergies Allergy/AdvReac Type Severity Reaction Status Date / Time adhesive [ADHESIVE] Allergy Mild Unknown Verified 03/14/19 08:21 allergy reaction lisinopril Allergy Mild Unknown Verified 03/14/19 08:21 allergy reaction Home Medications:: Home Medications Medication Instructions Recorded Confirmed Type Metoclopramide HCl [Metoclopramide 5 ml G-TUBE QID 02/25/18 10/29/20 History 5mg/5ml Oral Soln] OXcarbazepine [Trileptal 150mg 150 mg G-TUBE TID 02/25/18 10/29/20 History tablet] Pravastatin Sodium 80 mg G-TUBE DAILY 02/25/18 10/29/20 History Quetiapine Fumarate 25 mg G-TUBE HS 02/25/18 10/29/20 History Insulin Glargine,Hum.rec.anlog 30 unit SQ HS 03/10/19 10/29/20 History [Lantus Insulin 100units/mL 10mL vial] Levothyroxine Sodium 100 mg G-TUBE DAILY 03/10/19 10/29/20 History [Levothyroxine 100mcg (0.1MG) Tab] polyethylene glycoL 3350 [Miralax 17 gm G-TUBE BID 03/14/19 10/30/20 History 17gm Packet] Acetaminophen 650 mg G-TUBE Q4HP PRN 08/19/20 10/29/20 History Carboxymethylcellulose Sodium 1 drp OP TID 08/19/20 10/29/20 History [Refresh Liquigel] Insulin Glargine,Hum.rec.anlog 24 units SQ DAILY 08/19/20 10/29/20 History [Lantus Solostar 100 Units/mL 3mL flexpen] Pediatric Multivitamin No.118 15 ml G-TUBE DAILY 08/19/20 10/29/20 History [Tropical Liquid Nutrition] Omeprazole [Omeprazole 40mg 40 mg G-TUBE DAILY 08/20/20 10/29/20 History Capsule] Zonisamide [Zonegran] 400 mg G-TUBE HS 08/20/20 10/29/20 History Hydrocodone/Acetaminophen [[place] 1 tab G-TUBE QID 10/29/20 10/29/20 History 7.5-325 Tablet] Rivaroxaban [Xarelto 10mg tablet] 10 mg G-TUBE DAILY 10/29/20 10/29/20 History Nystatin [Nystatin Cr 100,000 1 applicatio TOPICAL TID 10/30/20 10/30/20 History Units/GM 30GM] Zinc Oxide [Zinc Oxide ointment 1 applicatio TP TID PRN 10/30/20 10/30/20 History 28gm tube] Height: 1.83 m Weight: 79.067 kg Laboratory Results:: Laboratory Results - last 24 hr 10/29/20 12:28: Urine Color Dk yellow, Urine Appearance Turbid, Urine pH 6.0, Ur Specific [place] 1.020, Urine Protein 2+, Urine Glucose (UA) Negative, Urine Ketones Negative, Urine Blood 3+, Urine Nitrate Negative, Urine Bilirubin Negative, Urine Urobilinogen 1.0, Ur Leukocyte Esterase 2+ A, Urine WBC Tntc 10/29/20 12:49: WBC 14.1 H, RBC 5.57, Hgb 16.5, Hct 51.4, MCV 92.2, MCH 29.6, MCHC 32.1, RDW 14.7, Plt Count 232, MPV 9.8, Neut % (Auto) 90.8 H, Lymph % (Auto) 5.0 L, [place] % (Auto) 3.1, Eos % (Auto) 0.6, Baso % (Auto) 0.5, Neut # (Auto) 12.8 H, Lymph # (Auto) 0.7, [place] # (Auto) 0.4, Eos # (Auto) 0.1, Baso # (Auto) 0.1, Total Counted 100, Neutrophils % (Manual) 91 H, Band Neutrophils % 1.0, Lymphocytes % (Manual) 4 L, Monocytes % (Manual) 3, Eosinophils % (Manual) 1, Platelet Estimate Normal, RBC Morphology Normal 10/29/20 12:49: Sodium 152 H*, Potassium 3.9, Chloride 112 H, Carbon Dioxide 30, Anion Gap 13.9, BUN 89 H, Creatinine 2.20 H, Estimated Creat Clear 42, Estimated GFR 30 L, Est GFR ( Amer) 37 L, Glucose 187 H, Calcium 9.4, Total Bilirubin 1.0, AST 162 H, ALT 93 H, Alkaline Phosphatase 266 H, Total Protein 7.9 D, Albumin 3.8, Globulin 4.1 H, Albumin/Globulin Ratio 0.9 L 10/29/20 12:49: Lactate 1.8 10/29/20 12:49: SARS-CoV-2 IgG Ab (Rapid) Positive A, SARS-CoV-2 IgM Ab (Rapid) Positive A 10/29/20 12:49: Free T4 1.92 10/29/20 12:49: TSH 0.51 10/29/20 12:49: Procalcitonin 65.6 H 10/29/20 13:12: Chlamy pneumoniae PCR Not detected, Adenovirus (PCR) Not detected, B. pertussis DNA (PCR) Not detected, Coronavirus OC43 (PCR) Not detected, Coronavirus HKU1 (PCR) Not detected, Coronavirus 229E (PCR) Not detected, SARS-CoV-2 (PCR) Not detected, Coronavirus NL63 (PCR) Not detected, Human Metapneumovir PCR Not detected, Influenza A (H1
[2020-10-30 11:21] LABS: POC Glucose,Bedside 113 (70-110)
--- NOTE | 2020-10-30 14:40 | PC.NURSE ---
Pt is resting awake at this time in room, unable to answer questions appropriately. RR even and unlabored. Continues on 3 L NC. G tube in place and patent, cleaned and applied topical meds per mar to site and gauze for protection. BS x 4. S1,S2.Lungs cta/diminished. LR at 100 ML/HR. CB in reach. VSS. Will cont to mx. Pt has tolerated meds and tube feed thus far well. Teds in place for vte. Lopez cath was changed per Dr. Holloway.
[2020-10-30 15:27] VITALS: BP 117/74; PULSE 95; RESP 18; TEMP 36.4; O2SAT 98
[2020-10-30 15:39] LABS: POC Glucose,Bedside 202 (70-110)
[2020-10-30 17:12] LABS: Microscopic,Cath URINE MICROSCOPIC (MICROSCOPIC)
[2020-10-30 17:22] LABS: Appearance,Urine/Cath CLEAR (Clear); Bilirubin,Cath Negative (Negative); Blood, Urine/Cath 2+ (Negative); Color,Urine/Cath YELLOW (Yellow); Glucose,Urine/Cath (UA) Negative (Negative); Ketones,Urine/Cath Negative (Negative); Leukocyte Esterase,Cath 2+ (Negative); Nitrate,Cath Negative (Negative); PH,Urine/Cath 5.5 (5.0-8.5); Protein,Urine/Cath TRACE (Negative); Specific Gravity, Urine/Cath 1.015 (1.005-1.030)
[2020-10-30 17:34] LABS: Amorphous Sediment,Ur/Cath 1+ /lpf; Squamous Epithelial Ur./Cath Occasional #/hpf (0-5)
[2020-10-30 19:51] LABS: Anion Gap 12.4 mEq/L (5-15); Calcium 8.5 mg/dl (8.4-10.2); Carbon Dioxide 29 mmol/L (22.0-30.0); Chloride 113 mmol/L (98-107); Creatinine Clearance Estimated 54 mL/min (50-200); Estimated Glomerular Filt Rate 44 ml/min (>60); GFR (African American) 53 ML/MIN (>60); Glucose 249 mg/dl (74-100); Potassium 4.4 mmoL/L (3.5-5.1)
[2020-10-30 19:54] LABS: Sodium 150 mmol/L (136-145)
[2020-10-30 19:55] LABS: Blood Urea Nitrogen 101 mg/dl (9-20)
[2020-10-30 20:00] VITALS: BP 144/80; PULSE 97; RESP 19; TEMP 36.4; O2SAT 99
[2020-10-30 21:48] LABS: POC Glucose,Bedside 238 (70-110)
[2020-10-30 23:32] VITALS: BP 120/61; PULSE 85; RESP 20; TEMP 36.5; O2SAT 100
[2020-10-31 03:55] VITALS: BP 131/74; PULSE 91; RESP 18; TEMP 36.7; O2SAT 96
[2020-10-31 05:00] VITALS: BMI 24.0
--- NOTE | 2020-10-31 05:51 | PC.NURSE ---
pt has been resting well throughout shift. turned and oral care provided. iv patent and infusing per order. vss. pt o2 sat 95% on RA. Tube feedings q4h with residual 10-15 ml. handy draining clear yellow urine. bed in lowest position. g tube dressing was changed with small amount of clear drainage noted and odor. will continue to monitor.
[2020-10-31 07:09] LABS: POC Glucose,Bedside 213 (70-110)
--- NOTE | 2020-10-31 07:51 | HMH.ACPN2 ---
Internal Medicine - PN: Subj *Date: 10/31/20 *Time: 10:21 Interval history: Patient remained hemodynamically stable overnight. Tolerated initiation of tube feeds yesterday. Reviewed labs this morning, shows improvement in electrolytes and kidney function. Pleasant this morning on interview, had no complaints. Denied any chest pain or shortness of breath. Answered yes and no questions on exam. Exam Vital signs and Labs for Last 24 Hours: Temp Pulse Resp BP Pulse Ox 98.0 F 91 H 18 131/74 96 10/31/20 03:55 10/31/20 03:55 10/31/20 03:55 10/31/20 03:55 10/31/20 03:55 Laboratory Results - last 24 hr 10/30/20 10:54: POC Glucose 113 H 10/30/20 15:11: POC Glucose 202 H 10/30/20 15:20: Urine Color Yellow, Urine Appearance Clear, Urine pH 5.5, Ur Specific [place] 1.015, Urine Protein Trace, Urine Glucose (UA) Negative, Urine Ketones Negative, Urine Blood 2+, Urine Nitrate Negative, Urine Bilirubin Negative, Urine Urobilinogen 1.0, Ur Leukocyte Esterase 2+ A, Urine RBC 3-5, Urine WBC 5-10, Ur Squamous Epith Cells Occasional, Urine Bacteria None 10/30/20 19:30: Sodium 150 H, Potassium 4.4, Chloride 113 H, Carbon Dioxide 29, Anion Gap 12.4, BUN 101 H*, Creatinine 1.60 H D, Estimated Creat Clear 54, Estimated GFR 44 L, Est GFR ( Amer) 53 L D, Glucose 249 H D, Calcium 8.5 10/30/20 21:01: POC Glucose 238 H 10/31/20 07:00: POC Glucose 213 H I & O for Last 24 hours: Intake & Output 10/28/20 10/29/20 10/30/20 10/31/20 23:59 23:59 23:59 23:59 Intake Total 2160 / 2160 1265 / 1265 Output Total 450 / 450 800 / 800 200 / 200 Balance -450 / -450 1360 / 1360 1065 / 1065 Weight 80.031 kg 79.067 kg 80.456 kg Microbiology Reports for the Last 24 Hours: Microbiology 10/29/20 12:28 Urine,Clean Catch Urine Culture - Final Escherichia coli Narrative: - Constitutional thin, chronically ill appearing Comments: Previously noted contractures, patient at baseline level of communication, alert. G-tube status noted. - *Routine HEENT Exam Head: Present: normocephalic Eye: Present: EOMI, PERRL. Absent: scleral injection, periorbital ecchymosis ENT: Present: mucous membranes dry - *Routine Neck Exam Present: supple, trachea midline. Absent: lymphadenopathy Comments: Old trach scar noted - *Routine Respiratory Exam Present: CTA bilaterally Comments: Difficult exam because of significant kyphotic posture - *Routine Cardiovascular Exam Present: RRR, Normal S1 - *Routine Abdominal Exam Present: surgical scars (G-tube site looks good, minimal drainage. Abdomen is soft, exam limited by contractures). Absent: tenderness - *Routine Extremities Exam Present: normal capillary refill. Absent: cyanosis, clubbing Comments: Extremity contractures, good capillary refill distally. Good pulses; sarcopenia - *Routine Skin Exam Present: warm, cracked. Absent: rash Comments: Old lesions under her underarms consistent with prior skin trauma. Otherwise some mottling consistent with his chronic bedbound status. Please see nurses pictorial records - *Routine Neurological Exam Present: alert; Significant neurologic deficits from traumatic brain injury, no knife changer baseline exam, contractures, spasticity. Unable to move extremities spontaneously. Assessment and Plan (1) NUBIA (acute kidney injury) Status: Acute Category: Medical Code(s): N17.9 - Acute kidney failure, unspecified (2) Hypernatremia Status: Acute Category: Medical Code(s): E87.0 - Hyperosmolality and hypernatremia (3) Kidney stone on left side Status: Acute Category: Medical Code(s): N20.0 - Calculus of kidney (4) Malfunction of gastrostomy tube Status: Acute Category: Medical Code(s): K94.23 - Gastrostomy malfunction (5) Obstructive uropathy Status: Acute Category: Medical Code(s): N13.9 - Obstructive and reflux uropathy, unspecified (6) Sepsis Status: Acute Quali
[2020-10-31 07:54] VITALS: BP 111/67; PULSE 95; RESP 18; TEMP 36.7; O2SAT 96
[2020-10-31 07:59] LABS: Alanine Aminotransferase 106 U/L (12-78); Albumin Level 2.5 g/dl (3.5-5.0); Albumin/Globulin Ratio 0.8 (1.1-1.8); Alkaline Phosphatase 233 U/L (38-126); Anion Gap 5.9 mEq/L (5-15); Aspartate Amino Transferase 120 U/L (17-59); Bilirubin,Total 0.4 mg/dl (0.2-1.3); Calcium 8.2 mg/dl (8.4-10.2); Carbon Dioxide 29 mmol/L (22.0-30.0); Chloride 115 mmol/L (98-107); Creatinine Clearance Estimated 58 mL/min (50-200); Estimated Glomerular Filt Rate 47 ml/min (>60); GFR (African American) 57 ML/MIN (>60); Globulin 3.1 g/dL (1.3-3.2); Glucose 235 mg/dl (74-100); Magnesium 2.9 mg/dl (1.6-2.3); Potassium 3.9 mmoL/L (3.5-5.1); Sodium 146 mmol/L (136-145); Total Protein,Serum 5.6 g/dl (6.3-8.2)
[2020-10-31 08:05] LABS: Blood Urea Nitrogen 84 mg/dl (9-20)
[2020-10-31 09:40] LABS: Basophils % 0.5 % (0.1-2.0); Eosinophils # 0.2 K/mm3 (0.0-0.4); Hematocrit 38.7 % (42.0-52.0); Hemoglobin 11.9 g/dL (14.1-18.0); Lymphocytes # 0.8 K/mm3 (0.7-4.5); Lymphocytes % 12.4 % (10-50); Mean Corpuscular HGB Conc 30.8 g/dL (31.8-35.4); Mean Corpuscular Hemoglobin 29.2 pg (27.0-31.2); Mean Corpuscular Volume 94.6 fl (80-94); Mean Platelet Volume 10.3 fl (7.4-10.4); Monocytes # 0.6 K/mm3 (0.1-1.0); Monocytes % 9.6 % (1.7-9.3); Neutrophils # 4.6 K/mm3 (1.8-7.8); Neutrophils % 74.6 % (37.0-80.0); Platelet Count 116 K/mm3 (142-424); Red Blood Count 4.09 M/mm3 (4.60-6.20); Red Cell Distribution Width 14.3 % (11.5-17.5); White Blood Count 6.2 K/mm3 (4.8-10.8)
[2020-10-31 11:33] VITALS: BP 110/66; PULSE 86; RESP 18; TEMP 36.1; O2SAT 93
[2020-10-31 12:57] LABS: POC Glucose,Bedside 177 (70-110)
[2020-10-31 14:14] VITALS: BP 118/70; PULSE 85; RESP 18; TEMP 36.7; O2SAT 95
[2020-10-31 17:22] LABS: POC Glucose,Bedside 195 (70-110)
[2020-10-31 20:00] VITALS: BP 144/70; PULSE 95; RESP 20; TEMP 36.6; O2SAT 98
[2020-10-31 20:01] LABS: POC Glucose,Bedside 171 (70-110)
--- NOTE | 2020-10-31 20:21 | PC.NURSE ---
No acute changes this evening. FS ACHS and meds per dec. G tube without problems. VSS. NAD. Have turned and repositioned q 2. Did have a loose bm this shift. Lopez cath in place.
[2020-11-01] VITALS: BP 143/84; PULSE 102; RESP 18; TEMP 36.4; O2SAT 97
[2020-11-01 04:00] VITALS: BP 160/90; PULSE 102; RESP 21; TEMP 36.4; O2SAT 99
--- NOTE | 2020-11-01 04:16 | PC.NURSE ---
Pt has rested well this shift. pt has been turned and oral care Q2 performed. G-tube feeding down @ 2200 pt tolerated well with no residual noted. f/c draining urine. Pt is NPO for amara consult
[2020-11-01 05:28] VITALS: BMI 25.0
[2020-11-01 06:27] LABS: POC Glucose,Bedside 100 (70-110)
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
[2020-11-01 08:00] VITALS: BP 150/80; PULSE 101; RESP 20; TEMP 36.4; O2SAT 98
--- NOTE | 2020-11-01 08:13 | HMH.DCSUM ---
General - General Admission date:: 10/29/20 Discharge date: 11/01/20 HPI HPI: 60-year-old unfortunate white male, victim of TBI with resulting bedbound status, spastic functional quadriplegia and G-tube status. Recently Lopez catheter was added to be indwelling status because of chronic bladder stones. Had done well at the [place] [facility] over the past couple of months but this morning was noted to have fever, tachycardia, clogged G-tube, sent to emergency department for evaluation. Found to have leukocytosis, high white count, CT scan of abdomen showed 11 mm ureteropelvic junction stone with possible obstruction. Urinalysis dark, 2+ leuk esterase. Admitted to hospital for supportive care, broad-spectrum antibiotics for sepsis and urology and surgery consultation. G-tube replaced in the ER without incident. Hospital Course Hospital Course: Patient was admitted, placed on broad-spectrum IV antibiotics, cultures from blood and urine were obtained, urine culture grew E. coli, resistant to ciprofloxacin and levofloxacin but sensitive to ceftriaxone. Patient was maintained on IV ceftriaxone and did well, sodium normalized, white count normalized and patient became much more responsive. Patient CT scan was noted to have an 11 mm nonobstructing stone. I will asked Dr. John for his opinion before discharge but I do not believe there will be any intervention except continued observation. Possibly this could be the source of repetitive seeding infections, but organisms have been different each time and I am not sure about the utility of intervention. Plan number to discharge back to [place] today. He will need 1 g of ceftriaxone daily for the next week, counting today so he will receive 6 doses at the [place] [facility]. This will be need to be intravenous administration. Follow-up will be per our regular rounds. Objective Vital signs: Temp Pulse Resp BP Pulse Ox 97.6 F 102 H 21 160/90 H 99 11/01/20 04:00 11/01/20 04:00 11/01/20 04:00 11/01/20 04:00 11/01/20 04:00 chronically ill appearing Comments: Previous contractures and poor responsiveness noted but patient is verbally responsive today. - *Routine HEENT Exam Eye: Present: EOMI, PERRL ENT: Present: mucous membranes moist - *Routine Neck Exam Comments: Contracted - *Routine Respiratory Exam Present: CTA bilaterally, rhonchi - *Routine Cardiovascular Exam Present: RRR - *Routine Abdominal Exam Present: soft, normoactive bowel sounds. Absent: tenderness Comments: Tube in place. Abdomen soft, minimal leakage. Site looks good - *Routine Extremities Exam Absent: cyanosis, clubbing, edema Comments: Significant contractures noted. Rash under axilla as previously noted - *Routine Skin Exam Present: warm, lesions. Absent: rash Results Labs on day of discharge: Labs from last 24 hours 11/01/20 10/31/20 10/31/20 06:11 19:46 17:03 WBC RBC Hgb Hct MCV MCH MCHC RDW Plt Count MPV Neut % (Auto) Lymph % (Auto) [place] % (Auto) Eos % (Auto) Baso % (Auto) Neut # (Auto) Lymph # (Auto) [place] # (Auto) Eos # (Auto) Baso # (Auto) POC Glucose 100 171 H 195 H 10/31/20 10/31/20 11:46 09:29 WBC 6.2 D RBC 4.09 L Hgb 11.9 L Hct 38.7 L MCV 94.6 H MCH 29.2 MCHC 30.8 L RDW 14.3 Plt Count 116 L D MPV 10.3 Neut % (Auto) 74.6 Lymph % (Auto) 12.4 [place] % (Auto) 9.6 H Eos % (Auto) 3.0 Baso % (Auto) 0.5 Neut # (Auto) 4.6 Lymph # (Auto) 0.8 [place] # (Auto) 0.6 Eos # (Auto) 0.2 Baso # (Auto) 0.0 POC Glucose 177 H Preliminary micro results at discharge 10/30/20 15:20 Urine Culture - Preliminary Urine,Catheterized NO GROWTH AFTER 24 HOURS 10/29/20 12:49 Blood Culture - Preliminary Blood NO GROWTH AFTER 48 HOURS 10/29/20 12:49 Blood Culture - Preliminary Blood NO GROWTH AFTER 48 HOURS D
--- NOTE | 2020-11-01 09:04 | SW/DCPLANNER ---
PATIENT IS DISCHARGING BACK TO HIS BED AT [facility] TODAY AND WILL NEED IV ANTIBIOTICS FOR A TOTAL OF 6 MORE DAYS OF CEFTRAXONE 1 GRAM FOR 6 MORE DAYS.. WILL SEND UPDATES TO [facility]...
[2020-11-01 10:39] LABS: POC Glucose,Bedside 56 (70-110)
[2020-11-01 12:00] VITALS: BP 145/80; PULSE 100; RESP 22; TEMP 36.6; O2SAT 98
--- NOTE | 2020-11-01 16:47 | HMH.CONS ---
*Admission Date: 10/30/20 *Reason for consult:: Left UPJ stone, 15 mm *History of present illness: Patient is a 60-year-old white male with a history of traumatic brain injury the resident of local long-term care facility. He was brought into the emergency room on October 29 via ambulance secondary to a fever, tachycardia and a malfunctioning G-tube. Work-up indicated a white count of 14.2 and creatinine of 2.2. CT scan was performed which showed a 15 mm stone at the left UPJ with some mild hydronephrosis as well as a multitude of bladder stones. patient is poor historian but can answer some questions. I reviewed the patient's CT scan from May 2019 and his left-sided stone was more peripheral at that time. Patient's white count has improved to normal and his creatinine has improved to 1.5. Urine culture showed no growth on October 30. Patient does have a history of coronary artery disease and DVT. He has a Ubaldo filter in his IVC and is on Xarelto. He has been maintained while in hospital on broad-spectrum antibiotics. [facility] History Medical History: Reports:: Coronary Artery Disease, Deep Vein Thrombosis, Diabetes Mellitus Type 2, Hyperlipidemia, Seizures, Urinary Tract Infection Denies:: Cancer, Diabetes Mellitus Type 1, MRSA *Have you ever received a pneumonia vaccine?: Yes *Have you received a flu vaccine this season?: Yes Other Medical History: Reports: Anemia, Glaucoma, Hypothyroidism Other Surgeries: Yes: EGD, Other (PEG placement) Amputation: No - *Social History Smoking Status: Never smoker Alcohol Intake: never *Occupational Status:: disabled Housing: custodial *Travel in the last 8 weeks: None Family Hx:: Non-contributory, Anemia, Asthma, Cancer, Coronary Artery Disease, Heart Attack, Hyperlipidemia, Hypertension Meds Home Medications Medication Instructions Recorded Confirmed Type Metoclopramide HCl [Metoclopramide 5 ml G-TUBE QID 02/25/18 10/29/20 History 5mg/5ml Oral Soln] OXcarbazepine [Trileptal 150mg 150 mg G-TUBE TID 02/25/18 10/29/20 History tablet] Pravastatin Sodium 80 mg G-TUBE DAILY 02/25/18 10/29/20 History Quetiapine Fumarate 25 mg G-TUBE HS 02/25/18 10/29/20 History Insulin Glargine,Hum.rec.anlog 30 unit SQ HS 03/10/19 10/29/20 History [Lantus Insulin 100units/mL 10mL vial] Levothyroxine Sodium 100 mg G-TUBE DAILY 03/10/19 10/29/20 History [Levothyroxine 100mcg (0.1MG) Tab] polyethylene glycoL 3350 [Miralax 17 gm G-TUBE BID 03/14/19 10/30/20 History 17gm Packet] Acetaminophen 650 mg G-TUBE Q4HP PRN 08/19/20 10/29/20 History Carboxymethylcellulose Sodium 1 drp OP TID 08/19/20 10/29/20 History [Refresh Liquigel] Insulin Glargine,Hum.rec.anlog 24 units SQ DAILY 08/19/20 10/29/20 History [Lantus Solostar 100 Units/mL 3mL flexpen] Pediatric Multivitamin No.118 15 ml G-TUBE DAILY 08/19/20 10/29/20 History [Tropical Liquid Nutrition] Omeprazole [Omeprazole 40mg 40 mg G-TUBE DAILY 08/20/20 10/29/20 History Capsule] Zonisamide [Zonegran] 400 mg G-TUBE HS 08/20/20 10/29/20 History Hydrocodone/Acetaminophen [[place] 1 tab G-TUBE QID 10/29/20 10/29/20 History 7.5-325 Tablet] Rivaroxaban [Xarelto 10mg tablet] 10 mg G-TUBE DAILY 10/29/20 10/29/20 History Nystatin [Nystatin Cr 100,000 1 applicatio TOPICAL TID 10/30/20 10/30/20 History Units/GM 30GM] Zinc Oxide [Zinc Oxide ointment 1 applicatio TP TID PRN 10/30/20 10/30/20 History 28gm tube] Ceftriaxone in Is-Osm Dextrose 1 gm IV DAILY #6 piggyback 11/01/20 Rx [Ceftriaxone 1 gm-D5w Bag] Allergies Allergy/AdvReac Type Severity Reaction Status Date / Time adhesive [ADHESIVE] Allergy Mild Unknown Verified 03/14/19 08:21 allergy reaction lisinopril Allergy Mild Unknown Verified 03/14/19 08:21 allergy reaction Exam Vital signs and Labs for Last 24 Hours: Temp Pulse Resp BP Pulse Ox 97.9 F 100 H 22 145/80 H 98 11/01/20 12:00 11/01/20 12:00
== END 2020-11-01 15:00 | DRG 871 ==
LOC: ER 12:44 → 2ND 17:48
PROVIDERS: Internal Medicine Adolescent Medicine; Admitting Provider Family Medicine; Emergency Provider Family Medicine; PCP Internal Medicine Adolescent Medicine; Visit Provider Internal Medicine Adolescent Medicine
DX: A41.9 Sepsis, unspecified organism (principal); R53.2 Functional quadriplegia; N13.6 Pyonephrosis; E87.0 Hyperosmolality and hypernatremia; N17.9 Acute kidney failure, unspecified; K94.23 Gastrostomy malfunction; Z16.19 Resistance to other specified beta lactam antibiotics; N21.0 Calculus in bladder; Z66 Do not resuscitate; N20.0 Calculus of kidney; E11.9 Type 2 diabetes mellitus without complications; E03.9 Hypothyroidism, unspecified; E78.5 Hyperlipidemia, unspecified; I25.10 Atherosclerotic heart disease of native coronary artery without angina pectoris; Z20.822 Contact with and (suspected) exposure to COVID-19; K59.00 Constipation, unspecified; B96.20 Unspecified Escherichia coli [E. coli] as the cause of diseases classified elsewhere; N13.9 Obstructive and reflux uropathy, unspecified; Z79.01 Long term (current) use of anticoagulants; Z79.890 Hormone replacement therapy; Z79.4 Long term (current) use of insulin; Z79.899 Other long term (current) drug therapy; Z88.8 Allergy status to other drugs, medicaments and biological substances; Z91.048 Other nonmedicinal substance allergy status; Z86.718 Personal history of other venous thrombosis and embolism; Z82.5 Family history of asthma and other chronic lower respiratory diseases; Z82.49 Family history of ischemic heart disease and other diseases of the circulatory system; Z83.438 Family history of other disorder of lipoprotein metabolism and other lipidemia; Z83.2 Family history of diseases of the blood and blood-forming organs and certain disorders involving the immune mechanism; Z87.820 Personal history of traumatic brain injury; Z74.01 Bed confinement status; Z93.50 Unspecified cystostomy status; Z87.440 Personal history of urinary (tract) infections
CPT/HCPCS: 43762; 36415; 71045; 71250; 74019; 74176; 80048; 80053; 81001; 82272; 82962; 83605; 83735; 84145; 84439; 84443; 85007; 85025; 86328; 87040; 87086; 87088; 87186; 87581; 87633; 87798; 93005; 94761; 96365; 96375; 99285; G0328; J3370; U0003

== ENCOUNTER 2020-11-15 08:55 | Outpatient (CLI) | payer MEDICARE, OTHER, SELFPAY ==
[2020-11-15] VITALS (10 sets, daily range): BP systolic 117–150; BP diastolic 61–74; PULSE 91–114; RESP 16; TEMP 36.8–36.9; O2SAT 93–95
== END 2020-11-15 11:26 | disposition home health service (06) ==
PROVIDERS: PCP Family Medicine; Visit Provider Family Medicine
DX: U07.1 COVID-19 (principal)
CPT/HCPCS: 96365

== ENCOUNTER → 2020-12-08 09:45 | Outpatient (CLI) | payer MEDICARE, OTHER, SELFPAY ==
[2020-12-08 11:00] LABS: Coronavirus 19 IgG Antibody Positive (Negative)
[2020-12-08 11:01] LABS: Coronavirus 19 IgM Antibody Positive (Negative)
== END ==
PROVIDERS: Visit Provider Internal Medicine Adolescent Medicine
DX: Z20.822 Contact with and (suspected) exposure to COVID-19 (principal); Z86.16 Personal history of COVID-19
CPT/HCPCS: 86328

== ENCOUNTER 2020-12-10 10:25 | Day surgery (SDC) | payer MEDICARE, OTHER, SELFPAY ==
[2020-12-07 10:48] VITALS: BMI 22.1
[2020-12-10] VITALS (10 sets, daily range): BP systolic 143–164; BP diastolic 77–107; PULSE 82–87; RESP 16–18; TEMP 36.1–36.3; O2SAT 96–98
[2020-12-10 10:43] LABS: POC Glucose,Bedside 112 (70-110)
[2020-12-10 10:45] LABS: Basophils % 0.6 % (0.1-2.0); Eosinophils # 0.1 K/mm3 (0.0-0.4); Eosinophils % 2.2 % (0.1-12.0); Hematocrit 40.9 % (42.0-52.0); Hemoglobin 13.3 g/dL (14.1-18.0); Lymphocytes # 1.3 K/mm3 (0.7-4.5); Lymphocytes % 26.6 % (10-50); Mean Corpuscular HGB Conc 32.6 g/dL (31.8-35.4); Mean Corpuscular Hemoglobin 29.4 pg (27.0-31.2); Mean Corpuscular Volume 90.2 fl (80-94); Mean Platelet Volume 8.4 fl (7.4-10.4); Monocytes # 0.4 K/mm3 (0.1-1.0); Monocytes % 8.4 % (1.7-9.3); Neutrophils # 2.9 K/mm3 (1.8-7.8); Neutrophils % 62.2 % (37.0-80.0); Platelet Count 187 K/mm3 (142-424); Red Blood Count 4.53 M/mm3 (4.60-6.20); Red Cell Distribution Width 15.8 % (11.5-17.5); White Blood Count 4.7 K/mm3 (4.8-10.8)
[2020-12-10 10:50] LABS: Blood Urea Nitrogen 22 mg/dl (9-20); Calcium 9.5 mg/dl (8.4-10.2); Carbon Dioxide 29 mmol/L (22.0-30.0); Chloride 104 mmol/L (98-107); Creatinine Clearance Estimated 87 mL/min (50-200); Estimated Glomerular Filt Rate 114 ml/min (>60); GFR (African American) 138 ML/MIN (>60); Glucose 119 mg/dl (74-100); Sodium 140 mmol/L (136-145)
--- NOTE | 2020-12-10 11:17 | HMH.ANESCL ---
[facility] Anesthesia Checklist - Patient Identification Patient Identification: Arm Band - Structural Data Admitted From: Home Planned Operative Procedure/s: Left ESWL Consent for Planned Operative Procedure(s) Verified: Yes Verified Documents: Surgical Consent, History and Physical - NPO Status Verified Time NPO: 00:00 - Additional verifications Anesthesia Reactions: No - Airway Assessment C-Spine Mobility Assessed: Yes (mp2) TMJ Mobility Assessed: Yes Dentition: Good Dentition - Neurological Assessment Level of Consciousness: Awake, Alert - Anesthesia Plan Anesthesia Risk discussed: Yes Anesthesia Plan: Verified ASA Class: III Anesthesia Type: General [facility] History I have reviewed the patient's past medical history: Yes Medical History: Reports:: Coronary Artery Disease, Deep Vein Thrombosis, Diabetes Mellitus Type 2, Hyperlipidemia, Seizures, Urinary Tract Infection Denies:: Cancer, Diabetes Mellitus Type 1, MRSA *Have you ever received a pneumonia vaccine?: Yes *Have you received a flu vaccine this season?: Yes Other Medical History: Reports: Anemia, Glaucoma, Hypothyroidism Anesthesia experience/problems:: nac Other Surgeries: Yes: EGD, Other (PEG placement) Amputation: No - *Social History Last grade of school completed: Advanced degree Smoking Status: Never smoker Alcohol Intake: never Substance Use Type: denies use *Occupational Status:: disabled Housing: [facility] *Travel in the last 8 weeks: None Family Hx:: Non-contributory, Anemia, Asthma, Cancer, Coronary Artery Disease, Heart Attack, Hyperlipidemia, Hypertension
--- NOTE | 2020-12-10 13:02 | P.PN_ITS ---
[facility] Anesthesia Record Part I Intake, IV Amount: 900 Estimated blood loss (mL): 0 Urine output (mL): 0 Blood Pressure: 162/90 SaO2: 98 Pulse Rate: 84 Respiratory Rate: 18 Temperature: 97 F Patient is:: Drowsy Stable to PACU at:: 13:03
[2020-12-10 13:36] LABS: POC Glucose,Bedside 94 (70-110)
--- NOTE | 2020-12-10 14:20 | PC.NURSE ---
DR. FLORES NOTIFIED PER Gallito SHETH UPDATING MD ON DARK RED URINE DRAINING INTO [place]. SAID THIS IS TO BE EXPECTED WITH THE PROCEDURE THAT HE HAD TODAY. TC TO [facility] AT [facility] FOR SECOND TIME TO UPDATE ON CHANGE IN URINE TO DARK RED. DISCHARGE INSTRUCTIONS REVIEWED WITH [facility], VERBALIZED UNDERSTANDING OF [facility] HERE TO TRANSPORT PT TO [facility]. PT STABLE AND WITHOUT ANY C/O WHEN DISCHARGED FROM POST-OP.
--- NOTE | 2020-12-10 14:31 | PC.NURSE ---
1304-LMA removed at this time, o2 sats stable on room air, will continue to monitor 1328-detailed report called to TESS Moore, checked pt's fsbs with results of 94 1329-pt transported to post op via stretcher with juan rails up and left in care of TESS Moore with bed locked in lowest position, vss, pt stable
--- NOTE | 2020-12-10 14:34 | PC.NURSE ---
1307-pt had very small BM, changed pt's attends at this time and placed new chux pad under pt
--- NOTE | 2020-12-10 16:27 | HMH.OPNOTE ---
Date of procedure: 12/10/20 Pre-op Diagnosis:: Kidney stone, 15 mm Post-op Diagnosis:: Same Procedure performed:: Left ESWL Surgeon:: Sumit John MD OBSTETRICS SPECIALIST:: Other (charlie merino) Anesthesia: GETA Estimated blood loss (mL): 0 Clinical Note:: Patient is a 60-year-old white male with recent hospitalization. During that hospitalization a 15 mm stone was noted at the UPJ. On subsequent x-rays stone appeared to be more in the left renal pelvis. He has been doing well at his [facility] and returns today for urologic management. Operative findings:: Fluoroscopy revealed the 15 mm stone in the left renal pelvis. Cystoscopy and stent placement were not deemed necessary as patient is very attractive and is difficult to abduct his lower extremities. Operative note:: Patient taken to the operating room after informed consent was obtained. Was placed on the operating table in the supine position and general anesthesia administered. Preoperative antibiotics and sequential compression devices placed. Cystoscopy and stent placement had been planned but patient lower extremities are very stiff and is left leg is very difficult to abduct. Fluoroscopy revealed that the stone appeared to be in the renal pelvis and not in the UPJ so so cystoscopy was aborted. Patient was then placed in position so that F2 the lithotripter was focused onto the 15 mm left renal pelvic stone. Treatment commenced and the stone was noted to break up well under fluoroscopy. A total of 3000 shockwaves were delivered. Patient had an indwelling Lopez catheter on admission and was discharged home with the same. He tolerated procedure well no complications. Condition: stable Disposition: PACU Specimens:: None Complications:: None
== END 2020-12-10 14:20 | disposition home or self-care (01) ==
PROVIDERS: PCP Family Medicine; Visit Provider Urology
PROC: (CPT 50590; principal; 2020-12-10 11:45)
DX: N20.0 Calculus of kidney (principal); E11.9 Type 2 diabetes mellitus without complications; I25.10 Atherosclerotic heart disease of native coronary artery without angina pectoris; E78.5 Hyperlipidemia, unspecified; E03.9 Hypothyroidism, unspecified; I82.409 Acute embolism and thrombosis of unspecified deep veins of unspecified lower extremity; D64.9 Anemia, unspecified; Z87.440 Personal history of urinary (tract) infections; Z87.19 Personal history of other diseases of the digestive system; Z80.9 Family history of malignant neoplasm, unspecified; Z82.3 Family history of stroke; Z82.49 Family history of ischemic heart disease and other diseases of the circulatory system; Z83.438 Family history of other disorder of lipoprotein metabolism and other lipidemia
CPT/HCPCS: 50590; 80048; 82962; 85025; 96374

== ENCOUNTER → 2020-12-24 13:10 | Outpatient (CLI) | payer MEDICARE, OTHER, SELFPAY ==
--- NOTE | 2020-12-24 13:18 | XR_ITS ---
PROCEDURE: XR KUB CLINICAL INDICATION: kidney stone COMPARISON: CT CT ABDOMEN PELVIS WO CON from 10/29/2020 FINDINGS: Mild lumbar scoliosis convex left. IVC filter is present at the L2-L3 level on the right. A PEG catheter is present as well as a BAND TACKER shunt on the right. Lopez catheter is also noted. pain pump noted with the tip in the supra iliac region on the left. There are multiple bilateral renal calculi. No obvious ureteral calculus. 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 IMPRESSION: As above. Bilateral nephrolithiasis. Dictated by: Jarrod Walter MD 12/24/2020 14:48 Jarrod Walter MD in OV 12/24/2020 14:48
== END ==
PROVIDERS: PCP Internal Medicine Adolescent Medicine; Visit Provider Urology
DX: N20.0 Calculus of kidney (principal)
CPT/HCPCS: 74018; 82370

== ENCOUNTER → 2020-12-24 16:21 | Outpatient (CLI) | payer MEDICARE, OTHER, SELFPAY ==
[2021-01-07 18:05] LABS: Specimen Type NOT PROVIDED
[2021-01-07 18:07] LABS: Photo TO FOLLOW
== END ==
PROVIDERS: Visit Provider Urology
DX: N20.0 Calculus of kidney (principal)
CPT/HCPCS: 82370

== ENCOUNTER → 2021-03-03 16:13 | Outpatient (CLI) | payer MEDICARE, OTHER, SELFPAY ==
[2021-03-03 16:16] LABS: Microscopic, Urine URINE MICROSCOPIC (MICROSCOPIC)
[2021-03-03 16:27] LABS: Appearance,Urine CLOUDY (Clear); Bilirubin,Urine Negative (Negative); Blood, Urine TRACE-I (Negative); Color,Urine YELLOW (Yellow); Glucose,Urine (UA) Negative (Negative); Ketones,Urine Negative (Negative); Leukocyte Esterase,Urine 3+ (Negative); Nitrate,Urine Negative (Negative); Protein,Urine 1+ (Negative); Specific Gravity, Urine 1.015 (1.005-1.030); Urobilinogen,Urine 0.2 EU/dl (0.2)
[2021-03-03 16:38] LABS: Bacteria,Urine 4+ /lpf; WBC,Urine TNTC #/hpf (0-3)
== END ==
PROVIDERS: Visit Provider Internal Medicine Adolescent Medicine
DX: R39.89 Other symptoms and signs involving the genitourinary system (principal); N39.0 Urinary tract infection, site not specified; B96.20 Unspecified Escherichia coli [E. coli] as the cause of diseases classified elsewhere
CPT/HCPCS: 81001; 87086; 87088; 87186

== ENCOUNTER → 2021-04-15 15:40 | Outpatient (CLI) | payer MEDICARE, OTHER, SELFPAY ==
[2021-04-15 16:02] LABS: Microscopic, Urine URINE MICROSCOPIC (MICROSCOPIC)
[2021-04-15 16:33] LABS: Appearance,Urine CLEAR (Clear); Bilirubin,Urine Negative (Negative); Blood, Urine 2+ (Negative); Color,Urine YELLOW (Yellow); Glucose,Urine (UA) Negative (Negative); Ketones,Urine Negative (Negative); Leukocyte Esterase,Urine 3+ (Negative); Nitrate,Urine Negative (Negative); Protein,Urine 1+ (Negative); Urobilinogen,Urine 0.2 EU/dl (0.2)
[2021-04-15 16:58] LABS: WBC,Urine TNTC #/hpf (0-3)
[2021-04-15 16:59] LABS: Bacteria,Urine 3+ /lpf
[2021-04-18 18:27] LABS: Neisseria gonorrhoeae, NAA Negative (Negative)
== END ==
PROVIDERS: Visit Provider Internal Medicine Adolescent Medicine
DX: R36.9 Urethral discharge, unspecified (principal); N39.0 Urinary tract infection, site not specified; B96.29 Other Escherichia coli [E. coli] as the cause of diseases classified elsewhere
CPT/HCPCS: 81001; 87086; 87088; 87186; 87491; 87591

== ENCOUNTER 2021-09-04 01:18 | Emergency (ER) | payer MEDICARE, OTHER, SELFPAY ==
--- NOTE | 2021-09-04 01:00 | HMH.EDRECH ---
ED Disposition Clinical Impression: Gastrointestinal tube in situ Disposition: Home, Self-Care Condition on Discharge: Good Instructions: How to Care for Your PEG Tube Additional Instructions: resume prev orders Referrals: Provider,Referral, [Primary Care Provider] - - Critical Care Critical Care Time: No Attestation: On 09/04/21, the high probability of a clinically significant, sudden or life threatening deterioration of the following system(s) required my full and direct attention, intervention and personal management. The time I documented below is in addition to time spent performing reported procedures but includes the following listed in this critical care notation. Medical Decision Making - Medical Records Medical records reviewed: Yes: I reviewed the patient's medical records. - Lobo Inquiry Pt receiving controlled substance: No Vital Signs: 09/04/21 01:13 EDT Temperature 97.7 F Temperature Source Temporal Artery Scan Pulse Rate [Right Brachial] 73 Respiratory Rate 17 Blood Pressure [Right Arm] 125/75 Blood Pressure Mean [Right Arm] 91 Blood Pressure Source [Right Arm] Automatic Cuff Blood Pressure Position [Right Arm] Supine 02 Sat by Pulse Oximetry 98 Oxygen Delivery Method Room Air Orders (Tests/Meds): ED MEDICATIONS Discontinued Medications Generic Name Dose Route Start Last Admin Trade Name Freq PRN Reason Stop Dose Admin Cephalexin HCl 500 mg 09/04/21 02:17 09/04/21 02:20 Cephalexin 500mg Capsule PO 09/04/21 02:18 Not Given ONCE ONE Tetanus/Diphtheria Toxoids 0.5 ml 09/04/21 02:17 09/04/21 02:20 Tetanus-Diphth Toxoid, Adult 0.5ml Syr IM 09/04/21 02:18 Not Given .ONCE ONE ORDERS Category Date Time Status XR KUB Stat Exams 09/04/21 01:55 Taken - Radiology Data #1 Image(s): KUB Image Reviewed: Yes I have reviewed radiologist's interpretation Preliminary Findings: Normal/NAD Medical Decision Narrative: g tube in place and appears to work Recheck HPI - General Chief Complaint: Recheck/Abnormal Lab/Rx Stated Complaint: feeding tube malfunction Time Seen by Provider: 09/04/21 01:15 EST Mode of Arrival: EMS Source of Information: EMS, Medical Record Limitations: Physical Limitations Description of Symptoms (Recalled from ER Triage Doc. by RN): patient sent by ms nurse for eval of feeding tube placement due to leaking around site. - History of Present Illness HPI narrative: sent from [facility] for concerns about g tube MD complaint: other (g tube ) Initial visit (ago): hour(s) Associated symptoms: none - Related Data Home Medications Medication Instructions Recorded Confirmed Metoclopramide HCl [Metoclopramide 5 ml G-TUBE QID 02/25/18 09/04/21 5mg/5ml Oral Soln] OXcarbazepine [Trileptal 150mg 150 mg G-TUBE TID 02/25/18 09/04/21 tablet] Pravastatin Sodium 80 mg G-TUBE DAILY 02/25/18 09/04/21 Quetiapine Fumarate 25 mg G-TUBE HS 02/25/18 09/04/21 Insulin Glargine,Hum.rec.anlog 30 unit SQ HS 03/10/19 09/04/21 [Lantus Insulin 100units/mL 10mL vial] Levothyroxine Sodium 100 mg G-TUBE DAILY 03/10/19 09/04/21 [Levothyroxine 100mcg (0.1MG) Tab] polyethylene glycoL 3350 [Miralax 17 gm G-TUBE BID 03/14/19 09/04/21 17gm Packet] Acetaminophen 650 mg G-TUBE Q4HP PRN 08/19/20 09/04/21 Carboxymethylcellulose Sodium 1 drp OP TID 08/19/20 09/04/21 [Refresh Liquigel] Insulin Glargine,Hum.rec.anlog 24 units SQ DAILY 08/19/20 09/04/21 [Lantus Solostar 100 Units/mL 3mL flexpen] Pediatric Multivitamin No.118 15 ml G-TUBE DAILY 08/19/20 09/04/21 [Tropical Liquid Nutrition] Omeprazole [Omeprazole 40mg 40 mg G-TUBE DAILY 08/20/20 09/04/21 Capsule] Zonisamide [Zonegran] 400 mg G-TUBE HS 08/20/20 09/04/21 Hydrocodone/Acetaminophen [[place] 1 tab G-TUBE QID 10/29/20 09/04/21 7.5-325 Tablet] Rivaroxaban [Xarelto 10mg tablet] 10 mg G-TUBE DAILY 10/29/20 09/04/21 Nystatin [Nystatin Cr 100
[2021-09-04 01:13] VITALS: BP 125/75; PULSE 73; RESP 17; TEMP 36.5; O2SAT 98; BMI 35.2
--- NOTE | 2021-09-04 01:22 | PC.NURSE ---
upon assessment of tube placement, it was noted that the extension set was missing on the stomach button placement. call placed to amari kenney rn at [facility] and she advised they would send a tech up with the extension set as soon as possible. waiting on tech and set at this time.
--- NOTE | 2021-09-04 01:55 | XR_ITS ---
PROCEDURE INFORMATION: Exam: XR Abdomen Exam date and time: 09/04/2021 1:55 AM Age: 61 years old Clinical indication: Device placement; Gi device; Peg tube; Additional info: Peg placement TECHNIQUE: Imaging protocol: XR of the abdomen. Views: Frontal supine view of the abdomen. 1 View. COMPARISON: CR XR KUB 12/24/2020 1:34 PM FINDINGS: Tubes, catheters and devices: Percutaneous gastrostomy tube projects over the left upper quadrant. Post-injection image demonstrates enteric contrast outlining the rugal folds of the stomach and progressing into the duodenum. There is no evidence of contrast extravasation. Partially visualized ventriculoperitoneal shunt tubing and left lower quadrant pump device. IVC filter present. Gastrointestinal tract: Large colonic stool burden suggested. No gas-filled, dilated loops of small bowel are seen. Organs: Bilateral renal calculi. Bones/joints: Marked osteopenia. Chronic lumbar compression deformities. Spondylosis. Levoconvex lumbar curvature. IMPRESSION: Percutaneous gastrostomy tube in satisfactory position with expected antegrade flow of enteric contrast following injection. COMMENTS: For patients with an IVC filter, recommend assessment for a management plan for the patient's IVC filter. If there is no established management plan, recommend referral to an interventional clinician on a nonemergent basis for evaluation.
--- NOTE | 2021-09-04 03:07 | PC.NURSE ---
Report called to Melissa at [facility] at this time.
[2021-09-04 03:35] VITALS: BP 128/68; PULSE 75; RESP 18; TEMP 36.6; O2SAT 98
== END 2021-09-04 03:36 | disposition home or self-care (01) ==
PROVIDERS: Emergency Provider Emergency Medicine
DX: T85.598A Other mechanical complication of other gastrointestinal prosthetic devices, implants and grafts, initial encounter (principal); I25.10 Atherosclerotic heart disease of native coronary artery without angina pectoris; E11.9 Type 2 diabetes mellitus without complications; E78.5 Hyperlipidemia, unspecified
CPT/HCPCS: 74018; 99283

== ENCOUNTER 2021-10-01 02:18 | Inpatient (IN) | payer MEDICARE, OTHER, SELFPAY ==
[2021-10-01] VITALS (14 sets, daily range): BP systolic 145–180; BP diastolic 68–104; PULSE 72–126; RESP 20–27; TEMP 36.6–37.3; O2SAT 88–95; BMI 21.7; BMI 24.9
--- NOTE | 2021-10-01 02:11 | ECG_ITS ---
APPROVED REPORT Exam: Resting ECG HR:118 bpm ECG Measurements Heart Rate 118 AXES AR 136 P 71 QRSd 92 QRS 82 QT 326 T 41 QTc 456 Conclusion Sinus tachycardia Right atrial enlargement Borderline ECG Electronically signed by : Rafy Tomas MD 10/01/2021 09:04:04
[2021-10-01 02:34] LABS: ABG HCO3 25.4 mmhg (22.0-26.0); ABG Oxygen Saturation 89 % (90-100); ABG PCO2 39.6 mmhg (35.0-45.0); ABG PH 7.43 mmol/L (7.35-7.45); ABG PO2 53.4 mmhg (80-100); ABG TCO2 26.6 mmhg (23-27)
[2021-10-01 02:35] LABS: Allen's Test Acceptable; Oxygen 21 %; Source Right Radial
--- NOTE | 2021-10-01 02:44 | XR_ITS ---
PROCEDURE INFORMATION: Exam: XR Chest Exam date and time: 10/01/2021 2:44 AM Age: 61 years old Clinical indication: Shortness of breath; Additional info: SOA TECHNIQUE: Imaging protocol: XR of the chest. Views: 1 view. COMPARISON: CT CHEST WO CON 10/29/2020 3:29 PM FINDINGS: Tubes, catheters and devices: Incompletely visualized probable ventriculoperitoneal shunt on the right. Lungs: Volume loss in the right lung field. Pleural spaces: Right basilar opacity, probably combination of pleural effusion and adjacent atelectasis/consolidation. Heart/Mediastinum: Unremarkable cardiomediastinal silhouette. Bones/joints: No acute osseous findings. IMPRESSION: Right basilar opacity, probably combination of pleural effusion and adjacent atelectasis/consolidation. Recommend imaging follow-up until complete resolution.
[2021-10-01 02:50] LABS: Microscopic, Urine URINE MICROSCOPIC (MICROSCOPIC)
[2021-10-01 03:18] LABS: Appearance,Urine TURBID (Clear); Bilirubin,Urine Negative (Negative); Blood, Urine 2+ (Negative); Color,Urine YELLOW (Yellow); Glucose,Urine (UA) Negative (Negative); Ketones,Urine Negative (Negative); Leukocyte Esterase,Urine 3+ (Negative); Nitrate,Urine Negative (Negative); PH,Urine 7.5 (5.0-8.5); Protein,Urine 3+ (Negative); Specific Gravity, Urine 1.025 (1.005-1.030); Urobilinogen,Urine 0.2 EU/dl (0.2)
[2021-10-01 03:19] LABS: Alanine Aminotransferase 13 U/L (12-78); Albumin/Globulin Ratio 1.1 (1.1-1.8); Alkaline Phosphatase 182 U/L (38-126); Anion Gap 11.8 mEq/L (5-15); Aspartate Amino Transferase 34 U/L (17-59); Bilirubin,Total 0.7 mg/dl (0.2-1.3); Blood Urea Nitrogen 27 mg/dl (9-20); Calcium 9.7 mg/dl (8.4-10.2); Carbon Dioxide 27 mmol/L (22.0-30.0); Chloride 100 mmol/L (98-107); Creatinine Clearance Estimated 78 mL/min (50-200); Estimated Glomerular Filt Rate 136 ml/min (>60); GFR (African American) 165 ML/MIN (>60); Globulin 3.8 g/dL (1.3-3.2); Glucose 296 mg/dl (74-100); Lactic Acid 1.1 mmol/L (0.7-2.1); Potassium 4.8 mmoL/L (3.5-5.1); Sodium 134 mmol/L (136-145); Total Protein,Serum 7.8 g/dl (6.3-8.2)
[2021-10-01 03:20] LABS: WBC,Urine TNTC #/hpf (0-3)
--- NOTE | 2021-10-01 03:22 | CT_ITS ---
PROCEDURE INFORMATION: Exam: CT Abdomen And Pelvis With Contrast Exam date and time: 10/01/2021 3:22 AM Age: 61 years old Clinical indication: Other: Urinary retention; Prior surgery; Surgery date: 6+ months; Surgery type: Peg tube, bladder stimulator; Patient HX: [facility] patient TECHNIQUE: Imaging protocol: Computed tomography of the abdomen and pelvis with contrast. Radiation optimization: All CT scans at this facility use at least one of these dose optimization techniques: automated exposure control; mA and/or kV adjustment per patient size (includes targeted exams where dose is matched to clinical indication); or iterative reconstruction. Contrast material: ISOVUE; Contrast volume: 75 ml; Contrast route: IV; COMPARISON: CT ABDOMEN PELVIS WO CON 10/29/2020 3:29 PM FINDINGS: Tubes, catheters and devices: PEG tube in situ. Spinal stimulator device, in the left anterior pelvic wall, the lead is not entirely visualized. Lungs: Atelectatic changes at the lung bases, right is greater than left. Liver: No suspicious mass. Gallbladder and bile ducts: No calcified stones. No ductal dilation. Pancreas: No ductal dilation. No peripancreatic inflammatory changes. Spleen: The spleen is prominent in size. Adrenal glands: No mass. Kidneys and ureters: Bilateral nonobstructing renal calculi. Increased enhancement of the proximal left ureter, nonspecific, possibly UTI. Relatively mild perinephric stranding on the left, nonspecific possibly pyelonephritis. Ill-defined low-attenuation lesion in the left mid kidney measuring 4.6 cm, renal mass versus such renal cell carcinoma versus lobar nephronia. Additional bilateral cyst and too small to characterize hypodensity measuring up to 2.0 cm Stomach and bowel: Non-obstructive bowel gas pattern. No significant wall thickening. Appendix: No evidence of appendicitis. Intraperitoneal space: No free air. Small volume pelvic ascites. Focal mild to moderate amount of free air posterior to cecum. Vasculature: Atherosclerotic calcifications in the aorta and its branches. Infrarenal abdominal aortic aneurysm measuring 3.2 cm. IVC filter in situ. Lymph nodes: No enlarged lymph nodes. Urinary bladder: Lopez catheter balloon in the urinary bladder. Calculi versus mucosal calcifications possibly due to transitional cell carcinoma in the dependent portion of the urinary bladder. Significant thickening of the urinary bladder wall, indeterminate. Reproductive: The prostate is prominent in size. Bones/joints: Severe degenerative changes osteopenia. Chronic appearing fracture of the left hip. S shaped scoliosis. Stable relatively mild compression deformities in the visualized spine most prominent in L2 vertebral body. Soft tissues: Bilateral gynecomastia. Small fluid in fat containing left inguinal hernia. IMPRESSION: 1. Focal mild to moderate amount of free air posterior to cecum. 2. Ill-defined low-attenuation lesion in the left mid kidney measuring 4.6 cm, renal mass versus such is renal cell carcinoma versus lobar nephronia. Correlate with MR. 3. Calculi versus mucosal calcifications possibly due to transitional cell carcinoma in the dependent portion of the urinary bladder. Correlate with cystoscopy. 4. Significant thickening of the urinary bladder wall, indeterminate. Cystitis is suspected. 5. Relatively mild perinephric stranding on the left, nonspecific possibly pyelonephritis. 6. Small volume pelvic ascites. 7. Infrarenal abdominal aortic aneurysm measuring 3.2 cm. COMMENTS: 1. Consistent with the [employer]'s Incidental Findings Committee white pap
[2021-10-01 03:24] LABS: C-Reactive Protein 78.5 mg/L (0-4)
[2021-10-01 03:31] LABS: Basophils # 0.1 K/mm3 (0-0.2); Basophils % 0.8 % (0.1-2.0); Eosinophils # 0.3 K/mm3 (0.0-0.4); Eosinophils % 4.2 % (0.1-12.0); Hematocrit 41.9 % (42.0-52.0); Hemoglobin 13.6 g/dL (14.1-18.0); Lymphocytes # 1.3 K/mm3 (0.7-4.5); Lymphocytes % 17.4 % (10-50); Mean Corpuscular HGB Conc 32.4 g/dL (31.8-35.4); Mean Corpuscular Hemoglobin 29.3 pg (27.0-31.2); Mean Corpuscular Volume 90.5 fl (80-94); Mean Platelet Volume 8.4 fl (7.4-10.4); Monocytes # 0.6 K/mm3 (0.1-1.0); Monocytes % 7.9 % (1.7-9.3); Neutrophils # 5.3 K/mm3 (1.8-7.8); Neutrophils % 69.7 % (37.0-80.0); Platelet Count 330 K/mm3 (142-424); Red Blood Count 4.63 M/mm3 (4.60-6.20); Red Cell Distribution Width 15.9 % (11.5-17.5); White Blood Count 7.6 K/mm3 (4.8-10.8)
[2021-10-01 03:34] LABS: Troponin I < 0.01 ng/ml (0.00-0.034)
[2021-10-01 03:38] LABS: Procalcitonin 0.151 ng/mL (0.0-2.0); T4 (Thyroxine) 10.5 ug/dl (5.53-11.0)
[2021-10-01 03:52] LABS: Thyroid Stimulating Hormone 1.59 uIU/mL (0.465-4.68)
[2021-10-01 03:53] LABS: Coronavirus 19, PCR Not Detected (NotDetected); Influenza A, PCR Not Detected (NotDetected); Influenza B, PCR Not Detected (NotDetected)
[2021-10-01 04:02] LABS: Erythrocyte Sedimentation Rate 48 mm/hr (0-20)
--- NOTE | 2021-10-01 04:42 | HMH.EDSOB ---
ED Disposition Clinical Impression: Gastrointestinal tube present, Intra-abdominal free air of unknown etiology, Renal mass, left, AAA (abdominal aortic aneurysm) without rupture, SIRS (systemic inflammatory response syndrome) Aspiration pneumonia Qualifiers: Aspiration pneumonia type: unspecified Laterality: right Lung location: lower lobe of lung Qualified Code(s): J69.0 - Pneumonitis due to inhalation of food and vomit TBI (traumatic brain injury) Qualifiers: Encounter type: subsequent encounter Loss of consciousness presence/duration: with LOC of unspecified duration Qualified Code(s): S06.9X9D - Unspecified intracranial injury with loss of consciousness of unspecified duration, subsequent encounter UTI (urinary tract infection) Qualifiers: Urinary tract infection type: site unspecified Hematuria presence: without hematuria Qualified Code(s): N39.0 - Urinary tract infection, site not specified Disposition: Admitted As Inpatient Condition on Discharge: Serious Referrals: Rafy Tomas MD [Primary Care Provider] - - Critical Care Critical Care Time: No Attestation: On 10/01/21, the high probability of a clinically significant, sudden or life threatening deterioration of the following system(s) required my full and direct attention, intervention and personal management. The time I documented below is in addition to time spent performing reported procedures but includes the following listed in this critical care notation. Medical Decision Making - Medical Records Medical records reviewed: Yes: I reviewed the patient's medical records. - Lobo Inquiry Pt receiving controlled substance: No Vital Signs: 10/01/21 02:18 10/01/21 02:32 10/01/21 03:19 Pulse Rate 116 H 116 H Pulse Rate [Right] 119 H Respiratory Rate 27 H Blood Pressure 146/84 H 164/101 H Blood Pressure [Right Arm] 153/91 H Blood Pressure Mean [Right Arm] 111 02 Sat by Pulse Oximetry 88 L 92 L 95 Oxygen Delivery Method Room Air Nasal Cannula Nasal Cannula Oxygen Flow Rate (LPM) 3 3 10/01/21 03:22 10/01/21 04:01 10/01/21 04:30 Pulse Rate 116 H 126 H 120 H Pulse Rate [Right] Respiratory Rate Blood Pressure 148/85 H 180/99 H 157/94 H Blood Pressure [Right Arm] Blood Pressure Mean [Right Arm] 02 Sat by Pulse Oximetry 92 L 92 L 91 L Oxygen Delivery Method Nasal Cannula Nasal Cannula Nasal Cannula Oxygen Flow Rate (LPM) 3 3 3 - Lab Data Lab results reviewed: Yes: I reviewed the patient's lab results. Lab Results 10/01/21 02:31: Specimen Source Right radial, O2 % 21, ABG pH 7.43, ABG pCO2 39.6, ABG pO2 53.4 L, ABG HCO3 25.4, ABG Total CO2 26.6, ABG O2 Saturation 89 L, ABG Base Excess 1.0, Jarrod Test Acceptable 10/01/21 02:37: Urine Color Yellow, Urine Appearance Turbid, Urine pH 7.5, Ur Specific [place] 1.025, Urine Protein 3+, Urine Glucose (UA) Negative, Urine Ketones Negative, Urine Blood 2+, Urine Nitrate Negative, Urine Bilirubin Negative, Urine Urobilinogen 0.2, Ur Leukocyte Esterase 3+ A, Urine RBC 10-20, Urine WBC Tntc 10/01/21 02:37: Sodium 134 L, Potassium 4.8, Chloride 100, Carbon Dioxide 27, Anion Gap 11.8, BUN 27 H, Creatinine 0.60 L, Estimated Creat Clear 78, Estimated GFR 136, Est GFR ( Amer) 165, Glucose 296 H, Calcium 9.7, Total Bilirubin 0.7, AST 34, ALT 13, Alkaline Phosphatase 182 H, Troponin I < 0.01, C-Reactive Protein 78.5 H, Total Protein 7.8 D, Albumin 4.0, Globulin 3.8 H, Albumin/Globulin Ratio 1.1, Procalcitonin 0.151, TSH 1.59, Thyroxine (T4) 10.5 10/01/21 02:37: Lactate 1.1 10/01/21 03:19: WBC 7.6, RBC 4.63, Hgb 13.6 L, Hct 41.9 L, MCV 90.5, MCH 29.3, MCHC 32.4, RDW 15.9, Plt Count 330, MPV 8.4, Neut % (Auto) 69.7, Lymph % (Auto) 17.4, [place] % (Auto) 7.9, Eos % (Auto) 4.2, Baso % (Auto) 0.8, Neut # (Auto) 5.3, Lymph # (Auto) 1.3, [place] # (Auto) 0.6, Eos # (Auto) 0.3, Baso # (Auto) 0.1, ESR 48 H 10/01/21 03:20: SARS-CoV-2 (PCR) Not detected, Influenza A Untype (PCR) Not detected, Influenza Type B (P
--- NOTE | 2021-10-01 06:17 | PC.NURSE ---
PT ARRIVED TO FLOOR VIA STRETCHER FROM ED W/STAFF @ [id number]
[2021-10-01 06:55] LABS: POC Glucose,Bedside 239 (70-110)
[2021-10-01 07:36] LABS: Basophils % 0.5 % (0.1-2.0); Eosinophils # 0.3 K/mm3 (0.0-0.4); Eosinophils % 4.1 % (0.1-12.0); Hematocrit 41.3 % (42.0-52.0); Hemoglobin 13.2 g/dL (14.1-18.0); Lymphocytes % 14.8 % (10-50); Mean Corpuscular Hemoglobin 29.2 pg (27.0-31.2); Mean Corpuscular Volume 91.2 fl (80-94); Mean Platelet Volume 8.5 fl (7.4-10.4); Monocytes # 0.5 K/mm3 (0.1-1.0); Monocytes % 7.4 % (1.7-9.3); Neutrophils % 73.2 % (37.0-80.0); Platelet Count 310 K/mm3 (142-424); Red Blood Count 4.53 M/mm3 (4.60-6.20); Red Cell Distribution Width 15.7 % (11.5-17.5); White Blood Count 6.9 K/mm3 (4.8-10.8)
[2021-10-01 07:43] LABS: Chloride 101 mmol/L (98-107)
[2021-10-01 07:44] LABS: Potassium 4.5 mmoL/L (3.5-5.1); Sodium 138 mmol/L (136-145)
[2021-10-01 07:47] LABS: Anion Gap 14.5 mEq/L (5-15); Blood Urea Nitrogen 23 mg/dl (9-20); Calcium 9.5 mg/dl (8.4-10.2); Carbon Dioxide 27 mmol/L (22.0-30.0); Creatinine Clearance Estimated 89 mL/min (50-200); Estimated Glomerular Filt Rate 136 ml/min (>60); GFR (African American) 165 ML/MIN (>60); Glucose 242 mg/dl (74-100)
--- NOTE | 2021-10-01 08:55 | HMH.HP ---
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 Has a history of aspiration issues and over the past 24 hours had increased work of breathing, cough and congestion, brought to the emergency department where he was found to have infiltrate on chest x-ray and was admitted to hospital. Also found to have free air on CT scan of abdomen behind his cecum, general surgery consulted and I discussed case with surgery. [facility] History I have reviewed the patient's past medical history: Yes Medical History: Reports:: Aneurysm (3.2cm AAA), Coronary Artery Disease, Deep Vein Thrombosis, Diabetes Mellitus Type 2, Hyperlipidemia, Kidney Stones, Seizures, Urinary Tract Infection Denies:: Cancer, Diabetes Mellitus Type 1, MRSA *Have you ever received a pneumonia vaccine?: Yes (06/20/17) *Have you received a flu vaccine this season?: Yes (07/26/21) Other Medical History: Reports: Anemia, Glaucoma, Hypothyroidism, Thyroid Disease Other Surgeries: Yes: Colonoscopy, EGD, Other (gastrostomy) Amputation: No Fractures: Yes - *Social History Smoking Status: Never smoker Alcohol Intake: never Substance Use Type: denies use *Occupational Status:: disabled Housing: half-way *Travel in the last 8 weeks: None Family Hx:: Unable to obtain Review of Systems - Review of Systems Review of systems:: unable to obtain [facility] Home Medications Medication Instructions Recorded Confirmed Type Metoclopramide HCl [Metoclopramide 5 ml G-TUBE QID 02/25/18 10/01/21 History 5mg/5ml Oral Soln] OXcarbazepine [Trileptal 150mg 150 mg G-TUBE TID 02/25/18 10/01/21 History tablet] Pravastatin Sodium 80 mg G-TUBE DAILY 02/25/18 10/01/21 History Quetiapine Fumarate 25 mg G-TUBE HS 02/25/18 10/01/21 History Insulin Glargine,Hum.rec.anlog 28 unit SQ BID 03/10/19 10/01/21 History [Lantus Insulin 100units/mL 10mL vial] Levothyroxine Sodium 100 mg G-TUBE DAILY 03/10/19 10/01/21 History [Levothyroxine 100mcg (0.1MG) Tab] polyethylene glycoL 3350 [Miralax 17 gm G-TUBE BID 03/14/19 10/01/21 History 17gm Packet] Acetaminophen 650 mg G-TUBE Q4HP PRN 08/19/20 10/01/21 History Carboxymethylcellulose Sodium 1 drp OP TID 08/19/20 10/01/21 History [Refresh Liquigel] Pediatric Multivitamin No.118 15 ml G-TUBE DAILY 08/19/20 10/01/21 History [Tropical Liquid Nutrition] Omeprazole [Omeprazole 40mg 40 mg G-TUBE DAILY 08/20/20 10/01/21 History Capsule] Zonisamide [Zonegran] 400 mg G-TUBE HS 08/20/20 10/01/21 History Hydrocodone/Acetaminophen [[place] 1 tab G-TUBE QID 10/29/20 10/01/21 History 7.5-325 Tablet] Rivaroxaban [Xarelto 10mg tablet] 10 mg G-TUBE DAILY 10/29/20 10/01/21 History Nystatin [Nystatin Cr 100,000 1 applicatio TOPICAL TID 10/30/20 10/01/21 History Units/GM 30GM] Zinc Oxide [Zinc Oxide ointment 1 applicatio TP TID PRN 10/30/20 10/01/21 History 28gm tube] Insulin Aspart [Insulin Aspart 100 unit SQ QID 10/01/21 10/01/21 History Flexpen] Allergies Allergy/AdvReac Type Severity Reaction Status Date / Time adhesive [ADHESIVE] Allergy Mild Unknown Verified 12/31/20 14:40 allergy reaction lisinopril Allergy Mild Unknown Verified 12/31/20 14:40 allergy reaction GALLO Inhibitors Allergy Verified 10/01/21 05:12 Exam Vital signs and Labs for Last 24 Hours: Temp Pulse Resp BP Pulse Ox 98.6 F 116 H 20 159/89 H 92 L 10/01/21 07:51 10/01/21 07:51 10/01/21 07:51 10/01/21 07:51 10/01/21 07:51 Laboratory Results - last 24 hr 10/01/21 02:31: S
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
[2021-10-01 11:33] LABS: POC Glucose,Bedside 160 (70-110)
--- NOTE | 2021-10-01 13:16 | HMH.PHAINT ---
Verified medication list with [facility] and [facility]
--- NOTE | 2021-10-01 13:16 | HMH.PHAVTE ---
[facility] Pharmacy VTE Monitoring - Patient Demographics Admission date: 10/01/21 Report Date: 10/01/21 Time: 13:17 Allergies/Adverse Reactions: Patient Allergies adhesive [ADHESIVE] Allergy (Mild, Verified 12/31/20 14:40) Unknown allergy reaction lisinopril Allergy (Mild, Verified 12/31/20 14:40) Unknown allergy reaction GALLO Inhibitors Allergy (Verified 10/01/21 05:12) Height: 1.83 m Weight: 83.506 kg Patient Problems: Current Active Problems UTI (urinary tract infection) (Acute) Gastrointestinal tube present (Chronic) TBI (traumatic brain injury) (Chronic) Aspiration pneumonia (Acute) Intra-abdominal free air of unknown etiology (Acute) Renal mass, left (Acute) AAA (abdominal aortic aneurysm) without rupture (Acute) SIRS (systemic inflammatory response syndrome) (Acute) - VTE Risk Labs: VTE Related Lab Results Hgb 13.2 g/dL (14.1-18.0) L 10/01/21 07:08 Hct 41.3 % (42.0-52.0) L 10/01/21 07:08 Plt Count 310 K/mm3 (142-424) 10/01/21 07:08 BUN 23 mg/dl (9-20) H 10/01/21 07:08 Creatinine 0.60 mg/dl (0.66-1.25) L 10/01/21 07:08 Estimated Creat Clear 89 mL/min (50-200) 10/01/21 07:08 Was VTE Risk Assessment Performed: Yes VTE Score: 9 VTE Risk Level: Moderate Risk Clinical Trial Participant: No - Prophylaxis VTE Prophylaxis Ordered?: Yes Types of VTE Prophylaxis: TEDS Knee High Location of Applied Device: Bilateral Lower Extremeties
--- NOTE | 2021-10-01 18:14 | PC.NURSE ---
PT HAS BEEN TURNED Q2HRS THIS SHIFT. 3LNC IN PLACE FOR O2 SUPPORT. AFEBRILE THIS SHIFT.
[2021-10-01 21:08] LABS: POC Glucose,Bedside 136 (70-110)
[2021-10-02] VITALS (9 sets, daily range): BP systolic 135–155; BP diastolic 79–88; PULSE 66–115; RESP 17–22; TEMP 36.4–37.2; O2SAT 94–99; BMI 25.8
--- NOTE | 2021-10-02 02:46 | HMH.PHAINT ---
pharmacy notified 0030 for pharmacy consult order regarding vancomycin, TO received for Vancomycin 1500mg initial dose, Vancomycin 1250mg q12. repeated and verified with [facility].
--- NOTE | 2021-10-02 03:17 | PC.NURSE ---
peg tube site cleansed and clean 4x4 dressing applied, noted irritation and mild excoriation, old dressing noted with dark colored dried drainage on it.
--- NOTE | 2021-10-02 06:21 | PC.NURSE ---
pt nonverbal and unable to communicate needs, pt remains NPO, blood cultures were positive and results called to [employer] credit card collection clerk with orders for vancomycin to start at 1500mg iv, pt on tele with sinus rythm to sinus tach, afebrile, 02 at 3L PNC, lungs with expiratory wheezing and congestion noted with non productive cough. GT noted to have dark colored drainage and mild excoriation around, pt flinched with pain when cleaned and replaced dressing. F/C to [facility]
[2021-10-02 06:26] LABS: POC Glucose,Bedside 129 (70-110)
--- NOTE | 2021-10-02 08:17 | HMH.PHACONS ---
- Pharmacy Consult Date: 10/02/21 Time: 08:17 Referring provider: DR CARCAMO Reason for Consult:: VANCOMYCIN DOSING CONSULT Allergies and ADEs:: Allergies Allergy/AdvReac Type Severity Reaction Status Date / Time adhesive [ADHESIVE] Allergy Mild Unknown Verified 12/31/20 14:40 allergy reaction lisinopril Allergy Mild Unknown Verified 12/31/20 14:40 allergy reaction GALLO Inhibitors Allergy Verified 10/01/21 05:12 Home Medications:: Home Medications Medication Instructions Recorded Confirmed Type Metoclopramide HCl [Metoclopramide 10 ml G-TUBE QID 02/25/18 10/01/21 History 5mg/5ml Oral Soln] OXcarbazepine [Trileptal 150mg 150 mg G-TUBE TID 02/25/18 10/01/21 History tablet] Pravastatin Sodium 80 mg G-TUBE HS 02/25/18 10/01/21 History Quetiapine Fumarate 25 mg G-TUBE HS 02/25/18 10/01/21 History Insulin Glargine,Hum.rec.anlog 28 unit SQ BID 03/10/19 10/01/21 History [Lantus Insulin 100units/mL 10mL vial] Levothyroxine Sodium 100 mg G-TUBE DAILY 03/10/19 10/01/21 History [Levothyroxine 100mcg (0.1MG) Tab] polyethylene glycoL 3350 [Miralax 17 gm G-TUBE DAILY 03/14/19 10/01/21 History 17gm Packet] Acetaminophen 650 mg G-TUBE Q4HP PRN 08/19/20 10/01/21 History Carboxymethylcellulose Sodium 1 drp OP TID 08/19/20 10/01/21 History [Refresh Liquigel] Pediatric Multivitamin No.118 15 ml G-TUBE DAILY 08/19/20 10/01/21 History [Tropical Liquid Nutrition] Omeprazole [Omeprazole 40mg 40 mg G-TUBE DAILY 08/20/20 09/04/21 History Capsule] Zonisamide [Zonegran] 400 mg G-TUBE HS 08/20/20 10/01/21 History Hydrocodone/Acetaminophen [[place] 1 tab G-TUBE QID 10/29/20 10/01/21 History 7.5-325 Tablet] Rivaroxaban [Xarelto 10mg tablet] 10 mg G-TUBE DAILY 10/29/20 10/01/21 History Nystatin [Nystatin Cr 100,000 1 applicatio TOPICAL TID 10/30/20 10/01/21 History Units/GM 30GM] Zinc Oxide [Zinc Oxide ointment 1 applicatio TP TID PRN 10/30/20 10/01/21 History 28gm tube] Glucagon,Human Recombinant 1 mg IN BIDP PRN 10/01/21 10/01/21 History [Glucagen] Insulin Aspart [Insulin Aspart 0 unit SQ QID 10/01/21 10/01/21 History Flexpen] Menthol/Zinc Oxide [Risamine 1 applicatio TOPICAL BID 10/01/21 10/01/21 History Ointment] Height: 1.83 m Weight: 86.636 kg Laboratory Results:: Laboratory Results - last 24 hr 10/01/21 11:05: POC Glucose 160 H 10/01/21 19:59: POC Glucose 136 H 10/02/21 05:50: POC Glucose 129 H Medical History: Reports:: Aneurysm (3.2cm AAA), Coronary Artery Disease, Deep Vein Thrombosis, Diabetes Mellitus Type 2, Hyperlipidemia, Kidney Stones, Seizures, Urinary Tract Infection Denies:: Cancer, Diabetes Mellitus Type 1, MRSA Assessment and Plan (1) Aspiration pneumonia Status: Acute Qualifiers: Aspiration pneumonia type: unspecified Laterality: right Lung location: lower lobe of lung Qualified Code(s): J69.0 - Pneumonitis due to inhalation of food and vomit Category: Medical Code(s): J69.0 - Pneumonitis due to inhalation of food and vomit (2) Intra-abdominal free air of unknown etiology Status: Acute Category: Medical Code(s): K66.8 - Other specified disorders of peritoneum (3) TBI (traumatic brain injury) Status: Chronic Qualifiers: Encounter type: subsequent encounter Loss of consciousness presence/duration: with LOC of unspecified duration Qualified Code(s): S06.9X9D - Unspecified intracranial injury with loss of consciousness of unspecified duration, subsequent encounter Category: Medical Code(s): S06.9X9A - Unspecified intracranial injury with loss of consciousness of unspecified duration, initial encounter - Assessment and plan all Dx Assessment and Plan for all problems:: Pharmacokinetic dosing service Objective: Age: 61 yo Serum creatinine: 1 mg/dL Height: 72.0 Inches Weight (kg): 86.636 Assessment: =
--- NOTE | 2021-10-02 08:30 | HMH.ACPN2 ---
Internal Medicine - PN: Subj *Date: 10/02/21 *Time: 08:30 Interval history: Patient has done well overnight. No significant metabolic changes or vital sign changes. He is about as responsive as normal to tactile stimuli and verbal stimuli. Exam Vital signs and Labs for Last 24 Hours: Temp Pulse Resp BP Pulse Ox 98.7 F 66 17 147/86 H 95 10/02/21 07:54 10/02/21 07:54 10/02/21 07:54 10/02/21 07:54 10/02/21 07:54 Laboratory Results - last 24 hr 10/01/21 11:05: POC Glucose 160 H 10/01/21 19:59: POC Glucose 136 H 10/02/21 05:50: POC Glucose 129 H I & O for Last 24 hours: Intake & Output 09/29/21 09/30/21 10/01/21 10/02/21 11:59 11:59 11:59 11:59 Intake Total 0 / 0 2383 / 2383 Output Total 1000 / 1000 1425 / 1425 Balance -1000 / -1000 958 / 958 Weight 184 lb 1.6 oz 191 lb Microbiology Reports for the Last 24 Hours: Microbiology 10/01/21 02:37 Urine,Clean Catch Urine Culture - Preliminary 10/01/21 02:37 Blood Blood Culture - Preliminary Narrative: Remains significantly contracted. Appears better hydrated. Anterior lung price have good air movement, lots of rhonchi bilaterally. Abdomen is soft and nontender. Extremities unchanged, contracted, significant neurologic deficits as previously noted. Heart rate regular. ENT exam unchanged. Assessment and Plan (1) Aspiration pneumonia Status: Acute Qualifiers: Aspiration pneumonia type: unspecified Laterality: right Lung location: lower lobe of lung Qualified Code(s): J69.0 - Pneumonitis due to inhalation of food and vomit Category: Medical Code(s): J69.0 - Pneumonitis due to inhalation of food and vomit (2) Intra-abdominal free air of unknown etiology Status: Acute Category: Medical Code(s): K66.8 - Other specified disorders of peritoneum (3) TBI (traumatic brain injury) Status: Chronic Qualifiers: Encounter type: subsequent encounter Loss of consciousness presence/duration: with LOC of unspecified duration Qualified Code(s): S06.9X9D - Unspecified intracranial injury with loss of consciousness of unspecified duration, subsequent encounter Category: Medical Code(s): S06.9X9A - Unspecified intracranial injury with loss of consciousness of unspecified duration, initial encounter (4) Bacteremia due to Staphylococcus Status: Acute Category: Medical Code(s): R78.81 - Bacteremia; B95.8 - Unspecified staphylococcus as the cause of diseases classified elsewhere - Assessment and plan all Dx Assessment and Plan for all problems:: Plan we will continue broad-spectrum antibiotics. Await urine and blood culture final reports. Initial blood culture shows Staphylococcus species. Patient is on appropriate vancomycin therapy in addition to Invanz and clindamycin for probable nursing of acquired pneumonia. See previous discussion about free air in abdomen. 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
[2021-10-02 16:33] LABS: POC Glucose,Bedside 106 (70-110)
[2021-10-02 16:33] LABS: POC Glucose,Bedside 181 (70-110)
--- NOTE | 2021-10-02 18:41 | PC.NURSE ---
NO ACUTE CHANGES THIS SHIFT. HAS TOLERATED FEEDINGS WELL @ 25 ML/HR. ÁLVAREZ CATH IN PLACE.
[2021-10-02 20:52] LABS: POC Glucose,Bedside 117 (70-110)
[2021-10-02 22:01] LABS: POC Glucose,Bedside 108 (70-110)
[2021-10-03] VITALS: PULSE 100
[2021-10-03 04:00] VITALS: BP 135/88; PULSE 100; PULSE 102; RESP 19; TEMP 36.6; O2SAT 96
[2021-10-03 04:33] VITALS: BMI 26.1
[2021-10-03 05:23] LABS: POC Glucose,Bedside 145 (70-110)
--- NOTE | 2021-10-03 06:19 | PC.NURSE ---
No acute changes t/o shift. Pt has tolerated tube feedings well. Remains on 3L nasal canula with sats remaining above 92%. Call leal in reach will continue to monitor.
[2021-10-03 06:39] LABS: Chloride 110 mmol/L (98-107); Potassium 3.9 mmoL/L (3.5-5.1); Sodium 143 mmol/L (136-145)
[2021-10-03 06:42] LABS: Blood Urea Nitrogen 20 mg/dl (9-20); Creatinine Clearance Estimated 94 mL/min (50-200); Estimated Glomerular Filt Rate 136 ml/min (>60); GFR (African American) 165 ML/MIN (>60)
[2021-10-03 06:43] LABS: Anion Gap 12.9 mEq/L (5-15); Carbon Dioxide 24 mmol/L (22.0-30.0); Glucose 142 mg/dl (74-100)
[2021-10-03 06:47] LABS: MANUAL DIFFERENTIAL MANUAL DIFFERENTIAL (MANUAL DIFF)
[2021-10-03 06:55] LABS: Basophils % 0.9 % (0.1-2.0); Eosinophils # 0.3 K/mm3 (0.0-0.4); Eosinophils % 5.6 % (0.1-12.0); Hemoglobin 12.3 g/dL (14.1-18.0); Lymphocytes # 1.1 K/mm3 (0.7-4.5); Lymphocytes % 21.9 % (10-50); Mean Corpuscular HGB Conc 33.3 g/dL (31.8-35.4); Mean Corpuscular Hemoglobin 29.4 pg (27.0-31.2); Mean Corpuscular Volume 88.3 fl (80-94); Mean Platelet Volume 8.2 fl (7.4-10.4); Monocytes # 0.4 K/mm3 (0.1-1.0); Monocytes % 7.6 % (1.7-9.3); Neutrophils # 3.1 K/mm3 (1.8-7.8); Neutrophils % 64.1 % (37.0-80.0); Platelet Count 277 K/mm3 (142-424); Red Blood Count 4.18 M/mm3 (4.60-6.20); White Blood Count 4.8 K/mm3 (4.8-10.8)
[2021-10-03 07:34] VITALS: BP 147/90; PULSE 96; RESP 18; TEMP 36.6; O2SAT 98
[2021-10-03 08:00] VITALS: PULSE 95
[2021-10-03 08:13] LABS: Anisocytosis 1+; Eosinophils % 9 % (0-3); Hypochromasia 1+; Lymphocytes % 24 % (10-50); Monocytes % 7 % (2-9); Neutrophils % 58 % (42-76); Platelet Estimate Normal; Total Cells Counted 100
--- NOTE | 2021-10-03 08:48 | HMH.DCSUM ---
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 Has a history of aspiration issues and over the past 24 hours had increased work of breathing, cough and congestion, brought to the emergency department where he was found to have infiltrate on chest x-ray and was admitted to hospital. Also found to have free air on CT scan of abdomen behind his cecum, general surgery consulted and I discussed case with surgery. Hospital Course Hospital Course: Patient was admitted. Placed on Invanz and clindamycin for probable aspiration pneumonia and improved from a respiratory standpoint. Interestingly. He never had a high white count. Was found to have positive blood cultures initially on DNA testing but this did not prove to be accurate on formal culture report and later, and vancomycin was discontinued. Please see notes from my progress notes about the questionable free air behind his colon. After looking at films with surgery the opinion is that this is related to his the presence of his FRUIT THINNER shunt and does not represent clinical problematic free air. Patient's abdominal exam remained normal throughout his hospital stay. This morning he was doing better, more alert, talkative. Back to his baseline. No fevers. And urine cultures and blood cultures have remained negative. Plan will be to discharge back to retirement today with clindamycin and Omnicef for pneumonia coverage. Both of these will be continued for 5 more days. Otherwise his regular medications, therapies, etc. will be continued, tube feeds will resume as previous. Please note patient will continue to maintain his DNR status at the retirement. Objective Vital signs: Temp Pulse Resp BP Pulse Ox 97.9 F 96 H 18 147/90 H 98 10/03/21 07:34 10/03/21 07:34 10/03/21 07:34 10/03/21 07:34 10/03/21 07:34 no acute distress - *Routine HEENT Exam Head: Present: normocephalic Eye: Present: EOMI, PERRL ENT: Present: mucous membranes moist Comments: Chronic changes from TBI with dentition issues. - *Routine Neck Exam Present: supple - *Routine Respiratory Exam Present: rhonchi - *Routine Cardiovascular Exam Present: RRR - *Routine Abdominal Exam Present: soft, normoactive bowel sounds. Absent: tenderness Comments: G-tube site in place. Looks good - *Routine Extremities Exam Absent: cyanosis, clubbing, edema Comments: Skin changes from contractures noted. - *Routine Skin Exam Present: warm. Absent: rash - *Routine Neurological Exam Present: alert Contractures, previous changes from TBI as previously noted. - Detailed Eye Exam Eyelids: Bilateral normal inspection Results Labs on day of discharge: Labs from last 24 hours 10/03/21 10/03/21 10/03/21 06:17 06:17 05:10 WBC 4.8 D RBC 4.18 L Hgb 12.3 L Hct 37.0 L MCV 88.3 MCH 29.4 MCHC 33.3 RDW 16.0 Plt Count 277 MPV 8.2 Neut % (Auto) 64.1 Lymph % (Auto) 21.9 [place] % (Auto) 7.6 Eos % (Auto) 5.6 Baso % (Auto) 0.9 Neut # (Auto) 3.1 Lymph # (Auto) 1.1 [place] # (Auto) 0.4 Eos # (Auto) 0.3 Baso # (Auto) 0.0 Total Counted 100 Neutrophils % (Manual) 58 Lymphocytes % (Manual) 24 Monocytes % (Manual) 7 Eosinophils % (Manual) 9 H Blast Cells % 2.0 Platelet Estimate Normal Hypochromasia 1+ Anisocytosis 1+ Sodium 143 Potassium 3.9 Chloride 110 H Carbon Dioxide 24 Anion Gap 12.9 BUN 20 Creatinine 0.60 L Estimated Creat Clear 94 Estimated GFR
--- NOTE | 2021-10-03 09:39 | SW/DCPLANNER ---
SENT UPDATES TO [facility] ON THIS PATIENT THAT WILL BE RETURNING TODAY.... PATIENT IS A LONG STANDING RESIDENT OF [facility].
[2021-10-03 10:29] LABS: Coronavirus 19, PCR Not Detected (NotDetected); Influenza A, PCR Not Detected (NotDetected); Influenza B, PCR Not Detected (NotDetected)
[2021-10-03 11:30] LABS: POC Glucose,Bedside 120 (70-110)
== END 2021-10-03 12:55 | DRG 177 ==
LOC: ER 05:08 → 2ND 07:54
PROVIDERS: Admitting Provider Emergency Medicine; Emergency Provider Emergency Medicine; PCP Internal Medicine Adolescent Medicine; Visit Provider Internal Medicine Adolescent Medicine
DX: J69.0 Pneumonitis due to inhalation of food and vomit (principal); J96.01 Acute respiratory failure with hypoxia; N39.0 Urinary tract infection, site not specified; K66.8 Other specified disorders of peritoneum; Z93.1 Gastrostomy status; N28.89 Other specified disorders of kidney and ureter; I71.4 Abdominal aortic aneurysm, without rupture; Z20.822 Contact with and (suspected) exposure to COVID-19; Z87.820 Personal history of traumatic brain injury; Z79.4 Long term (current) use of insulin; Z86.718 Personal history of other venous thrombosis and embolism; E11.9 Type 2 diabetes mellitus without complications; E03.9 Hypothyroidism, unspecified; Z74.01 Bed confinement status; Z79.02 Long term (current) use of antithrombotics/antiplatelets
CPT/HCPCS: 36415; 71045; 74177; 80048; 80053; 81001; 82803; 82962; 83605; 84145; 84436; 84443; 84484; 85007; 85014; 85018; 85025; 85048; 85049; 85651; 86140; 87040; 87077; 87081; 87086; 87088; 87186; 93005; 96365; 96367; 99285; C9803; J1335; Q9967; U0003; U0005

== ENCOUNTER 2022-04-08 05:53 | Emergency (ER) | payer MEDICARE, OTHER, SELFPAY ==
[2022-04-08 05:41] VITALS: BP 106/68; PULSE 86; RESP 19; TEMP 36.6; O2SAT 97; BMI 27.1
--- NOTE | 2022-04-08 05:59 | HMH.EDGENADL ---
ED Disposition Clinical Impression: Bleeding from gastrostomy tube site Disposition: Xfer SNF Condition on Discharge: Good - Critical Care Critical Care Time: No Attestation: On , the high probability of a clinically significant, sudden or life threatening deterioration of the following system(s) required my full and direct attention, intervention and personal management. The time I documented below is in addition to time spent performing reported procedures but includes the following listed in this critical care notation. Medical Decision Making - Medical Records Medical records reviewed: Yes: I reviewed the patient's medical records. - Lobo Inquiry Pt receiving controlled substance: No Vital Signs: 04/08/22 05:41 Temperature 97.9 F Temperature Source Axillary Pulse Rate [Right] 86 Respiratory Rate 19 Blood Pressure [Right Arm] 106/68 L Blood Pressure Mean [Right Arm] 80 Blood Pressure Source [Right Arm] Automatic Cuff 02 Sat by Pulse Oximetry 97 Oxygen Delivery Method Room Air - Lab Data Lab Results 04/08/22 06:06: WBC 6.2, RBC 4.77, Hgb 14.5, Hct 44.8, MCV 94.0, MCH 30.5, MCHC 32.4, RDW 15.4, Plt Count 288, MPV 9.6, Neut % (Auto) 70.1, Lymph % (Auto) 21.2, [place] % (Auto) 4.2, Eos % (Auto) 2.5, Baso % (Auto) 2.0, Neut # (Auto) 4.4, Lymph # (Auto) 1.3, [place] # (Auto) 0.3, Eos # (Auto) 0.2, Baso # (Auto) 0.1 04/08/22 06:06: Sodium 145, Potassium 3.4 L, Chloride 101, Carbon Dioxide 37 H, Anion Gap 10.4, BUN 73 H, Creatinine 1.00, Estimated Creat Clear 96, Estimated GFR 75, Est GFR ( Amer) 91, Glucose 288 H, Calcium 9.7, Total Bilirubin 0.4, AST 32, ALT 28, Alkaline Phosphatase 173 H, Total Protein 7.7, Albumin 3.8, Globulin 3.9 H, Albumin/Globulin Ratio 1.0 L Result diagrams: 04/08/22 06:06 04/08/22 06:06 Medical Decision Narrative: 62-year-old male that had bleeding from his G-tube site. Bleeding has stopped on arrival. The G-tube was lavaged demonstrating no return of blood. Hemoglobin is stable remainder of labs are nonactionable patient will be sent back to nursing home facility. General Adult HPI - General Stated complaint: bleeding from GTube Time Seen by Provider: 04/08/22 05:59 Mode of Arrival: EMS Source of Information: EMS Limitations: Physical Limitations - History of Present Illness HPI narrative: 62-year-old male sent here for bleeding from around the G-tube site that had stopped on arrival with EMS. Patient is nonverbal unable to provide any other details. Reportedly staff was concerned that the bleeding was coming from inside the abdomen and Dr. Holloway sent the patient in for evaluation of a possible GI bleed. - Related Data Home Medications Medication Instructions Recorded Confirmed Metoclopramide HCl [Metoclopramide 10 ml G-TUBE QID 02/25/18 04/08/22 5mg/5ml Oral Soln] OXcarbazepine [Trileptal 150mg 150 mg G-TUBE TID 02/25/18 04/08/22 tablet] Pravastatin Sodium 80 mg G-TUBE HS 02/25/18 04/08/22 Quetiapine Fumarate 25 mg G-TUBE HS 02/25/18 04/08/22 Insulin Glargine,Hum.rec.anlog 28 unit SQ BID 03/10/19 04/08/22 [Lantus Insulin 100units/mL 10mL vial] Levothyroxine Sodium 100 mcg G-TUBE DAILY 03/10/19 04/08/22 [Levothyroxine 100mcg (0.1MG) Tab] polyethylene glycoL 3350 [Miralax 17 gm G-TUBE DAILY 03/14/19 04/08/22 17gm Packet] Acetaminophen 650 mg G-TUBE Q4HP PRN 08/19/20 04/08/22 Carboxymethylcellulose Sodium 1 drp OP TID 08/19/20 04/08/22 [Refresh Liquigel] Pediatric Multivitamin No.118 15 ml G-TUBE DAILY 08/19/20 04/08/22 [Tropical Liquid Nutrition] Omeprazole [Omeprazole 40mg 40 mg G-TUBE DAILY 08/20/20 04/08/22 Capsule] Zonisamide [Zonegran] 400 mg G-TUBE HS 08/20/20 04/08/22 Hydrocodone/Acetaminophen [[place] 1 tab G-TUBE QID 10/29/20 04/08/22 7.5-325 Tablet] Rivaroxaban [Xarelto 10mg tablet] 10 mg G-TUBE DAILY 10/29/20 04/08/22 Nystatin [Nystatin Cr 100,000 1 applicatio TOPICAL TID 10/30/20 04/08/22 Unit
[2022-04-08 06:13] LABS: Basophils # 0.1 K/mm3 (0-0.2); Eosinophils # 0.2 K/mm3 (0.0-0.4); Eosinophils % 2.5 % (0.1-12.0); Hematocrit 44.8 % (42.0-52.0); Hemoglobin 14.5 g/dL (14.1-18.0); Lymphocytes # 1.3 K/mm3 (0.7-4.5); Lymphocytes % 21.2 % (10-50); Mean Corpuscular HGB Conc 32.4 g/dL (31.8-35.4); Mean Corpuscular Hemoglobin 30.5 pg (27.0-31.2); Mean Platelet Volume 9.6 fl (7.4-10.4); Monocytes # 0.3 K/mm3 (0.1-1.0); Monocytes % 4.2 % (1.7-9.3); Neutrophils # 4.4 K/mm3 (1.8-7.8); Neutrophils % 70.1 % (37.0-80.0); Platelet Count 288 K/mm3 (142-424); Red Blood Count 4.77 M/mm3 (4.60-6.20); Red Cell Distribution Width 15.4 % (11.5-17.5); White Blood Count 6.2 K/mm3 (4.8-10.8)
[2022-04-08 06:22] LABS: Chloride 101 mmol/L (98-107); Potassium 3.4 mmoL/L (3.5-5.1); Sodium 145 mmol/L (136-145)
[2022-04-08 06:24] LABS: Alanine Aminotransferase 28 U/L (12-78); Aspartate Amino Transferase 32 U/L (17-59); Blood Urea Nitrogen 73 mg/dl (9-20); Creatinine Clearance Estimated 96 mL/min (50-200); Estimated Glomerular Filt Rate 75 ml/min (>60); GFR (African American) 91 ML/MIN (>60)
[2022-04-08 06:25] LABS: Albumin Level 3.8 g/dl (3.5-5.0); Alkaline Phosphatase 173 U/L (38-126); Anion Gap 10.4 mEq/L (5-15); Bilirubin,Total 0.4 mg/dl (0.2-1.3); Calcium 9.7 mg/dl (8.4-10.2); Carbon Dioxide 37 mmol/L (22.0-30.0); Globulin 3.9 g/dL (1.3-3.2); Glucose 288 mg/dl (74-100); Total Protein,Serum 7.7 g/dl (6.3-8.2)
--- NOTE | 2022-04-08 06:40 | PC.NURSE ---
Martinez notified of need for transport back to facility
[2022-04-08 06:46] VITALS: BP 110/74; PULSE 81; RESP 18; TEMP 36.6; O2SAT 97
== END 2022-04-08 07:35 ==
PROVIDERS: Emergency Provider Student in an Organized Health Care Education/Training Program; PCP Internal Medicine Adolescent Medicine
DX: K94.21 Gastrostomy hemorrhage (principal); D64.9 Anemia, unspecified; I71.4 Abdominal aortic aneurysm, without rupture; I25.10 Atherosclerotic heart disease of native coronary artery without angina pectoris; E11.9 Type 2 diabetes mellitus without complications; E78.5 Hyperlipidemia, unspecified; E03.9 Hypothyroidism, unspecified; G40.909 Epilepsy, unspecified, not intractable, without status epilepticus; H40.9 Unspecified glaucoma; Z79.01 Long term (current) use of anticoagulants; Z79.4 Long term (current) use of insulin; Z79.899 Other long term (current) drug therapy; Z88.8 Allergy status to other drugs, medicaments and biological substances; Z87.440 Personal history of urinary (tract) infections; Z87.442 Personal history of urinary calculi; Z91.048 Other nonmedicinal substance allergy status
CPT/HCPCS: 80053; 85025; 99283

== ENCOUNTER 2022-04-13 18:18 | Inpatient (IN) | payer MEDICARE, OTHER, SELFPAY ==
--- NOTE | 2022-04-13 18:14 | ECG_ITS ---
APPROVED REPORT Exam: Resting ECG HR:118 bpm ECG Measurements Heart Rate 118 AXES NV 107 P 60 QRSd 93 QRS 136 QT 336 T 0 QTc 406 Conclusion SINUS TACHYCARDIA WITH SHORT NV INTERVAL POSSIBLE RIGHT VENTRICULAR HYPERTROPHY [SOME/ALL OF: PROMINENT R IN V1, LATE TRANSITION, RAD, GUCCI, SSS] NONSPECIFIC ST & T-WAVE ABNORMALITY ABNORMAL ECG UNCONFIRMED REPORT Electronically signed by : Rafy Tomas MD 04/14/2022 15:36:17
[2022-04-13 18:16] VITALS: BP 120/69; PULSE 145; RESP 28; TEMP 37; O2SAT 88; BMI 24.3
--- NOTE | 2022-04-13 18:26 | HMH.EDGENADL ---
ED Disposition Clinical Impression: Altered mental status Qualifiers: Altered mental status type: unspecified Qualified Code(s): R41.82 - Altered mental status, unspecified Sepsis Qualifiers: Sepsis type: sepsis due to unspecified organism Sepsis acute organ dysfunction status: with acute organ dysfunction Severe sepsis acute organ dysfunction type: encephalopathy Severe sepsis shock status: without septic shock Qualified Code(s): A41.9 - Sepsis, unspecified organism; R65.20 - Severe sepsis without septic shock; G93.40 - Encephalopathy, unspecified UTI (urinary tract infection) Qualifiers: Urinary tract infection type: acute cystitis Hematuria presence: without hematuria Qualified Code(s): N30.00 - Acute cystitis without hematuria Disposition: Admitted As Inpatient Condition on Discharge: Serious Referrals: Dee Andrade APRN [Primary Care Provider] - - Critical Care Critical Care Time: Yes Attestation: On 04/13/22, the high probability of a clinically significant, sudden or life threatening deterioration of the following system(s) required my full and direct attention, intervention and personal management. The time I documented below is in addition to time spent performing reported procedures but includes the following listed in this critical care notation. Total Critical Care Time: 35 Vital system(s) involved:: Circulatory Failure, Shock (Septic) My critical care processes included: Assessment & monitoring of V/S, Initial and Re-exams, Data Review/Interpretation, Coordinating Care, Medication Orders and management, Documentation Medical Decision Making - Medical Records Medical records reviewed: Yes: I reviewed the patient's medical records. - Lobo Inquiry Pt receiving controlled substance: No Vital Signs: 04/13/22 18:16 04/13/22 18:30 Temperature 98.6 F Temperature Source Rectal Pulse Rate 144 H Pulse Rate [Right Radial] 145 H Respiratory Rate 28 H Blood Pressure 110/69 Blood Pressure [Right Arm] 120/69 Blood Pressure Mean 75 Blood Pressure Mean [Right Arm] 86 Blood Pressure Source [Right Arm] Automatic Cuff Blood Pressure Position [Right Arm] Sitting 02 Sat by Pulse Oximetry 88 L 92 L Oxygen Delivery Method Room Air Nasal Cannula Oxygen Flow Rate (LPM) 3 - Lab Data Lab results reviewed: Yes: I reviewed the patient's lab results. Lab Results 04/13/22 18:38: WBC 19.0 H, RBC 5.69, Hgb 17.7, Hct 54.3 H, MCV 95.3 H, MCH 31.0, MCHC 32.6, RDW 15.4, Plt Count 313, MPV 10.1, Neut % (Auto) 91.5 H, Lymph % (Auto) 2.5 L, [place] % (Auto) 2.9, Eos % (Auto) 1.2, Baso % (Auto) 1.9, Neut # (Auto) 17.4 H, Lymph # (Auto) 0.5 L, [place] # (Auto) 0.6, Eos # (Auto) 0.2, Baso # (Auto) 0.4 H 04/13/22 18:38: PT 11.4, INR 1.01, APTT 24.9 04/13/22 18:38: Sodium 151 H*, Potassium 3.5, Chloride 100, Carbon Dioxide 34 H, Anion Gap 20.5 H, BUN 89 H, Creatinine 1.90 H, Estimated Creat Clear 47, Estimated GFR 36 L, Est GFR ( Amer) 43 L, Glucose 191 H, Calcium 9.6, Total Bilirubin 0.7 04/13/22 18:38: Lactate 6.6 H 04/13/22 18:55: SARS-CoV-2 (PCR) Not detected, Influenza A Untype (PCR) Not detected, Influenza Type B (PCR) Not detected Result diagrams: 04/13/22 18:38 04/13/22 18:38 Orders (Tests/Meds): ED MEDICATIONS Generic Name Dose Route Start Last Admin Trade Name Freq PRN Reason Stop Dose Admin Acetaminophen 650 mg 04/13/22 19:46 Acetaminophen 325mg Tab PO 05/13/22 19:45 Q4HP PRN Fever or Mild Pain Cefepime HCl 2 gm/ Sodium 100 mls @ 200 mls/hr 04/13/22 18:30 04/13/22 18:46 Chloride IV 04/27/22 18:29 200 mls/hr Q8H RACHEL Administration Sodium Chloride 500 mls @ 999 mls/hr 04/13/22 18:30 04/13/22 18:41 Sod Chlor 0.9% 1000ml Bag IV 04/13/22 19:00 Not Given .Q31M RACHEL Sodium Chloride 1,000 mls @ 999 mls/hr 04/13/22 18:45 04/13/22 18:48 Sod Chlor 0.9% 1000ml Bag IV 04/13/22 19:45 999 mls/hr .Q1H1M RACHEL Administration Sodium Chloride 2,400 mls @ 1,200 mls
[2022-04-13 18:30] VITALS: BP 110/69; PULSE 144; O2SAT 92
--- NOTE | 2022-04-13 18:42 | XR_ITS ---
PROCEDURE INFORMATION: Exam: XR Chest Exam date and time: 04/13/2022 6:51 PM Age: 62 years old Clinical indication: Shortness of breath; Additional info: Sepsis, SOB, AMS TECHNIQUE: Imaging protocol: Radiologic exam of the chest. Views: 1 view. COMPARISON: CR XR CHEST PORTABLE 10/01/2021 2:51 AM FINDINGS: Tubes, catheters and devices: WEB SIZER shunt catheter tubing partially visualized from the rightward neck and chest through the upper abdomen, without gross tubing complication within the field of view. Lungs: Prominent bandlike atelectasis in the right lung base is unchanged from 10/29/2020. The left lung is well expanded. The right lung demonstrates chronic volume loss and a few scattered granulomatous calcifications. Pulmonary vasculature grossly normal. No suspected pulmonary infiltrates or edema pattern. Pleural spaces: No pleural effusion. Chronic thickening of the inferolateral right pleural space is unchanged from CT 10/29/2020 and previously demonstrated prominent subpleural fatty elements consistent with incidental subpleural fat deposition and pleural scarring. No pneumothorax. Heart/Mediastinum: Heart size normal. No tracheal/mediastinal shift. Diaphragm: Chronic elevation of the right hemidiaphragm unchanged. Bones/joints: Moderate leftward convexity scoliotic curvature of the cervical and thoracic spine again noted. No acute osseous abnormalities are identified. Osteopenia. IMPRESSION: 1. No acute thoracic process. 2. Chronic elevation of the right hemidiaphragm with chronic volume loss in the right lung and right basilar bandlike atelectasis. No gross infiltrates or edema pattern. 3. Chronic right lateral pleural scarring and subpleural fat deposition unchanged.
[2022-04-13 18:53] LABS: Basophils # 0.4 K/mm3 (0-0.2); Basophils % 1.9 % (0.1-2.0); Eosinophils # 0.2 K/mm3 (0.0-0.4); Eosinophils % 1.2 % (0.1-12.0); Hematocrit 54.3 % (42.0-52.0); Hemoglobin 17.7 g/dL (14.1-18.0); Lymphocytes # 0.5 K/mm3 (0.7-4.5); Lymphocytes % 2.5 % (10-50); Mean Corpuscular HGB Conc 32.6 g/dL (31.8-35.4); Mean Corpuscular Volume 95.3 fl (80-94); Mean Platelet Volume 10.1 fl (7.4-10.4); Monocytes # 0.6 K/mm3 (0.1-1.0); Monocytes % 2.9 % (1.7-9.3); Neutrophils # 17.4 K/mm3 (1.8-7.8); Neutrophils % 91.5 % (37.0-80.0); Platelet Count 313 K/mm3 (142-424); Red Blood Count 5.69 M/mm3 (4.60-6.20); Red Cell Distribution Width 15.4 % (11.5-17.5)
[2022-04-13 19:00] LABS: Coronavirus 19, PCR Not Detected (NotDetected); Influenza A, PCR Not Detected (NotDetected); Influenza B, PCR Not Detected (NotDetected)
[2022-04-13 19:09] LABS: Anion Gap 20.5 mEq/L (5-15); Bilirubin,Total 0.7 mg/dl (0.2-1.3); Calcium 9.6 mg/dl (8.4-10.2); Carbon Dioxide 34 mmol/L (22.0-30.0); Chloride 100 mmol/L (98-107); Creatinine Clearance Estimated 47 mL/min (50-200); Estimated Glomerular Filt Rate 36 ml/min (>60); GFR (African American) 43 ML/MIN (>60); Glucose 191 mg/dl (74-100); Potassium 3.5 mmoL/L (3.5-5.1)
[2022-04-13 19:20] LABS: Activated Partial Thrombo Time 24.9 seconds (22.8-30.6); INR 1.01 (0.9-1.1); Prothrombin Time 11.4 seconds (10.1-12.5)
--- NOTE | 2022-04-13 19:26 | PC.NURSE ---
Called lab to check eta on lab results per MD. quality control engineering technician states 5 min remaining.
[2022-04-13 19:28] LABS: MANUAL DIFFERENTIAL MANUAL DIFFERENTIAL (MANUAL DIFF)
[2022-04-13 19:29] LABS: Lactic Acid 6.6 mmol/L (0.7-2.1)
[2022-04-13 19:30] LABS: Blood Urea Nitrogen 89 mg/dl (9-20); Sodium 151 mmol/L (136-145)
--- NOTE | 2022-04-13 19:30 | PC.NURSE ---
notified of critical lactic and sodium. Also MD notified that pt meets septic shock criteria and will initiate bolus.
--- NOTE | 2022-04-13 19:33 | PC.NURSE ---
speaking to Dr. Holloway
--- NOTE | 2022-04-13 19:43 | PC.NURSE ---
RN at BS
[2022-04-13 20:07] LABS: Microscopic, Urine URINE MICROSCOPIC (MICROSCOPIC)
[2022-04-13 20:11] LABS: Bilirubin,Urine Negative (Negative); Blood, Urine 3+ (Negative); Color,Urine YELLOW (Yellow); Glucose,Urine (UA) Negative (Negative); Ketones,Urine Negative (Negative); Leukocyte Esterase,Urine 3+ (Negative); Nitrate,Urine Negative (Negative); PH,Urine 7.5 (5.0-8.5); Protein,Urine 2+ (Negative); Specific Gravity, Urine 1.015 (1.005-1.030); Urobilinogen,Urine 0.2 EU/dl (0.2)
[2022-04-13 20:13] LABS: Appearance,Urine Slightly Cloudy (Clear)
[2022-04-13 20:40] LABS: Bacteria,Urine 4+ /lpf
--- NOTE | 2022-04-13 20:40 | PC.NURSE ---
Attempted to call report, no answer
[2022-04-13 20:52] VITALS: BP 140/76; PULSE 131; RESP 28; TEMP 37.2; O2SAT 94
[2022-04-13 21:01] VITALS: BP 98/65; PULSE 129; RESP 20; TEMP 38.2; O2SAT 93; BMI 25.9
--- NOTE | 2022-04-13 21:10 | PC.NURSE ---
Attempted to call report to 2nd fl, nurse not available.
[2022-04-13 21:20] LABS: Lymphocytes % 5 % (10-50); Monocytes % 1 % (2-9); Neutrophils % 94 % (42-76); Platelet Estimate Normal; RBC Morphology Normal; Total Cells Counted 100
--- NOTE | 2022-04-13 21:25 | PC.NURSE ---
Attempted to call charge nurse, no answer. compressed yeast supervisor notified
--- NOTE | 2022-04-13 22:18 | PC.NURSE ---
pt arrived to floor via stretcher at this time
[2022-04-13 22:30] VITALS: PULSE 121; O2SAT 99
[2022-04-13 22:42] LABS: Reflex Lactic Add Lactic Reflex
[2022-04-13 23:20] LABS: Lactic Acid Follow Up (RFLX 1) 3.6 mmol/L (0.7-2.1)
[2022-04-13 23:30] LABS: Troponin I 0.08 ng/ml (0.00-0.034)
[2022-04-13 23:54] VITALS: BP 86/52; PULSE 121; RESP 18; TEMP 38.4; O2SAT 99
[2022-04-14] VITALS (9 sets, daily range): BP systolic 88–117; BP diastolic 58–68; PULSE 90–120; RESP 14–20; TEMP 36.2–37.6; O2SAT 97–100; BMI 25.9
[2022-04-14 00:38] LABS: Reflex Lactic (2 hrs) Add Lactic Reflex
[2022-04-14 01:34] LABS: Lactic Acid Follow up (RFLX 2) 2.5 mmol/L (0.7-2.1)
--- NOTE | 2022-04-14 04:33 | PC.WOUNDNOTE ---
right armpit left armpit coccyx
--- NOTE | 2022-04-14 04:54 | PC.NURSE ---
pt with fever 101 this shift, ice packs and fan initiated after no relief from tylenol, pt with unstageable open wound under left armpit, mild redness noted to buttocks area, f/c to bsd with urine noted to contain cloudy sediment, and muna colored, pt with contractures, telemetry reveals tachycardia, family at bedside all night, pt nonverbal but will open eyes upon name calling, pt stable at present time and will continue to monitor, not other issues noted.
--- NOTE | 2022-04-14 07:06 | PC.NURSE ---
spot check fsbs done as pt is an insulin dependent diabetic, fsbs 339, dr lucia called and reported, informed LR is infusing at 100, verbal orders received to start medium intensity ssi, continue LR as ordered, fsbs q6 hours, repeated and verified.
--- NOTE | 2022-04-14 07:08 | P.CONPHA_ITS ---
[facility] Pharmacy VTE Monitoring - Patient Demographics Admission date: 04/13/22 Report Date: 04/14/22 Time: 07:08 Allergies/Adverse Reactions: Patient Allergies adhesive [ADHESIVE] Allergy (Mild, Verified 12/31/20 14:40) Unknown allergy reaction lisinopril Allergy (Mild, Verified 12/31/20 14:40) Unknown allergy reaction GALLO Inhibitors Allergy (Verified 10/01/21 05:12) Height: 1.85 m Weight: 88.592 kg Patient Problems: Current Active Problems UTI (urinary tract infection) (Acute) Altered mental status (Acute) Sepsis (Acute) - VTE Risk Labs: VTE Related Lab Results Hgb 17.7 g/dL (14.1-18.0) 04/13/22 18:38 Hct 54.3 % (42.0-52.0) H 04/13/22 18:38 Plt Count 313 K/mm3 (142-424) 04/13/22 18:38 PT 11.4 seconds (10.1-12.5) 04/13/22 18:38 INR 1.01 (0.9-1.1) 04/13/22 18:38 APTT 24.9 seconds (22.8-30.6) 04/13/22 18:38 BUN 89 mg/dl (9-20) H 04/13/22 18:38 Creatinine 1.90 mg/dl (0.66-1.25) H 04/13/22 18:38 Estimated Creat Clear 47 mL/min (50-200) 04/13/22 18:38 Was VTE Risk Assessment Performed: Yes VTE Score: 6 VTE Risk Level: Moderate Risk - Prophylaxis VTE Prophylaxis Ordered?: Yes Types of VTE Prophylaxis: TEDS Knee High Location of Applied Device: Bilateral Lower Extremeties
[2022-04-14 07:11] LABS: POC Glucose,Bedside 339 (70-110)
--- NOTE | 2022-04-14 07:15 | HMH.HP ---
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 Received a call yesterday from the assisted in regard to patient's clinical change. Developed tachycardia, tachypnea, decreased alertness and weakness of his functional side (right side). He was sent to the emergency room for evaluation. On arrival found to be tachycardic, tachypneic, febrile, elevated white count, and urine concerning for UTI. Blood cultures obtained, sepsis protocol initiated. Treated with broad-spectrum antibiotics based on previous blood cultures/urine cultures. Admitted to medicine for further management. Received 3-1/2 L of IV fluids overnight with improvement in blood pressure that was very soft on arrival. Did not require pressors. Meeting criteria for severe sepsis. On rounds this morning, sister at bedside. Patient is a little bit more alert and afebrile. Remains tachycardic but blood pressure better. Blood cultures preliminarily positive for gram-negative rods. No respiratory distress, on stable oxygen. [facility] History I have reviewed the patient's past medical history: Yes Medical History: Reports:: Aneurysm, Coronary Artery Disease, Deep Vein Thrombosis, Diabetes Mellitus Type 2, Hyperlipidemia, Kidney Stones, Seizures, Urinary Tract Infection Denies:: Cancer, Diabetes Mellitus Type 1, MRSA *Have you ever received a pneumonia vaccine?: Yes *Have you received a flu vaccine this season?: Yes Other Medical History: Reports: Anemia, Glaucoma, Hypothyroidism, Thyroid Disease Other Surgeries: Yes: Colonoscopy, EGD, Other (gastrostomy) Amputation: No Fractures: Yes - *Social History Smoking Status: Never smoker Alcohol Intake: never Substance Use Type: denies use *Occupational Status:: disabled Housing: assisted Household Members: other *Travel in the last 8 weeks: None Family Hx:: Unable to obtain Review of Systems - Review of Systems Review of systems:: pertinent systems reviewed and negative unless documented below (14 point review of systems performed, pertinent positives and negatives as per HPI) Meds Home Medications Medication Instructions Recorded Confirmed Type Metoclopramide HCl [Metoclopramide 10 ml G-TUBE QID 02/25/18 04/14/22 History 5mg/5ml Oral Soln] OXcarbazepine [Trileptal 150mg 150 mg G-TUBE TID 02/25/18 04/14/22 History tablet] Pravastatin Sodium 80 mg G-TUBE HS 02/25/18 04/14/22 History Quetiapine Fumarate 25 mg G-TUBE HS 02/25/18 04/14/22 History Levothyroxine Sodium 100 mcg G-TUBE DAILY 03/10/19 04/14/22 History [Levothyroxine 100mcg (0.1MG) Tab] polyethylene glycoL 3350 [Miralax 17 gm G-TUBE DAILY 03/14/19 04/14/22 History 17gm Packet] Acetaminophen 650 mg G-TUBE Q4HP PRN 08/19/20 04/14/22 History Carboxymethylcellulose Sodium 1 drp OP TID 08/19/20 04/14/22 History [Refresh Liquigel] Pediatric Multivitamin No.118 15 ml G-TUBE DAILY 08/19/20 04/14/22 History [Tropical Liquid Nutrition] Omeprazole [Omeprazole 40mg 40 mg G-TUBE DAILY 08/20/20 04/14/22 History Capsule] Zonisamide [Zonegran] 400 mg G-TUBE HS 08/20/20 04/14/22 History Hydrocodone/Acetaminophen [[place] 1 tab G-TUBE QID 10/29/20 04/14/22 History 7.5-325 Tablet] Rivaroxaban [Xarelto 10mg tablet] 10 mg G-TUBE DAILY 10/29/20 04/14/22 History Nystatin [Nystatin Cr 100,000 1 applicatio TOPICAL TID 10/30/20 04/14/22 History Units/GM 30GM] Zinc Oxide [Zinc Oxide ointment 1 applicatio TP TID PRN 10/30/20 04/14/22 History 28gm tube] Glucagon,Human Recombinant 1 mg IN BIDP PRN 10/01/21 04/14/22 Hi
[2022-04-14 07:41] LABS: Basophils # 0.2 K/mm3 (0-0.2); Basophils % 0.9 % (0.1-2.0); Chloride 108 mmol/L (98-107); Eosinophils % 0.1 % (0.1-12.0); Lymphocytes # 0.9 K/mm3 (0.7-4.5); Lymphocytes % 4.6 % (10-50); Mean Corpuscular HGB Conc 32.1 g/dL (31.8-35.4); Mean Corpuscular Hemoglobin 30.9 pg (27.0-31.2); Mean Corpuscular Volume 96.2 fl (80-94); Monocytes # 0.6 K/mm3 (0.1-1.0); Monocytes % 3.1 % (1.7-9.3); Neutrophils # 18.3 K/mm3 (1.8-7.8); Neutrophils % 91.4 % (37.0-80.0); Platelet Count 220 K/mm3 (142-424); Red Blood Count 4.37 M/mm3 (4.60-6.20); Red Cell Distribution Width 15.7 % (11.5-17.5); Sodium 148 mmol/L (136-145); White Blood Count 20.1 K/mm3 (4.8-10.8)
[2022-04-14 07:42] LABS: Potassium 3.7 mmoL/L (3.5-5.1)
--- NOTE | 2022-04-14 07:43 | HMH.PHAINT ---
verified home medication list using list from residential
[2022-04-14 07:44] LABS: Alanine Aminotransferase 30 U/L (12-78); Albumin Level 3.1 g/dl (3.5-5.0); Alkaline Phosphatase 131 U/L (38-126); Anion Gap 13.7 mEq/L (5-15); Aspartate Amino Transferase 47 U/L (17-59); Bilirubin,Total 0.8 mg/dl (0.2-1.3); Calcium 8.4 mg/dl (8.4-10.2); Carbon Dioxide 30 mmol/L (22.0-30.0); Creatinine Clearance Estimated 55 mL/min (50-200); Estimated Glomerular Filt Rate 41 ml/min (>60); GFR (African American) 49 ML/MIN (>60); Globulin 3.2 g/dL (1.3-3.2); Glucose 295 mg/dl (74-100); Magnesium 2.2 mg/dl (1.6-2.3); Total Protein,Serum 6.3 g/dl (6.3-8.2)
[2022-04-14 07:52] LABS: Blood Urea Nitrogen 94 mg/dl (9-20)
[2022-04-14 07:53] LABS: Hemoglobin 13.6 g/dL (14.1-18.0); MANUAL DIFFERENTIAL MANUAL DIFFERENTIAL (MANUAL DIFF)
--- NOTE | 2022-04-14 08:13 | HMH.PHACONS ---
- Pharmacy Consult Date: 04/14/22 Time: 08:13 Referring provider: DR. FRANCOIS Reason for Consult:: VANCOMYCIN DOSING Allergies and ADEs:: Allergies Allergy/AdvReac Type Severity Reaction Status Date / Time adhesive [ADHESIVE] Allergy Mild Unknown Verified 12/31/20 14:40 allergy reaction lisinopril Allergy Mild Unknown Verified 12/31/20 14:40 allergy reaction GALLO Inhibitors Allergy Verified 10/01/21 05:12 Home Medications:: Home Medications Medication Instructions Recorded Confirmed Type Metoclopramide HCl [Metoclopramide 10 ml G-TUBE QID 02/25/18 04/14/22 History 5mg/5ml Oral Soln] OXcarbazepine [Trileptal 150mg 150 mg G-TUBE TID 02/25/18 04/14/22 History tablet] Pravastatin Sodium 80 mg G-TUBE HS 02/25/18 04/14/22 History Quetiapine Fumarate 25 mg G-TUBE HS 02/25/18 04/14/22 History Levothyroxine Sodium 100 mcg G-TUBE DAILY 03/10/19 04/14/22 History [Levothyroxine 100mcg (0.1MG) Tab] polyethylene glycoL 3350 [Miralax 17 gm G-TUBE DAILY 03/14/19 04/14/22 History 17gm Packet] Acetaminophen 650 mg G-TUBE Q4HP PRN 08/19/20 04/14/22 History Carboxymethylcellulose Sodium 1 drp OP TID 08/19/20 04/14/22 History [Refresh Liquigel] Pediatric Multivitamin No.118 15 ml G-TUBE DAILY 08/19/20 04/14/22 History [Tropical Liquid Nutrition] Omeprazole [Omeprazole 40mg 40 mg G-TUBE DAILY 08/20/20 04/14/22 History Capsule] Zonisamide [Zonegran] 400 mg G-TUBE HS 08/20/20 04/14/22 History Hydrocodone/Acetaminophen [[place] 1 tab G-TUBE QID 10/29/20 04/14/22 History 7.5-325 Tablet] Rivaroxaban [Xarelto 10mg tablet] 10 mg G-TUBE DAILY 10/29/20 04/14/22 History Nystatin [Nystatin Cr 100,000 1 applicatio TOPICAL TID 10/30/20 04/14/22 History Units/GM 30GM] Zinc Oxide [Zinc Oxide ointment 1 applicatio TP TID PRN 10/30/20 04/14/22 History 28gm tube] Glucagon,Human Recombinant 1 mg IN BIDP PRN 10/01/21 04/14/22 History [Glucagen] Menthol/Zinc Oxide [Risamine 1 applicatio TOPICAL BID 10/01/21 04/14/22 History Ointment] Insulin Glargine,Hum.rec.anlog 28 units SQ BID 04/14/22 04/14/22 History [Lantus Solostar] Insulin Lispro [HumaLOG 100 0 units SQ DIRECTED 04/14/22 04/14/22 History units/mL 3mL vial (SSI)] Height: 1.85 m Weight: 88.592 kg Laboratory Results:: Laboratory Results - last 24 hr 04/13/22 18:23: Urine Color Yellow, Urine Appearance Slightly cloudy, Urine pH 7.5, Ur Specific [place] 1.015, Urine Protein 2+, Urine Glucose (UA) Negative, Urine Ketones Negative, Urine Blood 3+, Urine Nitrate Negative, Urine Bilirubin Negative, Urine Urobilinogen 0.2, Ur Leukocyte Esterase 3+ A, Urine WBC 5-10, Urine Bacteria 4+ 04/13/22 18:38: WBC 19.0 H, RBC 5.69, Hgb 17.7, Hct 54.3 H, MCV 95.3 H, MCH 31.0, MCHC 32.6, RDW 15.4, Plt Count 313, MPV 10.1, Neut % (Auto) 91.5 H, Lymph % (Auto) 2.5 L, [place] % (Auto) 2.9, Eos % (Auto) 1.2, Baso % (Auto) 1.9, Neut # (Auto) 17.4 H, Lymph # (Auto) 0.5 L, [place] # (Auto) 0.6, Eos # (Auto) 0.2, Baso # (Auto) 0.4 H, Total Counted 100, Neutrophils % (Manual) 94 H, Lymphocytes % (Manual) 5 L, Monocytes % (Manual) 1 L, Platelet Estimate Normal, RBC Morphology Normal 04/13/22 18:38: PT 11.4, INR 1.01, APTT 24.9 04/13/22 18:38: Sodium 151 H*, Potassium 3.5, Chloride 100, Carbon Dioxide 34 H, Anion Gap 20.5 H, BUN 89 H, Creatinine 1.90 H, Estimated Creat Clear 47, Estimated GFR 36 L, Est GFR ( Amer) 43 L, Glucose 191 H, Calcium 9.6, Total Bilirubin 0.7 04/13/22 18:38: Lactate 6.6 H 04/13/22 18:55: SARS-CoV-2 (PCR) Not detected, Influenza A Untype (PCR) Not detected, Influenza Type B (PCR) Not detected 04/13/22 23:01: Troponin I 0.08 H 04/13/22 23:01: Lactate 3.6 H 04/14/22 00:48: Lactate 2.5 H 04/14/22 06:15: Lactate 2.0 04/14/22 06:15: WBC 20.1 H*, RBC 4.37 L, Hgb 13.6 L D, Hct 42.0, MCV 96.2 H, MCH 30.9, MCHC 32.1, RDW 15.7, Plt Count 220 D, MPV 11.0 H, Neut % (Auto) 91.4 H, Lymph % (Auto) 4.6 L, [place] % (Auto) 3.1, Eos % (Auto) 0.1, Baso %
--- NOTE | 2022-04-14 08:14 | XR_ITS ---
FINAL REPORT CLINICAL HISTORY: abdominal tenderness COMPARISON: September 04, 2021 FINDINGS: A shunt catheter is present coursing the right abdomen. There is a nonspecific bowel gas pattern. There are no abnormally dilated loops of small bowel. A presumed intrathecal catheter is present. 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 IMPRESSION: Nonspecific bowel gas pattern. Reviewed, Interpreted and Dictated by Robert Ortiz III, MD Transcribed by Haris Burgos Authenticated and [facility]
[2022-04-14 08:36] LABS: Lymphocytes % 6 % (10-50); Monocytes % 2 % (2-9); Neutrophils % 92 % (42-76); Total Cells Counted 100
[2022-04-14 08:38] LABS: Platelet Estimate Normal; RBC Morphology Normal
--- NOTE | 2022-04-14 10:16 | PC.NURSE ---
Notified Dr. Holloway of critical BUN and he ordered repeat labs this afternoon and also made him aware of positive anaerobic blood cx.
[2022-04-14 11:24] LABS: POC Glucose,Bedside 275 (70-110)
--- NOTE | 2022-04-14 12:25 | PC.NURSE ---
Called pt's guardian at this time and was unable to reach Lucretia in re to code status. Did speak to ariela naik and they stated pt was a DNR there. Will attempt to reach Lucretia again via phone.
--- NOTE | 2022-04-14 13:23 | DIET.NUTRFU ---
TF recommendations: when appropriate start Glucerna 1.0 at 20ml/hr and increase to 55ml/hr ATC= 1320kcal/58gm protein/1102ml formula water with flush of 175 Q4H= 1050ml once IVF discontinued providing total fluid 2152ml water/day this is providing 72% calorie needs and 87% protein, he is unable to tolerate more than 55ml/hr according to [facility] nurse. They use Glucerna 1.5 which is not available. Will monitor during length stay, his weights and labs closely. [facility] reports weight has been stable for last 6months ranging between 184-190#, CBW is 191#. Currently on IVF, labs reviewed BUN and CR elevated along with sodium. IV hydration in place, anticipate improvement
[2022-04-14 14:13] LABS: Alanine Aminotransferase 30 U/L (12-78); Albumin Level 2.8 g/dl (3.5-5.0); Albumin/Globulin Ratio 0.9 (1.1-1.8); Alkaline Phosphatase 118 U/L (38-126); Anion Gap 10.8 mEq/L (5-15); Aspartate Amino Transferase 32 U/L (17-59); Bilirubin,Total 0.4 mg/dl (0.2-1.3); Calcium 8.2 mg/dl (8.4-10.2); Carbon Dioxide 36 mmol/L (22.0-30.0); Chloride 107 mmol/L (98-107); Creatinine Clearance Estimated 62 mL/min (50-200); Estimated Glomerular Filt Rate 47 ml/min (>60); GFR (African American) 57 ML/MIN (>60); Globulin 3.1 g/dL (1.3-3.2); Glucose 281 mg/dl (74-100); Potassium 3.8 mmoL/L (3.5-5.1); Total Protein,Serum 5.9 g/dl (6.3-8.2)
[2022-04-14 14:15] LABS: Blood Urea Nitrogen 89 mg/dl (9-20); Sodium 150 mmol/L (136-145)
--- NOTE | 2022-04-14 14:30 | PC.NURSE ---
Dr. Holloway made aware of critical sodium, BUN and 2nd blood cx going positive.
--- NOTE | 2022-04-14 15:18 | HMH.PTWOUND ---
Rehab Inpt Wound Evaluation Rehab IP Wound Evaluation Start: 04/14/22 12:55 Freq: ONCE Status: Active Protocol: Document 04/14/22 15:08 CHRISTOPHER (Rec: 04/14/22 15:18 CHRISTOPHER [id number]) Rehab PT Wound Assessment Subjective Subjective Patient unable to communicate during evaluation. Patients wound in the L axilla. Measurements: L 2.0 cm, W 3.2 cm Wound Left Arm Wound Type Maceration Wound Staging Stage II Query Text:Stage I - Unbroken, red skin, no blanching. Stage II - Skin broken, superficial skin loss involving epidermis alone or also dermis. Partial loss of skin layers. Stage III - Pressure area involves epidermis, dermis and subcutaneous tissue, full thickness skin loss. Stage IV - Pressure area involves epidermis, subcutaneous tissue, bone and other supportive tissue. Full thickness skin loss with extensive destruction of underlying tissue and structures. Superficial wound not involving tendon, w/o infection/ischemia capsule or bone Wound Length (cm) 3.2 Wound Width (cm) 2.0 Wound Bed Appearance Zeb Wound Margins Description Well Defined Surrounding Tissue Appearance Purple Edema Type Non-Pitting Wound Drainage Description Serosanguineous Drainage Amount Small Primary Dressing optifoam SA Plan/Recommendation Comment PT suggest nursing to continue with wound dressing. Eval Complexity Eval Charge Codes 16361 - High Complexity PHYSICIAN CERTIFICATION: I certify the specified therapy services for Jose Patel are required, authorized, and reviewed every 30 days.
[2022-04-14 17:26] LABS: POC Glucose,Bedside 279 (70-110)
--- NOTE | 2022-04-14 19:26 | PC.NURSE ---
Tube feeding began this afternoon, residual 0. Placement checked.
--- NOTE | 2022-04-14 19:57 | PC.NURSE ---
Oral care provided. Pt's IV infiltrated to LAC. Removed iv and elevated arm. Attempted x 3 to insert new IV w/o success. conditioning yard supervisor at bedside now attempting to start new iv.
[2022-04-15] VITALS (8 sets, daily range): BP systolic 113–137; BP diastolic 57–80; PULSE 90–99; RESP 17–18; TEMP 36.1–36.6; O2SAT 97–99; BMI 26.4
[2022-04-15 03:02] LABS: POC Glucose,Bedside 185 (70-110)
[2022-04-15 07:11] LABS: POC Glucose,Bedside 217 (70-110)
--- NOTE | 2022-04-15 08:31 | HMH.ACPN2 ---
Internal Medicine - PN: Subj *Date: 04/15/22 *Time: 08:31 Interval history: Patient is improved from a mental status perspective slightly, has been responsive to nursing staff. Afebrile. Labs reviewed. Exam Vital signs and Labs for Last 24 Hours: Temp Pulse Resp BP Pulse Ox 97.8 F 98 H 18 113/68 98 04/15/22 08:00 04/15/22 08:00 04/15/22 08:00 04/15/22 08:00 04/15/22 08:00 Laboratory Results - last 24 hr 04/14/22 06:15: Total Counted 100, Neutrophils % (Manual) 92 H, Lymphocytes % (Manual) 6 L, Monocytes % (Manual) 2, Platelet Estimate Normal, RBC Morphology Normal 04/14/22 10:52: POC Glucose 275 H 04/14/22 13:56: Sodium 150 H, Potassium 3.8, Chloride 107, Carbon Dioxide 36 H, Anion Gap 10.8, BUN 89 H, Creatinine 1.50 H, Estimated Creat Clear 62, Estimated GFR 47 L, Est GFR ( Amer) 57 L, Glucose 281 H, Calcium 8.2 L, Total Bilirubin 0.4, AST 32 D, ALT 30, Alkaline Phosphatase 118, Total Protein 5.9 L, Albumin 2.8 L, Globulin 3.1, Albumin/Globulin Ratio 0.9 L 04/14/22 16:45: POC Glucose 279 H 04/14/22 20:32: POC Glucose 185 H 04/15/22 05:55: POC Glucose 217 H I & O for Last 24 hours: Intake & Output 04/12/22 04/13/22 04/14/22 04/15/22 11:59 11:59 11:59 11:59 Intake Total 1023 / 1023 1195 / 1195 Output Total 1325 / 1325 1200 / 1200 Balance -302 / -302 -5 / -5 Weight 195 lb 4.991 oz 199 lb 6.4 oz Microbiology Reports for the Last 24 Hours: Microbiology 04/13/22 18:23 Urine,Random Urine Culture - Preliminary Gram Negative Rods 04/13/22 18:38 Blood Blood Culture - Preliminary 04/13/22 18:38 Blood Blood Culture - Preliminary Narrative: Breathing more easily. Heart rate regular. Abdomen is soft, G-tube site looks irritated but otherwise clear. Profound neurologic deficits are unchanged from his baseline. Assessment and Plan (1) Severe sepsis Status: Acute Category: Medical Code(s): A41.9 - Sepsis, unspecified organism; R65.20 - Severe sepsis without septic shock (2) Bacteremia Status: Acute Category: Medical Code(s): R78.81 - Bacteremia (3) Altered mental status Status: Acute Qualifiers: Altered mental status type: unspecified Qualified Code(s): R41.82 - Altered mental status, unspecified Category: Medical Code(s): R41.82 - Altered mental status, unspecified (4) UTI (urinary tract infection) Status: Acute Qualifiers: Urinary tract infection type: acute cystitis Hematuria presence: without hematuria Qualified Code(s): N30.00 - Acute cystitis without hematuria Category: Medical Code(s): N39.0 - Urinary tract infection, site not specified (5) Gastrointestinal tube present Status: Chronic Category: Medical Code(s): Z93.1 - Gastrostomy status (6) History of seizure Status: Chronic Category: Medical Code(s): Z87.898 - Personal history of other specified conditions (7) TBI (traumatic brain injury) Status: Chronic Qualifiers: Encounter type: subsequent encounter Loss of consciousness presence/duration: with LOC of unspecified duration Qualified Code(s): S06.9X9D - Unspecified intracranial injury with loss of consciousness of unspecified duration, subsequent encounter Category: Medical Code(s): S06.9X9A - Unspecified intracranial injury with loss of consciousness of unspecified duration, initial encounter (8) NUBIA (acute kidney injury) Status: Acute Category: Medical Code(s): N17.9 - Acute kidney failure, unspecified (9) Diabetes mellitus Status: Chronic Qualifiers: Diabetes mellitus type: type 2 Diabetes mellitus complication status: with hyperglycemia Category: Medical Code(s): E11.9 - Type 2 diabetes mellitus without complications (10) Hypernatremia Status: Acute Category: Medical Code(s): E87.0 - Hyperosmolality and hypernatremia - Assessment and plan all Dx Assessment and Plan for all problems:: Urine cultur
[2022-04-15 09:14] LABS: Chloride 110 mmol/L (98-107)
[2022-04-15 09:15] LABS: Potassium 4.1 mmoL/L (3.5-5.1); Sodium 148 mmol/L (136-145)
[2022-04-15 09:17] LABS: Alanine Aminotransferase 30 U/L (12-78); Aspartate Amino Transferase 53 U/L (17-59); Blood Urea Nitrogen 79 mg/dl (9-20); Creatinine Clearance Estimated 95 mL/min (50-200); Estimated Glomerular Filt Rate 85 ml/min (>60); GFR (African American) 103 ML/MIN (>60)
[2022-04-15 09:18] LABS: Albumin Level 2.8 g/dl (3.5-5.0); Alkaline Phosphatase 130 U/L (38-126); Anion Gap 11.1 mEq/L (5-15); Bilirubin,Total 0.6 mg/dl (0.2-1.3); Calcium 8.3 mg/dl (8.4-10.2); Carbon Dioxide 31 mmol/L (22.0-30.0); Globulin 2.9 g/dL (1.3-3.2); Glucose 240 mg/dl (74-100); Magnesium 2.2 mg/dl (1.6-2.3); Total Protein,Serum 5.7 g/dl (6.3-8.2)
[2022-04-15 11:04] LABS: Basophils # 0.2 K/mm3 (0-0.2); Basophils % 1.6 % (0.1-2.0); Eosinophils # 0.3 K/mm3 (0.0-0.4); Eosinophils % 2.1 % (0.1-12.0); Hematocrit 37.5 % (42.0-52.0); Hemoglobin 12.5 g/dL (14.1-18.0); Lymphocytes # 1.5 K/mm3 (0.7-4.5); Lymphocytes % 12.2 % (10-50); Mean Corpuscular HGB Conc 33.2 g/dL (31.8-35.4); Mean Corpuscular Hemoglobin 31.8 pg (27.0-31.2); Mean Platelet Volume 11.1 fl (7.4-10.4); Monocytes # 0.7 K/mm3 (0.1-1.0); Monocytes % 5.6 % (1.7-9.3); Neutrophils # 9.6 K/mm3 (1.8-7.8); Neutrophils % 80.1 % (37.0-80.0); Platelet Count 157 K/mm3 (142-424); Red Blood Count 3.91 M/mm3 (4.60-6.20); Red Cell Distribution Width 15.4 % (11.5-17.5)
--- NOTE | 2022-04-15 12:22 | PC.NURSE ---
Addendum entered by Emili Worthington RN 04/15/22 12:23: goal of 55ml per hour Original Note: increased TF rate to 30ml per hour for goal of 50
--- NOTE | 2022-04-15 12:27 | PC.NURSE ---
pt has 0 residual ml while checking tf placement
[2022-04-15 16:15] LABS: POC Glucose,Bedside 173 (70-110)
[2022-04-15 16:15] LABS: POC Glucose,Bedside 187 (70-110)
[2022-04-15 16:15] LABS: POC Glucose,Bedside 229 (70-110)
--- NOTE | 2022-04-15 16:56 | PC.NURSE ---
contacted lab regarding pt vanc level scheduled for 1600. They report they will come and draw it now
--- NOTE | 2022-04-15 17:16 | PC.NURSE ---
pt. has been lethargic and minimally responsive all day. turned and repositioned q1.5 hours. tube feed rate increased to 35 mL an hour with a goal of 55. pt. had less than 10 mL residual upon last check. pt. buttocks is pink and intact. sister was at bedside visiting pt. this AM. currently awaiting vancomycin levels.
[2022-04-15 18:35] LABS: Vancomycin,Trough 22.2 ug/mL (5.0-10.0)
--- NOTE | 2022-04-15 18:39 | PC.NURSE ---
[facility]ified [facility] of critical vanc trough. new dosing will be put in per them
[2022-04-15 21:26] LABS: Vancomycin,Peak 20.5 ug/ml (11-39)
[2022-04-16] VITALS (7 sets, daily range): BP systolic 107–133; BP diastolic 54–75; PULSE 90–103; RESP 16–18; TEMP 36.6–37.4; O2SAT 91–100; BMI 27.3
--- NOTE | 2022-04-16 04:43 | PC.NURSE ---
pt has slept most of night, pt is still non verbal and only responds by opening eyes when name is called, no changes from previous assessment, telemetry sinus tach to sinus, f/c patent with cloudy urine noted, upper extremity edema 2+, oral care provided, pt tolerating tube feeds with no residual noted, glucerna running at 35ml/hr with water flushes as prescribed. lungs sounds diminished, 02 sats 95 on room air.
--- NOTE | 2022-04-16 06:19 | DIET.NUTRFU ---
Patient tolerating TF at 35ml/hr with goal of 55ml/hr will continue to increase as tolerated, reviewed labs, may benefit from IVF d/t elevated renal and sodium labs. Will continue to follow hydration status
--- NOTE | 2022-04-16 07:55 | HMH.ACPN2 ---
Internal Medicine - PN: Subj *Date: 04/16/22 *Time: 07:55 Interval history: Zachary is more responsive this morning. Responsive to tactile stimuli and verbal stimuli. Afebrile. Exam Vital signs and Labs for Last 24 Hours: Temp Pulse Resp BP Pulse Ox 97.9 F 91 H 18 131/61 100 04/16/22 04:00 04/16/22 04:00 04/16/22 04:00 04/16/22 04:00 04/16/22 04:00 Laboratory Results - last 24 hr 04/15/22 08:20: Sodium 148 H, Potassium 4.1, Chloride 110 H, Carbon Dioxide 31 H, Anion Gap 11.1, BUN 79 H, Creatinine 0.90 D, Estimated Creat Clear 95, Estimated GFR 85, Est GFR ( Amer) 103 D, Glucose 240 H, Calcium 8.3 L, Magnesium 2.2, Total Bilirubin 0.6, AST 53 D, ALT 30, Alkaline Phosphatase 130 H, Total Protein 5.7 L, Albumin 2.8 L, Globulin 2.9, Albumin/Globulin Ratio 1.0 L 04/15/22 08:53: POC Glucose 229 H 04/15/22 10:55: WBC 12.0 H D, RBC 3.91 L, Hgb 12.5 L, Hct 37.5 L, MCV 96.0 H, MCH 31.8 H, MCHC 33.2, RDW 15.4, Plt Count 157 D, MPV 11.1 H, Neut % (Auto) 80.1 H, Lymph % (Auto) 12.2, [place] % (Auto) 5.6, Eos % (Auto) 2.1, Baso % (Auto) 1.6, Neut # (Auto) 9.6 H, Lymph # (Auto) 1.5, [place] # (Auto) 0.7, Eos # (Auto) 0.3, Baso # (Auto) 0.2 04/15/22 12:13: POC Glucose 187 H 04/15/22 16:07: POC Glucose 173 H 04/15/22 17:14: Vancomycin Trough 22.2 H 04/15/22 21:05: Vancomycin Peak 20.5 I & O for Last 24 hours: Intake & Output 04/13/22 04/14/22 04/15/22 04/16/22 11:59 11:59 11:59 11:59 Intake Total 1023 / 1023 1195 / 1195 3069 / 3069 Output Total 1325 / 1325 1200 / 1200 1425 / 1425 Balance -302 / -302 -5 / -5 1644 / 1644 Weight 195 lb 4.991 oz 199 lb 6.4 oz 206 lb Microbiology Reports for the Last 24 Hours: Microbiology 04/13/22 23:44 Anus CRE Surveillance Culture - Final Negative 04/13/22 18:23 Urine,Random Urine Culture - Preliminary Gram Negative Rods Narrative: No change in baseline neurologic exam. More alert. Lungs anterior price are rhonchi, G-tube site looks good. Heart rate regular. Abdomen soft. Extremities are unchanged from baseline. Assessment and Plan (1) Severe sepsis Status: Acute Category: Medical Code(s): A41.9 - Sepsis, unspecified organism; R65.20 - Severe sepsis without septic shock (2) Bacteremia Status: Acute Category: Medical Code(s): R78.81 - Bacteremia (3) Altered mental status Status: Acute Qualifiers: Altered mental status type: unspecified Qualified Code(s): R41.82 - Altered mental status, unspecified Category: Medical Code(s): R41.82 - Altered mental status, unspecified (4) UTI (urinary tract infection) Status: Acute Qualifiers: Urinary tract infection type: acute cystitis Hematuria presence: without hematuria Qualified Code(s): N30.00 - Acute cystitis without hematuria Category: Medical Code(s): N39.0 - Urinary tract infection, site not specified (5) Gastrointestinal tube present Status: Chronic Category: Medical Code(s): Z93.1 - Gastrostomy status (6) History of seizure Status: Chronic Category: Medical Code(s): Z87.898 - Personal history of other specified conditions (7) TBI (traumatic brain injury) Status: Chronic Qualifiers: Encounter type: subsequent encounter Loss of consciousness presence/duration: with LOC of unspecified duration Qualified Code(s): S06.9X9D - Unspecified intracranial injury with loss of consciousness of unspecified duration, subsequent encounter Category: Medical Code(s): S06.9X9A - Unspecified intracranial injury with loss of consciousness of unspecified duration, initial encounter (8) NUBIA (acute kidney injury) Status: Acute Category: Medical Code(s): N17.9 - Acute kidney failure, unspecified (9) Diabetes mellitus Status: Chronic Qualifiers: Diabetes mellitus type: type 2 Diabetes mellitus complication status: with hyperglycemia Category: Medical Code(s): E11.9 -
[2022-04-16 08:39] LABS: Chloride 111 mmol/L (98-107); Potassium 3.1 mmoL/L (3.5-5.1); Sodium 147 mmol/L (136-145)
[2022-04-16 08:42] LABS: Anion Gap 7.1 mEq/L (5-15); Basophils # 0.1 K/mm3 (0-0.2); Basophils % 0.9 % (0.1-2.0); Blood Urea Nitrogen 53 mg/dl (9-20); Calcium 8.3 mg/dl (8.4-10.2); Carbon Dioxide 32 mmol/L (22.0-30.0); Creatinine Clearance Estimated 99 mL/min (50-200); Eosinophils # 0.1 K/mm3 (0.0-0.4); Eosinophils % 1.6 % (0.1-12.0); Estimated Glomerular Filt Rate 97 ml/min (>60); GFR (African American) 118 ML/MIN (>60); Glucose 163 mg/dl (74-100); Hematocrit 34.8 % (42.0-52.0); Lymphocytes # 0.9 K/mm3 (0.7-4.5); Lymphocytes % 13.9 % (10-50); Mean Corpuscular Hemoglobin 30.7 pg (27.0-31.2); Mean Platelet Volume 10.8 fl (7.4-10.4); Monocytes # 0.3 K/mm3 (0.1-1.0); Monocytes % 4.7 % (1.7-9.3); Neutrophils # 4.8 K/mm3 (1.8-7.8); Neutrophils % 78.9 % (37.0-80.0); Platelet Count 161 K/mm3 (142-424); Red Blood Count 3.62 M/mm3 (4.60-6.20); Red Cell Distribution Width 15.5 % (11.5-17.5); White Blood Count 6.1 K/mm3 (4.8-10.8)
[2022-04-16 09:36] LABS: POC Glucose,Bedside 143 (70-110)
[2022-04-16 09:36] LABS: POC Glucose,Bedside 158 (70-110)
[2022-04-16 09:49] LABS: Hemoglobin 11.1 g/dL (14.1-18.0)
[2022-04-17 00:09] LABS: POC Glucose,Bedside 161 (70-110)
[2022-04-17 04:00] VITALS: BP 144/90; PULSE 87; RESP 17; TEMP 37.1; O2SAT 95
[2022-04-17 05:00] VITALS: BMI 27.3
--- NOTE | 2022-04-17 05:22 | PC.NURSE ---
no change from previous assessment, VSS, f/c with muna urine with sediment noted, pt non verbal still, bilateral upper extremity edema noted 3+; wound under left armpit with optifoam dressing, no other issues noted this shift.
[2022-04-17 07:11] LABS: Basophils % 0.6 % (0.1-2.0); Eosinophils # 0.1 K/mm3 (0.0-0.4); Eosinophils % 1.3 % (0.1-12.0); Hematocrit 38.7 % (42.0-52.0); Hemoglobin 12.4 g/dL (14.1-18.0); Lymphocytes % 20.2 % (10-50); Mean Corpuscular Hemoglobin 30.1 pg (27.0-31.2); Mean Corpuscular Volume 93.9 fl (80-94); Mean Platelet Volume 10.2 fl (7.4-10.4); Monocytes # 0.3 K/mm3 (0.1-1.0); Monocytes % 5.4 % (1.7-9.3); Neutrophils # 3.6 K/mm3 (1.8-7.8); Neutrophils % 72.5 % (37.0-80.0); Platelet Count 168 K/mm3 (142-424); Red Blood Count 4.12 M/mm3 (4.60-6.20); Red Cell Distribution Width 15.2 % (11.5-17.5); White Blood Count 4.9 K/mm3 (4.8-10.8)
[2022-04-17 07:24] LABS: Chloride 114 mmol/L (98-107); Sodium 145 mmol/L (136-145)
[2022-04-17 07:25] LABS: Potassium 4.2 mmoL/L (3.5-5.1)
[2022-04-17 07:27] LABS: Blood Urea Nitrogen 33 mg/dl (9-20); Creatinine Clearance Estimated 99 mL/min (50-200); Estimated Glomerular Filt Rate 136 ml/min (>60); GFR (African American) 164 ML/MIN (>60)
[2022-04-17 07:28] LABS: Anion Gap 9.2 mEq/L (5-15); Calcium 8.5 mg/dl (8.4-10.2); Carbon Dioxide 26 mmol/L (22.0-30.0); Glucose 254 mg/dl (74-100)
[2022-04-17 08:00] VITALS: BP 146/63; PULSE 85; RESP 22; TEMP 36.5; O2SAT 94
--- NOTE | 2022-04-17 09:11 | DIET.NUTRFU ---
RD rounded with provider today, patient continues to tolerate TF, no residual. Has discharge from PEG area. TF running at 50ml/hr, goal rate is 55ml/hr. Possible discharge to [place] tomorrow for LTC. Wt is up from admit of 88kg to 93kg, he does have noticeable edema to hands. Output good 1300-1900ml/day via handy. No noted BM, provider aware. Labs: Na 145, K 4.2, BUN 33H, Cr 0.60L, gluc 254H. IVF continues along with insulin, ABT and reglan. Will continue to monitor TF tolerance
--- NOTE | 2022-04-17 09:36 | HMH.ACPN2 ---
Internal Medicine - PN: Subj *Date: 04/17/22 *Time: 09:36 Interval history: Patient is remained hemodynamically stable overnight. Labs have improved, has been afebrile for 24 hours. Exam Vital signs and Labs for Last 24 Hours: Temp Pulse Resp BP Pulse Ox 97.7 F 85 22 146/63 H 94 L 04/17/22 08:00 04/17/22 08:00 04/17/22 08:00 04/17/22 08:00 04/17/22 08:00 Laboratory Results - last 24 hr 04/15/22 21:01: POC Glucose 143 H 04/16/22 06:34: Hgb 11.1 L D 04/16/22 06:49: POC Glucose 158 H 04/16/22 22:27: POC Glucose 161 H 04/17/22 06:50: WBC 4.9, RBC 4.12 L, Hgb 12.4 L, Hct 38.7 L, MCV 93.9, MCH 30.1, MCHC 32.0, RDW 15.2, Plt Count 168, MPV 10.2, Neut % (Auto) 72.5, Lymph % (Auto) 20.2, [place] % (Auto) 5.4, Eos % (Auto) 1.3, Baso % (Auto) 0.6, Neut # (Auto) 3.6, Lymph # (Auto) 1.0, [place] # (Auto) 0.3, Eos # (Auto) 0.1, Baso # (Auto) 0.0 04/17/22 06:50: Sodium 145, Potassium 4.2 D, Chloride 114 H, Carbon Dioxide 26, Anion Gap 9.2, BUN 33 H D, Creatinine 0.60 L D, Estimated Creat Clear 99, Estimated GFR 136, Est GFR ( Amer) 164 D, Glucose 254 H, Calcium 8.5 I & O for Last 24 hours: Intake & Output 04/14/22 04/15/22 04/16/22 04/17/22 11:59 11:59 11:59 11:59 Intake Total 1023 / 1023 1195 / 1195 3069 / 3069 2424 / 2424 Output Total 1325 / 1325 1200 / 1200 1425 / 1425 2300 / 2300 Balance -302 / -302 -5 / -5 1644 / 1644 124 / 124 Weight 195 lb 4.991 oz 199 lb 6.4 oz 206 lb 206 lb 2.115 oz Microbiology Reports for the Last 24 Hours: Microbiology 04/13/22 18:38 Blood Blood Culture - Preliminary Escherichia coli 04/13/22 18:38 Blood Blood Culture - Final Escherichia coli 04/13/22 18:23 Urine,Random Urine Culture - Final Escherichia coli Narrative: Patient is responsive to tactile and verbal stimuli, turned his head to look at me when I am speaking. Anterior lung price have rhonchi but at baseline, heart rate regular. Abdomen is soft, G-tube site has some drainage but this is at baseline. His abdomen is otherwise soft. Extremities have a significant neurologic deficit as previously noted. Assessment and Plan (1) Severe sepsis Status: Acute Category: Medical Code(s): A41.9 - Sepsis, unspecified organism; R65.20 - Severe sepsis without septic shock (2) Bacteremia Status: Acute Category: Medical Code(s): R78.81 - Bacteremia (3) Altered mental status Status: Acute Qualifiers: Altered mental status type: unspecified Qualified Code(s): R41.82 - Altered mental status, unspecified Category: Medical Code(s): R41.82 - Altered mental status, unspecified (4) UTI (urinary tract infection) Status: Acute Qualifiers: Urinary tract infection type: acute cystitis Hematuria presence: without hematuria Qualified Code(s): N30.00 - Acute cystitis without hematuria Category: Medical Code(s): N39.0 - Urinary tract infection, site not specified (5) Gastrointestinal tube present Status: Chronic Category: Medical Code(s): Z93.1 - Gastrostomy status (6) History of seizure Status: Chronic Category: Medical Code(s): Z87.898 - Personal history of other specified conditions (7) TBI (traumatic brain injury) Status: Chronic Qualifiers: Encounter type: subsequent encounter Loss of consciousness presence/duration: with LOC of unspecified duration Qualified Code(s): S06.9X9D - Unspecified intracranial injury with loss of consciousness of unspecified duration, subsequent encounter Category: Medical Code(s): S06.9X9A - Unspecified intracranial injury with loss of consciousness of unspecified duration, initial encounter (8) NUBIA (acute kidney injury) Status: Acute Category: Medical Code(s): N17.9 - Acute kidney failure, unspecified (9) Diabetes mellitus Status: Chronic Qualifiers: Diabetes mellitus type: type 2 Diabetes mellitus compl
--- NOTE | 2022-04-17 09:39 | SW/DCPLANNER ---
Addendum entered by Whitley Roche 04/18/22 08:51: The plan for this patient is to return to [facility] w/ IV antibiotics today. I have updated Rody sandoval/ [facility] regarding discharge plan. COVID swab will be collected prior to discharge. Original Note: This patient currently resides [facility]. I will fax all patient information to Rody with [facility]. Patient could potentially discharge back to [facility] tomorrow.
--- NOTE | 2022-04-17 11:21 | HMH.ACPN2 ---
Internal Medicine - PN: Subj *Date: 04/17/22 *Time: 11:21 Exam Vital signs and Labs for Last 24 Hours: Temp Pulse Resp BP Pulse Ox 97.7 F 85 22 146/63 H 94 L 04/17/22 08:00 04/17/22 08:00 04/17/22 08:00 04/17/22 08:00 04/17/22 08:00 Laboratory Results - last 24 hr 04/16/22 22:27: POC Glucose 161 H 04/17/22 06:50: WBC 4.9, RBC 4.12 L, Hgb 12.4 L, Hct 38.7 L, MCV 93.9, MCH 30.1, MCHC 32.0, RDW 15.2, Plt Count 168, MPV 10.2, Neut % (Auto) 72.5, Lymph % (Auto) 20.2, [place] % (Auto) 5.4, Eos % (Auto) 1.3, Baso % (Auto) 0.6, Neut # (Auto) 3.6, Lymph # (Auto) 1.0, [place] # (Auto) 0.3, Eos # (Auto) 0.1, Baso # (Auto) 0.0 04/17/22 06:50: Sodium 145, Potassium 4.2 D, Chloride 114 H, Carbon Dioxide 26, Anion Gap 9.2, BUN 33 H D, Creatinine 0.60 L D, Estimated Creat Clear 99, Estimated GFR 136, Est GFR ( Amer) 164 D, Glucose 254 H, Calcium 8.5 I & O for Last 24 hours: Intake & Output 04/14/22 04/15/22 04/16/22 04/17/22 23:59 23:59 23:59 23:59 Intake Total 1218 / 1218 1845 / 1845 2224 / 2224 2424 / 2424 Output Total 5 / 2525 1124 / 2024 1900 / 3200 1300 / 1300 Balance -707 / -1307 720 / -180 324 / -976 1124 / 1124 Weight 88.59 kg 90.446 kg 93.44 kg 93.5 kg Microbiology Reports for the Last 24 Hours: Microbiology 04/13/22 18:38 Blood Blood Culture - Preliminary Escherichia coli 04/13/22 18:38 Blood Blood Culture - Final Escherichia coli 04/13/22 18:23 Urine,Random Urine Culture - Final Escherichia coli Assessment and Plan (1) Severe sepsis Status: Acute Category: Medical Code(s): A41.9 - Sepsis, unspecified organism; R65.20 - Severe sepsis without septic shock (2) Bacteremia Status: Acute Category: Medical Code(s): R78.81 - Bacteremia (3) Altered mental status Status: Acute Qualifiers: Altered mental status type: unspecified Qualified Code(s): R41.82 - Altered mental status, unspecified Category: Medical Code(s): R41.82 - Altered mental status, unspecified (4) UTI (urinary tract infection) Status: Acute Qualifiers: Urinary tract infection type: acute cystitis Hematuria presence: without hematuria Qualified Code(s): N30.00 - Acute cystitis without hematuria Category: Medical Code(s): N39.0 - Urinary tract infection, site not specified (5) Gastrointestinal tube present Status: Chronic Category: Medical Code(s): Z93.1 - Gastrostomy status (6) History of seizure Status: Chronic Category: Medical Code(s): Z87.898 - Personal history of other specified conditions (7) TBI (traumatic brain injury) Status: Chronic Qualifiers: Encounter type: subsequent encounter Loss of consciousness presence/duration: with LOC of unspecified duration Qualified Code(s): S06.9X9D - Unspecified intracranial injury with loss of consciousness of unspecified duration, subsequent encounter Category: Medical Code(s): S06.9X9A - Unspecified intracranial injury with loss of consciousness of unspecified duration, initial encounter (8) NUBIA (acute kidney injury) Status: Acute Category: Medical Code(s): N17.9 - Acute kidney failure, unspecified (9) Diabetes mellitus Status: Chronic Qualifiers: Diabetes mellitus type: type 2 Diabetes mellitus complication status: with hyperglycemia Category: Medical Code(s): E11.9 - Type 2 diabetes mellitus without complications (10) Hypernatremia Status: Acute Category: Medical Code(s): E87.0 - Hyperosmolality and hypernatremia The patient's infection will respond to the chosen ABx?: Yes Is the patient receiving the right drug, dose, and route?: Yes Could a more targeted ABx be ordered?: No (DEESCALATED FROM CEFEPIME TO ROCEPHIN THIS AM.)
[2022-04-17 11:37] LABS: POC Glucose,Bedside 228 (70-110)
[2022-04-17 11:37] LABS: POC Glucose,Bedside 210 (70-110)
[2022-04-17 12:00] VITALS: BP 136/66; PULSE 82; RESP 20; TEMP 36.8; O2SAT 93
--- NOTE | 2022-04-17 12:00 | PC.NURSE ---
ATTEMPTED 3 STICKS RIGHT ARM FOR PICC; UNABLE TO ACCESS VEIN WITH ANY. CALLED AND LEFT MESSAGE WITH CARE MANAGEMENT FOR MD.
[2022-04-17 16:00] VITALS: BP 149/73; PULSE 90; RESP 21; TEMP 36.4; O2SAT 94
--- NOTE | 2022-04-17 17:30 | PC.NURSE ---
VS stable. Patient much more alert today. Patient confused, baseline. Patient on room air. Plan to discharge back home tomorrow
[2022-04-17 17:43] LABS: POC Glucose,Bedside 190 (70-110)
[2022-04-17 20:00] VITALS: BP 158/84; PULSE 98; RESP 20; TEMP 36.6; O2SAT 91
[2022-04-17 22:57] LABS: POC Glucose,Bedside 169 (70-110)
[2022-04-18] VITALS: BP 161/79; PULSE 103; RESP 18; TEMP 36.8; O2SAT 90
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
[2022-04-18 04:00] VITALS: BP 157/86; PULSE 94; RESP 20; TEMP 36.4; O2SAT 92
[2022-04-18 05:00] VITALS: BMI 27.6
--- NOTE | 2022-04-18 06:46 | PC.NURSE ---
No acute changes. Pt tolerating PEG tube feed well with residuals <10ml/4hrs. Pt has been q2 turned and oral care performed. Call light within reach.
[2022-04-18 07:15] LABS: POC Glucose,Bedside 198 (70-110)
[2022-04-18 07:44] LABS: Chloride 113 mmol/L (98-107); Potassium 4.1 mmoL/L (3.5-5.1); Sodium 143 mmol/L (136-145)
[2022-04-18 07:47] LABS: Blood Urea Nitrogen 22 mg/dl (9-20); Creatinine Clearance Estimated 100 mL/min (50-200); Estimated Glomerular Filt Rate 136 ml/min (>60); GFR (African American) 164 ML/MIN (>60)
[2022-04-18 07:48] LABS: Anion Gap 7.1 mEq/L (5-15); Calcium 8.2 mg/dl (8.4-10.2); Carbon Dioxide 27 mmol/L (22.0-30.0); Glucose 211 mg/dl (74-100)
--- NOTE | 2022-04-18 07:50 | XR_ITS ---
FINAL REPORT CLINICAL HISTORY: Wheezes, shortness of breath COMPARISON: April 13, 2022 FINDINGS: A single portable view of the chest was obtained. A right-sided shunt catheter is present. The heart size and pulmonary vascularity are within normal limits. The mediastinum is within normal limits. There is elevation of the right hemidiaphragm. There is bibasilar atelectasis or scarring. There is right pleural thickening versus a small pleural effusion. A presumed chronic fracture of the distal left humerus is noted. IMPRESSION: No significant change from the prior exam. Reviewed, Interpreted and Dictated by Robert Ortiz III, MD Transcribed by Coco Fulton Authenticated and [facility]
[2022-04-18 08:00] VITALS: BP 157/82; PULSE 93; RESP 21; TEMP 36.8; O2SAT 91
[2022-04-18 08:09] VITALS: PULSE 94; PULSE 95
--- NOTE | 2022-04-18 08:09 | PC.NURSE ---
RESP CARE NOTE: Pt given neb tx per Dr Holloway order. BBS are clear but an audible wheeze is heard in patient's upper airway. Encouraged patient to cough, and clear his throat. Caregiver also encouraging patient to clear his throat. Will continue to monitor patient.
[2022-04-18 09:07] LABS: Influenza A, PCR Not Detected (NotDetected); Influenza B, PCR Not Detected (NotDetected)
[2022-04-18 09:46] LABS: Coronavirus 19, PCR Not Detected (NotDetected)
--- NOTE | 2022-04-18 10:31 | PC.NURSE ---
Called report to Diana @ [facility], premag changed to Dara kim prior to d/c.
[2022-04-18 16:52] LABS: Basophils # 0.1 K/mm3 (0-0.2); Basophils % 2.2 % (0.1-2.0); Eosinophils # 0.2 K/mm3 (0.0-0.4); Eosinophils % 2.8 % (0.1-12.0); Hematocrit 37.2 % (42.0-52.0); Lymphocytes # 1.2 K/mm3 (0.7-4.5); Lymphocytes % 23.2 % (10-50); Mean Corpuscular HGB Conc 32.4 g/dL (31.8-35.4); Mean Corpuscular Hemoglobin 30.5 pg (27.0-31.2); Mean Corpuscular Volume 94.2 fl (80-94); Mean Platelet Volume 12.3 fl (7.4-10.4); Monocytes # 0.4 K/mm3 (0.1-1.0); Monocytes % 7.4 % (1.7-9.3); Neutrophils # 3.6 K/mm3 (1.8-7.8); Neutrophils % 66.5 % (37.0-80.0); Platelet Count 193 K/mm3 (142-424); Red Blood Count 3.95 M/mm3 (4.60-6.20); Red Cell Distribution Width 15.2 % (11.5-17.5); White Blood Count 5.3 K/mm3 (4.8-10.8)
--- NOTE | 2022-04-19 14:48 | CARE MANAGER ---
Spoke with Es hopper at [facility], regarding patient and she states that patient is doing well and has no needs at this time.
== END 2022-04-18 10:55 | DRG 871 ==
LOC: ER 19:58 → 2ND 20:59
PROVIDERS: Internal Medicine Adolescent Medicine; Admitting Provider Internal Medicine Adolescent Medicine; Emergency Provider Emergency Medicine; PCP Nurse Practitioner Family; Visit Provider Internal Medicine Adolescent Medicine
DX: A41.51 Sepsis due to Escherichia coli [E. coli] (principal); R65.21 Severe sepsis with septic shock; N39.0 Urinary tract infection, site not specified; N17.9 Acute kidney failure, unspecified; E87.0 Hyperosmolality and hypernatremia; I25.10 Atherosclerotic heart disease of native coronary artery without angina pectoris; Z86.718 Personal history of other venous thrombosis and embolism; H40.9 Unspecified glaucoma; E03.9 Hypothyroidism, unspecified; E78.5 Hyperlipidemia, unspecified; Z87.820 Personal history of traumatic brain injury; Z93.1 Gastrostomy status; B96.20 Unspecified Escherichia coli [E. coli] as the cause of diseases classified elsewhere; E11.65 Type 2 diabetes mellitus with hyperglycemia; Z66 Do not resuscitate; Z74.01 Bed confinement status; Z79.4 Long term (current) use of insulin
CPT/HCPCS: 36415; 51702; 71045; 74018; 80048; 80053; 80202; 81001; 82247; 82962; 83605; 83735; 84484; 85007; 85025; 85610; 85730; 87040; 87077; 87081; 87086; 87088; 87186; 93005; 94640; 99291; C1751; C9803; J0696; U0003; U0005

== ENCOUNTER 2022-11-22 05:17 | Observation (INO) | payer MEDICARE, OTHER, SELFPAY ==
[2022-11-22] VITALS (23 sets, daily range): BP systolic 95–162; BP diastolic 55–85; PULSE 74–105; RESP 18–36; TEMP 35.5–37.5; O2SAT 81–100; BMI 31.7; BMI 27.3
--- NOTE | 2022-11-22 05:10 | ECG_ITS ---
APPROVED REPORT Exam: Resting ECG HR:90 bpm ECG Measurements Heart Rate 90 AXES HI 136 P 78 QRSd 100 QRS 106 QT 355 T 88 QTc 403 Conclusion SINUS RHYTHM RIGHT AXIS DEVIATION [QRS AXIS > 100] INCOMPLETE RIGHT BUNDLE BRANCH BLOCK [90+ ms QRS DURATION, TERMINAL R IN V1/V2, 40+ ms S IN I/aVL/V4/V5/V6] ABNORMAL ECG UNCONFIRMED REPORT Electronically signed by : Rafy Tomas MD 11/22/2022 17:37:01
--- NOTE | 2022-11-22 05:24 | XR_ITS ---
PROCEDURE INFORMATION: Exam: XR Chest Exam date and time: 11/22/2022 5:51 AM Age: 62 years old Clinical indication: Shortness of breath; Additional info: SOA TECHNIQUE: Imaging protocol: Radiologic exam of the chest. Views: 1 view. COMPARISON: CR XR CHEST PORTABLE 04/18/2022 8:19 AM FINDINGS: Tubes, catheters and devices: Intact tubing right neck, chest and right upper abdomen. Lungs: No consolidation. Pleural spaces: Similar right pleural effusion versus pleural thickening. Heart/Mediastinum: Unremarkable. No cardiomegaly. Diaphragm: Marked elevation of the right hemidiaphragm again noted. Bones/joints: Levocurvature of the cervical and thoracic spine again noted. Chronic changes left proximal humerus. Organs: Interposition of the liver and colon. IMPRESSION: No change from prior exam.
[2022-11-22 05:28] LABS: Coronavirus 19, PCR Not Detected (NotDetected); Influenza A, PCR Not Detected (NotDetected); Influenza B, PCR Not Detected (NotDetected)
[2022-11-22 05:28] LABS: ABG Base Excess 7.8 mmol/L (-2.4-2.3); ABG Oxygen Saturation 95 % (90-100); ABG PH 7.38 mmol/L (7.35-7.45); ABG PO2 71.6 mmhg (80-100); ABG TCO2 34.7 mmhg (23-27)
[2022-11-22 05:30] LABS: Allen's Test Acceptable; Source Right Radial
--- NOTE | 2022-11-22 05:45 | PC.NURSE ---
Dr. Arriola notified of critical abg result
--- NOTE | 2022-11-22 06:00 | PC.NURSE ---
Labs delayed d/t difficulty with obtaining blood. Successful insertion of 20g PIV to R distal forearm. technician automatic & 2x RN have attempted lab collection without success. aware
--- NOTE | 2022-11-22 06:12 | PC.NURSE ---
pt's brother at bedside
[2022-11-22 06:41] LABS: Basophils # 0.1 K/mm3 (0-0.2); Basophils % 0.7 % (0.1-2.0); Eosinophils # 0.1 K/mm3 (0.0-0.4); Eosinophils % 1.6 % (0.1-12.0); Hematocrit 50.1 % (42.0-52.0); Hemoglobin 16.2 g/dL (14.1-18.0); Lymphocytes # 1.7 K/mm3 (0.7-4.5); Lymphocytes % 24.5 % (10-50); Mean Corpuscular HGB Conc 32.4 g/dL (31.8-35.4); Mean Corpuscular Hemoglobin 31.7 pg (27.0-31.2); Mean Corpuscular Volume 97.9 fl (80-94); Mean Platelet Volume 10.1 fl (7.4-10.4); Monocytes # 0.5 K/mm3 (0.1-1.0); Monocytes % 6.3 % (1.7-9.3); Neutrophils # 4.7 K/mm3 (1.8-7.8); Platelet Count 177 K/mm3 (142-424); Red Blood Count 5.12 M/mm3 (4.60-6.20); Red Cell Distribution Width 15.4 % (11.5-17.5); White Blood Count 7.1 K/mm3 (4.8-10.8)
[2022-11-22 06:48] LABS: Alanine Aminotransferase 67 U/L (12-78); Albumin Level 3.2 g/dl (3.5-5.0); Albumin/Globulin Ratio 1.1 (1.1-1.8); Alkaline Phosphatase 128 U/L (38-126); Anion Gap 5.8 mEq/L (5-15); Aspartate Amino Transferase 38 U/L (17-59); Bilirubin,Total 0.3 mg/dl (0.2-1.3); Blood Urea Nitrogen 63 mg/dl (9-20); Calcium 8.5 mg/dl (8.4-10.2); Carbon Dioxide 35 mmol/L (22.0-30.0); Chloride 106 mmol/L (98-107); Creatinine Clearance Estimated 100 mL/min (50-200); Estimated Glomerular Filt Rate 97 ml/min (>60); GFR (African American) 118 ML/MIN (>60); Globulin 2.8 g/dL (1.3-3.2); Glucose 173 mg/dl (74-100); Lipase 101 U/L (23-300); Potassium 4.8 mmoL/L (3.5-5.1); Sodium 142 mmol/L (136-145)
--- NOTE | 2022-11-22 06:49 | PC.NURSE ---
called respiratory, pt's sats maintaining 88% despite repositioning, and they are placing pt on venti mask
[2022-11-22 06:55] LABS: C-Reactive Protein 2.3 mg/L (0-4)
--- NOTE | 2022-11-22 06:59 | PC.NURSE ---
Venti mask placed per respiratory @ 35%, sat's 94-97% at this time
[2022-11-22 07:00] LABS: NT Pro Brain Natriuretic Pep. 120 pg/mL (0-125)
[2022-11-22 07:04] LABS: Lactic Acid 1.1 mmol/L (0.7-2.1)
[2022-11-22 07:06] LABS: Erythrocyte Sedimentation Rate 8 mm/hr (0-20)
[2022-11-22 07:08] LABS: Magnesium 2.3 mg/dl (1.6-2.3)
--- NOTE | 2022-11-22 07:12 | HMH.EDURI ---
Discharge Plan Disposition Patient Disposition: Admitted As Inpatient Chief Complaint: Upper Respiratory Infection Prescriptions Prescriptions: No Action quetiapine 25 MG tablet 25 mg G-TUBE HS oxcarbazepine 150 MG tablet 150 mg G-TUBE TID metoclopramide HCl 5 MG/5 solution 10 ml G-TUBE QID pravastatin 80 MG tablet 80 mg G-TUBE HS levothyroxine 100 MCG tablet 100 mcg G-TUBE DAILY glucagon 1 MG recon soln 1 mg IN BIDP PRN (Reason: Low blood sugar) menthol-zinc oxide 113 GM ointment 1 applicatio TOPICAL BID insulin glargine 100 UNIT/ML insulin pen 28 units SQ BID insulin lispro 100 UNIT/ML solution See Protocol SQ DIRECTED Protocol: Insulin Corrective High-Dose Regimen Condition: Fingerstick Blood Glucose Dose/Route: Insulin Units Condition: 151-200 mg/dl Dose/Route: 5 units/SQ Condition: 201-250 mg/dl Dose/Route: 7 units/SQ Condition: 251-300 mg/dl Dose/Route: 10 units/SQ Condition: 301-350 mg/dl Dose/Route: 12 units/SQ Condition: 351-400 mg/dl Dose/Route: 15 units/SQ Condition: 401-450 mg/dl Dose/Route: 20 units/SQ Condition: > 450 mg/dl Dose/Route: CALL MD Protocol Text: High Intensity Sliding Scale Insulin Rx Instructions: sliding scale insulin polyethylene glycol 3350 17 GM powder in packet 17 gm G-TUBE DAILY acetaminophen 325 MG tablet 650 mg G-TUBE Q4HP PRN (Reason: As Needed For Fever Or Pain) carboxymethylcellulose sodium 15 ML drops, liquid gel 1 drp OP TID pediatric multivitamin no.118 237 ML liquid 15 ml G-TUBE DAILY omeprazole 40 MG capsule,delayed release(DR/EC) 40 mg G-TUBE DAILY zonisamide 100 MG capsule 400 mg G-TUBE HS zinc oxide 28.35 GM ointment 1 applicatio TP TID PRN (Reason: Irritation) nystatin 30 GM cream 1 applicatio TOPICAL TID carvedilol 12.5 mg tablet 12.5 mg feeding tube BID hydrocodone-acetaminophen 7.5-325 mg tablet 1 tab feeding tube QID cephalexin 500 mg capsule 500 mg feeding tube DAILY Eliquis 5 mg tablet 5 mg feeding tube BID Saccharomyces boulardii [Florastor] 250 mg Capsule 250 mg PO BID Pro-Stat Sugar Free 15-100 gram-kcal/30 mL Liquid 1 ea feeding tube BID amlodipine 10 mg tablet 10 mg feeding tube DAILY Referrals Follow up/Referrals: Rafy Tomas MD [Primary Care Provider] - See instructions Clinical Impressions Clinical Impression: Respiratory failure with hypercapnia, Diabetes mellitus, TBI (traumatic brain injury), Severe sepsis with acute organ dysfunction Discharge ED Provider: Roman Arriola URI/Sore Throat HPI General Chief Complaint: Upper Respiratory Infection Stated Complaint: SOA, 5-10 sec of apnea Time Seen by Provider: 11/22/22 06:00 Mode of Arrival: EMS Source of Information: EMS and Medical Record Limitations: physical and language barrier Description of Symptoms (Recalled from ER Triage Doc. by RN): Patient arrives via ems from [facility]. Per retirement report, during routine rounding they found the patients respirations to be more labored than usual with 10 second periods of apnea. EMS states that when they arrived patients room oxygen level was 88% on room air so they began him on 2L of oxygen. Patient just finished his antibiotics yesterday for pneumonia and per nsg home has continued to have heavy secretions when being suctioned. History of Present Illness HPI Narrative: pt sent from [facility] with inc diff with resp with episodes of apnea was low sat on room air - recently treated at [facility] for pneumonia MD Complaint: other (sob) Onset (ago): day(s) Duration: intermittent Severity: severe Able to tolerate fluids by mouth: No Related Data Home Medications Medication Instructions Recorded Confirmed metoclopramide HCl 5 mg/5 mL oral 10 ml G-tube QID Heartburn 02/25/18 11/22/22 solution oxcarbazepine 150 mg tablet 150 mg G-tube
--- NOTE | 2022-11-22 07:21 | PC.NURSE ---
MD requesting 2nd ABG d/t increased need for O2 and less responsiveness
[2022-11-22 07:24] LABS: Troponin I < 0.01 ng/ml (0.00-0.034)
[2022-11-22 07:28] LABS: Microscopic, Urine URINE MICROSCOPIC (MICROSCOPIC)
[2022-11-22 07:30] LABS: Appearance,Urine CLEAR (Clear); Bilirubin,Urine Negative (Negative); Blood, Urine 2+ (Negative); Color,Urine YELLOW (Yellow); Glucose,Urine (UA) Negative (Negative); Ketones,Urine Negative (Negative); Leukocyte Esterase,Urine Negative (Negative); Nitrate,Urine Negative (Negative); PH,Urine 6.5 (5.0-8.5); Protein,Urine 3+ (Negative); Specific Gravity, Urine 1.025 (1.005-1.030); Urobilinogen,Urine 0.2 EU/dl (0.2)
--- NOTE | 2022-11-22 07:31 | PC.NURSE ---
family at BS
[2022-11-22 07:41] LABS: Bacteria,Urine Trace /lpf; RBC,Urine 20-50 #/hpf (0-3); Squamous Epithelial Cell,Urine Occasional #/hpf (0-5)
[2022-11-22 07:41] LABS: ABG Base Excess 3.7 mmol/L (-2.4-2.3); ABG HCO3 30.6 mmhg (22.0-26.0); ABG Oxygen Saturation 95 % (90-100); ABG PH 7.27 mmol/L (7.35-7.45); ABG PO2 78.8 mmhg (80-100); ABG TCO2 32.7 mmhg (23-27)
[2022-11-22 07:44] LABS: Allen's Test acceptable; Oxygen 35% %
[2022-11-22 07:45] LABS: ABG PCO2 68.5 mmhg (35.0-45.0)
--- NOTE | 2022-11-22 07:47 | PC.NURSE ---
critical abg results given to ERICH JUNG MD states to have RT place pt on bipap, RT notified
--- NOTE | 2022-11-22 07:53 | PC.NURSE ---
RESPIRATORY NOTIFIED OF BI-PAP ORDER
--- NOTE | 2022-11-22 08:02 | PC.NURSE ---
Respiratory at BS with BiPAP
--- NOTE | 2022-11-22 08:05 | PC.NURSE ---
ER MD Arriola speaking with Dr. Tomas
--- NOTE | 2022-11-22 08:06 | PC.NURSE ---
Spoke to Maria Del Carmen in care management regarding admission
--- NOTE | 2022-11-22 08:39 | PC.NURSE ---
report called to [facility]
--- NOTE | 2022-11-22 08:48 | PC.NURSE ---
notified Dr. Tomas of pt bp trending down, current bp 95/57 Dr. Tomas gave verbal order for sepsis bolus for pt. notified receiving nurse rachel dawn of new order on pt and updated bp
--- NOTE | 2022-11-22 08:58 | PC.NURSE ---
patient arrived to floor by stretcher from ED
--- NOTE | 2022-11-22 09:45 | SW/DCPLANNER ---
Addendum entered by Whitley Roche 11/23/22 08:02: The plan for this patient is to return to [facility] level of care today. Mirna sandoval/ [facility] has been updated and will not need an additional COVID swab. Original Note: This patient currently resides at [facility] level of care. I will continue to follow up with Mirna at [facility] regarding this patient.
--- NOTE | 2022-11-22 10:19 | P.CONPHA_ITS ---
Pharmacy Intervention Comments: MEDICATION RECONCILIATION COMPLETED ON PATIENT USING MAR FROM LONG TERM. -DOROTA KIRBY, SOHAMD
--- NOTE | 2022-11-22 10:19 | HMH.PHAINT1 ---
Pharmacy Intervention Comments: MEDICATION RECONCILIATION COMPLETED ON PATIENT USING MAR FROM [facility]. -DOROTA KIRBY, SOHAMD
[2022-11-22 11:27] LABS: Troponin I < 0.01 ng/ml (0.00-0.034)
[2022-11-22 12:26] LABS: POC Glucose,Bedside 206 (70-110)
--- NOTE | 2022-11-22 12:48 | PC.WOUNDNOTE ---
AREA UNDER L ARM
--- NOTE | 2022-11-22 12:49 | PC.WOUNDNOTE ---
ABRASIONS UNDER R BUTTOCK
--- NOTE | 2022-11-22 13:45 | DIET.NUTRFU ---
Patient is from [facility] called and verified TF regimen. Glucerna 1.5 at 55ml/hr x22 hours rest from 12-2pm. Nurse also confirmed he has not been able to tolerate increased rate higher than 55ml/hr. Nursing reported him tolerating feedings with minimal residuals. Wt stable. Take prostat sugar free BID for wound needs. Started on Prostat AWC BID to provide 34gm protein and 206kcal, AWC is not sugar free, may cause elevated BS. Insulin in place. He is also receiving dextrose IVF, TF has not been resumed yet. When appropriate will start glucerna 1.0 at 20ml/hr, facility does not have glucerna 1.5 available. Increase as tolerated to goal rate of 55ml/hr based on tolerance. At 55ml/hr it will provide 1320kcal and 13gm protein, current needs are 1800-2000kcal and 85-95gm protein, unable to meet do to rate tolerance. Will start TF when medically feasible.
--- NOTE | 2022-11-22 13:55 | EXP.SEPSISRE ---
[facility] Tissue Perfusion Eval Sepsis Re-Evaluation Performed: Yes Date Performed: 11/22/22 Time Performed: 13:55
--- NOTE | 2022-11-22 14:30 | PC.NURSE ---
Addendum entered by Sherine Vernon RN 11/22/22 18:17: BIPAP REMOVED AT 1745. ORAL CARE PROVIDED. PT IS AWAKE, FOLLOWING COMMANDS AND ANSWERING SIMPLE YES OR NO QUESTIONS. O2 SATURATION 93-97% ON 3 L NC. Original Note: PT IS RESTING IN BED. RESPONSIVE TO PAIN ONLY. O2 SATURATION 90-97% ON BIPAP. LUNG SOUNDS DIMINISHED WITH SCATTERED RHONCHI. ABDOMEN SOFT/NON TENDER WITH PAIN PUMP NOTED TO THE LEFT SIDE. ABRASIONS NOTED UNDER RIGHT BUTTOCKS. OPEN AREA NOTED UNDER LEFT ARM. TURNED AND REPOSITIONED Q2H. HEELS ELEVATED WITH PILLOWS. WILL CONTINUE TO MONITOR.
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
[2022-11-22 17:11] LABS: Troponin I < 0.01 ng/ml (0.00-0.034)
[2022-11-22 17:34] LABS: POC Glucose,Bedside 246 (70-110)
[2022-11-22 20:37] LABS: POC Glucose,Bedside 265 (70-110)
[2022-11-23 03:49] VITALS: BP 133/79; PULSE 90; RESP 18; TEMP 37.1; O2SAT 99
[2022-11-23 04:00] VITALS: BMI 27.8
[2022-11-23 05:13] LABS: POC Glucose,Bedside 220 (70-110)
--- NOTE | 2022-11-23 06:23 | PC.NURSE ---
PATIENT IS TOTAL CARE/TURN Q 2 HRS AND REPOSITION. FOR MOST PART NON-VERBAL. GRUNTS OUT SOME WORDS LIKE YES-NO-HURT. HAS USED 02 AT 3LNC THROUGHOUT THIS SHIFT. 02 SATS 96-99%. MARÍA HUGGER USED DUE TO LOW TEMPERATURE 95.9 RECTAL. LAST TEMP AT 4 PM WAS 98.7 AX. MEDS GIVEN VIA J-TUBE, NO RESIDUAL.
[2022-11-23 06:35] LABS: Basophils % 0.3 % (0.1-2.0); Eosinophils % 0.2 % (0.1-12.0); Hematocrit 44.8 % (42.0-52.0); Lymphocytes # 1.3 K/mm3 (0.7-4.5); Lymphocytes % 20.4 % (10-50); Mean Corpuscular HGB Conc 31.5 g/dL (31.8-35.4); Mean Corpuscular Hemoglobin 30.8 pg (27.0-31.2); Mean Corpuscular Volume 97.9 fl (80-94); Mean Platelet Volume 10.1 fl (7.4-10.4); Monocytes # 0.5 K/mm3 (0.1-1.0); Monocytes % 7.6 % (1.7-9.3); Neutrophils # 4.5 K/mm3 (1.8-7.8); Neutrophils % 71.6 % (37.0-80.0); Platelet Count 187 K/mm3 (142-424); Red Blood Count 4.58 M/mm3 (4.60-6.20); Red Cell Distribution Width 15.1 % (11.5-17.5); White Blood Count 6.3 K/mm3 (4.8-10.8)
[2022-11-23 06:58] LABS: Anion Gap 5.7 mEq/L (5-15); Blood Urea Nitrogen 56 mg/dl (9-20); Carbon Dioxide 30 mmol/L (22.0-30.0); Chloride 109 mmol/L (98-107); Creatinine Clearance Estimated 101 mL/min (50-200); Estimated Glomerular Filt Rate 136 ml/min (>60); GFR (African American) 164 ML/MIN (>60); Glucose 241 mg/dl (74-100); Potassium 4.7 mmoL/L (3.5-5.1); Sodium 140 mmol/L (136-145)
[2022-11-23 07:39] LABS: Hemoglobin 14.1 g/dL (14.1-18.0)
[2022-11-23 08:00] VITALS: BP 131/78; PULSE 90; RESP 18; TEMP 37; O2SAT 94
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
--- NOTE | 2022-11-23 09:19 | DIET.NUTRFU ---
Patient plans to return to [place] today, will restart TF at [place] on his regular regimen. No further dietary needs
== END 2022-11-23 10:42 ==
LOC: ER 08:14 → 2ND 09:54
PROVIDERS: Admitting Provider Internal Medicine Adolescent Medicine; Emergency Provider Emergency Medicine; PCP Internal Medicine Adolescent Medicine; Visit Provider Internal Medicine Adolescent Medicine
DX: Z87.820 Personal history of traumatic brain injury; Z66 Do not resuscitate; Z74.01 Bed confinement status; Z79.4 Long term (current) use of insulin; E03.9 Hypothyroidism, unspecified; E11.9 Type 2 diabetes mellitus without complications; Z93.1 Gastrostomy status; Z79.899 Other long term (current) drug therapy; J96.02 Acute respiratory failure with hypercapnia; Z86.718 Personal history of other venous thrombosis and embolism; Z79.01 Long term (current) use of anticoagulants; A41.9 Sepsis, unspecified organism; R65.20 Severe sepsis without septic shock; G93.40 Encephalopathy, unspecified; R06.9 Unspecified abnormalities of breathing; Z20.822 Contact with and (suspected) exposure to COVID-19; G82.20 Paraplegia, unspecified
CPT/HCPCS: G0378; 36415; 51702; 71045; 80048; 80053; 81001; 82803; 82962; 83605; 83690; 83735; 83880; 84484; 85025; 85651; 86140; 87040; 87081; 93005; 94760; 94761; 99285; C9803; J1956; U0003; U0005

== ENCOUNTER 2022-11-24 21:55 | Inpatient (IN) | payer MEDICARE, OTHER, SELFPAY ==
[2022-11-24 21:55] VITALS: BP 151/87; PULSE 93; RESP 17; TEMP 36.6; O2SAT 96; BMI 30.1
--- NOTE | 2022-11-24 22:16 | XR_ITS ---
PROCEDURE INFORMATION: Exam: XR Chest Exam date and time: 11/24/2022 10:32 PM Age: 62 years old Clinical indication: Shortness of breath; Additional info: SOB TECHNIQUE: Imaging protocol: Radiologic exam of the chest. Views: 1 view. COMPARISON: CR XR CHEST PORTABLE 11/22/2022 5:51 AM FINDINGS: Lungs: Chronic right lung volume loss. No acute airspace consolidation. Pleural spaces: Unremarkable. No pleural effusion. No pneumothorax. Heart/Mediastinum: Unremarkable. No cardiomegaly. Diaphragm: Chronic elevation of the right hemidiaphragm. Bones/joints: Unremarkable. IMPRESSION: No acute findings.
--- NOTE | 2022-11-24 22:17 | HMH.EDGENADL ---
Discharge Plan Disposition Patient Disposition: Admitted As Inpatient Condition: Fair Prescriptions Prescriptions: No Action oxcarbazepine 150 MG tablet 150 mg G-TUBE TID metoclopramide HCl 5 MG/5 solution 10 ml G-TUBE QID pravastatin 80 MG tablet 80 mg G-TUBE HS levothyroxine 100 MCG tablet 100 mcg G-TUBE DAILY glucagon 1 MG recon soln 1 mg IN BIDP PRN (Reason: Low blood sugar) menthol-zinc oxide 113 GM ointment 1 applicatio TOPICAL BID insulin glargine 100 UNIT/ML insulin pen 28 units SQ BID insulin lispro 100 UNIT/ML solution See Protocol SQ DIRECTED Protocol: Insulin Corrective High-Dose Regimen Condition: Fingerstick Blood Glucose Dose/Route: Insulin Units Condition: 151-200 mg/dl Dose/Route: 5 units/SQ Condition: 201-250 mg/dl Dose/Route: 7 units/SQ Condition: 251-300 mg/dl Dose/Route: 10 units/SQ Condition: 301-350 mg/dl Dose/Route: 12 units/SQ Condition: 351-400 mg/dl Dose/Route: 15 units/SQ Condition: 401-450 mg/dl Dose/Route: 20 units/SQ Condition: > 450 mg/dl Dose/Route: CALL MD Protocol Text: High Intensity Sliding Scale Insulin Rx Instructions: sliding scale insulin clindamycin HCl 300 mg capsule 300 mg PO TID levofloxacin [levofloxacin] 500 mg tablet 500 mg PO DAILY polyethylene glycol 3350 17 GM powder in packet 17 gm G-TUBE DAILY acetaminophen 325 MG tablet 650 mg G-TUBE Q4HP PRN (Reason: pain/fever) carboxymethylcellulose sodium 15 ML drops, liquid gel 1 drp OP TID pediatric multivitamin no.118 237 ML liquid 15 ml G-TUBE DAILY omeprazole 40 MG capsule,delayed release(DR/EC) 40 mg G-TUBE DAILY Rx Instructions: powder for reconstitution zonisamide 100 MG capsule 400 mg G-TUBE HS zinc oxide 28.35 GM ointment 1 applicatio TP TID PRN (Reason: pericare/barrier cream) nystatin 30 GM cream 1 applicatio TOPICAL TID carvedilol 12.5 mg tablet 12.5 mg feeding tube BID Rx Instructions: hold for SBP<100 or DBP<60 or HR<60 Eliquis 5 mg tablet 5 mg feeding tube BID Saccharomyces boulardii [Florastor] 250 mg Capsule 250 mg PO BID Pro-Stat Sugar Free 15-100 gram-kcal/30 mL Liquid 1 ea feeding tube BID amlodipine 10 mg tablet 10 mg feeding tube DAILY Rx Instructions: hold for SBP <100 hydrocodone-acetaminophen 7.5-325 mg tablet 1 tab feeding tube QID 30 Days Qty: 120 0RF Referrals Follow up/Referrals: Rafy Tomas MD [Primary Care Provider] - See instructions Clinical Impressions Clinical Impression: Acute respiratory failure with hypoxia and hypercarbia, Acute hyperkalemia, CO2 narcosis Discharge ED Provider: Bello Goodwin General Adult HPI General Chief complaint: Shortness of Breath/Dyspnea Stated complaint: SOA Time Seen by Provider: 11/24/22 22:15 Mode of Arrival: EMS Source of Information: EMS Limitations: Language Barrier Description of Symptoms (Recalled from ER Triage Doc. by RN): Per Melissa with [facility], patient has had shortness of air since roughly 1899. States that at shift change, which was 1899, patients respirations were 20-30 per minute and when she went into the patients room 30 minutes ago his respirations were 40. Patient has also not been responding to staff, staff states that thypically the patient will moan and slap at nursing staff, however tonight he has been sleeping and they have not been able to wake him. Patients family requests he come in for evaluation. History of Present Illness HPI narrative: 62yo M sent to the emergency department from [place] secondary to shortness of breath since 1899. Patient was tachypneic and hypoxic. Staff and group home report they have not been able to wake the patient for several hours. Patient with history of severe TBI and unable to contribute to his HPI upon arrival. Related Data Home Medications
[2022-11-24 22:30] VITALS: BP 142/76; PULSE 99; RESP 34; O2SAT 93
--- NOTE | 2022-11-24 22:40 | PC.NURSE ---
called respiratory to collect ABG, they state this was just completed
[2022-11-24 22:43] LABS: ABG Base Excess 4.6 mmol/L (-2.4-2.3); ABG HCO3 33.3 mmhg (22.0-26.0); ABG Oxygen Saturation 96 % (90-100); ABG PO2 81.2 mmhg (80-100); ABG TCO2 36.2 mmhg (23-27); Allen's Test Patient Unable; Oxygen 4LPM %; Source Right Radial
[2022-11-24 22:45] LABS: ABG PH 7.16 mmol/L (7.35-7.45)
--- NOTE | 2022-11-24 22:50 | PC.NURSE ---
MD would like pt to be placed on bipap, respiratory notified
[2022-11-24 23:00] VITALS: BP 146/76; PULSE 98; O2SAT 95
--- NOTE | 2022-11-24 23:08 | ECG_ITS ---
APPROVED REPORT Exam: Resting ECG HR:96 bpm ECG Measurements Heart Rate 96 AXES TN 142 P 52 QRSd 118 QRS 54 QT 360 T 35 QTc 414 Conclusion SINUS RHYTHM Borderline Right axis deviation INCOMPLETE RIGHT BUNDLE BRANCH BLOCK Isolated Q in III. Old finding ABNORMAL ECG UNCONFIRMED REPORT Electronically signed by : Rafy Tomas MD 11/25/2022 08:43:45
--- NOTE | 2022-11-24 23:12 | CT_ITS ---
PROCEDURE INFORMATION: Exam: CTA Chest With Contrast Exam date and time: 11/25/2022 12:15 AM Age: 62 years old Clinical indication: Shortness of breath; Additional info: Respiratory failure TECHNIQUE: Imaging protocol: Computed tomographic angiography of the chest with contrast. 3D rendering (Not supervised by radiologist): MIP and/or 3D reconstructed images were created by the technologist. Radiation optimization: All CT scans at this facility use at least one of these dose optimization techniques: automated exposure control; mA and/or kV adjustment per patient size (includes targeted exams where dose is matched to clinical indication); or iterative reconstruction. Contrast material: ISOVUE; Contrast volume: 70 ml; Contrast route: INTRAVENOUS (IV); Other protocol: This patient has received 0 known CTs and 0 known cardiac nuclear medicine studies in the 12 months prior to the current study. COMPARISON: CT CHEST WO CON 10/29/2020 3:29 PM FINDINGS: Tubes, catheters and devices: Spinal electrode is in place. Pulmonary arteries: Normal. No pulmonary emboli. Aorta: Ectatic ascending thoracic aorta measures up to 3.7 cm. No evidence of dissection. Lungs: Left greater than right basilar atelectasis. No convincing airspace disease. Low lung volumes. Pleural spaces: Unremarkable. No pneumothorax. No pleural effusion. Heart: Heart size is normal with mild coronary artery calcification. No aortic valve calcification appreciated. Mediastinal space: Air-fluid level noted in the proximal esophagus. Lymph nodes: Unremarkable. No enlarged lymph nodes. Bones/joints: Severe diffuse levoscoliosis noted. Severe atrophy of skeletal muscle. Soft tissues: Moderate gynecomastia. IMPRESSION: 1. No findings of acute pulmonary embolism. 2. Bilateral basilar atelectasis. Patent tracheobronchial tree. 3. Mildly ectatic ascending aorta without evidence of dissection. No aortic valve leaflet calcifications. 4. Pronounced thoracic kyphoscoliosis with distortion of the thoracic cage. Anatomy could contribute to restrictive lung disease.
--- NOTE | 2022-11-24 23:27 | PC.NURSE ---
ZOILA Sprague RN at bedside for u/s guided IV placement
[2022-11-24 23:48] LABS: Basophils # 0.2 K/mm3 (0-0.2); Eosinophils # 0.3 K/mm3 (0.0-0.4); Eosinophils % 2.4 % (0.1-12.0); Hematocrit 49.6 % (42.0-52.0); Hemoglobin 15.8 g/dL (14.1-18.0); Lymphocytes # 0.8 K/mm3 (0.7-4.5); Lymphocytes % 7.2 % (10-50); Mean Corpuscular HGB Conc 31.8 g/dL (31.8-35.4); Mean Corpuscular Hemoglobin 31.2 pg (27.0-31.2); Mean Corpuscular Volume 98.1 fl (80-94); Mean Platelet Volume 10.1 fl (7.4-10.4); Monocytes # 0.5 K/mm3 (0.1-1.0); Monocytes % 4.2 % (1.7-9.3); Neutrophils # 9.2 K/mm3 (1.8-7.8); Neutrophils % 84.2 % (37.0-80.0); Platelet Count 146 K/mm3 (142-424); Red Blood Count 5.06 M/mm3 (4.60-6.20); Red Cell Distribution Width 15.1 % (11.5-17.5); White Blood Count 10.9 K/mm3 (4.8-10.8)
[2022-11-24 23:49] LABS: Chloride 104 mmol/L (98-107); Sodium 141 mmol/L (136-145)
[2022-11-24 23:52] LABS: Alanine Aminotransferase 47 U/L (12-78); Alkaline Phosphatase 140 U/L (38-126); Anion Gap 5.2 mEq/L (5-15); Aspartate Amino Transferase 32 U/L (17-59); Bilirubin,Total 0.3 mg/dl (0.2-1.3); Blood Urea Nitrogen 64 mg/dl (9-20); Carbon Dioxide 38 mmol/L (22.0-30.0); Creatinine Clearance Estimated 101 mL/min (50-200); Estimated Glomerular Filt Rate 85 ml/min (>60); GFR (African American) 103 ML/MIN (>60)
[2022-11-24 23:53] LABS: Albumin Level 3.5 g/dl (3.5-5.0); Albumin/Globulin Ratio 1.3 (1.1-1.8); Calcium 8.5 mg/dl (8.4-10.2); Globulin 2.7 g/dL (1.3-3.2); Glucose 280 mg/dl (74-100); Total Protein,Serum 6.2 g/dl (6.3-8.2)
[2022-11-25] VITALS (18 sets, daily range): BP systolic 97–228; BP diastolic 57–102; PULSE 71–101; RESP 20–32; TEMP 36.2–37.2; O2SAT 95–100; BMI 30.6
[2022-11-25 00:02] LABS: Potassium 6.2 mmoL/L (3.5-5.1)
--- NOTE | 2022-11-25 00:02 | PC.NURSE ---
Donna from lab called, critical potassium of 6.2. notified.
[2022-11-25 00:40] LABS: Albumin Level 3.4 g/dl (3.5-5.0); Chloride 104 mmol/L (98-107); Sodium 143 mmol/L (136-145)
[2022-11-25 00:42] LABS: Blood Urea Nitrogen 62 mg/dl (9-20); Creatinine Clearance Estimated 101 mL/min (50-200); Estimated Glomerular Filt Rate 85 ml/min (>60); GFR (African American) 103 ML/MIN (>60)
[2022-11-25 00:43] LABS: Anion Gap 7.1 mEq/L (5-15); Calcium 8.5 mg/dl (8.4-10.2); Carbon Dioxide 38 mmol/L (22.0-30.0); Glucose 275 mg/dl (74-100); Phosphorous 3.9 mg/dl (2.5-4.5)
[2022-11-25 00:49] LABS: Potassium 6.1 mmoL/L (3.5-5.1)
--- NOTE | 2022-11-25 01:00 | PC.NURSE ---
Reviewed [facility] DNR form with pt's POA, this was signed and reviewed with .
--- NOTE | 2022-11-25 01:03 | PC.NURSE ---
Pt's POA & his left phone number to be reached: Goyo Patel [phone] and [phone]- Antonio (Goyo Patel's ) [facility] line
--- NOTE | 2022-11-25 01:53 | EXP.HP ---
History of Present Illness *Admission Date: 11/25/22 *Reason for visit:: Change in mental status *History of present illness: Mr. Patel is a 62-year-old male with a history of Traumatic Brain Injury and is cared for at a [facility]. He presented [facility] from the local [facility] due to change in mental status outside his normal and the appearance of shortness of air and Tachypnea. He was evaluated in the ER and found to have a significant Respiratory Acidosis and was Hypercapnic, he was also found to have a significant Hyperkalemia. Family was present at bedside and discussed care with ER Physician. He had a similar recent hospitalization in which he underwent BIPAP therapy with improvement. Family is wishing to treat Hypercapnia with BIPAP therapy and treat Hyperkalemia. In the ER, he has been placed on BIPAP and for Hyperkalemia he has been given Insulin, Dextrose, Calcium Gluconate with no significant change in levels and received Kaylexalate in the ER. The patient will be admitted with initial impression: Acute Respiratory Acidosis, Hypercapnia and Hyperkalemia. Family wishes will be followed. He is a DNR. [facility] Disclaimer: The information contained in this section may have been updated after the patient was seen, as this information can be updated by other users. Medical History Feeding by G-tube Pain TBI (traumatic brain injury) Family History Other Family history of cancer Family history of hypertension Social History (Updated 11/25/22 @ 03:36 by Magaly Ybarra RN) Smoking Status: Never smoker alcohol intake: never substance use type: denies use current occupational status: disabled Travel in the last 8 weeks: None household members: other housing: half-way current occupation: resides in half-way current occupational exposures/hazards: No diet: other caffeine: No Review of Systems Review of Systems Review of systems:: unable to obtain Meds Home Medications and Allergies Home Medications Medication Instructions Recorded Confirmed Type metoclopramide HCl 5 mg/5 mL oral 10 ml G-tube QID Heartburn 02/25/18 11/24/22 History solution oxcarbazepine 150 mg tablet 150 mg G-tube TID seizures 02/25/18 11/24/22 History pravastatin 80 mg tablet 80 mg G-tube HS Cholesterol 02/25/18 11/24/22 History levothyroxine 100 mcg tablet 100 mcg G-tube DAILY hypothyroidism 03/10/19 11/24/22 History polyethylene glycol 3350 17 gram 17 gm G-tube DAILY constipation 03/14/19 11/24/22 History oral powder packet acetaminophen 325 mg tablet 650 mg G-tube Q4HP PRN pain/fever 08/19/20 11/24/22 History carboxymethylcellulose sodium 1 % 1 drp OP TID dry eyes/both eyes 08/19/20 11/24/22 History eye liquid gel drops pediatric multivitamin no.118 15 ml G-tube DAILY vitamin 08/19/20 11/24/22 History supplement omeprazole 40 mg capsule,delayed 40 mg G-tube DAILY Acid reflux 08/20/20 11/24/22 History release zonisamide 100 mg capsule 400 mg G-tube HS seizures 08/20/20 11/24/22 History nystatin 100,000 unit/gram topical 1 applicatio TOPICAL TID 10/30/20 11/24/22 History cream IRRITATION AROUND G TUBE SITE zinc oxide 20 % topical ointment 1 applicatio TP TID PRN 10/30/20 11/24/22 History pericare/barrier cream glucagon 1 mg solution for 1 mg IN BIDP PRN Low blood sugar 10/01/21 11/24/22 History injection menthol 0.44 %-zinc oxide 20.6 % 1 applicatio TOPICAL BID 10/01/21 11/24/22 History topical ointment Pericare/barrier care insulin glargine 100 unit/mL (3 28 units SQ BID Diabetes 04/14/22 11/24/22 History mL) subcutaneous pen insulin lispro 100 unit/mL See Protocol SQ DIRECTED 04/14/22 11/24/22 History subcutaneous solution Diabetes Saccharomyces boulardii 250 mg 250 mg PO BID probiotics 11/22/22 11/24/22 History capsule (Florastor) amino acids
[2022-11-25 01:55] LABS: Coronavirus 19, PCR Not Detected (NotDetected); Influenza A, PCR Not Detected (NotDetected); Influenza B, PCR Not Detected (NotDetected)
--- NOTE | 2022-11-25 02:08 | PC.NURSE ---
Gave report to Magaly Dumont RN
[2022-11-25 02:25] LABS: ABG Base Excess 5.4 mmol/L (-2.4-2.3); ABG HCO3 33.4 mmhg (22.0-26.0); ABG Oxygen Saturation 95 % (90-100); ABG PO2 71.4 mmhg (80-100); ABG TCO2 36.1 mmhg (23-27)
--- NOTE | 2022-11-25 02:45 | PC.NURSE ---
0245 rivka stout was called abg results, no new orders at this time.
[2022-11-25 03:00] LABS: Allen's Test Patient Unable; Oxygen 35% %; Source Right Radial
[2022-11-25 03:01] LABS: Vent Rate 20
[2022-11-25 03:02] LABS: ABG PCO2 87.9 mmhg (35.0-45.0)
--- NOTE | 2022-11-25 03:53 | PC.NURSE ---
per er nurse family stated no pass code needed as information on pt can be given to anyone who calls about him.
[2022-11-25 04:28] LABS: Chloride 104 mmol/L (98-107); Potassium 5.4 mmoL/L (3.5-5.1); Sodium 143 mmol/L (136-145)
[2022-11-25 04:31] LABS: Anion Gap 6.4 mEq/L (5-15); Blood Urea Nitrogen 58 mg/dl (9-20); Calcium 8.9 mg/dl (8.4-10.2); Carbon Dioxide 38 mmol/L (22.0-30.0); Creatinine Clearance Estimated 102 mL/min (50-200); Estimated Glomerular Filt Rate 97 ml/min (>60); GFR (African American) 118 ML/MIN (>60); Glucose 277 mg/dl (74-100)
--- NOTE | 2022-11-25 05:09 | PC.NURSE ---
potassium level called to rivka stout reservoir engineer, 5.4, no new orders at this time.
--- NOTE | 2022-11-25 05:12 | PC.NURSE ---
pt admitted this shift with change in mental status, pt remains on bipap. lungs diminished, vss., not acute distress, pt is nonverbal and non responsive at this time which is no change from admission to the ER. pt incontinent of bowel and bladder. 02 sats 96% on bipap, pt remains npo, see wound pics, gt tube not in use at this time, pt is bedbound and turn q2 hours, pt is a dnr, generalized edema 2+, no other issues at this time.
[2022-11-25 05:18] LABS: ABG HCO3 34.7 mmhg (22.0-26.0); ABG Oxygen Saturation 97 % (90-100); ABG PH 7.28 mmol/L (7.35-7.45)
[2022-11-25 05:20] LABS: Allen's Test Patient Unable; Vent Rate 20
[2022-11-25 05:21] LABS: Source Right Radial
[2022-11-25 05:23] LABS: ABG PCO2 74.9 mmhg (35.0-45.0)
--- NOTE | 2022-11-25 05:29 | PC.NURSE ---
abd results called to rivka stout aprn, respiratory at bedside and spoke with provider and adjustments were made to bipap at this time per rt.
--- NOTE | 2022-11-25 05:41 | PC.WOUNDNOTE ---
right arm pit left arm pit
--- NOTE | 2022-11-25 05:53 | PC.NURSE ---
Changes made after am blood gas. Increased EPAP TO 9 , Rate to 22 and Fio2 to 45% . Hospitalist notified of changes.
[2022-11-25 09:24] LABS: ABG Base Excess 2.7 mmol/L (-2.4-2.3); ABG HCO3 30.1 mmhg (22.0-26.0); ABG Oxygen Saturation 98 % (90-100); ABG PH 7.24 mmol/L (7.35-7.45); ABG PO2 99.9 mmhg (80-100); ABG TCO2 32.3 mmhg (23-27)
[2022-11-25 09:25] LABS: Allen's Test Patient Unable; Source Right Radial; Vent Rate 22
--- NOTE | 2022-11-25 09:27 | HMH.PHAINT1 ---
Pharmacy Intervention Comments: MEDICATION RECONCILIATION COMPLETED ON PATIENT USING DISCHARGE SUMMARY FROM PREVIOUS ADMISSION. -DOROTA KIRBY, SOHAMD
[2022-11-25 09:30] LABS: ABG PCO2 71.6 mmhg (35.0-45.0)
--- NOTE | 2022-11-25 12:29 | EXP.EVENT.NO ---
Advance care planning note: Active diagnosis: Acute hypercarbic respiratory failure in the setting of chronic TBI, recurrent admissions, healthcare acquired pneumonia The patient's active diagnoses are of sufficient risk that focused discussion on advanced care planning is indicated in order to allow the patient to thoughtfully consider personal goals of care; and, if situations arise that prevent the ability to personally give input, to ensure appropriate representation of their personal desires through documentation or informed surrogate decision makers. Discussion: Discussed patient's recurring hypercapnic respiratory failure, failure to respond to BiPAP, and family's desire not to proceed/escalate with invasive ventilation. Persons present and participating in discussion: Dwight Nance and Hank Patel Discussion: Discussion with dwight at bedside about patient's current state, his readmission for recurrent hypercapnic failure. Family has had multiple discussions amongst themselves about desire to not escalate care with patient. They state that if he needed breathing machines to continue to live, they would not want to proceed with that type of care. They are very clear that they want to focus on quality of life and comfort measures for him. Given his failure to respond to BiPAP, family having additional discussion about pursuing hospice style care and withdrawing aggressive life-saving measures. Time spent: Total time spent tcxr-mg-dihp in education and discussion directly related to advance care plannin min Anson Holloway MD 11/25/2022 Discussion occurred at multiple interactions in person over the phone for total of time as above.
[2022-11-25 14:57] LABS: ABG Base Excess 10.2 mmol/L (-2.4-2.3); ABG HCO3 37.4 mmhg (22.0-26.0); ABG Oxygen Saturation 98 % (90-100); ABG PH 7.25 mmol/L (7.35-7.45); ABG PO2 100.5 mmhg (80-100)
[2022-11-25 14:59] LABS: Allen's Test Patient Unable; Source Right Radial; Vent Rate 22
[2022-11-25 15:00] LABS: ABG PCO2 86.4 mmhg (35.0-45.0)
--- NOTE | 2022-11-25 18:31 | PC.NURSE ---
SPOKE WITH DR FRANCOIS ABOUT PT FAMILY GOALS OF CARE. PT FAMILY WANTS TO PURSUE MEASURES MAKING PT MORE COMFORTABLE. DR FRANCOIS ASKED TO REMOVE PT FROM BIPAP AND PLACE HIM ON NASAL CANNULA. PT PLACED ON NC 3L O2 SATS 95%
[2022-11-26] VITALS (10 sets, daily range): BP systolic 94–130; BP diastolic 51–80; PULSE 64–100; RESP 18–24; TEMP 35–37.7; O2SAT 95–100; BMI 31.9
--- NOTE | 2022-11-26 05:23 | PC.NURSE ---
PATIENT'S 02 SAT HAS STAYED BETWEEN 95-100% ON 3LNC. FAMILY MEMBER AT BEDSIDE UNTIL 5 AM WHEN WENT HOME. BREATHSOUNDS VERY DIMINISHED ON THE RIGHT WHEN COMPARED TO LEFT. CONTACT ISOLATION MAINTAINED DUE TO MRSA/CRE. HOB ELEVATED 35 DEGREES. TURNED AND REPOSITIONED Q 2 HRS BY STAFF.
--- NOTE | 2022-11-26 06:21 | PC.NURSE ---
temp at 6:00 am was 99.4 bear paw removed
--- NOTE | 2022-11-26 07:30 | EXP.ACUTE.PN ---
Subjective *Date: 11/26/22 *Time: 10:36 Interval history: Decision to de-escalate care with family. Patient appears comfortable this morning on room air. Hospice consulted, they have seen the patient this morning, recommend transfer back to facility in the morning tomorrow. For now continue with comfort measures. Patient's temperature is slightly elevated, mild tachycardia. Blood pressure stable. No vomiting or diarrhea. Appears comfortable. Medical Exam Vital signs and Labs for Last 24 Hours: Vital Signs Temp Pulse Resp BP BP Pulse Ox FiO2 11/26/22 07:10 99.9 F H 100 H 22 130/68 100 11/26/22 06:00 99.4 F 11/26/22 04:00 97.9 F 97 H 24 127/72 95 11/26/22 02:26 97.4 F L 11/26/22 00:00 95.0 F L 64 20 94/51 L 100 11/25/22 20:00 100 11/25/22 19:54 97.1 F L 72 22 102/57 L 100 11/25/22 14:15 105/62 L 11/25/22 16:00 97.6 F 71 22 97/57 L 100 11/25/22 08:00 96 11/25/22 14:12 45 11/25/22 09:38 45 11/25/22 08:00 97.8 F 85 22 184/72 H 100 Intake and Output 11/25/22 11/25/22 11/26/22 15:59 23:59 07:59 Intake Total 200 / 200 Output Total 0 / 225 0 / 225 Balance 0 / -25 0 / -25 200 / 200 Intake: Intake, Oral Amount 0 / 0 Intake, Tube Irrigant Amount 200 / 200 Output: Output, Urine Amount 0 / 225 0 / 225 Other: Number of Unmeasured Voids 2 4 2 Weight 101.333 kg Patient Weight 11/26/22 23:59 Weight 101.333 kg Laboratory Results - last 24 hr 11/25/22 09:00: Specimen Source Right radial, O2 % 45% bipap 18/9, ABG pH 7.24 L*, ABG pCO2 71.6 H, ABG pO2 99.9, ABG HCO3 30.1 H, ABG Total CO2 32.3 H, ABG O2 Saturation 98, ABG Base Excess 2.7 H, Jarrod Test Patient unable, Vent Rate 22 11/25/22 14:58: Specimen Source Right radial, O2 % 45% bipap 18/6, ABG pH 7.25 L, ABG pCO2 86.4 H, ABG pO2 100.5 H, ABG HCO3 37.4 H, ABG Total CO2 40.0 H, ABG O2 Saturation 98, ABG Base Excess 10.2 H, Jarrod Test Patient unable, Vent Rate 22 I & O for Labs for Last 24 Hours: Intake & Output 11/23/22 11/24/22 11/25/22 11/26/22 23:59 23:59 23:59 23:59 Intake Total 200 / 200 Output Total 225 / 225 Balance -225 / -25 200 / 200 Weight 95.254 kg 97.069 kg 101.333 kg Constitutional: Present no acute distress and chronically ill appearing Head: Absent normocephalic Neck: Present normal inspection Respiratory: Present accessory muscle use, diminished air movement and normal respiratory effort; Absent rhonchi, wheezes or crackles Cardiac: Present Tachycardia GI: Present soft and normal bowel sounds; Absent distention or tenderness Comments:: G-tube in left upper quadrant, minimal bloody irritation around insertion site Skin: Present intact; Absent erythema Neuro: Present alert Assessment and Plan *Assessment and plan (1) Acute hypercapnic respiratory failure: Status: Acute Category: Medical Code(s): J96.02 - Acute respiratory failure with hypercapnia (2) Respiratory acidosis: Status: Acute Category: Medical Code(s): E87.29 - Other acidosis (3) Hyperkalemia: Status: Acute Category: Medical Code(s): E87.5 - Hyperkalemia (4) Diabetes: Status: Acute Category: Medical Code(s): E11.9 - Type 2 diabetes mellitus without complications (5) DNR (do not resuscitate): Status: Acute Category: Medical Code(s): Z66 - Do not resuscitate (6) Healthcare-associated pneumonia: Status: Acute Category: Medical Code(s): J18.9 - Pneumonia, unspecified organism (7) TBI (traumatic brain injury): Status: Chronic Category: Medical Code(s): S06.9X9A - Unspecified intracranial injury with loss of consciousness of unspecified duration, initial encounter Plan 62-year-old male with history of Traumatic Brain Injury, cared for at [facility] presents to the facility due to increased sleepiness, tachypnea
--- NOTE | 2022-11-26 08:12 | PC.NURSE ---
Started Referral process with Hospice.
--- NOTE | 2022-11-26 09:03 | PC.NURSE ---
CRE specimen collected and sent to lab
--- NOTE | 2022-11-26 10:22 | PC.NURSE ---
Hospice is here with pt.
--- NOTE | 2022-11-26 11:34 | DIET.NUTRFU ---
Patient is familiar with this RD. He is TF dependent, resident from [place]. Was recently here with [facility]. Family has decided on comfort care this admit and meeting with hospice today. Not planning to start TF at this time. Dextrose IV in place. Will continue to follow POC
--- NOTE | 2022-11-26 11:36 | PC.NURSE ---
hospice in to see pt. They spoke with the family and have agreed to send pt back to [facility] in am and will be admitted to hospice services
--- NOTE | 2022-11-26 15:52 | EXP.DC.SUM ---
General Admission date:: 11/25/22 Discharge date: 11/27/22 HPI HPI HPI: Mr. Patel is a 62-year-old male with a history of Traumatic Brain Injury and is cared for at a local [facility]. He presented to [facility] from the local [facility] due to change in mental status outside his normal and the appearance of shortness of air and Tachypnea. He was evaluated in the ER and found to have a significant Respiratory Acidosis and was Hypercapnic, he was also found to have a significant Hyperkalemia. Family was present at bedside and discussed care with ER Physician. He had a similar recent hospitalization in which he underwent BIPAP therapy with improvement. Family is wishing to treat Hypercapnia with BIPAP therapy and treat Hyperkalemia. In the ER, he has been placed on BIPAP and for Hyperkalemia he has been given Insulin, Dextrose, Calcium Gluconate with no significant change in levels and received Kaylexalate in the ER. The patient will be admitted with initial impression: Acute Respiratory Acidosis, Hypercapnia and Hyperkalemia. Family wishes will be followed. He is a DNR. Hospital Course Hospital Course Hospital Course: 62-year-old male with history of Traumatic Brain Injury, cared for at Local [facility] who presented with repeat episode of hypercapnic respiratory failure less than 48 hours after previous discharge. Patient failed to respond to BiPAP. Discussions with family about goals of care, no desire to escalate to invasive ventilation. Family is very clear that they would not want to proceed with breathing machines to keep Jose alive. Transitioning to comfort measures. Hospice consulted. Patient has had increased sleepiness, tachypnea and the apperance of shortness of air. Appears more comfortable on exam this morning. Stable for discharge back to nursing facility under hospice care. Problems during hospitalization addressed as follows: Acute Hypercapnic Respiratory Failure Respiratory acidosis -Admitted for HyperCard respiratory failure. Continued empiric antibiotics that were started at last admission. Patient was placed on BiPAP, did not respond significantly. Given failure to respond and need for continued noninvasive ventilation to survive, goals of care discussion with family led to decision to de-escalate care and proceed with comfort measures. Hospice consulted. Transition to nasal cannula oxygen. We will continue supplemental oxygen at discharge. Patient has completed 5 full days of empiric antibiotics. CT this admission does not show pneumonia. We will discontinue antibiotics at this time. -Discharge patient back to nursing facility under hospice care. Comfort measures initiated during hospitalization. Meds sent to [facility] pharmacy. Continue hydrocodone scheduled.? Initiate morphine as needed for pain, Ativan as needed for agitation, Levsin for secretions - Hyperkalemia Treated with Insulin, Dextrose and Calcium Gluconate in the ER with no significant improvement. Repeat improved, initial method of collection was through a difficult stick or fingersticks. Repeat level in the low 5 range. No longer checking given transitioning goals of care. - Diabetes: Monitored with fingersticks during admission. Given goals of care, de-escalate monitoring in the setting of fingersticks are more uncomfortable and cause pain and not in line with goals of care for comfort. We have discontinued tube feedings. Holding on insulin at this time. -DNR Exam Data for Last 24 hours Vital signs and Labs for Last 24 Hours: Temp Pulse Resp BP Pulse Ox FiO2 98.7 F 91 H 22 127/80 99 45 11/26/22 15:03 11/26/22 15:03 11/26/22 15:03 11/26/22 15:03 11/26/22 15:03 11/25/22 14:12 I & O for Last 24 hours: Intake & Output 11/23/22 11/24/22 11/25/22 11/26/22 23:59 23:59 23:59 23:59 Intake Total 200 / 200 Output Total 225 / 225 0 / 0 Balance -225 / -25 200 / 200 Weight 95.254 kg 97.069 kg 101.333 kg
--- NOTE | 2022-11-26 17:50 | PC.NURSE ---
pt has been turned at least q2 through out the shift. oral care provided per nursing staff. pt is alert and able to answer simple yes or no questions.
[2022-11-27 03:51] VITALS: BP 146/78; PULSE 89; RESP 20; TEMP 37.4; O2SAT 96; BMI 31.7
[2022-11-27 07:27] VITALS: BP 132/72; PULSE 56; RESP 18; TEMP 36.7; O2SAT 97
--- NOTE | 2022-11-27 08:01 | SW/DCPLANNER ---
Addendum entered by Whitley Roche 11/27/22 08:02: *Per Mirna sandoval/ [facility] patient will NOT need a COVID swab prior to discharge. Original Note: This patient currently resides at [facility] level of care. Per MD the plan for this patient is to return to [facility]/ Hospice services today. I will follow up with Mirna at [facility] and Melissa sandoval/ [facility].
== END 2022-11-27 10:36 | disposition hospice, inpatient (51) | DRG 193 ==
LOC: ER 11-25 01:34 → 2ND 11-25 07:39
PROVIDERS: Nurse Practitioner Family; Admitting Provider Internal Medicine Adolescent Medicine; Emergency Provider Family Medicine; PCP Internal Medicine Adolescent Medicine; Visit Provider Internal Medicine Adolescent Medicine
DX: J18.9 Pneumonia, unspecified organism (principal); J96.01 Acute respiratory failure with hypoxia; J96.02 Acute respiratory failure with hypercapnia; Z66 Do not resuscitate; Z79.4 Long term (current) use of insulin; Z51.5 Encounter for palliative care; E87.5 Hyperkalemia; E11.9 Type 2 diabetes mellitus without complications; Y95 Nosocomial condition; Z87.820 Personal history of traumatic brain injury
CPT/HCPCS: 36415; 51702; 71045; 71275; 80048; 80053; 80069; 81001; 82803; 82962; 83605; 83690; 83735; 83880; 84484; 85025; 85651; 86140; 87040; 87081; 93005; 94760; 94761; 99285; 99291; C9803; G0378; J1956; Q9967; U0003; U0005